=== PATIENT | female | born 1990 | race Caucasian/White ===

== ENCOUNTER 2019-09-21 05:46 | Emergency (ER) | payer MEDICARE, MEDICAID ==
[~2019-09-21] VITALS: Ht 152.4 cm; Wt 74.2 kg
[2019-09-21 05:51] VITALS: BP 123/78
[2019-09-21] MEDS ORDERED: ACET-2119 PO (17:26)
[2019-09-21] MEDS ORDERED: LEVE750T6 PO (17:26)
[2019-09-21] MEDS ORDERED: CLON0.1T2 PO (17:26)
[2019-09-21] MEDS ORDERED: TOP100T PO (17:26)
[2019-09-21] MEDS ORDERED: PROM25TA14 PO (17:26)
== END 2019-09-21 06:40 | disposition home or self-care (01) ==
LOC: ER 05:46
DX: F41.9 Anxiety disorder, unspecified (principal); F32.9 Major depressive disorder, single episode, unspecified; J45.909 Unspecified asthma, uncomplicated; Z76.0 Encounter for issue of repeat prescription; Z88.0 Allergy status to penicillin; Z91.040 Latex allergy status; Z88.1 Allergy status to other antibiotic agents; Z88.8 Allergy status to other drugs, medicaments and biological substances; Z79.899 Other long term (current) drug therapy
CPT/HCPCS: 99281

== ENCOUNTER 2019-09-21 15:26 | Emergency (ER) | payer MEDICARE, MEDICAID ==
[2019-09-21] MEDS ORDERED: LORazepam 1 MG tablet PO ONE (16:05)
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
[2019-09-21 16:46] LABS: URINE HCG NEGATIVE (NEG)
[2019-09-21 16:54] LABS: BASOPHILS % (AUTO) 0.6 % (0-1); EOSINOPHILS % (AUTO) 0.7 % (0-6); HEMATOCRIT 34.4 % (35.0-45.0); HEMOGLOBIN 11.5 g/dl (12.0-16.0); LYMPHOCYTES # (AUTO) 2.3 X10'3 (1.1-4.8); LYMPHOCYTES % (AUTO) 39.4 % (21-51); MEAN CORPUSCULAR HEMOGLOBIN 27.8 PG (27.0-31.0); MEAN CORPUSCULAR HGB CONC 33.4 g/dL (33.0-36.5); MEAN CORPUSCULAR VOLUME 83.2 FL (78-98); MEAN PLATELET VOLUME 11.1 FL (7.4-10.4); MONOCYTES # (AUTO) 1.1 X10'3 (0-0.9); MONOCYTES % (AUTO) 19.3 % (2-12); NEUTROPHILS # (AUTO) 2.3 X10'3 (1.8-7.7); PLATELET COUNT 148 X10'3 (140-440); RED BLOOD COUNT 4.13 X10'6 (4.20-5.60); RED CELL DISTRIBUTION WIDTH 13.7 % (11.5-14.5); WHITE BLOOD COUNT 5.7 X10'3 (4.5-11.0)
[2019-09-21 17:03] LABS: URINE AMPHETAMINE SCREEN NEGATIVE (Neg); URINE BARBITUATE SCREEN NEGATIVE (Neg); URINE BENZODIAZEPINES SCREEN NEGATIVE (Neg); URINE CANNABINOID SCREEN NEGATIVE (Neg); URINE COCAINE SCREEN NEGATIVE (Neg); URINE METHADONE SCREEN NEGATIVE (Neg); URINE OPIATE SCREEN POSITIVE (Neg); URINE PHENCYCLIDINE SCREEN NEGATIVE (Neg)
[2019-09-21 17:07] LABS: ALANINE AMINOTRANSFERASE 46 U/L (12-78); ALBUMIN 3.5 G/DL (3.4-5.0); ALBUMIN/GLOBULIN RATIO 1.1 (1.1-1.5); ALKALINE PHOSPHATASE 73 IU/L (46-116); ANION GAP 12 (8-16); ASPARTATE AMINO TRANSFERASE 43 U/L (10-37); BILIRUBIN,TOTAL 0.4 MG/DL (0.1-1.0); BLOOD UREA NITROGEN 17 MG/DL (7-18); BUN/CREATININE RATIO 15.9 (6.6-38.0); CALCIUM 9.4 MG/DL (8.5-10.1); CHLORIDE 109 MMOL/L (99-107); CREATININE 1.07 MG/DL (0.40-0.90); GLUCOSE 102 MG/DL (70-104); POTASSIUM 3.3 MMOL/L (3.5-5.1); SODIUM 145 MMOL/L (135-145); TOTAL CARBON DIOXIDE 23.8 MMOL/L (24-32); TOTAL PROTEIN 6.6 G/DL (6.4-8.2); eGFR 60 ML/MIN
[2019-09-21 17:11] LABS: ETHANOL < 0.010 GM/DL (0.0-0.010)
[2019-09-21] MEDS ORDERED: LORazepam 1 MG tablet PO PRN (17:20)
[2019-09-21] MEDS ORDERED: LEVE750T6 PO (17:26)
[2019-09-21] MEDS ORDERED: ACET-2119 PO (17:26)
[2019-09-21] MEDS ORDERED: CLON0.1T2 PO (17:26)
[2019-09-21] MEDS ORDERED: TOP100T PO (17:26)
[2019-09-21] MEDS ORDERED: PROM25TA14 PO (17:26)
[2019-09-21 17:30] LABS: LARGE PLATELETS FEW; PLATELET ESTIMATE NORMAL; TOTAL CELLS COUNTED 100
--- NOTE | 2019-09-21 18:42 | NUR ---
Dinner tray given to patient.
[2019-09-21] MEDS ORDERED: acetaminophen 325mg tablet PO PRN (18:50)
[2019-09-21] MEDS: cloNIDine 0.1 mg tablet PO SCH (19:56)
[2019-09-21] MEDS: levetiracetam 250mg tablet PO SCH (19:56)
[2019-09-21] MEDS: proMETHazine 25mg tablet PO SCH (19:57)
[2019-09-21] MEDS: topiramate 100mg tablet PO SCH (19:57)
--- NOTE | 2019-09-21 20:38 | NUR ---
pt refused all hs meds, pt is now sleeping, no s/s distress noted.
--- NOTE | 2019-09-21 23:33 | NUR ---
pt refused assessment, stating that she wants to sleep.
--- NOTE | 2019-09-22 00:32 | NUR ---
pt is sleeping, no s/s distress noted, will continue to monitor.
--- NOTE | 2019-09-22 01:44 | NUR ---
pt is sleeping, rr unlabored.
[2019-09-22] MEDS: proMETHazine 25mg tablet PO SCH ×3 (02:00→15:08)
--- NOTE | 2019-09-22 03:35 | NUR ---
pt continues to sleep, no signs of distress noted.
--- NOTE | 2019-09-22 07:12 | NUR ---
Pt c/o feeling suicidal this morning like she felt when she was 20 and that she thinks she may make another attempt. About ten minutes later, pt went into the bathroom and staff checked on her 5 minutes later and she was found with sock tied around her neck. Pt had not lost consciousness and was not blue. Sock was removed fairly easily and pt directed to her bed. Socks removed from pt. and light turned on above her bed so she could be monitored. notified.
--- NOTE | 2019-09-22 07:31 | NUR ---
at 0710 Dr. Thao came over to ask about the patients and round on them, as he was here asking and talking to Edilberto FOLEY, patient had went to the bathroom and locked the door. Edilberto FOLEY just told the techs Young and Sintia that she was planning on putting a sock around her neck today. So I immedediately went to the bathroom, unlocked the door, ran in and witnessed the patient sitting on the toilet with the sock around her neck I took the sock off her neck, ptaient did not want it off, I then escorted the patient back to bed with NO socks.
[2019-09-22] MEDS: cloNIDine 0.1 mg tablet PO SCH (07:49)
[2019-09-22] MEDS: topiramate 100mg tablet PO SCH (07:49)
[2019-09-22] MEDS: levetiracetam 250mg tablet PO SCH (07:50)
[2019-09-22] MEDS ORDERED: ziprasidone IM 20mg inj **IM only IM ONE (08:35)
[2019-09-22] MEDS ORDERED: LORazepam 2 mg/ml vial IM ONE (08:35)
[2019-09-22] MEDS ORDERED: diphenhydrAMINE 50 mg/ml inj IM ONE (08:35)
--- NOTE | 2019-09-22 08:59 | NUR ---
put patient on q15 vitals for restaints.
--- NOTE | 2019-09-22 09:05 | NUR ---
ID RESTING WITH EYES CLOSED RR 18. PT WAS MEDICATED WITH IM BENADRYL, ATIVAN, AND GEODON.
[2019-09-22 09:11] VITALS: BP 95/46
--- NOTE | 2019-09-22 11:00 | NUR ---
Pt out of restraints. Pt sleeping with O2 sat on at 99%. No distress noted.
[2019-09-22] MEDS ORDERED: potassium Cl 20 mEq SR tablet PO ONE (11:15)
--- NOTE | 2019-09-22 12:11 | NUR ---
Spoke to Terri RN at [facility] and gave nurse to nurse report. Terri called back and stated they do not have female bed currently and denied. Later spoke with Marisabel from [facility] to give nurse to nurse. Awaiting call back.
--- NOTE | 2019-09-22 12:56 | NUR ---
[facility] call [facility] The ride will be here at 1530. Leah phone #: [phone] Unit [address].
--- NOTE | 2019-09-22 13:00 | NUR ---
Pt continues to sleep without distress.
--- NOTE | 2019-09-22 15:00 | NUR ---
Pt laying on bed, c/o feeling suicidal. Pt willing to talk to staff and remain safe.
== END 2019-09-22 16:02 ==
LOC: ER 15:26
DX: R45.851 Suicidal ideations (principal); F41.9 Anxiety disorder, unspecified; J45.909 Unspecified asthma, uncomplicated; Z88.0 Allergy status to penicillin; Z88.1 Allergy status to other antibiotic agents; Z91.040 Latex allergy status; Z88.8 Allergy status to other drugs, medicaments and biological substances; Z79.899 Other long term (current) drug therapy
CPT/HCPCS: 36415; 80053; 80305; 80320; 81025; 84443; 85025; 96372; 99285; J1200; J2060; J3486; 99284; Q0169

== ENCOUNTER 2019-10-08 11:29 | Emergency (ER) | payer MEDICARE, MEDICAID ==
[~2019-10-08 11:29] MED LIST: ACET-2119 PO; CLON0.1T2 PO; LEVE750T6 PO; PROM25TA14 PO; TOP100T PO
[2019-10-08 11:43] VITALS: BP 118/83
[2019-10-08 12:32] LABS: URINE HCG NEGATIVE (NEG)
[2019-10-08 12:33] LABS: CLARITY,URINE CLEAR (Clear); COLOR,URINE YELLOW (Yellow); GLUCOSE, URINE NEGATIVE (Neg); KETONES,URINE NEGATIVE (Neg); LEUKOCYTE ESTERASE ,URINE NEGATIVE (Neg); NITRITES, URINE NEGATIVE (Neg); OCCULT BLOOD,URINE NEGATIVE (Neg); PROTEIN,URINE NEGATIVE (Neg); UROBILINOGEN,URINE 0.2 E.U/dL (0.2-1.0)
[2019-10-08 12:35] LABS: UA COLLECTION TYPE CLN CATCH MIDSTREAM
[2019-10-08 12:37] LABS: BASOPHILS % (AUTO) 0.7 % (0-1); HEMATOCRIT 37.4 % (35.0-45.0); HEMOGLOBIN 12.4 g/dl (12.0-16.0); LYMPHOCYTES # (AUTO) 1.9 X10'3 (1.1-4.8); LYMPHOCYTES % (AUTO) 42.5 % (21-51); MEAN CORPUSCULAR HEMOGLOBIN 27.3 PG (27.0-31.0); MEAN CORPUSCULAR HGB CONC 33.2 g/dL (33.0-36.5); MEAN CORPUSCULAR VOLUME 82.4 FL (78-98); MEAN PLATELET VOLUME 10.2 FL (7.4-10.4); MONOCYTES # (AUTO) 0.7 X10'3 (0-0.9); NEUTROPHILS # (AUTO) 1.9 X10'3 (1.8-7.7); NEUTROPHILS % (AUTO) 40.8 % (42-75); PLATELET COUNT 176 X10'3 (140-440); RED BLOOD COUNT 4.54 X10'6 (4.20-5.60); RED CELL DISTRIBUTION WIDTH 14.1 % (11.5-14.5); WHITE BLOOD COUNT 4.5 X10'3 (4.5-11.0)
[2019-10-08 12:50] LABS: ALANINE AMINOTRANSFERASE 39 U/L (12-78); ALBUMIN 3.8 G/DL (3.4-5.0); ALBUMIN/GLOBULIN RATIO 1.1 (1.1-1.5); ALKALINE PHOSPHATASE 103 IU/L (46-116); ANION GAP 10 (8-16); ASPARTATE AMINO TRANSFERASE 30 U/L (10-37); BILIRUBIN,TOTAL 0.3 MG/DL (0.1-1.0); BLOOD UREA NITROGEN 14 MG/DL (7-18); BUN/CREATININE RATIO 13.3 (6.6-38.0); CALCIUM 8.9 MG/DL (8.5-10.1); CHLORIDE 108 MMOL/L (99-107); CREATININE 1.05 MG/DL (0.40-0.90); GLUCOSE 83 MG/DL (70-104); POTASSIUM 3.5 MMOL/L (3.5-5.1); SODIUM 141 MMOL/L (135-145); TOTAL CARBON DIOXIDE 22.9 MMOL/L (24-32); TOTAL PROTEIN 7.3 G/DL (6.4-8.2); eGFR 62 ML/MIN
[2019-10-08] MEDS ORDERED: acetaminophen 325mg tablet PO ONE (12:50)
[2019-10-08 13:10] LABS: PLATELET ESTIMATE NORMAL; TOTAL CELLS COUNTED 100
[2019-10-08] MEDS ORDERED: POLY17PO10 PO (13:33)
== END 2019-10-08 13:45 | disposition home or self-care (01) ==
LOC: ER 11:31
DX: K59.00 Constipation, unspecified (principal); R10.30 Lower abdominal pain, unspecified; J45.909 Unspecified asthma, uncomplicated; Z88.0 Allergy status to penicillin; Z88.1 Allergy status to other antibiotic agents; Z91.040 Latex allergy status; Z79.899 Other long term (current) drug therapy
CPT/HCPCS: 74176; 80053; 81003; 81025; 85025; 99284

== ENCOUNTER 2019-10-08 15:48 | Emergency (ER) | payer MEDICARE, MEDICAID ==
[~2019-10-08] VITALS: Ht 152.4 cm; Wt 88.0 kg
[~2019-10-08 15:48] MED LIST changes: +POLY17PO10 PO
[2019-10-08 15:53] VITALS: BP 117/76
== END 2019-10-08 18:33 | disposition home or self-care (01) ==
LOC: ER 15:49
DX: M25.562 Pain in left knee (principal); J45.909 Unspecified asthma, uncomplicated; Z88.0 Allergy status to penicillin; Z88.1 Allergy status to other antibiotic agents; Z91.040 Latex allergy status; Z88.8 Allergy status to other drugs, medicaments and biological substances; Z79.899 Other long term (current) drug therapy
CPT/HCPCS: 73564; 99283

== ENCOUNTER 2019-10-10 11:51 | Inpatient (IN) | payer MEDICARE, MEDICAID ==
[~2019-10-10] VITALS: Ht 152.4 cm; Wt 81.5 kg
[2019-10-10] MEDS ORDERED: magnesium hydroxide 30ml (MOM) UD suspension PO PRN (12:55)
[2019-10-10] MEDS ORDERED: loperamide 2mg capsule PO PRN (12:55)
[2019-10-10] MEDS ORDERED: acetaminophen 325mg tablet PO PRN ×2 (12:55)
[2019-10-10] MEDS ORDERED: mag hydrox/Alum hydrox/simeth 30ml oral suspension PO PRN (12:55)
[2019-10-10] MEDS ORDERED: LEVE750T PO (13:36)
[2019-10-10] MEDS ORDERED: PERP4TAB11 (13:36)
[2019-10-10] MEDS ORDERED: DEXT30CA6 (13:36)
[2019-10-10] MEDS ORDERED: OLAN10TA19 (13:36)
[2019-10-10] MEDS ORDERED: TOPI200T16 (13:36)
[2019-10-10] MEDS ORDERED: OLAN20TA34 (13:36)
[2019-10-10] MEDS ORDERED: TOP100T PO (14:53)
[2019-10-10] MEDS ORDERED: MULT-685 PO (14:57)
[2019-10-10] MEDS ORDERED: FLUO-1 PO (14:57)
[2019-10-10] MEDS ORDERED: MULT-673 PO (15:02)
--- NOTE | 2019-10-10 15:24 | NUR ---
NURSING ADMIT NOTE Patient is a 28year old female admitted to [facility] ER on 10/09/19 for suicidal ideation. Patient reported that she started feeling suicidal that morning at 0955. She denies any stressors that led up to these feelings and states that she just woke up and felt that way. While in the ER patient wrapped a towel around her neck. She is unable to contract for safety and is placed on a 5150 for DTS. Patient arrived on the unit at 1306. Skin assessment completed by this RN and OG Donnelly.
[2019-10-10 16:00] VITALS: BP 109/71
[2019-10-10] MEDS ORDERED: hydrOXYzine 25 MG tablet PO PRN (18:45)
[2019-10-10 20:00] VITALS: BP 106/68
[2019-10-10] MEDS: topiramate 100mg tablet PO SCH (20:34)
[2019-10-10] MEDS: LORazepam 1 MG tablet PO PRN (20:35)
[2019-10-10] MEDS: levetiracetam 250mg tablet PO SCH (20:35)
--- NOTE | 2019-10-11 02:13 | NUR ---
Nursing Progress Note: Legal hold: 5150 Report received from nurse with use of SIVA Gutierrez RN Why are they here: Patient is a 28year old female admitted to [facility] ER on 10/09/19 for suicidal ideation. Patient reported that she started feeling suicidal that morning at 0955. She denies any stressors that led up to these feelings and states that she just woke up and felt that way. While in the ER patient wrapped a towel around her neck. She is unable to contract for safety and is placed on a 5150 for DTS. Patient arrived on the unit at 1306. Skin assessment completed by this RN and OG Donnelly. Assessment What has happened this shift: Patient is walking the halls at change of shift. She is immediately doing attention seeking behaviors, such as drinking out of the sink and repeatedly handing list of diagnosis, allergies etc to the nurse. She does report feelings of SI and with some talking, encouraging coping skills and Atarax patient is able to be calmed enough to join peers in the group room for a dice game. She is later found back in her room with her head in her sink and she would not respond to staff when asked to get head out of the sink and to not drink water that way, she would state "I can't help it, I have polydipsia.", then would put her head back in the sink. She at this time was being disruptive to her roommate and woke her roommate up. She was complaint with her HS medications and at this time patient was given Ativan due to her behaviors and failed repeated attempts to redirect patient. Patient does eventually stop and is able to be redirected to her room where VEGA Escoto sits with patient till she is able to fall asleep. S/I, H/I: Confirms feelings of SI and hopelessness, Denies HI A/VH: Denies Sleep: Currently sleeping, see sleep assessment ADL's: Independent Group attendance: No groups this shift Were meds taken: Yes Any med S/E None noted or observed Mental Status Exam Appearance: Well groomed, wearing green scrubs Eye contact: Direct Behavior: Attention seeking behaviors, sticking head in sink repeatedly stating "I can't help it, I have polydipsia.", then would put her head back in the sink, witting list and passing them out to staff, talking loudly when trying to be redirected. Speech: Clear, loud at times Mood: Labile Affect: Congruent to mood Thought process: Linear Thought Content: Focused on diagnosis, and side effects Cognition: A & Ox3 Insight: Poor Judgment: Poor Interventions PRN's used: Atarax, Ativan with good effect. Therapeutic interventions: 1:1 therapeutic assessment. Maintained a safe therapeutic milieu, provided active listening with positive reinforcement and boundaries as necessary. Provided medication administration, education and monitoring as needed. Q 15 minute checks for safety. Restraints/seclusion/emergency medication: None Justification of Continued Inpatient Treatment: Patient continues to remain a danger to herself with reports of continued suicidal thoughts. Addendum: 10/11/19 at 0336 by Tasneem Nunez RN Regarding SI: Doesn't report a plan but states "If I did something I'd lock myself in the bathroom, but your bathrooms don't lock."
[2019-10-11 07:47] LABS: HEMOGLOBIN A1C 5.4 % (4.5-6.2)
[2019-10-11] MEDS: LORazepam 1 MG tablet PO PRN ×2 (07:59→21:06)
[2019-10-11] MEDS: topiramate 100mg tablet PO SCH ×2 (07:59→20:15)
[2019-10-11] MEDS: multivitamins, therapeutics tablet PO SCH (07:59)
[2019-10-11] MEDS: FLUoxetine 20mg capsule PO SCH (07:59)
[2019-10-11] MEDS: levetiracetam 250mg tablet PO SCH ×2 (07:59→20:15)
[2019-10-11 08:55] VITALS: BP 112/72
--- NOTE | 2019-10-11 16:31 | NUR ---
Nursing Progress Note: Legal hold: 5150 Report received from nurse with use of SIVA Escoto RN Why are they here: Patient is a 28year old female admitted to [facility] ER on 10/09/19 for suicidal ideation. Patient reported that she started feeling suicidal that morning at 0955. She denies any stressors that led up to these feelings and states that she just woke up and felt that way. While in the ER patient wrapped a towel around her neck. She is unable to contract for safety and is placed on a 5150 for DTS. Patient arrived on the unit at 1306. Assessment What has happened this shift: Patient is seen ambulating in the haile at change of shift. She reports that she is unsure if she wants to go by male pronouns right now, she states that feminine pronouns are "ok". She states that she is in the very first stages of transitioning from female to male and that she prefers to be called Christopher. She is pleasant and cooperative with care. She exhibits some attention seeking behaviors. She gives this senior writer multiple lists including allergies and past medical history. She is childlike at times and requests multiple hugs throughout the morning. She gets agitated about receiving a regular breakfast tray and states that she has been a vegan since July 31, 2019. S/I, H/I: Confirms feelings of SI and hopelessness, denies having a plan, Denies HI A/VH: Denies Sleep: is up all day, does not rest during day shift ADL's: Independent Group attendance: colors and participates in groups Were meds taken: Yes Any med S/E None noted or observed Mental Status Exam Appearance: Well groomed, wearing white shirt and jeans Eye contact: Direc, intense at times Behavior: Attention seeking behaviors, drinking from the sink repeatedly stating "I can't help it, I have polydipsia." Speech: Clear, loud at times Mood: Labile Affect: Congruent to mood, childlike intermittently Thought process: Linear Thought Content: Focused on diagnosis, and side effects, allergies, polydipsia Cognition: A & Ox3 Insight: Poor Judgment: Poor Interventions PRN's used: Ativan Therapeutic interventions: 1:1 therapeutic assessment. Maintained a safe therapeutic milieu, provided active listening with positive reinforcement and boundaries as necessary. Provided medication administration, education and monitoring as needed. Q 15 minute checks for safety. Restraints/seclusion/emergency medication: None Justification of Continued Inpatient Treatment: Patient continues to remain a danger to herself with reports of continued suicidal thoughts.
[2019-10-11 19:51] VITALS: BP 101/67
[2019-10-11] MEDS: guanFACINE 1 mg tablet PO SCH (20:00)
[2019-10-11] MEDS: PALIPERIDONE 3 MG TAB.ER.24 PO SCH (20:15)
[2019-10-11] MEDS: traZODone 50mg tablet PO PRN (20:15)
--- NOTE | 2019-10-12 02:24 | NUR ---
Nursing Progress Note: Legal hold: 5150 Report received from nurse with use of SIVA Richard RN Why are they here: Patient is a 28year old female admitted to [facility] ER on 10/09/19 for suicidal ideation. Patient reported that she started feeling suicidal that morning at 0955. She denies any stressors that led up to these feelings and states that she just woke up and felt that way. While in the ER patient wrapped a towel around her neck. She is unable to contract for safety and is placed on a 5150 for DTS. Patient arrived on the unit at 1306. Assessment What has happened this shift: Patient is in her room writing at change of shift. She immediately starts reporting on having "polydipsia" and says "I cant help it" when asked to not drink out of the sink. Per day shift report patient agreed to be put on a "drinking plan" at this time one is wrote out and placed in patients room. Patient begins crying and stating "this is not fair." after the fact of agreeing to a schedule. She is able to be calmed and distracted with coloring. patient later reports wanting to harm herself and when asked to contract for safety she gets upset cries and sits on the floor of the hallway. She does eventually get up and takes a shower. She does this again before going to bed in her room she loudly states "i fell like I'm going to act on my feelings, If you leave the room I will hurt myself." She refused to report a plan at this time and just became louder when talking and started crying again. CRN came in to sit with patient, Ativan is administered at this time to help patient calm her agitation with good effect. She is compliant with HS medications. S/I, H/I: Confirms feelings of SI and hopelessness, denies having a plan, Denies HI A/VH: Denies Sleep: Currently sleeping, see sleep assessment ADL's: Independent Group attendance: No group this shift Were meds taken: Yes Any med S/E None noted or observed Mental Status Exam Appearance: Well groomed, wearing white shirt and jeans Eye contact: Direct, intense at times Behavior: Attention seeking behaviors, drinking from the sink repeatedly stating "I can't help it, I have polydipsia." Speech: Clear, loud at times Mood: Labile Affect: Congruent to mood, childlike intermittently Thought process: Linear Thought Content: Focused on diagnosis, and side effects, allergies, polydipsia Cognition: A & Ox3 Insight: Poor Judgment: Poor Interventions PRN's used: Ativan Therapeutic interventions: 1:1 therapeutic assessment. Maintained a safe therapeutic milieu, provided active listening with positive reinforcement and boundaries as necessary. Provided medication administration, education and monitoring as needed. Q 15 minute checks for safety. Restraints/seclusion/emergency medication: None Justification of Continued Inpatient Treatment: Patient continues to remain a danger to herself with reports of continued suicidal thoughts.
[2019-10-12] MEDS: PALIPERIDONE 3 MG TAB.ER.24 PO SCH ×2 (07:18→20:46)
[2019-10-12] MEDS: guanFACINE 1 mg tablet PO SCH ×2 (07:18→20:00)
[2019-10-12] MEDS: levetiracetam 250mg tablet PO SCH ×2 (07:18→20:46)
[2019-10-12] MEDS: multivitamins, therapeutics tablet PO SCH (07:19)
[2019-10-12] MEDS: docusate sod 100mg capsule PO SCH ×2 (07:19→20:45)
[2019-10-12] MEDS: topiramate 100mg tablet PO SCH ×2 (07:19→20:46)
[2019-10-12] MEDS: FLUoxetine 20mg capsule PO SCH (07:19)
[2019-10-12 08:16] VITALS: BP 103/71
--- NOTE | 2019-10-12 09:05 | NUR ---
PSYCHOSOCIAL ASSESSMENT Per chart review, Lily was recently discharged from [facility]. She has [facility] and somehow ended up in [place]. She had two ER visits at [facility] prior to being placed on a 5150 at [facility] for suicidal ideation. While in the ER she went into the bathroom and tied something around her neck, then pushed the call button. She did not have any visible chavarria on her neck. In August while at [facility] ER she wrapped a sock around her neck while in the bathroom. Lily has a long history of mental health treatment which began in childhood. She was on [employer] conservatorship for 12 years in [facility]. She reported 7 years at [facility]. She reported she has been off conservatorship for about 6 months. She reported she is homeless and would like help with housing. She has a payee at [facility]. She reported she now has "[facility]" and had complaints about [facility]. ALTON Luna Addendum: 10/12/19 at 0905 by Ember JOHNSON Amended: Links added.
--- NOTE | 2019-10-12 09:17 | NUR ---
[facility] Called [facility] to re[facility]schedule Wi's new patient appt that was today. Re-scheduled it for 10/19/19 at 11:15 am. ALTON Luna
--- NOTE | 2019-10-12 11:14 | NUR ---
[facility] Mc Julissa Dave (ph# [phone]) returned script writer's call. He reported Ct is well known in [facility] and they have set limits with her and refused to hospitalize her. He reported she has figured out that she can come to [place] to get hospitalized so that is what she has done. He reported she has secondary gain for hospitalization. He noted she was in the [facility] for 7 years at [place]. He reported she has an IQ of 75 and that she has frontal lobe brain damage. He reported he will fax records to [facility]. Mc reported he can set Ct up with follow up appointments and that her case management specialist will work with Ct's payee for get her a hotel as well upon discharge. ALTON Luna
--- NOTE | 2019-10-12 16:52 | NUR ---
Nursing Progress Note: Legal hold: 5150 DTS Report received from OG Escoto with use of SBAR Why are they here: Patient is a 28year old female admitted to [facility] ER on 10/09/19 for suicidal ideation. Patient reported that she started feeling suicidal that morning at 0955. She denies any stressors that led up to these feelings and states that she just woke up and felt that way. While in the ER patient wrapped a towel around her neck. She is unable to contract for safety and is placed on a 5150 for DTS. Assessment What has happened this shift: Pt up in the observation room talking to staff at the change of shift. Met with RN for 1:1 assessment at the bedside. Reports she's feeling irritable this AM with intermittent S/I. She readily contracted for safety with this RN. Pt making phone calls throughout the day to [facility], and is upset after talking to one of the offices. "I'm depressed... just because of the situation." Does not give any more detail. Refused to go to groups despite encouragement. Pt playful and childlike with staff, needs reminded of personal boundaries. S/I, H/I: Reports intermittent S/I, "asuncion suicidal", but verbally contracts for safety A/VH: denies, does not appear to be responding to I/S Sleep: 7.25 hours last NOC ADL's: independent Group attendance: refused group attendance despite encouragement Were meds taken: yes, compliant without prompting/encouragement Any med S/E: denies, and none observed Mental Status Exam Appearance: appropriately dressed in street clothes Eye contact: direct Behavior: calm, cooperative Speech: Clear, normal rate/rhythm Mood: "irritable" Affect: appears irritated at times Thought process: linear Thought Content: Cognition: A & Ox3 Insight: Poor Judgment: Poor Interventions PRN's used: none Therapeutic interventions: 1:1 therapeutic assessment. Maintained a safe therapeutic milieu, provided active listening with positive reinforcement and boundaries as necessary. Provided medication administration, education and monitoring as needed. Q 15 minute checks for safety. Restraints/seclusion/emergency medication: None Justification of Continued Inpatient Treatment: Patient continues to remain a danger to herself with reports of continued suicidal thoughts.
[2019-10-12 20:00] VITALS: BP 103/70
[2019-10-12] MEDS: traZODone 50mg tablet PO PRN (20:46)
--- NOTE | 2019-10-12 23:42 | NUR ---
Nursing Progress Note: Legal hold: 5150 Exp 10/13 @ 1509 Report received from OG Reynoso with use of SBAR Why are they here: Patient is a 28year old female admitted to [facility] ER on 10/09/19 for suicidal ideation. Patient reported that she started feeling suicidal that morning at 0955. She denies any stressors that led up to these feelings and states that she just woke up and felt that way. While in the ER patient wrapped a towel around her neck. She is unable to contract for safety and is placed on a 5150 for DTS. Patient arrived on the unit at 1306. Assessment What has happened this shift: Patient was visible on unit. This commercial lines underwriter introduced self and established rapport. Pt states "I am feeling suicidal, I feel like I am going to do something." This commercial lines underwriter asked pt if she had a plan. "I will hang myself." Pt and this commercial lines underwriter talked about why she was feeling this way. Pt states "I just want to ." Pt was reassured she was in safe place, pt voiced back that she felt safe here an wanted to get help." By repeating to pt that "she wanted to get help." Pt appeared to be okay with the idea that she voiced her need for help." Pt calmed down and was able to take her medication and go to sleep. Pt talked about many of her mental health admits and the different place she has been. Pt stated "this place is a good one." Pt is being monitored Q15 and is sleeping comfortably with even unlabored breathing. S/I, H/I: Confirms feelings of SI and hopelessness. Pt states "I will do, I can hang myself." Denies H/I. A/VH: None reported or observed. Sleep: Currently sleeping. No disruption of sleep as of this writing. PRN Trazadone 50mg administered. ADL's: Independent Group attendance: production supervisor off shift, no group Were meds taken: Yes, without incident Any med S/E: None reported or observed. Mental Status Exam Appearance: Well groomed, appropriately dressed in street clothes. Eye contact: Good Behavior: Cooperative, intrusive Speech: Clear, loud at times Mood: Irritable, cooperative Affect: Congruent to mood Thought process: Linear Thought Content: Many mental health admits she has had. Cognition: A & Ox3 Insight: Poor Judgment: Poor Interventions PRN's used: Trazadone Therapeutic interventions: 1:1 therapeutic assessment. Maintained a safe therapeutic milieu, provided active listening with positive reinforcement and boundaries as necessary. Provided medication administration/education/monitoring as needed. Q 15 minute checks for safety. Restraints/seclusion/emergency medication: None Justification of Continued Inpatient Treatment: Patient continues to remain a danger to herself with reports of continued suicidal thoughts. Addendum: 10/12/19 at 2344 by Nichole Ayala RN Pt likes to be called "Vinay."
[2019-10-13 08:00] VITALS: BP 97/64
[2019-10-13] MEDS: levetiracetam 250mg tablet PO SCH (08:29)
[2019-10-13] MEDS: topiramate 100mg tablet PO SCH (08:29)
[2019-10-13] MEDS: multivitamins, therapeutics tablet PO SCH (08:29)
[2019-10-13] MEDS: guanFACINE 1 mg tablet PO SCH (08:29)
[2019-10-13] MEDS: PALIPERIDONE 3 MG TAB.ER.24 PO SCH (08:29)
[2019-10-13] MEDS: docusate sod 100mg capsule PO SCH (08:29)
[2019-10-13] MEDS: FLUoxetine 20mg capsule PO SCH (08:29)
[2019-10-13] MEDS ORDERED: LEVE250T PO (11:54)
[2019-10-13] MEDS ORDERED: TEN1T PO (11:54)
[2019-10-13] MEDS ORDERED: FLUO-167 PO (11:54)
[2019-10-13] MEDS ORDERED: TOP100T PO ×2 (11:54→23:57)
[2019-10-13] MEDS ORDERED: PALI3TAB5 PO ×2 (11:54)
[2019-10-13] MEDS ORDERED: TRAZ-251 PO ×2 (11:54→23:57)
--- NOTE | 2019-10-13 12:01 | NUR ---
DISCHARGE PLAN Coordinated with [facility] for follow up appt with Dr Ferrari on 10/26/19. Ct plans to stay at the [facility] in [place]. She has $120 thompson per her report and her payee is [employer]. Ct reported she will attend appt with [facility] for follow up. Ct is goal directed and appears to be quite resourceful. ALTON Luna
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
[2019-10-13] MEDS ORDERED: FLUO20CA39 PO (23:57)
[2019-10-13] MEDS ORDERED: TEN1T CORPAK (23:57)
[2019-10-13] MEDS ORDERED: LEVE10002 PO (23:57)
[2019-10-13] MEDS ORDERED: LOPE2TAB25 PO (23:57)
[2019-10-13] MEDS ORDERED: LORA-269 PO (23:57)
[2019-10-13] MEDS ORDERED: ACET-2119 PO (23:57)
[2019-10-13] MEDS ORDERED: PALI3TAB PO ×2 (23:57)
== END 2019-10-13 13:47 | disposition short-term general hospital (02) | DRG 885 ==
LOC: ADULT MH 11:51
PROVIDERS: ADMIT Psychiatry & Neurology Psychiatry; ATTEND Psychiatry & Neurology Psychiatry
DX: F39 Unspecified mood [affective] disorder (principal); R45.851 Suicidal ideations; F84.0 Autistic disorder; F60.3 Borderline personality disorder; K59.00 Constipation, unspecified; F64.9 Gender identity disorder, unspecified; F31.9 Bipolar disorder, unspecified; F17.200 Nicotine dependence, unspecified, uncomplicated; Z88.8 Allergy status to other drugs, medicaments and biological substances; Z91.040 Latex allergy status; Z88.0 Allergy status to penicillin; Z91.013 Allergy to seafood; Z59.0 Homelessness
CPT/HCPCS: 36415; 73564; 74176; 80053; 81003; 81025; 83036; 83721; 84443; 85025; 87081; 99285; Z7610

== ENCOUNTER 2019-10-13 18:15 | Emergency (ER) | payer MEDICARE, MEDICAID ==
[~2019-10-13] VITALS: Ht 152.4 cm; Wt 83.7 kg
[~2019-10-13 18:15] MED LIST changes: -ACET-2119 PO; -CLON0.1T2 PO; +FLUO-1 PO; +FLUO-167 PO; +LEVE250T PO; +MULT-673 PO; +PALI3TAB5 PO; -POLY17PO10 PO; -PROM25TA14 PO; +TEN1T PO; +TRAZ-251 PO
--- NOTE | 2019-10-13 18:49 | NUR ---
extension service specialist in [place], updated of Pt and that she was dropped off in our ER lobby with a 5150 and left with no supervision.
--- NOTE | 2019-10-13 19:20 | NUR ---
Patient was brought back to overflow.While the tech ([email or web address]) was changing her in to green scrubs, tech ([email or web address]) asked for her shirt. Patient stated, "No I am going to choke myself with it." When asked," Is there anything I can do to help you ? Would you like to talk ?" She stated , " No." A nurse was asked assistance , and security was notified.
--- NOTE | 2019-10-13 19:20 | NUR ---
Pt. ambulated [facility] from [facility] accompainied by RN with her belongings. Inventory completed by moe, pt. refusing to give up a t-shirt. She hangs on to it and tells moe, "I want to strangle myself with it." Security called and t-shirt obtained from patient, will notifiy for possible need for increased observation. Addendum: 10/14/19 at 0307 by SOFI Pt. had shirt rolled up between both hands, but did not place to neck
--- NOTE | 2019-10-13 19:41 | NUR ---
Notified CRN of pt. statement of wanting to strangle herself with t-shirt, CRN with sage LOERA. Staff to accompany pt. to the BR at all times.
--- NOTE | 2019-10-13 19:48 | NUR ---
DR POTTS NOTIFIED OF PT ATTEMPT AT STRANGULATION.
[2019-10-13 19:59] LABS: BASOPHILS % (AUTO) 0.6 % (0-1); EOSINOPHILS % (AUTO) 0.5 % (0-6); HEMATOCRIT 39.2 % (35.0-45.0); HEMOGLOBIN 12.9 g/dl (12.0-16.0); LYMPHOCYTES # (AUTO) 2.2 X10'3 (1.1-4.8); LYMPHOCYTES % (AUTO) 38.9 % (21-51); MEAN CORPUSCULAR HEMOGLOBIN 27.2 PG (27.0-31.0); MEAN CORPUSCULAR HGB CONC 32.8 g/dL (33.0-36.5); MEAN CORPUSCULAR VOLUME 82.9 FL (78-98); MEAN PLATELET VOLUME 10.3 FL (7.4-10.4); MONOCYTES # (AUTO) 0.7 X10'3 (0-0.9); MONOCYTES % (AUTO) 12.2 % (2-12); NEUTROPHILS # (AUTO) 2.7 X10'3 (1.8-7.7); NEUTROPHILS % (AUTO) 47.8 % (42-75); PLATELET COUNT 190 X10'3 (140-440); RED BLOOD COUNT 4.73 X10'6 (4.20-5.60); RED CELL DISTRIBUTION WIDTH 14.7 % (11.5-14.5); WHITE BLOOD COUNT 5.6 X10'3 (4.5-11.0)
--- NOTE | 2019-10-13 20:00 | NUR ---
Nursing Note: Pt. compliant with admission assessments, however mood remains labile. She reports an extensive medical history and appears hyperfocused on somatic complaints. Pt. also reports a history of substance abuse including marijuana and Exstasy. She reports she was discharged from [facility] this AM and was taken to the [facility]. When at the mission she started feeling depressed and having S/I with a plan to strangle herself. When this news writer questioned pt. regarding what was causing her to have suicidal thoughts she stated, "It's pretty much from the situation I came out of in [facility]." She did not elaborate. Pt. reports a previous suicide attempt at [facility] where she tried to strangle herself with an item of clothing in the BR. She also has scabs present on her bilaterl arms r/t previous self-injurous cutting behaviors, Pt. reports she did this while hospitalized in [facility]. She denies any A/V/MANNING, however endorse paranoid delusions, states, "I feel like people are following me." Pt. presents as somewhat attention seeking and continues to yell out for staff after assessment is finished, she is somewhat redirectable.
[2019-10-13 20:10] LABS: ALANINE AMINOTRANSFERASE 36 U/L (12-78); ALBUMIN/GLOBULIN RATIO 1.1 (1.1-1.5); ALKALINE PHOSPHATASE 97 IU/L (46-116); ANION GAP 9 (8-16); ASPARTATE AMINO TRANSFERASE 27 U/L (10-37); BILIRUBIN,TOTAL 0.4 MG/DL (0.1-1.0); BLOOD UREA NITROGEN 9 MG/DL (7-18); BUN/CREATININE RATIO 8.7 (6.6-38.0); CALCIUM 9.2 MG/DL (8.5-10.1); CHLORIDE 105 MMOL/L (99-107); CREATININE 1.03 MG/DL (0.40-0.90); ETHANOL < 0.010 GM/DL (0.0-0.010); GLUCOSE 89 MG/DL (70-104); POTASSIUM 3.3 MMOL/L (3.5-5.1); SODIUM 139 MMOL/L (135-145); TOTAL CARBON DIOXIDE 25.2 MMOL/L (24-32); TOTAL PROTEIN 7.5 G/DL (6.4-8.2); eGFR 63 ML/MIN
--- NOTE | 2019-10-13 20:30 | NUR ---
Upcoming Appointment: [facility] on 10/26/18 at 1600 with 's psychiatrist, Dr. Ferrari
--- NOTE | 2019-10-13 20:35 | NUR ---
Per Anastasiia LIVINGSTON, who previously treated pt. upstairs at [facility]. Pt. has a history of developmental delay and due to this [facility] does not provided mental health services. Joe LIVINGSTON believes pt. would benefit from a behavioral shelter, will endorse to AM shift.
[2019-10-13] MEDS ORDERED: LORazepam 2 mg/ml vial IM ONE (21:20)
[2019-10-13] MEDS ORDERED: diphenhydrAMINE 50 mg/ml inj IM ONE (21:20)
[2019-10-13] MEDS ORDERED: haloperidol lactate 5mg/ml inj IM ONE (21:20)
--- NOTE | 2019-10-13 21:20 | NUR ---
Pt. becoming increasingly anxious and exhibing attention-seeking behaviors AEB continued yelling out for staff. She is unable to be redirected with active listening and positive encouragement/ensurance of safety provided by this check writer salesperson. Pt. Yells out, "I don't feel safe here!" She begins participating in self-harm behavior of scratching at her arms. Pt. continues to be un-redirectable by staff, and she refuses to take any PO anxiolytics, states, "I'm not taking any medication!" Security called for assistance, and helped to restrain pt. to prevent her from participating in any further self-injurous behaviors. No visible injuries present. Obtained order from Dr. Negro for IM Ativan 2mg, Benadryl 50mg, and Haldol 10mg. IM adminstered in pt. bilateral gluteal muscles, pt. is cooperative with rolling on her side in order to allow this check writer salesperson to administer injections. Following injections pt. is able to talk calmly with this check writer salesperson, and she is further assured of her safety on the unit and encouarged to relax and rest, pt. complies. RR even and unlabored, will continue to monitor.
[2019-10-13 21:25] LABS: URINE HCG NEGATIVE (NEG)
[2019-10-13] MEDS ORDERED: haloperidol lactate 5mg/ml inj ONE (21:30)
--- NOTE | 2019-10-13 21:30 | NUR ---
Note undone in EDM - 10/14/19 at 0131 by SOFI Pt. c/o possible withdrawal s/s AEB sweating, nausea, and she exhibits slight bilateral upper extremity fine tremors. Obtained order from Dr. Negro for 2mg of Ativan, will continue to monitor. Also reported to Dr. Negro reddened abraisions with some enduration present on pt's bilateral lower extremities. MD advises this securities underwriter to, "Have AM shift doctor follow-up." Will endorse to AM shift. Abraisions cleaned with N/S and applied ABT ointment per MD orders. Pictures obtained and placed in pt's chart.
[2019-10-13 21:35] LABS: URINE AMPHETAMINE SCREEN NEGATIVE (Neg); URINE BARBITUATE SCREEN NEGATIVE (Neg); URINE BENZODIAZEPINES SCREEN NEGATIVE (Neg); URINE CANNABINOID SCREEN NEGATIVE (Neg); URINE COCAINE SCREEN NEGATIVE (Neg); URINE METHADONE SCREEN NEGATIVE (Neg); URINE OPIATE SCREEN NEGATIVE (Neg); URINE PHENCYCLIDINE SCREEN NEGATIVE (Neg)
[2019-10-13 22:37] LABS: CLARITY,URINE CLEAR (Clear); COLOR,URINE YELLOW (Yellow); GLUCOSE, URINE NEGATIVE (Neg); KETONES,URINE NEGATIVE (Neg); LEUKOCYTE ESTERASE ,URINE NEGATIVE (Neg); NITRITES, URINE NEGATIVE (Neg); OCCULT BLOOD,URINE NEGATIVE (Neg); PROTEIN,URINE NEGATIVE (Neg); UROBILINOGEN,URINE 0.2 E.U/dL (0.2-1.0)
[2019-10-13 22:49] LABS: UA COLLECTION TYPE CLN CATCH MIDSTREAM
--- NOTE | 2019-10-13 23:00 | NUR ---
Pt. asleep at this time, makes slight body adjustments, rr even and ulabored.
[2019-10-13] MEDS ORDERED: LEVE10002 PO (23:57)
[2019-10-13] MEDS ORDERED: PALI3TAB PO ×2 (23:57)
[2019-10-13] MEDS ORDERED: FLUO20CA39 PO (23:57)
[2019-10-13] MEDS ORDERED: TEN1T CORPAK (23:57)
[2019-10-13] MEDS ORDERED: ACET-2119 PO (23:57)
[2019-10-13] MEDS ORDERED: LORA-269 PO (23:57)
[2019-10-13] MEDS ORDERED: TRAZ-251 PO (23:57)
[2019-10-13] MEDS ORDERED: LOPE2TAB25 PO (23:57)
[2019-10-13] MEDS ORDERED: TOP100T PO (23:57)
--- NOTE | 2019-10-14 01:05 | NUR ---
Pt. continues to sleep, laying on her right side at this time, rr even and ulabored.
--- NOTE | 2019-10-14 03:28 | NUR ---
Pt. continues to sleep, laying on her left side at this time, rr even and unlabored. Visible to staff from nurse's station, will continue to monitor.
[2019-10-14] MEDS ORDERED: loperamide 2mg capsule PO PRN (04:20)
--- NOTE | 2019-10-14 05:25 | NUR ---
Pt. sleeping at this time, laying on her rt. side, rr even and unlabored, will continue to monitor. Addendum: 10/14/19 at 0527 by SOFI Pt. remains in sight of nurse's station, will endorse to AM shift the need to be accompanied by a female staff member to the bathroom r/t safety precautions.
--- NOTE | 2019-10-14 05:33 | NUR ---
SAFETY PRECAUTIONS: must be accompanied by a female staff member to the bathroom r/t safety precautions.
--- NOTE | 2019-10-14 05:39 | NUR ---
SAFETY PRECAUTIONS: Pt. given no socks r/t safety precautions
--- NOTE | 2019-10-14 07:52 | NUR ---
Pt awake, asking why pattern chart writer is sitting at her bedside. Pt educated and states "this sucks".
[2019-10-14] MEDS: levetiracetam 250mg tablet PO SCH ×2 (08:31→20:07)
[2019-10-14] MEDS: PALIPERIDONE 3 MG TAB.ER.24 PO SCH ×2 (08:31→20:07)
[2019-10-14] MEDS: FLUoxetine 20mg capsule PO SCH (08:31)
--- NOTE | 2019-10-14 09:09 | NUR ---
CONSUMED 100% OF BREAKFAST AND RETAINED. 1:1 AIDE AT BEDSIDE. UP TO BATHROOM TO CHANGE SCRUBS. INCONTINENT OF SMALL AMOUNT STOOL.
--- NOTE | 2019-10-14 09:53 | NUR ---
OBSERVED PT PLACE HER HANDS AROUND HER NECK, ASKED PT 3 TIMES TO REMOVE HER HANDS FROM HER NECK. SECURITY CALLED, TECHS ASSISTED WITH REMOVAL OF HANDS. PT PLACED IN 2 POINT RESTRAINTS. PT EDUCATED, RN AT BEDSIDE.
[2019-10-14] MEDS ORDERED: LORazepam 2 mg/ml vial IM ONE (10:00)
[2019-10-14] MEDS ORDERED: haloperidol lactate 5mg/ml inj IM ONE (10:00)
[2019-10-14] MEDS ORDERED: diphenhydrAMINE 50 mg/ml inj IM ONE (10:00)
--- NOTE | 2019-10-14 10:05 | NUR ---
PT CONTINUES TO STATE "SHE DOESNT WANT TO BE IN THESE" (RESTRAINTS). PT EDUCATED THEY'RE FOR HER SAFETY. PT COMPLIANT.
--- NOTE | 2019-10-14 10:10 | NUR ---
PT REPORTS SHE IS HEARING VOICES TELLING HER TO KILL HERSELF, RN AWARE.
--- NOTE | 2019-10-14 10:30 | NUR ---
SOFT WRIST RESTRAINTS INTACT FOR BEHAVIORAL REASONS. MEDICATED ORDERED PER ER PROVIDER. PATIENT RESPONSIVE TO VERBAL DISCUSSION WITH STAFF AT THIS TIME.
--- NOTE | 2019-10-14 13:30 | NUR ---
AWAKENED FOR LUNCH. BACK TO SLEEP AFTER TOLERATING DIET WELL.
--- NOTE | 2019-10-14 15:56 | NUR ---
ASLEEP IN BED WITH SITTER AT THE BEDSIDE. SIDERAILS UP X 2. PATIENT IS VISIBLE FROM NURSES STATION. CALM AT THIS TIME. RESP UNLABORED.
--- NOTE | 2019-10-14 16:14 | NUR ---
REMAINS ASLEEP IN BED WITH 1:1 SITTER AT THE BEDSIDE. RESP UNLABORED. CALM WITHOUT DISTRESS NOTED AT THIS TIME.
--- NOTE | 2019-10-14 16:39 | NUR ---
Notified TAD office Julee that pt is awake and she can appropriately be interviewed. Will continue to monitor.
[2019-10-14] MEDS: LORazepam 1 MG tablet PO PRN (18:13)
--- NOTE | 2019-10-14 18:19 | NUR ---
Assumed care of patient, pt. laying in bed requesting dinner at this time. Remains on a 1:1. Received in report that patient had been making suicidal statements and had diarrhea episodes, X2. Medicated with Ativan and Immodium at this time, will continue to monitor.
--- NOTE | 2019-10-14 18:45 | NUR ---
Pt. coughing and c/o needing her inhaler she brought in with her to ER. Obtained order from Dr. Parada for PRN order. However, when returned pt. was sleeping, will continue to monitor.
--- NOTE | 2019-10-14 19:27 | NUR ---
Pt. awakens and continues to cough, RT at bedside, will continue to monitor.
[2019-10-14] MEDS: albuterol 2.5 MG/3 ML nebule NEB PRN (19:30)
[2019-10-14] MEDS: traZODone 50mg tablet PO PRN (20:07)
[2019-10-14] MEDS: acetaminophen 325mg tablet PO PRN (20:08)
--- NOTE | 2019-10-14 20:25 | NUR ---
Nursing Note: Pt. cooperative with all HS medications, rr even and unlabored and BT effective. Pt. continues to report S/I with a plan to strangle herself, she remains on 1:1 observation for safety. When questioned by staff regarding the cause of her S/I pt. stated, "Remembering my past, depression, anxiety, and fear." Pt. also reports that she has social anxiety and becomes paranoid in social situations. She continues to exhibit what appear to be attention-seeking behaviors at times and makes occassional somatic complaints (reports her throat is sore at this time). PRN Tylenol administered, will monitor. PRN Trazodone administered as well r/t pt. c/o insomnia. Pt. mood continues to be labile, however she is able to engage in appropriate conversation with this underwriter mortgage loan, and she occassionally smiles and laughs. No self-injurous behaviors exhibited, and pt. is ensured of her safety by staff. Appears to be resting comfortably at this time, will monitor.
--- NOTE | 2019-10-14 22:32 | NUR ---
Pt. asleep, laying on her left side, rr even and unlabored. Continues to be monitored for safety.
--- NOTE | 2019-10-15 00:02 | NUR ---
Pt. continues to sleep, laying on her left side, makes slight body adjustments, rr even and unlabored.
--- NOTE | 2019-10-15 02:04 | NUR ---
Pt. continues to sleep at this time, appears to be resting comfortably, will continue to monitor for safety.
--- NOTE | 2019-10-15 04:02 | NUR ---
Pt. continues to sleep, rr even and unlabored, continue to monitor for safety.
--- NOTE | 2019-10-15 05:49 | NUR ---
Pt. sleeping on her rt. side at this time, rr even and unlabored, continues to be closesly monitored for safety precautions.
[2019-10-15] MEDS: LORazepam 1 MG tablet PO PRN ×3 (07:13→22:15)
[2019-10-15] MEDS: FLUoxetine 20mg capsule PO SCH (07:13)
[2019-10-15] MEDS: levetiracetam 250mg tablet PO SCH ×2 (07:13→22:15)
[2019-10-15] MEDS: PALIPERIDONE 3 MG TAB.ER.24 PO SCH ×2 (07:13→22:15)
--- NOTE | 2019-10-15 07:30 | NUR ---
patient prefers to be called "Jim"
[2019-10-15] MEDS: albuterol 2.5 MG/3 ML nebule NEB PRN (07:37)
[2019-10-15] MEDS: acetaminophen 325mg tablet PO PRN (09:47)
--- NOTE | 2019-10-15 09:50 | NUR ---
Pt c/o chest pressure to left chest, heavy and constant. vss. ekg done and normal, shown to Dr Bhat. No further w/u indicated. Given tylenol for pain.
--- NOTE | 2019-10-15 12:36 | NUR ---
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 Discussed us limiting her fluid intake for her
--- NOTE | 2019-10-15 16:40 | NUR ---
PT TOOK OFF HER SCRUB TOP WHILE HIDING UNDER HER BLANKETS. WHEN APPROACHED BY STAFF, PT ATTEMPTED TO TIE SCRUB TOP AROUND HER NECK IN AN ATTEMPT TO CHOKE HERSELF. SCRUB TOP WAS REMOVED FROM PATIENT AND RN NOTIFIED.
[2019-10-15] MEDS ORDERED: OLANZapine 5mg rapidly disint. tablet PO ONE (16:55)
--- NOTE | 2019-10-15 18:12 | NUR ---
Patient placed briefly in wrist restraints secondary to attempting to strangle herself with her scrub shirt. Security called to assist. Dr Bhat notified immediately and came to evaluate. Pt given po zyprexa and willing took. Restraints released shortly after and has been able to follow safety commands. States she is sleepy.
--- NOTE | 2019-10-15 18:30 | NUR ---
Received report and assumed care of patient from OG Cochran.
--- NOTE | 2019-10-15 21:18 | NUR ---
The patient is sleeping on her left side. RR unlabored. No s/s of distress.
[2019-10-15] MEDS: traZODone 50mg tablet PO PRN (22:15)
--- NOTE | 2019-10-16 01:52 | NUR ---
Patient is asleep on her left side. RR unlabored. No s/s of distress.
--- NOTE | 2019-10-16 03:43 | NUR ---
Patient is asleep on her right side. RR unlabored. No s/s of distress.
--- NOTE | 2019-10-16 05:08 | NUR ---
Patient is asleep on her right side. RR unlabored. No s/s of distress.
[2019-10-16] MEDS: FLUoxetine 20mg capsule PO SCH (08:30)
[2019-10-16] MEDS: PALIPERIDONE 3 MG TAB.ER.24 PO SCH ×2 (08:30→20:11)
[2019-10-16] MEDS: levetiracetam 250mg tablet PO SCH ×2 (08:30→20:11)
[2019-10-16] MEDS: albuterol 2.5 MG/3 ML nebule NEB PRN (14:10)
[2019-10-16] MEDS ORDERED: acetaminophen 325mg tablet PO ONE ×2 (16:30→16:40)
--- NOTE | 2019-10-16 18:40 | NUR ---
The patient has just been brought a dinner tray and is sitting at bedside eating.
[2019-10-16] MEDS: traZODone 50mg tablet PO PRN (20:11)
[2019-10-16] MEDS: LORazepam 1 MG tablet PO PRN (20:11)
[2019-10-16] MEDS: acetaminophen 325mg tablet PO PRN (20:12)
--- NOTE | 2019-10-16 21:04 | NUR ---
The patient c/o back pain. "I can't walk." States that she needs to be helped. even though she has been walking the whole time she's been here.
--- NOTE | 2019-10-16 23:39 | NUR ---
The patient is sleeping on her right side. RR even and unlabored. No s/s of distress.
--- NOTE | 2019-10-17 02:12 | NUR ---
The patient is sleeping on her right side. RR even and unlabored. No s/s of distress.
--- NOTE | 2019-10-17 04:55 | NUR ---
The patient continues to sleep.
[2019-10-17 06:18] VITALS: BP 99/58
--- NOTE | 2019-10-17 06:56 | NUR ---
Received report from night RN. Received Pt in bed sleeping in bed w/o distress.
--- NOTE | 2019-10-17 07:21 | NUR ---
Pt is asleep, in no apparent distress.
[2019-10-17] MEDS: levetiracetam 250mg tablet PO SCH (08:21)
[2019-10-17] MEDS: PALIPERIDONE 3 MG TAB.ER.24 PO SCH (08:21)
[2019-10-17] MEDS: FLUoxetine 20mg capsule PO SCH (08:21)
--- NOTE | 2019-10-17 09:38 | NUR ---
Pt awoke and ate breakfast. Pleasant and cooperative with this RN during AM med s and used the telephone to make a call. Pt continues to endorse SI. She returned to sleep and remains resting.
== END 2019-10-17 13:17 ==
LOC: ER 18:16
DX: R45.851 Suicidal ideations (principal); R07.89 Other chest pain; J45.909 Unspecified asthma, uncomplicated; R79.1 Abnormal coagulation profile; E11.9 Type 2 diabetes mellitus without complications; Z88.0 Allergy status to penicillin; Z88.1 Allergy status to other antibiotic agents; Z88.8 Allergy status to other drugs, medicaments and biological substances; Z91.040 Latex allergy status; Z91.013 Allergy to seafood; Z88.6 Allergy status to analgesic agent; Z79.899 Other long term (current) drug therapy
CPT/HCPCS: 36415; 80053; 80305; 80320; 81003; 81025; 85025; 94640; 96372; 99285; J1200; J1630; J2060

== ENCOUNTER 2019-10-29 11:33 | Emergency (ER) | payer MEDICARE, MEDICAID ==
[~2019-10-29] VITALS: Ht 154.9 cm; Wt 90.0 kg
[~2019-10-29 11:33] MED LIST changes: +ACET-2119 PO; -FLUO-1 PO; -FLUO-167 PO; +FLUO20CA39 PO; +LEVE10002 PO; -LEVE250T PO; -LEVE750T6 PO; +LOPE2TAB25 PO; +LORA-269 PO; -MULT-673 PO; +PALI3TAB PO; -PALI3TAB5 PO; +TEN1T CORPAK; -TEN1T PO
[2019-10-29 12:29] LABS: CLARITY,URINE SLIGHTLY CLOUDY (Clear); COLOR,URINE YELLOW (Yellow); GLUCOSE, URINE NEGATIVE (Neg); KETONES,URINE TRACE mg/dl (Neg); LEUKOCYTE ESTERASE ,URINE MODERATE (Neg); NITRITES, URINE NEGATIVE (Neg); OCCULT BLOOD,URINE TRACE-INTACT (Neg); PH,URINE 5.5 (4.8-8.0); PROTEIN,URINE TRACE mg/dl (Neg); UROBILINOGEN,URINE 0.2 E.U/dL (0.2-1.0)
[2019-10-29 12:33] LABS: UA COLLECTION TYPE CLN CATCH MIDSTREAM
[2019-10-29 12:35] LABS: BACTERIA,URINE 2+ /HPF (Neg); MUCUS STRANDS MODERATE /LPF (Neg); RBC,URINE 0-2 /HPF (0-2); SQUAMOUS EPITHELIAL CELL,UR MODERATE /LPF (FEW)
[2019-10-29 12:37] LABS: URINE AMPHETAMINE SCREEN NEGATIVE (Neg); URINE BARBITUATE SCREEN NEGATIVE (Neg); URINE BENZODIAZEPINES SCREEN NEGATIVE (Neg); URINE CANNABINOID SCREEN NEGATIVE (Neg); URINE COCAINE SCREEN NEGATIVE (Neg); URINE METHADONE SCREEN NEGATIVE (Neg); URINE OPIATE SCREEN NEGATIVE (Neg); URINE PHENCYCLIDINE SCREEN NEGATIVE (Neg)
[2019-10-29 12:40] LABS: URINE HCG NEGATIVE (NEG)
[2019-10-29 13:00] LABS: BASOPHILS % (AUTO) 0.2 % (0-1); EOSINOPHILS % (AUTO) 0.6 % (0-6); HEMATOCRIT 35.7 % (35.0-45.0); HEMOGLOBIN 11.9 g/dl (12.0-16.0); LYMPHOCYTES # (AUTO) 1.2 X10'3 (1.1-4.8); LYMPHOCYTES % (AUTO) 17.5 % (21-51); MEAN CORPUSCULAR HEMOGLOBIN 27.2 PG (27.0-31.0); MEAN CORPUSCULAR HGB CONC 33.5 g/dL (33.0-36.5); MEAN CORPUSCULAR VOLUME 81.2 FL (78-98); MEAN PLATELET VOLUME 10.2 FL (7.4-10.4); MONOCYTES # (AUTO) 0.9 X10'3 (0-0.9); NEUTROPHILS # (AUTO) 4.7 X10'3 (1.8-7.7); NEUTROPHILS % (AUTO) 68.7 % (42-75); PLATELET COUNT 160 X10'3 (140-440); RED BLOOD COUNT 4.39 X10'6 (4.20-5.60); RED CELL DISTRIBUTION WIDTH 15.5 % (11.5-14.5); WHITE BLOOD COUNT 6.8 X10'3 (4.5-11.0)
[2019-10-29 13:16] LABS: ALANINE AMINOTRANSFERASE 24 U/L (12-78); ALBUMIN 3.2 G/DL (3.4-5.0); ALKALINE PHOSPHATASE 75 IU/L (46-116); ANION GAP 11 (8-16); ASPARTATE AMINO TRANSFERASE 20 U/L (10-37); BILIRUBIN,TOTAL 0.4 MG/DL (0.1-1.0); BLOOD UREA NITROGEN 15 MG/DL (7-18); BUN/CREATININE RATIO 13.4 (6.6-38.0); CALCIUM 8.7 MG/DL (8.5-10.1); CHLORIDE 109 MMOL/L (99-107); CREATININE 1.12 MG/DL (0.40-0.90); GLUCOSE 103 MG/DL (70-104); POTASSIUM 3.9 MMOL/L (3.5-5.1); SODIUM 143 MMOL/L (135-145); TOTAL PROTEIN 6.4 G/DL (6.4-8.2); eGFR 57 ML/MIN
--- NOTE | 2019-10-29 13:30 | NUR ---
PATIENT REPORTS BEING CONSERVED FOR MOST OF HER LIFE UNTIL WITHIN THE LAST YEAR. PATIENT HAD SEIZURES AN AND WAS FOLLOWED BY [facility] UNTIL CHILDHOOD. SHE SPENT SEVEN YEARS IN [place] AND NOW STATES HER DISLIKE FOR [place] OVER OTHER PLACES WHERE SHE WAS INSTITUTIONALIZED IN [place]. PATIENT IS FROM [facility]. SHE STATES THAT SHE LAST LIVED WITH HER FATHER BUT DOES NOT WANT TO GO BACK TO LIVE WITH HER FATHER. PATIENT REPORTS BEING AT [facility] IN [place] FROM10/17-10/24/19. PATIENT STATES SHE WAS RELEASED FROM [facility] AT [facility] ON 10/13/19 AND WAS IN [place] AT AN [facility] IN AUGUST 2019.
--- NOTE | 2019-10-29 13:30 | NUR ---
WOUND PICTURES TAKEN OF PT RIGHT AND LEFT FOREARM AND PLACED ON CHART
[2019-10-29] MEDS ORDERED: morphine 4 MG/ML inj SYRINge IM ONE (13:35)
[2019-10-29] MEDS ORDERED: ondansetron 4mg rapidly disintigrating tab PO ONE (13:35)
--- NOTE | 2019-10-29 13:35 | NUR ---
PT REPORT [facility] 9/10 ABD PAIN AND VOMITTED AFTER EATING CARROTS, DR MO INFORMED AND PUTTING ORDERS IN TO CT SCAN PT, AND MEDS FOR NAUSEA AND PAIN. PRIMARY NURSE DEB INFORMED.
--- NOTE | 2019-10-29 13:40 | NUR ---
WITH LIGHT PALPATION PATIENT REPORTS LEFT LOWER QUADRANT PAIN AND REFUSED MORPHINE DUE TO HX OF OPIATE ADDICTION PER PATIENT. LAST USE OF PERCOCET IN 08/2019
[2019-10-29] MEDS ORDERED: LORazepam 1 MG tablet PO ONE (14:50)
[2019-10-29] MEDS ORDERED: FLUoxetine 20mg capsule PO STA (15:03)
[2019-10-29] MEDS ORDERED: levetiracetam 250mg tablet PO ONE (15:05)
[2019-10-29] MEDS ORDERED: acetaminophen 325mg tablet PO ONE (15:10)
[2019-10-29] MEDS ORDERED: haloperidol 5mg tablet PO ONE (15:10)
[2019-10-29] MEDS: levetiracetam 250mg tablet PO SCH (20:34)
--- NOTE | 2019-10-29 21:00 | NUR ---
Pt hard to awake to comply with med administration. Attempted several times and she complied.
--- NOTE | 2019-10-29 22:00 | NUR ---
Pt resting quietly, respirations normal, no s/s of distress.
--- NOTE | 2019-10-29 23:00 | NUR ---
Pt resting quietly, respirations normal, no s/s of distress.
--- NOTE | 2019-10-30 00:37 | NUR ---
Pt resting quietly, respirations normal, no s/s of distress. Sitter near pt at bedside.
--- NOTE | 2019-10-30 06:52 | NUR ---
pt is resting in bed. sitter at bedside
--- NOTE | 2019-10-30 08:00 | NUR ---
pt talking with [facility]
[2019-10-30] MEDS: levetiracetam 250mg tablet PO SCH ×2 (08:39→19:29)
[2019-10-30] MEDS: FLUoxetine 20mg capsule PO SCH (08:40)
--- NOTE | 2019-10-30 09:00 | NUR ---
pt resting in bed
--- NOTE | 2019-10-30 10:00 | NUR ---
pt is laying in bed. pt is interacting with staff
[2019-10-30] MEDS ORDERED: PALI117D IM (10:08)
[2019-10-30] MEDS ORDERED: acetaminophen 325mg tablet PO PRN (10:50)
--- NOTE | 2019-10-30 11:03 | NUR ---
pt began digging into the wound on her arm. wound began to bleed. pt asked to stop numberness times and refused. nurse applied dressing to arm. pt immediately tried to take the dressing off. the pt then started becoming agitated with staff. pt was offered to get up and ambulate to get her mind off of the sitution. pt just keeps repeating no i want to kill myself and messing with her wound. pt placed in suleiman wrist soft restraints.
--- NOTE | 2019-10-30 11:32 | NUR ---
restraints removed. pt has agreed to stop picking at her wound
[2019-10-30] MEDS: PALIPERIDONE 3 MG TAB.ER.24 PO SCH (11:36)
[2019-10-30] MEDS: LORazepam 1 MG tablet PO PRN ×2 (11:36→19:30)
--- NOTE | 2019-10-30 12:00 | NUR ---
pt sleeing in her room
--- NOTE | 2019-10-30 13:00 | NUR ---
pt is resting in bed. pt has settled down
--- NOTE | 2019-10-30 14:00 | NUR ---
pt is in a much better mood. laugh and joking with staff
--- NOTE | 2019-10-30 15:00 | NUR ---
pt sitting up in bed
--- NOTE | 2019-10-30 16:03 | NUR ---
pt is resting in bed.
--- NOTE | 2019-10-30 17:00 | NUR ---
pt is talking with staff
--- NOTE | 2019-10-30 18:45 | NUR ---
PT is sitting up in bed eating. Pt is cooperative with 1:1. States she is suicidal and would overdose on "whatever I can."
[2019-10-30] MEDS: traZODone 50mg tablet PO PRN (19:30)
[2019-10-30] MEDS ORDERED: LEVETIRACETAM PO SCH (20:00)
--- NOTE | 2019-10-30 20:00 | NUR ---
PT is medication compliant, given PRN ativan 1mg and trazodone 50mg. pt states she is feeling" really anxious."
--- NOTE | 2019-10-30 21:00 | NUR ---
Pt states, "my butthole lopez because I pooped out hot coal and it gave me rash in my genitals, I want cream for it." Pt given generic cream from [facility] which appeased her.
--- NOTE | 2019-10-30 23:04 | NUR ---
Pt sleeping on L side, RR WNL.
--- NOTE | 2019-10-31 00:41 | NUR ---
P sleeping , lying on her left side with blankets dovering to her shouders. RR 14 and unlabored. Sitter and RN within view of Pt AAT.
--- NOTE | 2019-10-31 03:38 | NUR ---
PT resting on back, RR 12, no signs or symptoms of distress at this time.
--- NOTE | 2019-10-31 05:07 | NUR ---
PT asleep in bed RR 16.
--- NOTE | 2019-10-31 06:26 | NUR ---
Patient sleeping on left side. No distress observed. Continue to monitor.
[2019-10-31] MEDS ORDERED: FLUoxetine 20mg capsule PO SCH (08:00)
--- NOTE | 2019-10-31 08:10 | NUR ---
Patient awake and alert and talkative. Patient asked RN "how come you won't give me extra meds to overdose on?". RN advised patient that we are here to keep her safe. Patient laughs. Patient needed to use the bathroom. RN escorted patient to bathroom and was with patient when she urinated. No distress observed. Continue to monitor.
--- NOTE | 2019-10-31 08:25 | NUR ---
Note deep in EDM - 10/31/19 at 1311 by EDEN Patient tearful when speaking to RN. Patient states she feels isolated because of her scabies. Patient was kicked out of her living situation due to scabies. Patient states people are being mean to her on purpose. RN advised patient that she knows the overnight cashier RN and she would never be intentionally mean to someone. Patient stated that she (Antoinette) was nice. "but not the day shift people". Patient wants to make a complaint. RN spoke to Elissa, Director, who stated she would speak to her later in the morning as she has a meeting to go to. Continue to monitor.
[2019-10-31] MEDS: PALIPERIDONE 3 MG TAB.ER.24 PO SCH (08:30)
[2019-10-31] MEDS: FLUoxetine 20mg capsule PO SCH (08:30)
[2019-10-31] MEDS: levetiracetam 250mg tablet PO SCH ×2 (08:31→19:35)
--- NOTE | 2019-10-31 10:17 | NUR ---
Patient laying supine with her eyes closed. No distress observed. Continue to monitor.
--- NOTE | 2019-10-31 10:55 | NUR ---
Patient speaking on the phone attempting to workout her care (patient calling [facility]). Patient calling multiple numbers and speaking to multiple people. No distress observed. Continue to monitor.
--- NOTE | 2019-10-31 11:10 | NUR ---
Note deep in EDM - 10/31/19 at 1310 by EDEN Patient's bilingual social worker brought in patient's back pack with items and medications. RN took meds to pharmacy for safe keekping. Patient to be given her own medication. Patient tearful when speaking to bilingual social worker. Continue to monitor.
--- NOTE | 2019-10-31 12:10 | NUR ---
Patient conversing with staff. No distress observed. Continue to monitor.
--- NOTE | 2019-10-31 13:20 | NUR ---
Patient eating. No distress observed. Continue to monitor.
--- NOTE | 2019-10-31 14:30 | NUR ---
Patient getting cleaned up in her room with moe Patricio. No distress observed. Continue to monitor.
--- NOTE | 2019-10-31 16:05 | NUR ---
Patient having attention seeking behaviors. Gets louder if any other patient is getting attention. Continue to monitor.
[2019-10-31 17:35] VITALS: BP 107/68
--- NOTE | 2019-10-31 17:36 | NUR ---
Patient states she is having pain. Last time she had this type of pain her kidneys were shutting down. Patient in no apparent distress. Continue to monitor.
[2019-10-31] MEDS: LORazepam 1 MG tablet PO PRN (19:35)
--- NOTE | 2019-10-31 19:47 | NUR ---
One to one with the patient to assess severity of depressive symptoms and self harm risk. She is calling out to staff frequently to have conversations. She is somatically preoccupied about her kidneys, needing a swallow study etc. She is easially redirected.She is very suggestable and if any physical symptom etc is asked of her she claims to have it. She continues to report suicidal thoughts with a plan to take an overdose. When asked if she has ever had hallucinations she replied, "I'm starting to"
[2019-10-31] MEDS: traZODone 50mg tablet PO PRN (20:11)
--- NOTE | 2019-10-31 21:17 | NUR ---
The patient has been accepted at [facility] [place] per [facility] and will be picked up in the am.
--- NOTE | 2019-10-31 21:41 | NUR ---
The patient appears to be sleeping
--- NOTE | 2019-10-31 23:34 | NUR ---
The patient appears to be sleeping
--- NOTE | 2019-11-01 01:50 | NUR ---
The patient appears to be sleeping
--- NOTE | 2019-11-01 04:43 | NUR ---
The patient appeared to have slept well during the night
[2019-11-01] MEDS: FLUoxetine 20mg capsule PO SCH (08:10)
[2019-11-01] MEDS: PALIPERIDONE 3 MG TAB.ER.24 PO SCH (08:10)
[2019-11-01] MEDS: levetiracetam 250mg tablet PO SCH (08:12)
--- NOTE | 2019-11-01 08:13 | NUR ---
PT IS AWAKE, AM MEDICATIONS GIVEN. PT NOTIFIED THAT SHE WILL BE GOING TO [facility] THIS AM. WOUND ON RT FOREARM IS HEALING, SL DRAINAGE NOTED ON BANDAIDS. WOUND CLEANED AND REDRESSED.
--- NOTE | 2019-11-01 08:26 | NUR ---
SAFETY BREAKFAST TRAY DELIVERED TO BEDSIDE. PT SITTING UP IN BED EATING.
--- NOTE | 2019-11-01 10:30 | NUR ---
[facility] CALLED, ACCEPTING PRACTITIONER IS NURSE MARTÍNEZ WITH PICKUP AT 1145 THIS AM. [facility] OFFICE FOLLOW-UP CALL TO CHANGE PICKUP TIME TO 1245 THIS AFTERNOON
== END 2019-11-01 12:55 ==
LOC: ER 11:33
DX: F29 Unspecified psychosis not due to a substance or known physiological condition (principal); R11.10 Vomiting, unspecified; R10.32 Left lower quadrant pain; J45.909 Unspecified asthma, uncomplicated; E11.9 Type 2 diabetes mellitus without complications; F32.9 Major depressive disorder, single episode, unspecified; F25.9 Schizoaffective disorder, unspecified; F60.3 Borderline personality disorder; F90.9 Attention-deficit hyperactivity disorder, unspecified type; Z88.0 Allergy status to penicillin; Z88.1 Allergy status to other antibiotic agents; Z91.040 Latex allergy status; Z88.8 Allergy status to other drugs, medicaments and biological substances; Z79.899 Other long term (current) drug therapy
CPT/HCPCS: 36415; 74176; 76856; 80053; 80305; 81001; 81025; 82948; 85025; 87088; 99284

== ENCOUNTER 2019-11-19 07:02 | Emergency (ER) | payer MEDICARE, MEDICAID ==
[~2019-11-19] VITALS: Ht 154.9 cm; Wt 80.0 kg
[~2019-11-19 07:02] MED LIST changes: -LOPE2TAB25 PO; +PALI117D IM; -TEN1T CORPAK; -TOP100T PO
[2019-11-19] MEDS ORDERED: ondansetron/PF 4mg/2ml inj IV ONE (07:40)
[2019-11-19] MEDS ORDERED: ketorolac trometh. 30mg/ml inj. IV ONE (07:40)
[2019-11-19] MEDS ORDERED: normal saline 1000ml 1,000 ML IV ONE (07:40)
[2019-11-19 07:49] LABS: CLARITY,URINE CLOUDY (Clear); COLOR,URINE YELLOW (Yellow); GLUCOSE, URINE NEGATIVE (Neg); KETONES,URINE NEGATIVE (Neg); LEUKOCYTE ESTERASE ,URINE TRACE (Neg); NITRITES, URINE NEGATIVE (Neg); OCCULT BLOOD,URINE TRACE-INTACT (Neg); PROTEIN,URINE NEGATIVE (Neg); URINE HCG NEGATIVE (NEG); UROBILINOGEN,URINE 0.2 E.U/dL (0.2-1.0)
[2019-11-19 07:50] LABS: BASOPHILS % (AUTO) 0.6 % (0-1); EOSINOPHILS % (AUTO) 0.8 % (0-6); HEMATOCRIT 34.3 % (35.0-45.0); HEMOGLOBIN 11.4 g/dl (12.0-16.0); LYMPHOCYTES # (AUTO) 1.2 X10'3 (1.1-4.8); LYMPHOCYTES % (AUTO) 26.9 % (21-51); MEAN CORPUSCULAR HEMOGLOBIN 26.9 PG (27.0-31.0); MEAN CORPUSCULAR HGB CONC 33.2 g/dL (33.0-36.5); MEAN CORPUSCULAR VOLUME 80.9 FL (78-98); MEAN PLATELET VOLUME 9.4 FL (7.4-10.4); MONOCYTES # (AUTO) 0.6 X10'3 (0-0.9); MONOCYTES % (AUTO) 13.2 % (2-12); NEUTROPHILS # (AUTO) 2.6 X10'3 (1.8-7.7); NEUTROPHILS % (AUTO) 58.5 % (42-75); PLATELET COUNT 187 X10'3 (140-440); RED BLOOD COUNT 4.23 X10'6 (4.20-5.60); WHITE BLOOD COUNT 4.5 X10'3 (4.5-11.0)
[2019-11-19 07:51] LABS: UA COLLECTION TYPE CLN CATCH MIDSTREAM
[2019-11-19 07:56] LABS: BACTERIA,URINE 4+ /HPF (Neg); MUCUS STRANDS FEW /LPF (Neg); RBC,URINE 0-2 /HPF (0-2); SQUAMOUS EPITHELIAL CELL,UR MANY /LPF (FEW)
[2019-11-19 08:03] LABS: ALANINE AMINOTRANSFERASE 28 U/L (12-78); ALBUMIN 3.3 G/DL (3.4-5.0); ALBUMIN/GLOBULIN RATIO 0.9 (1.1-1.5); ALKALINE PHOSPHATASE 105 IU/L (46-116); ANION GAP 7 (8-16); ASPARTATE AMINO TRANSFERASE 20 U/L (10-37); BILIRUBIN,TOTAL 0.3 MG/DL (0.1-1.0); BLOOD UREA NITROGEN 8 MG/DL (7-18); BUN/CREATININE RATIO 9.4 (6.6-38.0); CALCIUM 8.7 MG/DL (8.5-10.1); CHLORIDE 109 MMOL/L (99-107); CREATININE 0.85 MG/DL (0.40-0.90); GLUCOSE 89 MG/DL (70-104); LIPASE 88 U/L (73-393); SODIUM 145 MMOL/L (135-145); TOTAL CARBON DIOXIDE 28.6 MMOL/L (24-32); TOTAL PROTEIN 6.9 G/DL (6.4-8.2); eGFR 79 ML/MIN
[2019-11-19] MEDS ORDERED: dicyclomine 10 MG capsule PO ONE (08:20)
[2019-11-19 09:07] VITALS: BP 122/58
[2019-11-19] MEDS ORDERED: LEVE750T PO (20:17)
[2019-11-19] MEDS ORDERED: PALI117D IM (20:26)
[2019-11-19] MEDS ORDERED: PALI3TAB PO (20:26)
== END 2019-11-19 09:09 | disposition home or self-care (01) ==
LOC: ER 07:03
DX: G89.29 Other chronic pain (principal); R10.31 Right lower quadrant pain; R11.2 Nausea with vomiting, unspecified; R19.7 Diarrhea, unspecified; J45.909 Unspecified asthma, uncomplicated; E11.9 Type 2 diabetes mellitus without complications; F32.9 Major depressive disorder, single episode, unspecified; Z86.69 Personal history of other diseases of the nervous system and sense organs; Z88.0 Allergy status to penicillin; Z88.1 Allergy status to other antibiotic agents; Z88.6 Allergy status to analgesic agent; Z91.040 Latex allergy status; Z79.899 Other long term (current) drug therapy
CPT/HCPCS: 36415; 80053; 81001; 81025; 83690; 85025; 96361; 96374; 96375; 99283; J1885; J2405; J7030

== ENCOUNTER 2019-11-19 16:13 | Emergency (ER) | payer MEDICARE, MEDICAID ==
[~2019-11-19] VITALS: Ht 154.9 cm; Wt 84.3 kg
--- NOTE | 2019-11-19 16:59 | NUR ---
pt is being evaluated by provider, pt is calm and cooperative, lying quietly on bed
[2019-11-19 17:53] LABS: BASOPHILS % (AUTO) 0.6 % (0-1); EOSINOPHILS % (AUTO) 0.8 % (0-6); HEMATOCRIT 33.1 % (35.0-45.0); LYMPHOCYTES # (AUTO) 1.9 X10'3 (1.1-4.8); MEAN CORPUSCULAR HEMOGLOBIN 27.1 PG (27.0-31.0); MEAN CORPUSCULAR HGB CONC 33.2 g/dL (33.0-36.5); MEAN CORPUSCULAR VOLUME 81.5 FL (78-98); MONOCYTES # (AUTO) 0.8 X10'3 (0-0.9); NEUTROPHILS # (AUTO) 2.6 X10'3 (1.8-7.7); NEUTROPHILS % (AUTO) 48.6 % (42-75); PLATELET COUNT 173 X10'3 (140-440); RED BLOOD COUNT 4.07 X10'6 (4.20-5.60); RED CELL DISTRIBUTION WIDTH 15.1 % (11.5-14.5); WHITE BLOOD COUNT 5.3 X10'3 (4.5-11.0)
--- NOTE | 2019-11-19 18:00 | NUR ---
pt amb with steady gait to restroom escorted by football scout
[2019-11-19 18:10] LABS: ALANINE AMINOTRANSFERASE 29 U/L (12-78); ALBUMIN 3.3 G/DL (3.4-5.0); ALKALINE PHOSPHATASE 102 IU/L (46-116); ANION GAP 7 (8-16); ASPARTATE AMINO TRANSFERASE 21 U/L (10-37); BILIRUBIN,TOTAL 0.2 MG/DL (0.1-1.0); BLOOD UREA NITROGEN 11 MG/DL (7-18); BUN/CREATININE RATIO 11.6 (6.6-38.0); CALCIUM 8.6 MG/DL (8.5-10.1); CHLORIDE 110 MMOL/L (99-107); CREATININE 0.95 MG/DL (0.40-0.90); GLUCOSE 91 MG/DL (70-104); SODIUM 144 MMOL/L (135-145); TOTAL CARBON DIOXIDE 27.3 MMOL/L (24-32); TOTAL PROTEIN 6.7 G/DL (6.4-8.2); eGFR 69 ML/MIN
[2019-11-19 18:12] LABS: URINE HCG NEGATIVE (NEG)
[2019-11-19 18:19] LABS: ACETAMINOPHEN < 2.0 UG/ML (10-30); ETHANOL < 0.010 GM/DL (0.0-0.010); VALPROATE < 3.0 UG/ML (50-100)
[2019-11-19 18:23] LABS: CLARITY,URINE CLEAR (Clear); COLOR,URINE YELLOW (Yellow); GLUCOSE, URINE NEGATIVE (Neg); KETONES,URINE NEGATIVE (Neg); LEUKOCYTE ESTERASE ,URINE NEGATIVE (Neg); NITRITES, URINE NEGATIVE (Neg); OCCULT BLOOD,URINE NEGATIVE (Neg); PH,URINE 5.5 (4.8-8.0); PROTEIN,URINE NEGATIVE (Neg); UROBILINOGEN,URINE 0.2 E.U/dL (0.2-1.0)
[2019-11-19 18:24] LABS: UA COLLECTION TYPE CLN CATCH MIDSTREAM
--- NOTE | 2019-11-19 18:31 | NUR ---
pt moved to overflow
[2019-11-19 18:54] LABS: URINE AMPHETAMINE SCREEN NEGATIVE (Neg); URINE BARBITUATE SCREEN NEGATIVE (Neg); URINE BENZODIAZEPINES SCREEN NEGATIVE (Neg); URINE CANNABINOID SCREEN NEGATIVE (Neg); URINE COCAINE SCREEN NEGATIVE (Neg); URINE METHADONE SCREEN NEGATIVE (Neg); URINE OPIATE SCREEN NEGATIVE (Neg); URINE PHENCYCLIDINE SCREEN NEGATIVE (Neg)
[2019-11-19] MEDS ORDERED: LEVE750T PO (20:17)
[2019-11-19] MEDS ORDERED: PALI117D IM (20:26)
[2019-11-19] MEDS ORDERED: PALI3TAB PO (20:26)
--- NOTE | 2019-11-20 07:00 | NUR ---
pt is resting. no concerns at this time
--- NOTE | 2019-11-20 08:00 | NUR ---
pt is up walking around
[2019-11-20] MEDS: levetiracetam 250mg tablet PO SCH ×2 (08:16→20:00)
[2019-11-20] MEDS: PALIPERIDONE 3 MG TAB.ER.24 PO SCH (08:16)
--- NOTE | 2019-11-20 09:36 | NUR ---
pt using the phone. pt is resting in her bed
--- NOTE | 2019-11-20 10:00 | NUR ---
pt is resting. no concerns at this time
--- NOTE | 2019-11-20 11:00 | NUR ---
pt is seeking attention. making odd noises from her bed
--- NOTE | 2019-11-20 12:00 | NUR ---
pt is laying in her room. she keeps asking when she can leave
--- NOTE | 2019-11-20 13:00 | NUR ---
pt is resting. no concerns at this time
--- NOTE | 2019-11-20 14:00 | NUR ---
pt is resting. no concerns at this time
--- NOTE | 2019-11-20 15:02 | NUR ---
Patient sat up in bed and started to yell asking when she will be seen, states that all other patients have been evaluated and she has yet to be seen. Patient instructed to be patient and there are a lot of patients waiting to be assessed. Patient able to calm down, all safety measures in place, patient in sight of staff at all times.
--- NOTE | 2019-11-20 16:00 | NUR ---
pt is being slightly aggressive towards staff. pt came up to nurse station and punched the counter. limits set to patient and she was told to return to her bed which she did. no futher issues
--- NOTE | 2019-11-20 17:00 | NUR ---
pt is laying in her bed
--- NOTE | 2019-11-20 18:30 | NUR ---
Pt was attempting to leave the floor at change of shift was redirected by techs back to her bed, pt is agitated, irritable and complaining. pt states she wants to hang herself and is goal directed asking about when she will get placement, states she thinks she is going to be conserved.
--- NOTE | 2019-11-20 21:25 | NUR ---
Pt remained in bed resting after dinner, took Keppra and reported some continued agitation, "When am I gonna get medicine for my agitation?" She demanded, then fell asleep shortly after request. Pt is laying on her back asleep rr even and unlabored.
--- NOTE | 2019-11-20 22:30 | NUR ---
pt laying in bed sleeping no s/s distress
--- NOTE | 2019-11-21 00:36 | NUR ---
pt is laying on her back appears to be sleeping rr 14 even and unlabored
--- NOTE | 2019-11-21 02:28 | NUR ---
Pt asleep in bed rr even and unlabored no s/s distress
--- NOTE | 2019-11-21 03:57 | NUR ---
pt is awake sitting up in bed blowing her nose several times
--- NOTE | 2019-11-21 04:52 | NUR ---
Pt woke up saying she was dreaming of rats and she was scared. Assured pt it was a dream and oriented pt to time and she returned to sleep.
[2019-11-21] MEDS: PALIPERIDONE 3 MG TAB.ER.24 PO SCH (08:54)
[2019-11-21] MEDS: levetiracetam 250mg tablet PO SCH ×2 (08:54→19:45)
[2019-11-21] MEDS ORDERED: haloperidol lactate 5mg/ml inj IM ONE (10:50)
[2019-11-21] MEDS ORDERED: LORazepam 2 mg/ml vial IM ONE (10:50)
[2019-11-21] MEDS ORDERED: diphenhydrAMINE 50 mg/ml inj IM ONE (10:50)
--- NOTE | 2019-11-21 10:50 | NUR ---
PATIENT SEEN ATTEMPTING TO HURT HERSELF BY SCRATCHING WRISTS/ARMS. PATIENT NOT COOPERATIVE WHEN ASKED TO KEEP ARMS IN VIEW AT ALL TIMES. PATIENT TO BE MEDICATED PER MD ORDER, PATIENT MADE AWARE OF MED ORDER. (SEE EMAR)
--- NOTE | 2019-11-21 19:00 | NUR ---
PT SITTING UP IN BED LOOKING AROUND SEIZURE PADDING IN PLACE PLAN OF CARE UPDATED PT AT THIS TIME COROPORATIVE
--- NOTE | 2019-11-21 20:03 | NUR ---
PT SITTING UP IN BED ASKING QUESTIONS ABOUT WHY SHE CANT STAY IN [facility] , STATING THAT SHE CAN GET BETTER SERVICES IN [facility] AND WANTS TO STAY IN THIS [facility] ALSO ASKING ABOUT TAKING HER [place]
--- NOTE | 2019-11-21 21:00 | NUR ---
PT ASKING JAYME WHY SHE CANT STAY IN [facility] , STATING THAT SHE WOULD LIKE TO BE IN A COUNTY THAT " HAS SERVICES AND LOW INCOME HOUSING" ADVISED PATIENT TO ASK [facility] MENTAL HEALTH QUESTIONING BEHIND THE "WHYS" WHEN I REPLIED THAT [facility] IS HER PLACE OF RESIDENCE SHE GETS LOUDER
--- NOTE | 2019-11-21 22:10 | NUR ---
PT NOW SLEEPING PEACFULLLY RESP UNLABORED SZ PADS STILL IN PLACE WILL CONTINUE TO MONITOR AND REASSESS
--- NOTE | 2019-11-21 22:58 | NUR ---
NO CHANGES TO PREVIOUS ASSESSMENT PT SLEEPING PEACFULLY RESP UNLABORED WILL CONTINUE TO MONITOR AND REASSESS
--- NOTE | 2019-11-22 00:18 | NUR ---
NO CHANGES TO PREVIOUS ASSESSMENT PT SLEEPING PEACFULLY ON HER BACK RESP UNLABORED WILL CONTINUE TO MONITOR AND REASSESS IN THE LINE OF SITE OF STAFF
--- NOTE | 2019-11-22 01:15 | NUR ---
NO CHANGES TO PREVIOUS ASSESSMENT PT SLEEPING PEACFULLY RESP UNLABORED WILL CONTINUE TO MONITOR AND REASSESS IN THE LINE OF SITE OF STAFF HOB ELEVATED 20 DEGREES
--- NOTE | 2019-11-22 02:00 | NUR ---
PT SLEEPING , OPENS EYES WHEN HAND IS PLACED ON HER SHOULDER AND THEN GOES BACK TO SLEEP RESP UNLABORED IN LINE OF SITE OF STAFF
--- NOTE | 2019-11-22 02:58 | NUR ---
PT SLEEPING PEACFULLY ON HER BACK NO CHANGE TO PREVIOUS ASSEEMENT RESP UNLABORED WILL CONTINUE TO MONITOR AND REASSESS
--- NOTE | 2019-11-22 04:00 | NUR ---
NO CHNAGES TO PREVIOUS ASSESSMENT . PT SLEEPING ON HER BACK SELF REPOSITIONS OCCATIONALLY ,RESP UNLABORED WILL CONTINUE TO MONITOR AND REASSESS
[2019-11-22] MEDS: levetiracetam 250mg tablet PO SCH ×2 (08:25→19:54)
[2019-11-22] MEDS: PALIPERIDONE 3 MG TAB.ER.24 PO SCH (08:25)
--- NOTE | 2019-11-22 09:05 | NUR ---
Patient has finished breakfast, given her AM medications and is now using the phone to call various social work msw in [place] and surrounding [facility]. 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 Patient wants to leave [facility], but does not want to go back to [facility]. She has stated that she wants to go to [facility] because her services have ran out "everywhere else". She wants to have a nurse hold her medications, like Keppra, so that the nurse can make sure she doesn't forget to take it when she is living on the streets again.
--- NOTE | 2019-11-22 20:00 | NUR ---
pt agitated, wanting to leave. She tried to elope. Staff was able to get her to come backto her room and relax. educated pt on different techniques to cakm self. Pt resting comfortably in bed at this time. Will continue to monitor.
--- NOTE | 2019-11-22 21:54 | NUR ---
Carlitos from [employer] in [place] called to say they are willing to except pt tomorrow. Someone from [facility] will call here tomorrow. [phone]
--- NOTE | 2019-11-22 21:58 | NUR ---
Pt is back up stating she is very anxious. requesting help to relax and reduce anxiety. All interventions not effective. Dr Tee gave verbal order for ativan 1 mg PO Q6 hrs PRN
--- NOTE | 2019-11-23 00:47 | NUR ---
RECEIVED REPORT FROM KEYSHAWN FOLEY. PT CALM AND COOPERATIVE, SLEEPING IN BED ON BACK WITH NO S/S DISTRESS. RESPIRATIONS EVEN AND UNLABORED. WILL CONTINUE TO MONITOR.
--- NOTE | 2019-11-23 02:02 | NUR ---
pt appears to be asleep in bed lying on back. no signs/symptoms/complaints of distress. respirations even and unlabored. will continue to monitor.
--- NOTE | 2019-11-23 03:28 | NUR ---
pt ambulated to bathroom without issue. was given new pair of underwear upon request. pt now laying in bed with eyes closed. respirations even and unlabored. so signs/symptoms of distress as this time. will continue to monitor.
--- NOTE | 2019-11-23 06:30 | NUR ---
Patient is resting in bed peacefully at change of shift. No distress observed. Will continue to monitor.
[2019-11-23] MEDS: levetiracetam 250mg tablet PO SCH ×2 (08:14→19:28)
[2019-11-23] MEDS: PALIPERIDONE 3 MG TAB.ER.24 PO SCH (08:14)
[2019-11-23] MEDS: LORazepam 1 MG tablet PO PRN ×2 (08:14→14:23)
--- NOTE | 2019-11-23 08:31 | NUR ---
Patient is resting in bed peacefully. She asks for RN repeatedly and has many minor somatic complaints like, "my thigh hurts", but then upon examination, no abnormalities, wincing or other symptoms of pain are observed and patient smiles and states, "sometimes I like to mess with you guys". No distress observed. Pt encouraged to rest. Will continue to monitor.
--- NOTE | 2019-11-23 10:35 | NUR ---
Pt calls out from her bed to this movie writer often asking if "[facility] has called yet?". Reassured patient that hospital has not called, but this RN will reach out after lunch if there continues to be no contact.
--- NOTE | 2019-11-23 12:39 | NUR ---
pt is resting in bed. no concerns at this time
--- NOTE | 2019-11-23 12:59 | NUR ---
Patient is raising her voice and stating "why are you talking to her, I asked for you to talk to me first". Patient was redirected and informed that this RN will talk to her, but she has to be polite and wait until it is her turn. Patient was disruptive and proceeded to raise her voice and throw the linens on her bed. Patient was obstinent but redirectable. She states " I am just going crazy here", reassured patient and got patient her lunch tray. Patient is currently sitting upright in bed eating her meal. No distress observed. Will continue to monitor.
--- NOTE | 2019-11-23 13:07 | NUR ---
Called down to [facility] in [place] to check status of patient's transfer, Danitza in admitting states that it may be next shift as they are waiting for some discharges to have an available bed. Patient informed of this.
--- NOTE | 2019-11-23 18:30 | NUR ---
Received report from Hilary FOLEY. Patient is sitting up in her bed, and interacting appropriately with staff. No distress is noted, RR is even and unlabored, will continue to monitor.
--- NOTE | 2019-11-23 20:30 | NUR ---
Patient is cooperative for medication pass. Remains laying in bed after taking her medications, RR are even and unlabored, no distress noted at this time. Will continue to monitor.
--- NOTE | 2019-11-23 23:58 | NUR ---
Patient resting in bed with eyes closed, RR are even and unlabored, no distress noted at this time. Will continue to monitor.
--- NOTE | 2019-11-24 02:06 | NUR ---
Patient awoken by another patient talking and was upset by being woke up. Patient is provided with ear plugs and a warm blanket to help her go back to sleep. Patient currently attempting to fall back asleep.
[2019-11-24] MEDS: LORazepam 1 MG tablet PO PRN ×2 (02:17→19:35)
--- NOTE | 2019-11-24 04:35 | NUR ---
Patient resting in bed with eyes closed, RR are even and unlabored, no distress noted at this time. Will continue to monitor.
[2019-11-24] MEDS: PALIPERIDONE 3 MG TAB.ER.24 PO SCH (08:34)
[2019-11-24] MEDS: levetiracetam 250mg tablet PO SCH ×2 (08:34→19:35)
--- NOTE | 2019-11-24 13:00 | NUR ---
relieving RN for break, pt is resting quietly on bed, calm and cooperative
--- NOTE | 2019-11-24 20:16 | NUR ---
Pt. making threats that she's going to kill herself. She then headed to the bathroom and refused to answer why she is upset. Pt's bed was stripped at this time and pt. put on 1:1 monitoring. She is tearful and crying saying that she "does not want to live anymore. I hate my life and that I am psychotic." Emotional support being provided by staff.
--- NOTE | 2019-11-24 20:20 | NUR ---
The patient is stating that she is going to harm herself with items in the bed. Staff striped the bed and is now monitering 1:1 for safety. The patient continues to make suicidal statements "I am a bad person I don't want to live anymore". The patient is also expressing homocidal ideation towrds her father "I want to try to kill him again because he doesn't love me and practically dumped me on the street".
[2019-11-24] MEDS ORDERED: OLANZapine 2.5MG tablet PO SCH (20:35)
[2019-11-24] MEDS ORDERED: OLANZapine 2.5MG tablet PO ONE (20:35)
--- NOTE | 2019-11-24 20:35 | NUR ---
Spoke with Dr. Home gordillo patient S/I statements. N.O. received to give olanzepine 5mg PO once and continue monitoring patient.
--- NOTE | 2019-11-24 20:46 | NUR ---
PT UP OUT OF BED STATING "I DON'T FEEL GOOD I WANT TO " OVERFLOW DONNA SMITH AT BEDSIDE TALKING WITH PT.
--- NOTE | 2019-11-24 21:28 | NUR ---
Spoke with OG Gallardo from [facility] regarding potential placement with their facility. Report given re pt. medical and psychiatric status. Will await call back.
--- NOTE | 2019-11-24 22:03 | NUR ---
Received call back from [facility]. Pt. has been accepted by Dr. Banuelos to facility. Transport has been set up for 11/25/19 at 0800.
--- NOTE | 2019-11-24 22:35 | NUR ---
Pt. calm and conversating appropriately with staff. She states that she "feels better" but understands that she is labile and needs continous help. Pt. is anticipating transfer to [facility] tomorrow morning for befitting psychiatric care.
[2019-11-25 05:42] VITALS: BP 107/56
--- NOTE | 2019-11-25 06:25 | NUR ---
pt resting calm and quiet in bed.
[2019-11-25] MEDS: levetiracetam 250mg tablet PO SCH (07:16)
[2019-11-25] MEDS: LORazepam 1 MG tablet PO PRN (07:16)
[2019-11-25] MEDS: PALIPERIDONE 3 MG TAB.ER.24 PO SCH (07:16)
--- NOTE | 2019-11-25 07:27 | NUR ---
Spoke with OG Orona at [facility] in [place] ([phone]) and did nurse to nurse as requested by [facility] office. Pt calm and cooperative.
--- NOTE | 2019-11-25 07:52 | NUR ---
pt picked up by lead driver and taken to [facility]. pt calm and cooperative. escorted to vehicle with security.
[2019-12-18] MEDS ORDERED: PALIPERIDONE PALMITATE IM SCH (08:00)
== END 2019-11-25 07:56 ==
LOC: ER 16:13
DX: R45.851 Suicidal ideations (principal); J45.909 Unspecified asthma, uncomplicated; E11.9 Type 2 diabetes mellitus without complications; F31.9 Bipolar disorder, unspecified; F20.9 Schizophrenia, unspecified; Z88.0 Allergy status to penicillin; Z86.69 Personal history of other diseases of the nervous system and sense organs; Z88.1 Allergy status to other antibiotic agents; Z88.6 Allergy status to analgesic agent; Z91.040 Latex allergy status; Z79.899 Other long term (current) drug therapy
CPT/HCPCS: 36415; 80053; 80164; 80178; 80305; 80320; 80329; 81003; 81025; 84443; 85025; 96372; 99285; J1200; J1630; J2060

== ENCOUNTER 2019-12-13 21:06 | Emergency (ER) | payer MEDICARE, MEDICAID ==
[~2019-12-13] VITALS: Ht 154.9 cm; Wt 84.1 kg
[~2019-12-13 21:06] MED LIST changes: -ACET-2119 PO; -FLUO20CA39 PO; -LEVE10002 PO; +LEVE750T PO; -LORA-269 PO; -TRAZ-251 PO
[2019-12-13] MEDS ORDERED: olanzapine 10mg tablet PO STA (23:44)
[2019-12-13] MEDS ORDERED: levetiracetam 250mg tablet PO ONE (23:45)
[2019-12-14 00:21] VITALS: BP 115/67
== END 2019-12-14 00:40 | disposition home or self-care (01) ==
LOC: ER 21:07
DX: R45.850 Homicidal ideations (principal); Z76.5 Malingerer [conscious simulation]; F43.10 Post-traumatic stress disorder, unspecified; J45.909 Unspecified asthma, uncomplicated; E11.9 Type 2 diabetes mellitus without complications; F31.9 Bipolar disorder, unspecified; F20.9 Schizophrenia, unspecified; Z86.69 Personal history of other diseases of the nervous system and sense organs; Z88.0 Allergy status to penicillin; Z88.1 Allergy status to other antibiotic agents; Z91.040 Latex allergy status; Z88.8 Allergy status to other drugs, medicaments and biological substances; Z79.899 Other long term (current) drug therapy
CPT/HCPCS: 99284

== ENCOUNTER 2019-12-20 21:51 | Emergency (ER) | payer MEDICARE, MEDICAID ==
[~2019-12-20] VITALS: Ht 154.9 cm; Wt 220.4 kg
[2019-12-20 22:06] VITALS: BP 121/81
--- NOTE | 2019-12-21 01:04 | NUR ---
PATIENT IN BED EYES CLOSED COVERS ON RR EVEN UN LABORED NO OBSERVABLE S/S OF ACUTE STRESS OR TREMORS OBSERVED AT THIS TIME
[2019-12-21 01:41] LABS: ALBUMIN 3.3 G/DL (3.4-5.0); ANION GAP 8 (8-16); BLOOD UREA NITROGEN 31 MG/DL (7-18); BUN/CREATININE RATIO 30.7 (6.6-38.0); CHLORIDE 106 MMOL/L (99-107); CREATININE 1.01 MG/DL (0.40-0.90); GLUCOSE 92 MG/DL (70-104); POTASSIUM 3.6 MMOL/L (3.5-5.1); SODIUM 144 MMOL/L (135-145); TOTAL CARBON DIOXIDE 30.4 MMOL/L (24-32); eGFR 64 ML/MIN
[2019-12-21] MEDS ORDERED: LEVE10006 PO ×2 (18:18→18:23)
[2019-12-21] MEDS ORDERED: LEVE500T PO (18:23)
[2019-12-21] MEDS ORDERED: ALBU18HF2 INH (18:24)
== END 2019-12-21 02:34 | disposition home or self-care (01) ==
LOC: ER 21:51
DX: E11.22 Type 2 diabetes mellitus with diabetic chronic kidney disease (principal); N18.9 Chronic kidney disease, unspecified; G40.909 Epilepsy, unspecified, not intractable, without status epilepticus; E11.9 Type 2 diabetes mellitus without complications; J45.909 Unspecified asthma, uncomplicated; F31.9 Bipolar disorder, unspecified; F20.9 Schizophrenia, unspecified; Z88.6 Allergy status to analgesic agent; Z88.0 Allergy status to penicillin; Z88.1 Allergy status to other antibiotic agents; Z91.040 Latex allergy status; Z79.899 Other long term (current) drug therapy
CPT/HCPCS: 36415; 80048; 99283

== ENCOUNTER 2019-12-21 12:13 | Emergency (ER) | payer MEDICARE, MEDICAID ==
[~2019-12-21] VITALS: Ht 154.9 cm; Wt 80.2 kg
[2019-12-21] MEDS ORDERED: LORazepam 1 MG tablet PO ONE (13:40)
[2019-12-21] MEDS ORDERED: ibuprofen tablet 400 MG TABLET PO ONE (13:40)
[2019-12-21 14:06] LABS: BASOPHILS % (AUTO) 0.8 % (0-1); EOSINOPHILS # (AUTO) 0.1 X10'3 (0-0.9); EOSINOPHILS % (AUTO) 1.1 % (0-6); HEMATOCRIT 34.5 % (35.0-45.0); HEMOGLOBIN 11.4 g/dl (12.0-16.0); LYMPHOCYTES # (AUTO) 1.7 X10'3 (1.1-4.8); LYMPHOCYTES % (AUTO) 35.9 % (21-51); MEAN CORPUSCULAR HEMOGLOBIN 26.4 PG (27.0-31.0); MEAN CORPUSCULAR HGB CONC 33.1 g/dL (33.0-36.5); MEAN CORPUSCULAR VOLUME 79.9 FL (78-98); MONOCYTES # (AUTO) 0.7 X10'3 (0-0.9); NEUTROPHILS # (AUTO) 2.3 X10'3 (1.8-7.7); NEUTROPHILS % (AUTO) 48.2 % (42-75); PLATELET COUNT 184 X10'3 (140-440); RED BLOOD COUNT 4.31 X10'6 (4.20-5.60); RED CELL DISTRIBUTION WIDTH 15.2 % (11.5-14.5); WHITE BLOOD COUNT 4.8 X10'3 (4.5-11.0)
[2019-12-21 14:19] LABS: ALANINE AMINOTRANSFERASE 60 U/L (12-78); ALBUMIN 3.5 G/DL (3.4-5.0); ALBUMIN/GLOBULIN RATIO 0.9 (1.1-1.5); ALKALINE PHOSPHATASE 82 IU/L (46-116); ANION GAP 10 (8-16); ASPARTATE AMINO TRANSFERASE 42 U/L (10-37); BILIRUBIN,TOTAL 0.2 MG/DL (0.1-1.0); BLOOD UREA NITROGEN 26 MG/DL (7-18); BUN/CREATININE RATIO 27.1 (6.6-38.0); CHLORIDE 107 MMOL/L (99-107); CREATININE 0.96 MG/DL (0.40-0.90); ETHANOL < 0.010 GM/DL (0.0-0.010); GLUCOSE 93 MG/DL (70-104); POTASSIUM 3.8 MMOL/L (3.5-5.1); SODIUM 143 MMOL/L (135-145); TOTAL CARBON DIOXIDE 25.6 MMOL/L (24-32); TOTAL PROTEIN 7.5 G/DL (6.4-8.2); eGFR 68 ML/MIN
--- NOTE | 2019-12-21 14:20 | NUR ---
Patient stating she is very anxious, so anxious that she is now suicidal. Patient states she hasn't thought about a plan yet. Patient given Ativan 1 mg. RN has had this patient several times. Continue to monitor.
[2019-12-21 14:40] LABS: URINE HCG NEGATIVE (NEG)
[2019-12-21 14:46] LABS: URINE AMPHETAMINE SCREEN NEGATIVE (Neg); URINE BARBITUATE SCREEN NEGATIVE (Neg); URINE BENZODIAZEPINES SCREEN NEGATIVE (Neg); URINE CANNABINOID SCREEN NEGATIVE (Neg); URINE COCAINE SCREEN NEGATIVE (Neg); URINE METHADONE SCREEN NEGATIVE (Neg); URINE OPIATE SCREEN NEGATIVE (Neg); URINE PHENCYCLIDINE SCREEN NEGATIVE (Neg)
--- NOTE | 2019-12-21 15:55 | NUR ---
Patient sleepingon left side. No distress observed. Continue to monitor.
[2019-12-21] MEDS ORDERED: LEVE10006 PO ×2 (18:18→18:23)
[2019-12-21] MEDS ORDERED: LEVE500T PO (18:23)
[2019-12-21] MEDS ORDERED: ALBU18HF2 INH (18:24)
--- NOTE | 2019-12-21 19:11 | NUR ---
[facility] , DAISY FOLEY, EVALUATING PT NOW. PT IS CALM AND COOPERATIVE. JUST FINISHED EATING DINNER.
--- NOTE | 2019-12-21 19:22 | NUR ---
JORDAN VILLA, REPORTS PT DENIES ANY CURRENT SI. HE IS GOING TO TALK TO PROVIDER NOW. STATES THAT PT HAS [address] DATE IN [facility] December AND SHE IS CONNECTED TO SERVICES IN [facility], BUT SHE WANTS TO RELOCATE TO [facility] . SHE SATES TO HIM IF SHE IS CONSERVED IN [facility], SHE WILL HAVE TO STAY IN THAT AREA. THIS IS CAUSING HER EXTREME ANXIETY. PT REQUESTS ANXIETY RX.
[2019-12-21] MEDS ORDERED: diazepam 5mg tablet PO ONE (19:25)
[2019-12-21 19:43] VITALS: BP 104/60
--- NOTE | 2019-12-21 19:43 | NUR ---
PT TO BE DISCHARGED, GIVEN CLOTHING, GIVEN VALIUM TABLET. WILL PROVIDE TAXIRIDE TO [facility].
== END 2019-12-21 20:18 ==
LOC: ER 12:13
DX: R45.851 Suicidal ideations (principal); F41.9 Anxiety disorder, unspecified; J45.909 Unspecified asthma, uncomplicated; N18.9 Chronic kidney disease, unspecified; E11.22 Type 2 diabetes mellitus with diabetic chronic kidney disease; F31.9 Bipolar disorder, unspecified; Z86.69 Personal history of other diseases of the nervous system and sense organs; Z88.0 Allergy status to penicillin; Z88.1 Allergy status to other antibiotic agents; Z91.040 Latex allergy status; Z88.8 Allergy status to other drugs, medicaments and biological substances; Z79.899 Other long term (current) drug therapy
CPT/HCPCS: 36415; 80053; 80305; 80320; 81025; 85025; 99285

== ENCOUNTER 2019-12-23 22:48 | Emergency (ER) | payer MEDICARE, MEDICAID ==
[~2019-12-23] VITALS: Ht 170.2 cm; Wt 81.0 kg
[~2019-12-23 22:48] MED LIST changes: +ALBU18HF2 INH; +LEVE10006 PO; +LEVE500T PO; -LEVE750T PO
[2019-12-23 22:53] VITALS: BP 123/64
== END 2019-12-23 23:06 | disposition home or self-care (01) ==
LOC: ER 22:49
DX: M79.674 Pain in right toe(s) (principal); F41.9 Anxiety disorder, unspecified; J45.909 Unspecified asthma, uncomplicated; E11.9 Type 2 diabetes mellitus without complications; F31.9 Bipolar disorder, unspecified; F20.9 Schizophrenia, unspecified; Z88.8 Allergy status to other drugs, medicaments and biological substances; Z86.69 Personal history of other diseases of the nervous system and sense organs; Z88.0 Allergy status to penicillin; Z79.2 Long term (current) use of antibiotics; Z91.041 Radiographic dye allergy status; Z91.018 Allergy to other foods; Z79.899 Other long term (current) drug therapy
CPT/HCPCS: 99281

== ENCOUNTER 2019-12-24 11:01 | Emergency (ER) | payer MEDICARE, MEDICAID ==
[~2019-12-24] VITALS: Ht 154.9 cm; Wt 81.8 kg
[~2019-12-24 11:01] MED LIST changes: -HYDROcodone/acetaminophen 5mg/325mg tablet PO ONE; -LORazepam 1 MG tablet PO ONE; -LORazepam 1 MG tablet PO PRN; -OLANZapine 2.5MG tablet PO SCH; -PALIPERIDONE PALMITATE IM SCH; -acetaminophen w/codeine (30MG) #3 tablet PO ONE; -acetaminophen w/codeine (60MG) #4 tablet PO ONE; -albuterol 2.5 MG/3 ML nebule NEB ONE; -albuterol 2.5 MG/3 ML nebule NEB PRN; -codeine/proMETHazine 5ml UD syrup PO ONE; -guaiFENesin/DM 10ml UD oral syrup PO ONE; -guaiFENesin/codeine phos 10ml UD oral syrup PO ONE; -guaiFENesin/codeine phos 10ml UD oral syrup PO PRN; -hydrOXYzine 25 MG tablet PO ONE; -levoFLOXACIN 250mg tablet PO ONE; -levoFLOXACIN 750MG TABLET PO SCH; -non-formulary drug (Levetiracetam 1 TAB) PO SCH; -olanzapine 10mg tablet PO ONE
[2019-12-24 11:07] VITALS: BP 101/65
[2019-12-24 12:07] LABS: CLARITY,URINE CLEAR (Clear); COLOR,URINE STRAW (Yellow); GLUCOSE, URINE NEGATIVE (Neg); KETONES,URINE NEGATIVE (Neg); LEUKOCYTE ESTERASE ,URINE NEGATIVE (Neg); NITRITES, URINE NEGATIVE (Neg); OCCULT BLOOD,URINE NEGATIVE (Neg); PH,URINE 6.5 (4.8-8.0); PROTEIN,URINE NEGATIVE (Neg); UROBILINOGEN,URINE 0.2 E.U/dL (0.2-1.0)
[2019-12-24 12:08] LABS: UA COLLECTION TYPE CLN CATCH MIDSTREAM
== END 2019-12-24 12:30 | disposition home or self-care (01) ==
LOC: ER 11:01
DX: R10.2 Pelvic and perineal pain (principal); J45.909 Unspecified asthma, uncomplicated; E11.9 Type 2 diabetes mellitus without complications; F31.9 Bipolar disorder, unspecified; F20.9 Schizophrenia, unspecified; Z88.0 Allergy status to penicillin; Z79.2 Long term (current) use of antibiotics; Z91.041 Radiographic dye allergy status; Z86.69 Personal history of other diseases of the nervous system and sense organs; Z91.018 Allergy to other foods; Z88.8 Allergy status to other drugs, medicaments and biological substances; Z79.899 Other long term (current) drug therapy
CPT/HCPCS: 81003; 99284

== ENCOUNTER → 2019-12-24 | Emergency (ER) | payer MEDICARE, MEDICAID ==
[~2019-12-24] VITALS: Ht 157.5 cm; Wt 84.0 kg
[~2019-12-24] MED LIST changes: +HYDROcodone/acetaminophen 5mg/325mg tablet PO ONE; +LORazepam 1 MG tablet PO ONE; +LORazepam 1 MG tablet PO PRN; +OLANZapine 2.5MG tablet PO SCH; +PALIPERIDONE PALMITATE IM SCH; +acetaminophen w/codeine (30MG) #3 tablet PO ONE; +acetaminophen w/codeine (60MG) #4 tablet PO ONE; +albuterol 2.5 MG/3 ML nebule NEB ONE; +albuterol 2.5 MG/3 ML nebule NEB PRN; +codeine/proMETHazine 5ml UD syrup PO ONE; +guaiFENesin/DM 10ml UD oral syrup PO ONE; +guaiFENesin/codeine phos 10ml UD oral syrup PO ONE; +guaiFENesin/codeine phos 10ml UD oral syrup PO PRN; +hydrOXYzine 25 MG tablet PO ONE; +levoFLOXACIN 250mg tablet PO ONE; +levoFLOXACIN 750MG TABLET PO SCH; +non-formulary drug (Levetiracetam 1 TAB) PO SCH; +olanzapine 10mg tablet PO ONE
[2019-12-24 15:56] LABS: URINE HCG NEGATIVE (NEG)
[2019-12-24 16:00] LABS: BASOPHILS % (AUTO) 0.5 % (0-1); EOSINOPHILS # (AUTO) 0.1 X10'3 (0-0.9); EOSINOPHILS % (AUTO) 1.1 % (0-6); HEMATOCRIT 30.1 % (35.0-45.0); LYMPHOCYTES # (AUTO) 1.4 X10'3 (1.1-4.8); LYMPHOCYTES % (AUTO) 31.6 % (21-51); MEAN CORPUSCULAR HGB CONC 33.2 g/dL (33.0-36.5); MEAN CORPUSCULAR VOLUME 81.1 FL (78-98); MEAN PLATELET VOLUME 9.7 FL (7.4-10.4); MONOCYTES # (AUTO) 0.6 X10'3 (0-0.9); MONOCYTES % (AUTO) 13.9 % (2-12); NEUTROPHILS # (AUTO) 2.4 X10'3 (1.8-7.7); NEUTROPHILS % (AUTO) 52.9 % (42-75); PLATELET COUNT 167 X10'3 (140-440); RED BLOOD COUNT 3.72 X10'6 (4.20-5.60); RED CELL DISTRIBUTION WIDTH 15.5 % (11.5-14.5); WHITE BLOOD COUNT 4.6 X10'3 (4.5-11.0)
--- NOTE | 2019-12-24 16:00 | NUR ---
Patient is transitioning female to male and likes to be called Yevgeniy. Prefers he/him pronouns. Patient arrived to the ER overflow ambulating self, no distress observed, for thoughts of suicide with plan to hang himself. He states that before he came to the ER she tried to throw himself down a hill and then laid in the middle of the street. Patient states that someone called the police and he was brought here. He states he has HI and, "I would kill my father because he is mean to me". Patient denies any A/VH right at this moment but states that he hears things "sometimes". Patient is a non-smoker. Patient has a PMH of asthma, seizures, DM II, endometriosis, and recently Dx with CKD. He also has a psych history of schizoaffective disorder, anxiety, depression, bipolar disorder, and is high functioning autistic.
[2019-12-24 16:08] LABS: ALANINE AMINOTRANSFERASE 42 U/L (12-78); ALBUMIN 3.2 G/DL (3.4-5.0); ALBUMIN/GLOBULIN RATIO 0.9 (1.1-1.5); ALKALINE PHOSPHATASE 80 IU/L (46-116); ANION GAP 7 (8-16); ASPARTATE AMINO TRANSFERASE 30 U/L (10-37); BILIRUBIN,TOTAL 0.3 MG/DL (0.1-1.0); BLOOD UREA NITROGEN 21 MG/DL (7-18); BUN/CREATININE RATIO 21.9 (6.6-38.0); CALCIUM 8.8 MG/DL (8.5-10.1); CHLORIDE 107 MMOL/L (99-107); CREATININE 0.96 MG/DL (0.40-0.90); ETHANOL < 0.010 GM/DL (0.0-0.010); GLUCOSE 84 MG/DL (70-104); POTASSIUM 3.9 MMOL/L (3.5-5.1); SODIUM 143 MMOL/L (135-145); TOTAL PROTEIN 6.6 G/DL (6.4-8.2); eGFR 68 ML/MIN
[2019-12-24 16:18] LABS: URINE AMPHETAMINE SCREEN NEGATIVE (Neg); URINE BARBITUATE SCREEN NEGATIVE (Neg); URINE BENZODIAZEPINES SCREEN NEGATIVE (Neg); URINE CANNABINOID SCREEN NEGATIVE (Neg); URINE COCAINE SCREEN NEGATIVE (Neg); URINE METHADONE SCREEN NEGATIVE (Neg); URINE OPIATE SCREEN NEGATIVE (Neg); URINE PHENCYCLIDINE SCREEN NEGATIVE (Neg)
[2019-12-24 16:42] LABS: CLARITY,URINE CLEAR (Clear); COLOR,URINE STRAW (Yellow); GLUCOSE, URINE NEGATIVE (Neg); KETONES,URINE NEGATIVE (Neg); LEUKOCYTE ESTERASE ,URINE NEGATIVE (Neg); NITRITES, URINE NEGATIVE (Neg); OCCULT BLOOD,URINE NEGATIVE (Neg); PROTEIN,URINE NEGATIVE (Neg); UROBILINOGEN,URINE 0.2 E.U/dL (0.2-1.0)
[2019-12-24 16:43] LABS: UA COLLECTION TYPE CLN CATCH MIDSTREAM
--- NOTE | 2019-12-24 16:52 | NUR ---
PACKET FAXED TO [facility]
--- NOTE | 2019-12-24 19:15 | NUR ---
PT being visited by [facility], pt is lying in bed calm and cooperative.
[2019-12-24] MEDS: levetiracetam 250mg tablet PO SCH (20:54)
--- NOTE | 2019-12-24 21:47 | NUR ---
Pt is sleeping soundly on back, RR 16
--- NOTE | 2019-12-24 23:30 | NUR ---
Pt resting quietly RR WNL even and unlabored.
--- NOTE | 2019-12-25 02:36 | NUR ---
Pt asleep RR 16, shifts occasionally but falls back asleep.
--- NOTE | 2019-12-25 05:07 | NUR ---
PT still sleeping soundly, RR 14 even, unlabored
--- NOTE | 2019-12-25 07:00 | NUR ---
Resting with eyes closed
[2019-12-25] MEDS: PALIPERIDONE 3 MG TAB.ER.24 PO SCH (10:48)
[2019-12-25] MEDS: levetiracetam 250mg tablet PO SCH ×2 (10:48→20:17)
--- NOTE | 2019-12-25 15:13 | NUR ---
Worried about some belongings she states she has at the [place], clothing and personal belongings. States she cant go back to get them because she "is not leaving her until she gets paid".
--- NOTE | 2019-12-25 23:46 | NUR ---
Pt sleeping at start of shift. Pt woke up and took HS meds. Pt requested Zyprexa that she takes at HS. Order obtained Zyprexa given pt able to go back to sleep.
--- NOTE | 2019-12-26 04:14 | NUR ---
Pt sleeping at this time has slept most of shift.
--- NOTE | 2019-12-26 07:17 | NUR ---
pt resting quietly in bed.
--- NOTE | 2019-12-26 08:15 | NUR ---
sitting up in bed eating breakfast, calm and cooperative.
[2019-12-26] MEDS: levetiracetam 250mg tablet PO SCH ×2 (09:06→20:42)
[2019-12-26] MEDS: PALIPERIDONE 3 MG TAB.ER.24 PO SCH (09:06)
--- NOTE | 2019-12-26 09:17 | NUR ---
pt coughing, sounds like a wet cough, non-productive. sounds slightly restricted and junky on auscultation in bilateral upper lobes, bilateral lower lobes more clear. pt c/o sore throat from coughing. notified Dr. El and MD stated he would come and see pt. Pt states she has a "history of diabetes", does not check her blood glucose. BG is not currently being checked this admission and no A1C ordered. notified MD about not checking BG and no A1C, asked if he wanted to address it and and start BG checks he said no.
--- NOTE | 2019-12-26 09:44 | NUR ---
pt sounds course to auscultation per Dr. El. RN notified RT for 5mg albuterol neb tx per MD request. Addendum: 12/26/19 at 1116 by SKYLER s/p neb treatment, pt still coughing and does still sound wet but slightly improved.
--- NOTE | 2019-12-26 10:45 | NUR ---
pt sitting up in bed talking to [facility] about her care and living situation.
--- NOTE | 2019-12-26 11:47 | NUR ---
Note deep in EDM - 12/26/19 at 1148 by SKYLER pt continues to cough. Dr. Ortega aware. q6h marito, Ritu shelton, and a CXR ordered.
--- NOTE | 2019-12-26 11:47 | NUR ---
DR STINSON NOTIFIED OF PT CONT COUGH, VERBAL ORDER 2.5 NEB Q6H PRN SOB, TESSALON PERLES 100 MG TID PRN COUGH, CHEST XRAY
--- NOTE | 2019-12-26 12:30 | NUR ---
pt calm and resting in bed.
[2019-12-26] MEDS: benzonatate 100mg capsule PO PRN ×2 (13:38→20:42)
--- NOTE | 2019-12-26 14:59 | NUR ---
pt c/o abdominal pain. states she thinks it's due to her endometriosis, now she's saying the pain feels like when she overdosed. Dr. Negro aware and ordered [place] 5-325 once.
--- NOTE | 2019-12-26 15:44 | NUR ---
resting in bed quietly, no c/o of pain at this time.
--- NOTE | 2019-12-26 16:00 | NUR ---
pt c/o abd pain and yelled, "where's my pain med". nursing staff asked pt to ask nicer next time. med administered. pt resting in bed.
--- NOTE | 2019-12-26 17:32 | NUR ---
resting quietly in bed.
--- NOTE | 2019-12-26 20:00 | NUR ---
The patient has been resting on her bed after washing up and changing into clean clothes. She stated that today her appetite is poor. She has been friendly and has been frequently trying to talking with staff at the nursing station from her bed. When asked about suicidal thoughts she stated, "I think it's a medium. It's not too low but not too high" She denies psychotic symptoms. She reports generalized anxiety.
[2019-12-26] MEDS: olanzapine 10mg tablet PO SCH (20:42)
--- NOTE | 2019-12-26 21:36 | NUR ---
The patient appears to be sleeping
--- NOTE | 2019-12-26 22:25 | NUR ---
THe patient appears to be sleeping
--- NOTE | 2019-12-27 01:30 | NUR ---
The patient currently appears to be sleeping.
--- NOTE | 2019-12-27 02:49 | NUR ---
The patient appears to be sleeping.
--- NOTE | 2019-12-27 04:05 | NUR ---
The patient appears to be sleeping.
--- NOTE | 2019-12-27 06:30 | NUR ---
Patient sleeping supine. No distress observed. Continue to monitor.
[2019-12-27] MEDS: PALIPERIDONE 3 MG TAB.ER.24 PO SCH (08:21)
[2019-12-27] MEDS: levetiracetam 250mg tablet PO SCH ×2 (08:21→20:33)
[2019-12-27] MEDS: benzonatate 100mg capsule PO PRN ×2 (08:21→20:34)
--- NOTE | 2019-12-27 08:21 | NUR ---
Patient with wet cough. Lungs clear. RN gave patient meds with cough med. Patient ate a small amount of breakfast. Continue to monitor.
--- NOTE | 2019-12-27 10:20 | NUR ---
Patient sleeping on right side. No distress observed. Continue to monitor.
[2019-12-27] MEDS: albuterol 2.5 MG/3 ML nebule NEB PRN ×2 (11:27→19:22)
--- NOTE | 2019-12-27 11:43 | NUR ---
Patient received a respiratory treatment. Patient has some wheezing in bilateral bases. CXR is clear. Continue to monitor.
--- NOTE | 2019-12-27 13:25 | NUR ---
Dr Parada evaluating patient for junky lungs, cough, sore throat and bodyaches. Continue to monitor.
--- NOTE | 2019-12-27 14:25 | NUR ---
Patient sleeping on left side. No distress observed. Continue to monitor.
--- NOTE | 2019-12-27 15:51 | NUR ---
Patient's flu swab is negative. Patient has bronchitis or some kind of virus. Patient sleeping. No fever at this time. Continue to monitor.
[2019-12-27 17:19] LABS: HEMOGLOBIN 11.3 g/dl (12.0-16.0); PLATELET COUNT 181 X10'3 (140-440)
[2019-12-27 17:21] LABS: HEMATOCRIT 33.4 % (35.0-45.0); MEAN CORPUSCULAR HEMOGLOBIN 27.3 PG (27.0-31.0); MEAN CORPUSCULAR HGB CONC 33.7 g/dL (33.0-36.5); MEAN PLATELET VOLUME 9.5 FL (7.4-10.4); RED BLOOD COUNT 4.13 X10'6 (4.20-5.60); WHITE BLOOD COUNT 3.4 X10'3 (4.5-11.0)
[2019-12-27 17:25] LABS: ALANINE AMINOTRANSFERASE 46 U/L (12-78); ALBUMIN 3.2 G/DL (3.4-5.0); ALBUMIN/GLOBULIN RATIO 0.8 (1.1-1.5); ALKALINE PHOSPHATASE 82 IU/L (46-116); ANION GAP 10 (8-16); ASPARTATE AMINO TRANSFERASE 41 U/L (10-37); BILIRUBIN,TOTAL 0.3 MG/DL (0.1-1.0); BLOOD UREA NITROGEN 15 MG/DL (7-18); BUN/CREATININE RATIO 16.3 (6.6-38.0); CALCIUM 9.1 MG/DL (8.5-10.1); CHLORIDE 105 MMOL/L (99-107); CREATININE 0.92 MG/DL (0.40-0.90); GLUCOSE 108 MG/DL (70-104); POTASSIUM 3.8 MMOL/L (3.5-5.1); SODIUM 139 MMOL/L (135-145); TOTAL CARBON DIOXIDE 23.8 MMOL/L (24-32); TOTAL PROTEIN 7.4 G/DL (6.4-8.2); eGFR 71 ML/MIN
--- NOTE | 2019-12-27 17:44 | NUR ---
Patient evaluated by JORDAN Salazar. Xray done, blood drawn, PO antibiotic given. DX of Bronchitis per Dr El.
[2019-12-27 18:10] LABS: PLATELET ESTIMATE NORMAL; TOTAL CELLS COUNTED 100
--- NOTE | 2019-12-27 19:11 | NUR ---
pagged resp for breathing treatment
--- NOTE | 2019-12-27 20:30 | NUR ---
PT HAVING A PRODUCTIVE CONTINOUS COUGH MEDICATED WITH TESSLAN PEARLS . PT STATES SHE WOULD LIKE TO HAVE SOME ICE WATER . WATER BROUGHT TO THE BEDSIDE
[2019-12-27] MEDS: olanzapine 10mg tablet PO SCH (20:34)
--- NOTE | 2019-12-27 21:00 | NUR ---
PT RESTING ON HER LEFT SIDE HOB ELEVATED 54 DEGRESS, PT HAVING BREATHING TX AT BEDSIDE WITH RESP , PT ASKING WHY SHE GETS [facility] TWICE A YEAR AT [facility] . EDUCATED PT ABOUT CLIMATE , SEASONS , ALLERGENS ASSOCAITED WITH TEMPERTURE CHANGE , AND S/S OF RESP DISTRESS. PT COMPLETED BREATHING TREATMENTS AND STATED THE TREATMENT HELPED
--- NOTE | 2019-12-27 22:10 | NUR ---
PT RESTING WITH COUGHING EPISODES DESPITE TESSALON PERALS . IN S/S OF INCREASE WORK OF BREATHING OR SOB . HOB ELEVATED 45 DEGREES . WILL CONTINUE TO MONITOR AND REASSESS
--- NOTE | 2019-12-27 23:30 | NUR ---
PT SLEEPING SUPINE IN BED . HOB REMAINS ELEVATED TO 45 DEGREES. COUGH SUBSIDED BUT STILL PRESANT WILL CONTINUE TO MONITOR AND REASSESSN NEEDED
--- NOTE | 2019-12-28 00:02 | NUR ---
PT SLEEPING ON LEFT SIDE . RESP UNLABORED PT WARM TO TOUCH TEMP AT 100.0 WILL CONTINUE TO MONITOR AND REASSESS
--- NOTE | 2019-12-28 01:15 | NUR ---
PT TEMP AT 100.[address] MO OF TEMP COOLING MEASURES INITIATED BLANKETS OFF PT COLD WATER AT BESIDE COL COMPRESS TO FOREHEAD WILL CONTINUE TO MONITOR AND REASSESS
--- NOTE | 2019-12-28 02:10 | NUR ---
PT SLEEPING PEACEFULLY ON RIGHT SIDE WARM TO TOUCH AWOEK TO CHECK TEMP AT 100.5 WILL CONTINUE TO MONITOR AND REASSESS
[2019-12-28] MEDS: acetaminophen 325mg tablet PO PRN ×2 (03:22→21:09)
--- NOTE | 2019-12-28 03:40 | NUR ---
PT TEMP 101.8 MEDICATED WITH 650 MG OF TYLENOL PO . PT AMBULATED TO BATHROOM, COOLING MEASURES IN PLACE COOL COMPRESS TO FOREHEAD , BLANKETS REMOVED, AND LIQUIDS AT BEDSIDE WILL CONTINUE TO MONITOR AND RESSESS .
--- NOTE | 2019-12-28 04:35 | NUR ---
REASSESSED TEMP 98.5
--- NOTE | 2019-12-28 04:50 | NUR ---
PT ABX ORDER FOR LEVAQUIN WAS ORDERED A ONE TIME ORDER SPOKE WITH DR MO WHO WANTED THE PATIENTTO HAVE A COMPLETE 7 DAY COURSE . TODAY WILL BE DAY 2 OF 7
--- NOTE | 2019-12-28 05:44 | NUR ---
PT AUROSABLE WITH VSS . REPORTS SHE DOESNT FEEL HOT BUT WOULD LIKE THE COUGHING TO STOP EDUCATED PT BY VERBALIZING THAT WITH BRONCHITIS YOU COUGH AND THAT ONE WANTS TO KEEP THE SCREATIOJNS FROM THE ILLNESS MOVING SO THAT DONT PLUG A THE BRONCHILOES . DRINKING PLENTY OF WATER KEEPS THE SCREATIONS THIN .
--- NOTE | 2019-12-28 06:30 | NUR ---
Patient sleeping supine. No distress observed. Continue to monitor.
[2019-12-28] MEDS: PALIPERIDONE 3 MG TAB.ER.24 PO SCH (07:43)
[2019-12-28] MEDS: benzonatate 100mg capsule PO PRN ×2 (07:44→18:43)
[2019-12-28] MEDS: levoFLOXACIN 250mg tablet PO SCH (07:44)
[2019-12-28] MEDS: levetiracetam 250mg tablet PO SCH ×2 (07:45→20:18)
--- NOTE | 2019-12-28 08:10 | NUR ---
Patient sitting in bed awake. +cough, no fever at this time. Continue to monitor.
--- NOTE | 2019-12-28 09:09 | NUR ---
BREAKING PRIMARY RN, PT IS SUPINE IN BED, EYES OPEN, CALM, NO AGITATION OBSERVED
--- NOTE | 2019-12-28 11:23 | NUR ---
Patient laying in bed awake. No distress observed at this time. Continue to monitor.
--- NOTE | 2019-12-28 13:10 | NUR ---
Patient eating lunch. No distress observed. Continue to monitor.
--- NOTE | 2019-12-28 15:05 | NUR ---
Patient sitting up in bed. No distress observed. Continue to monitor.
--- NOTE | 2019-12-28 16:09 | NUR ---
Patient drinking juice. No distress observed. Continue to monitor.
[2019-12-28] MEDS: albuterol 2.5 MG/3 ML nebule NEB PRN (17:39)
--- NOTE | 2019-12-28 18:30 | NUR ---
Pt in bed, semi-fowlers, staring straigt ahead, coughing intermittently. Pt given surgical mask to wear.
[2019-12-28] MEDS: olanzapine 10mg tablet PO SCH (20:18)
--- NOTE | 2019-12-28 21:00 | NUR ---
Pt resting after eating dinner. Due to pt identifying as transgender, this RN asked what pt prefers to be called, "Just call me Nakia. I don't like sharing what I want to be called because I have experienced harrassment in places like this." Pt states she is here because of the stress regarding her recent endeavor to move from [facility] to [facility] in order to acquire more resources for medical, mental, and transgender health. "There is a lot of paperwork. It is overwhelming. I want to go to [facility]." Pt states she has hx of multiple suicide attempts and SI. "I started feeling suicidal when I was 11. I have seen five thereapists, and was first seen when I was 9." Pt states she does not have support and is not in contact with her father or brother. Pt was dg with bronchitis, currently recieving ABX and tylenol to manage illness and associated fever. Pt requested tea to help soothe sore throat to good effect. Pt continues to cough intermittently despise cough medicine. Lungs are diminshed and crackle. RT recommended pt use a flutter valve hourly during the day. Pt compliant with medications, continuest to wear surgical mask and earrplugs to cancel some noise pollution as she has difficulty falling and staying asleep. Pt talks loudly and at times becomes agitated r/t other pt's increased activity; however, pt recieves redirection well. Mood: Depressed 9/10, Anxious 8/10; Affect: Flat; +SI "I would overdose, or do something"; Denies A/VH but states they are present if she is non-compliant with medications; Eye Contact: Direct, Intense. Pt spiked a fever at 2106: 101.2, Tylenol 650mg given and temperature decreased to 100.1 at 2215. Temp re-checked at 0105: 98.2.
--- NOTE | 2019-12-28 23:52 | NUR ---
relieving RN for break, pt is resting quietly on gurney
--- NOTE | 2019-12-29 00:36 | NUR ---
Pt resting quietly, breathing unlabored at this time, but pt continues to have hacking cough intermittently.
--- NOTE | 2019-12-29 02:20 | NUR ---
Pt requested new sheet then attempted to go back to bed.
--- NOTE | 2019-12-29 05:06 | NUR ---
Pt sleeping, no distress noted.
--- NOTE | 2019-12-29 08:18 | NUR ---
Pt awake and eating independently.
[2019-12-29] MEDS: PALIPERIDONE 3 MG TAB.ER.24 PO SCH (09:55)
[2019-12-29] MEDS: levetiracetam 250mg tablet PO SCH ×2 (09:55→20:03)
[2019-12-29] MEDS: levoFLOXACIN 250mg tablet PO SCH (09:56)
--- NOTE | 2019-12-29 10:46 | NUR ---
Pt sleeping on L side. RR equal and nonlabored. Will Continue to monitor.
--- NOTE | 2019-12-29 11:45 | NUR ---
Pt sleeping on L side. RR equal and nonlabored. Will Continue to monitor.
--- NOTE | 2019-12-29 13:07 | NUR ---
Pt sleeping on L side. RR equal and nonlabored. Will Continue to monitor.
--- NOTE | 2019-12-29 13:27 | NUR ---
breaking primary RN, pt is laying on her left side, quietly snoring, will continue to observe
--- NOTE | 2019-12-29 14:27 | NUR ---
Pt lying quietly with eyes open, on L side. RR equal and nonlabored. Will Continue to monitor.
[2019-12-29] MEDS: benzonatate 100mg capsule PO PRN ×2 (14:41→20:03)
--- NOTE | 2019-12-29 15:10 | NUR ---
Pt states they feel febrile. Oral temp to be taken.
--- NOTE | 2019-12-29 16:15 | NUR ---
Note deep in ED - 12/29/19 at 1629 by [email or web address] Pt sleeping on L side. RR equal and nonlabored. Will Continue to monitor.
--- NOTE | 2019-12-29 16:42 | NUR ---
Pt resting comfortably; RR equal and nonlabored with intermittent coughing.
--- NOTE | 2019-12-29 16:48 | NUR ---
Pt came to me and stated "It's not that I want to hurt my dad, but I have voices telling me to". I asked if this was talked about with [facility], and pt stated it was not. I asked if this was the first time the patient had told anyone this and they stated that yes it was; and that the thoughts have been present since August.
--- NOTE | 2019-12-29 17:35 | NUR ---
Pt resting comfortably in bed. No needs at this time. Will continue to monitor.
--- NOTE | 2019-12-29 18:42 | NUR ---
PT SITTING UP IN BED AT MID FOWLERS POSITION. NO OTHER REQUEST OR CONCERNS AT THIS TIME
[2019-12-29] MEDS: olanzapine 10mg tablet PO SCH (20:03)
[2019-12-29] MEDS: LIDOcaine Viscous 15ml cup MM PRN (21:17)
[2019-12-30] MEDS: PALIPERIDONE 3 MG TAB.ER.24 PO SCH (08:54)
[2019-12-30] MEDS: levetiracetam 250mg tablet PO SCH ×2 (08:54→20:13)
[2019-12-30] MEDS: levoFLOXACIN 250mg tablet PO SCH (08:54)
--- NOTE | 2019-12-30 13:22 | NUR ---
Pt is in a position of comfort on the gurney. Pt has no signs of distress noted. Sitter at the bedside at this time.
--- NOTE | 2019-12-30 13:42 | NUR ---
Pt is sitting upright on the bed eating lunch. Pt is asking about the status of her placement, informed her we will be attempting to find out about the disposition from [facility].
--- NOTE | 2019-12-30 14:23 | NUR ---
Pt is calm and cooperative at this time. Pt requested her father call the ED and provide the staff with prescription numbers so she can refill her medications upon discharge from the ED.
--- NOTE | 2019-12-30 14:42 | NUR ---
Pt's father called with the pt's prescriptions as the pt asked for him to call with them. The pt has her meds filled at [facility]. The pt takes: Olanzapine 5mg BID Rx#[id number]; Seroquel 400mg 2 tabs qHS & 200mg qHS PRN Rx#[id number]; Prozac 10mg qAM Rx#[id number]; Levetiracetam 500mg BID 1 1/2 tabs Rx#[id number]; Albuterol 2 puffs q4h PRN Rx#[id number].
--- NOTE | 2019-12-30 15:26 | NUR ---
Pt is calm and cooperative. Pt is asking how much longer she has to take her antibiotics because she wants to know if she is going to be placed in a mental health facility soon. Pt reports no complaints at this time.
--- NOTE | 2019-12-30 16:01 | NUR ---
Fatmata [facility] staff is at the bedside with the patient for mental health evaluation.
--- NOTE | 2019-12-30 17:05 | NUR ---
Pt is requesting medication for anxiety. Dr. Negro to be notified.
--- NOTE | 2019-12-30 17:36 | NUR ---
Pt medicated as ordered for anxiety. Pt has stable vitals.
--- NOTE | 2019-12-30 19:00 | NUR ---
Pt is sitting up on bed eating
--- NOTE | 2019-12-30 20:00 | NUR ---
PT takes HS medications without issue. She reports feeling constipated, given prune juice with good effect.
[2019-12-30] MEDS: olanzapine 10mg tablet PO SCH (20:12)
[2019-12-30] MEDS: benzonatate 100mg capsule PO PRN (21:10)
--- NOTE | 2019-12-30 21:30 | NUR ---
Pt is coughing and requests PRN Tessalon Pearls, which is given.
--- NOTE | 2019-12-30 21:49 | NUR ---
Respiratory paged for PRN breathing Tx per pt's request.
[2019-12-30] MEDS: albuterol 2.5 MG/3 ML nebule NEB PRN (21:55)
--- NOTE | 2019-12-31 00:43 | NUR ---
Pt rests in bed quietly without coughig for awhile, then gets up and asks for tylenol with gemini. Pt told that she does not have that as a PRN but she is able to get lydocaine solution PRN. She refuses and persevorates on the tylenol with gemini and yells, "I guess I will just kill myself then !"
[2019-12-31] MEDS: LIDOcaine Viscous 15ml cup MM PRN ×2 (01:22→08:30)
--- NOTE | 2019-12-31 01:59 | NUR ---
Pt sleeping on back. Respirations unlabored. NAD
--- NOTE | 2019-12-31 03:50 | NUR ---
PT ASLEEP ON BACK RR 16
--- NOTE | 2019-12-31 07:06 | NUR ---
Assumed care of pt. Pt is asleep on her right side in no apparent distress. Respirations are even and unlabored.
[2019-12-31] MEDS: benzonatate 100mg capsule PO PRN ×2 (08:30→22:03)
[2019-12-31] MEDS: levetiracetam 250mg tablet PO SCH ×2 (08:30→19:48)
[2019-12-31] MEDS: acetaminophen 325mg tablet PO PRN (08:30)
[2019-12-31] MEDS: levoFLOXACIN 250mg tablet PO SCH (08:31)
[2019-12-31] MEDS: PALIPERIDONE 3 MG TAB.ER.24 PO SCH (08:31)
--- NOTE | 2019-12-31 09:05 | NUR ---
Pt took all medications as prescribed. Paged respiratory for tx
--- NOTE | 2019-12-31 11:05 | NUR ---
Assumed care of pt. Pt is asleep on her left side in no apparent distress. Respirations are even and unlabored.
--- NOTE | 2019-12-31 12:40 | NUR ---
Pt is asleep on her left side in no apparent distress. Respirations are even and unlabored.
--- NOTE | 2019-12-31 14:16 | NUR ---
Pt up and ambulating with tech.
--- NOTE | 2019-12-31 14:58 | NUR ---
Pt sitting up in bed awake.
--- NOTE | 2019-12-31 15:58 | NUR ---
Pt up calling her friend Carmelita Lee in [place]
--- NOTE | 2019-12-31 17:21 | NUR ---
Pt states she is feeling better physically. SHe states that if her dad or her friend Carrie calls she would like to talk to them.
--- NOTE | 2019-12-31 20:16 | NUR ---
PATIENT UP TO NURSES STATION, SHOWING TALENT OF SIGN LANGUAGE, PATIENT EASY TO RE-DIRECT APPEARS TO BE IN AN OBSERVABLE GOOD MOOD, RR EVEN UN LABORED NO OBSERVABLE S/S OF ACUTE STRESS AT THIS TIME
[2019-12-31] MEDS: olanzapine 10mg tablet PO SCH (20:33)
--- NOTE | 2019-12-31 22:31 | NUR ---
patient in bed hob 30% for patients cough administered prn cough suppresent, rr even un labored covers on no observable s/s of acute stress at this time will continue to monitor
--- NOTE | 2020-01-01 00:37 | NUR ---
patient in bed covers on right side eyes closed rr even un labored no observable s/s of acute stress at this time will continue to monitor
--- NOTE | 2020-01-01 02:42 | NUR ---
patient in bed covers on rigyht side eyes closed rr even un labored no observable s/s of acute stress at this time will continue to monitor
--- NOTE | 2020-01-01 04:15 | NUR ---
patient in bed covers on supine eyes closed rr even un labored no observable s/s of acute stress at this time will continue to monitor
--- NOTE | 2020-01-01 05:16 | NUR ---
patient in bed covers on lying on right side eyes closed rr even un labored no observable s/s of acute stress at this time will continue to monitor
--- NOTE | 2020-01-01 06:28 | NUR ---
SBAR TO MARY FOLEY NO QUESTIONS OR CONCERNS AFTER ASSUMING CARE
[2020-01-01] MEDS: PALIPERIDONE 3 MG TAB.ER.24 PO SCH (08:16)
[2020-01-01] MEDS: levetiracetam 250mg tablet PO SCH ×2 (08:16→20:24)
[2020-01-01] MEDS: levoFLOXACIN 250mg tablet PO SCH (08:18)
--- NOTE | 2020-01-01 08:21 | NUR ---
pt affirms s/i but states, "it's getting better. I'm not thinking about it as much." Pt denies H/I and audio/vis Addendum: 01/01/20 at 0822 by FELIBERTO audio/visual hallucinations at this time. She is cooperative with staff, maintains eye contact and willing took AM meds, knowing what she was due to received.
--- NOTE | 2020-01-01 09:12 | NUR ---
DR BURDICK AT BEDSIDE EVALUATING PT, RECEIVED VERBAL ORDER FOR ROBITUSSIN WITH CODEINE Q 4-5 HOURS PRN COUGH.
[2020-01-01] MEDS: benzonatate 100mg capsule PO PRN ×2 (11:13→20:24)
--- NOTE | 2020-01-01 11:24 | NUR ---
CALLED PT PAYDOMO ATWOOD [phone] LEFT MESSAGE INFORMING HER TO CONTACT [facility] [employer] OFFICE [phone] TO ADD PAYEE, UPDATE PATIENT ADDRESS AND COMPLETE COUNTY TRANSFER APPLICATION FROM [facility] TO [facility], THEN CALL [employer] AT [phone] TO ADD PAYEE INFORMATION.
--- NOTE | 2020-01-01 11:30 | NUR ---
PT IS SLEEPING ON LEFT SIDE, RESPIRATIONS SPONTANEOUS, EVEN AND UNLABORED, NO S/S OF DISTRESS DISCOMFORT OR AGITATION
--- NOTE | 2020-01-01 12:40 | NUR ---
PT IS SLEEPING ON LEFT SIDE, RESPIRATIONS SPONTANEOUS, EVEN AND UNLABORED, NO S/S OF DISTRESS DISCOMFORT OR AGITATION
--- NOTE | 2020-01-01 13:16 | NUR ---
PT SAT UP TO EAT FROM LUNCH TRAY BUT PT QUICKLY BACK TO LYING ON RIGHT SIDE IN BED.
--- NOTE | 2020-01-01 13:17 | NUR ---
LEILA ATWOOD CALLED ME BACK STATES SHE SUBMITTED CHANGE OF ADDRESS AT [employer] OFFICE FOR [facility] TO [place] ON WEDNESDAY SHE WILL FOLLOW UP WEDNESDAY AND CALL BACK FOR AN UPDATE.
--- NOTE | 2020-01-01 13:40 | NUR ---
Break RN: Pt resting on bed on left side, covered with blanket. Pt shows no signs of distress. Breathing even and unlabored.
--- NOTE | 2020-01-01 15:07 | NUR ---
PT RESTING ON LEFT SIDE, RESPIRATIONS SPONTANEOUS, EVEN, AND UNLABORED, NO S/S OF DISTRESS, DISCOMFORT, OR AGITATION AT THIS TIME.
--- NOTE | 2020-01-01 15:44 | NUR ---
PT IS AWAKE AND AMBULATORY TO BATHROOM GAVE SOME JUICE AND SNACK.
[2020-01-01] MEDS: guaiFENesin/codeine phos 10ml UD oral syrup PO PRN ×2 (16:21→22:00)
[2020-01-01 17:38] VITALS: BP 89/48
--- NOTE | 2020-01-01 18:38 | NUR ---
ASSUMED CARE OF PT. PT IS SITTING UP, COUGHING UP QUITE A BIT AFTER EATING DINNER.
--- NOTE | 2020-01-01 20:00 | NUR ---
PT GOES BACK TO SLEEP AFTER RECEIVING HER HS MEDS. DOES NOT APPEAR TO BE IN ANY DISTRESS ALTHOUGH IS STILL COUGHING QUITE A BIT.
[2020-01-01] MEDS: olanzapine 10mg tablet PO SCH (20:24)
--- NOTE | 2020-01-01 21:40 | NUR ---
PT CALLED THIS RN AND STATED THAT SHE WAS HEARING VOICES THAT WERE TELLING HER TO HARM OTHER PEOPLE. SHE STATES THAT THIS HAS BEEN GOING ON SINCE AUGUST BUT HAS NOT ACTED UPON IT. HOWEVER SHE STATES THAT THIS MAKES HER ANXIOUS.
--- NOTE | 2020-01-01 22:03 | NUR ---
PT WAS OBSERVED RESPONDING TO INTERNAL STIMULI AND ATIVAN WAS GIVEN. PT AMBULATED TO THE BATHROOM.
--- NOTE | 2020-01-01 22:09 | NUR ---
WHILE IN THE BATHROOM, PT GOT ON TOP OF THE TOILET AND HIT THE CALL LIGHT. SHE STATED THAT SHE FEELS SCARED DUE TO THE VOICES. WAS REDIRECTED BACK TO HER BED.
--- NOTE | 2020-01-01 23:21 | NUR ---
PT IS STATING THAT THE VOICES ARE VERY STRONG AND IS UNABLE TO SLEEP. ACCORDING TO HER, ZYPREXA WAS DECREASED FROM 30MG TO 20MG. YARA ORELLANA WAS CONSULTED AND HE ORDERED 10MG EXTRA. THIS WAS GIVEN TO PATIENT WHICH SHE WAS AGREEABLE TO TAKE IT.
--- NOTE | 2020-01-02 00:39 | NUR ---
PT IS LAYING ON HER BACK AND APPEARS TO BE SLEEPING. RESPIRATIONS ARE EVEN AND UNLABORED.
== END ==
LOC: ER 14:45
DX: R45.851 Suicidal ideations (principal); J45.909 Unspecified asthma, uncomplicated; E11.9 Type 2 diabetes mellitus without complications; F31.9 Bipolar disorder, unspecified; F20.9 Schizophrenia, unspecified; F12.90 Cannabis use, unspecified, uncomplicated; F17.200 Nicotine dependence, unspecified, uncomplicated; Z72.89 Other problems related to lifestyle; Z88.0 Allergy status to penicillin; Z86.69 Personal history of other diseases of the nervous system and sense organs; Z91.041 Radiographic dye allergy status; Z91.040 Latex allergy status; Z79.899 Other long term (current) drug therapy
CPT/HCPCS: 36415; 80053; 80305; 80320; 81003; 81025; 85025; 87502; 87503; 99285

== ENCOUNTER 2020-01-13 17:49 | Emergency (ER) | payer MEDICARE, MEDICAID ==
[~2020-01-13] VITALS: Ht 154.9 cm; Wt 79.8 kg
--- NOTE | 2020-01-13 18:30 | NUR ---
DR STINSON APPROVED FOR REPEAT TSH.
[2020-01-13 18:49] LABS: BASOPHILS # (AUTO) 0.1 X10'3 (0-0.2); BASOPHILS % (AUTO) 1.6 % (0-1); EOSINOPHILS % (AUTO) 0.2 % (0-6); HEMATOCRIT 37.7 % (35.0-45.0); HEMOGLOBIN 12.5 g/dl (12.0-16.0); MEAN CORPUSCULAR HEMOGLOBIN 26.4 PG (27.0-31.0); MEAN CORPUSCULAR HGB CONC 33.1 g/dL (33.0-36.5); MEAN PLATELET VOLUME 9.5 FL (7.4-10.4); MONOCYTES # (AUTO) 0.6 X10'3 (0-0.9); MONOCYTES % (AUTO) 9.8 % (2-12); NEUTROPHILS # (AUTO) 3.4 X10'3 (1.8-7.7); NEUTROPHILS % (AUTO) 55.4 % (42-75); PLATELET COUNT 216 X10'3 (140-440); RED BLOOD COUNT 4.71 X10'6 (4.20-5.60); RED CELL DISTRIBUTION WIDTH 15.2 % (11.5-14.5); WHITE BLOOD COUNT 6.2 X10'3 (4.5-11.0)
--- NOTE | 2020-01-13 18:57 | NUR ---
Patient reports OD on serroquel and prozac and the medications are at her dads diagonal, she adds she was seen at [facility]
--- NOTE | 2020-01-13 18:59 | NUR ---
Reports she seen twice in the last week at [facility], complains of stomach and kidney pain. expression stoic, answers questions appropriately. monotone voive blinks often, add she went into a seizure. I cant make sense of my life "I just cant"
[2020-01-13 19:00] LABS: CLARITY,URINE SLIGHTLY CLOUDY (Clear); COLOR,URINE AMBER (Yellow); GLUCOSE, URINE NEGATIVE (Neg); KETONES,URINE 15 mg/dl (Neg); LEUKOCYTE ESTERASE ,URINE NEGATIVE (Neg); NITRITES, URINE NEGATIVE (Neg); OCCULT BLOOD,URINE NEGATIVE (Neg); PH,URINE 5.5 (4.8-8.0); PROTEIN,URINE TRACE mg/dl (Neg); UROBILINOGEN,URINE 0.2 E.U/dL (0.2-1.0)
[2020-01-13 19:06] LABS: UA COLLECTION TYPE CLN CATCH MIDSTREAM
[2020-01-13 19:09] LABS: BACTERIA,URINE 2+ /HPF (Neg); RBC,URINE 0-2 /HPF (0-2); URINE AMPHETAMINE SCREEN NEGATIVE (Neg); URINE BARBITUATE SCREEN NEGATIVE (Neg); URINE BENZODIAZEPINES SCREEN NEGATIVE (Neg); URINE CANNABINOID SCREEN NEGATIVE (Neg); URINE COCAINE SCREEN NEGATIVE (Neg); URINE METHADONE SCREEN NEGATIVE (Neg); URINE OPIATE SCREEN NEGATIVE (Neg); URINE PHENCYCLIDINE SCREEN NEGATIVE (Neg); WBC,URINE 0-4 /HPF (0-4)
[2020-01-13 19:10] LABS: MUCUS STRANDS MANY /LPF (Neg); SQUAMOUS EPITHELIAL CELL,UR MANY /LPF (FEW)
[2020-01-13] MEDS ORDERED: BENZ-16 PO ×2 (19:12→20:16)
[2020-01-13 19:15] LABS: ALANINE AMINOTRANSFERASE 23 U/L (12-78); ALBUMIN 3.9 G/DL (3.4-5.0); ALBUMIN/GLOBULIN RATIO 0.9 (1.1-1.5); ALKALINE PHOSPHATASE 90 IU/L (46-116); ANION GAP 10 (8-16); ASPARTATE AMINO TRANSFERASE 25 U/L (10-37); BILIRUBIN,TOTAL 0.7 MG/DL (0.1-1.0); BLOOD UREA NITROGEN 19 MG/DL (7-18); BUN/CREATININE RATIO 17.1 (6.6-38.0); CALCIUM 9.2 MG/DL (8.5-10.1); CHLORIDE 106 MMOL/L (99-107); CREATININE 1.11 MG/DL (0.40-0.90); GLUCOSE 99 MG/DL (70-104); POTASSIUM 3.3 MMOL/L (3.5-5.1); SODIUM 140 MMOL/L (135-145); TOTAL CARBON DIOXIDE 23.8 MMOL/L (24-32); TOTAL PROTEIN 8.2 G/DL (6.4-8.2); eGFR 57 ML/MIN
[2020-01-13 19:24] LABS: ETHANOL < 0.010 GM/DL (0.0-0.010)
[2020-01-13] MEDS ORDERED: QUEtiapine 25mg tablet PO STA (20:23)
[2020-01-13] MEDS ORDERED: diphenhydrAMINE 25mg capsule PO ONE (20:25)
[2020-01-13] MEDS ORDERED: olanzapine 10mg tablet PO SCH (20:25)
--- NOTE | 2020-01-13 20:58 | NUR ---
Pt's Albuterol Inhaler taken to pharmacy.
--- NOTE | 2020-01-13 20:58 | NUR ---
Pt walked to [facility] with 2 techs.
--- NOTE | 2020-01-13 21:33 | NUR ---
Patient is on bed 20. Rx med's passed. Patient is medication compliant. Patient request a snack. Jello and juice given. Patient consumes and then lays down to sleep.
--- NOTE | 2020-01-13 22:11 | NUR ---
Patient is sleeping quietly on her right side.
[2020-01-13] MEDS ORDERED: benzonatate 100mg capsule PO PRN (22:25)
[2020-01-13] MEDS ORDERED: albuterol 2.5 MG/3 ML nebule NEB PRN (22:25)
--- NOTE | 2020-01-13 23:14 | NUR ---
Patient is sleeping quietly, low fowlers position.
--- NOTE | 2020-01-14 00:27 | NUR ---
Patient is sleeping quietly, low smith position in bed.
--- NOTE | 2020-01-14 01:30 | NUR ---
Patient is sleeping quietly in bed.
--- NOTE | 2020-01-14 02:41 | NUR ---
Patient sleeping on her left side, in view from the nursing station.
--- NOTE | 2020-01-14 03:41 | NUR ---
Patient sleeping in a low fowlers position.
--- NOTE | 2020-01-14 05:42 | NUR ---
Patient is sleeping on her left side.
--- NOTE | 2020-01-14 07:00 | NUR ---
asleep in bed
[2020-01-14] MEDS: non-formulary drug (Levetiracetam 1 TAB) PO SCH ×2 (07:31→19:56)
--- NOTE | 2020-01-14 08:00 | NUR ---
asleep in bed, ate breakfast
[2020-01-14] MEDS: levetiracetam 250mg tablet PO SCH ×2 (08:14→19:53)
--- NOTE | 2020-01-14 09:00 | NUR ---
asleep in bed
--- NOTE | 2020-01-14 10:00 | NUR ---
asleep in bed
--- NOTE | 2020-01-14 11:00 | NUR ---
asleep in bed
--- NOTE | 2020-01-14 13:00 | NUR ---
asleep in bed
[2020-01-14] MEDS: olanzapine 10mg tablet PO SCH (13:49)
--- NOTE | 2020-01-14 14:00 | NUR ---
asleep in bed
--- NOTE | 2020-01-14 15:00 | NUR ---
asleep in bed
--- NOTE | 2020-01-14 16:00 | NUR ---
asleep in bed
--- NOTE | 2020-01-14 16:37 | NUR ---
PACKET FAXED TO [facility]
--- NOTE | 2020-01-14 17:00 | NUR ---
asleep in bed
--- NOTE | 2020-01-14 18:00 | NUR ---
asleep in bed
[2020-01-14] MEDS ORDERED: haloperidol 5mg tablet PO ONE (19:20)
--- NOTE | 2020-01-14 19:20 | NUR ---
This patient is well oriented, W/D, she has good color. Patient is cooperative with staff. The patient complains of "voices, they are telling me to hurt myself and my dad." The patient states she is S/I, she has a plan to step out in front of a vehicle. The patient tells this film writer that she has a history of autism, schizoeffective disorder, and PTSD. Patient states that she has not had a bowel movement since the of this month. Haldol was discussed with the patient, she states it has worked well with her in the past. This film writer spoke with the ER YARA Dutta. Haldol and Mirilax will be given. PO fluids will be pushed. Patients bed is in direct view from the nursing station. Frequent rounding will be done for patient safety.
--- NOTE | 2020-01-14 20:53 | NUR ---
[facility], is interviewing patient at bedside.
[2020-01-14] MEDS: polyethylene glycol 3350 17gm powd pack PO SCH (21:10)
--- NOTE | 2020-01-14 21:48 | NUR ---
Patient is sleeping on her left side.
--- NOTE | 2020-01-15 00:06 | NUR ---
Break relief for primary nurse. Pt is resting on her side with even and unlabored respirations. Pt has no distress noted. Pt has sitter at bedside.
--- NOTE | 2020-01-15 00:47 | NUR ---
Assumed care from OG Lai. Pt. currently sleeping on L side. No s/s of distress/discomfort observed at this time.
--- NOTE | 2020-01-15 02:00 | NUR ---
Patient is sleeping quietly on her right side.
--- NOTE | 2020-01-15 03:11 | NUR ---
Patient is sleeping quietly, in view from the nursing station.
--- NOTE | 2020-01-15 04:00 | NUR ---
Patient is sleeping, she rolls over and repositions self.
--- NOTE | 2020-01-15 05:12 | NUR ---
Patient is sleeping, also talking in her sleep.
--- NOTE | 2020-01-15 07:00 | NUR ---
Pt received sleeping without distress.
[2020-01-15] MEDS ORDERED: olanzapine 10mg tablet PO SCH (08:00)
[2020-01-15] MEDS: levetiracetam 250mg tablet PO SCH ×2 (08:46→20:17)
[2020-01-15] MEDS: olanzapine 10mg tablet PO SCH (08:46)
--- NOTE | 2020-01-15 09:00 | NUR ---
Pt awoke for breakfast and medications and then returned to sleep without distress. No complaints or requests.
--- NOTE | 2020-01-15 11:00 | NUR ---
Pt continues to lie in bed, quietly, without complaints or signs of distress.
--- NOTE | 2020-01-15 13:00 | NUR ---
Pt continues to rest quietly in bed without complaints.
--- NOTE | 2020-01-15 15:00 | NUR ---
Pt resting quietly in bed without complaints.
--- NOTE | 2020-01-15 17:00 | NUR ---
Pt c/o her throat burning. V/S checked - WNL. Pt encouraged to drink fluids and she then requested some yogurt. No further complaints. Pt resting calmly.
--- NOTE | 2020-01-15 18:33 | NUR ---
Pt is laying in bed, appears to be resting comfortably. Pt states she is tired of not feeling well because of her things her in head. Asked what things and she replied voices talking. Pt turned to her left side and went to sleep. She reports no needs at this time.
--- NOTE | 2020-01-15 19:06 | NUR ---
pt was taking 30mg of zyprexa in the past and she is requesting haldol at night to help with voices. Pt is already taking 20mg of zyprexa daily, PA added 10mg zyprexa at HS. Pt states she is happy with this.
--- NOTE | 2020-01-15 19:49 | NUR ---
Per pharmacy called and verified Zyprexa of 20mg daily and 10mg HS is ok Per [facility] psychiatrist Dr. Augustine.
[2020-01-15] MEDS: polyethylene glycol 3350 17gm powd pack PO SCH (20:17)
[2020-01-15] MEDS: OLANZAPINE 5 MG TABLET PO SCH (20:18)
--- NOTE | 2020-01-15 20:24 | NUR ---
Pt sitting up in bed eating a snack. Pt is med compliant at med pass. Pt is calm, cooperative, constricted affect.
--- NOTE | 2020-01-15 22:40 | NUR ---
pt is asleep laying on her right side rr even and unlabored.
--- NOTE | 2020-01-16 03:52 | NUR ---
Pt sleeping on her right side rr even and unlabored no s/s distress.
--- NOTE | 2020-01-16 05:54 | NUR ---
Pt woke for am vitals and returned back to sleep. She slept well during the night after taking HS meds. Pt is sleeping rr even and unlabored no s/s distress.
--- NOTE | 2020-01-16 06:45 | NUR ---
Patient is sleeping on her right side. Respirations are even and unlabored.
[2020-01-16] MEDS: levetiracetam 250mg tablet PO SCH ×2 (08:18→20:20)
[2020-01-16] MEDS: olanzapine 10mg tablet PO SCH (08:18)
--- NOTE | 2020-01-16 12:16 | NUR ---
Patient sleeping on right side. No distress observed. Continue to monitor.
--- NOTE | 2020-01-16 12:31 | NUR ---
Break relief for Primary Nurse. Pt is ambulatory to the restroom with steady gait then to use the phone to make a call.
--- NOTE | 2020-01-16 14:20 | NUR ---
Patient ambulatory to BR, steady gait. No distress observed. Continue to monitor.
--- NOTE | 2020-01-16 16:30 | NUR ---
Patient asking for medication for voices. RN asked YARA Thurston who deferred to psychiatrist. RN paged YARA Michaud. No answers as of yet. Patient is calm and in no distress. Continue to monitor.
--- NOTE | 2020-01-16 19:28 | NUR ---
One to one with the patient to assess severity of depressive symptoms and self harm risk. The patient presents as mildly anxious and frequently seeking staff interaction and attention. She has repeatedly asked for PRN for voices. She stated the voices she has been hearing have not decreased since admit. She does endorse constant voices telling her to kill herself. She does not appear to be responding to internal stimuli. States she feels depressed.
[2020-01-16] MEDS: hydrOXYzine 25 MG tablet PO PRN (20:20)
[2020-01-16] MEDS: OLANZAPINE 5 MG TABLET PO SCH (20:20)
[2020-01-16] MEDS: polyethylene glycol 3350 17gm powd pack PO SCH (20:20)
--- NOTE | 2020-01-16 21:08 | NUR ---
The patient is resting quietly on her bed.
--- NOTE | 2020-01-16 23:42 | NUR ---
The patient appears to be sleeping
--- NOTE | 2020-01-17 00:55 | NUR ---
The patient appears to be sleeping
--- NOTE | 2020-01-17 04:59 | NUR ---
The patient appears to be sleeping
--- NOTE | 2020-01-17 06:40 | NUR ---
Patient sleeping on right side. No distress observed. Continue to monitor.
[2020-01-17] MEDS: olanzapine 10mg tablet PO SCH (08:04)
[2020-01-17] MEDS: levetiracetam 250mg tablet PO SCH ×2 (08:04→18:47)
--- NOTE | 2020-01-17 08:10 | NUR ---
Pt sitting up and eating. No distress observed. Continue to monitor.
--- NOTE | 2020-01-17 10:36 | NUR ---
Patient sleeping on left side. No distress observed. Continue to monitor.
--- NOTE | 2020-01-17 12:18 | NUR ---
Patient awake and reclining in bed. No distress observed.
--- NOTE | 2020-01-17 14:05 | NUR ---
Patient chatting with staff from her bed. No distress observed. Continue to monitor.
[2020-01-17] MEDS: hydrOXYzine 25 MG tablet PO PRN (15:57)
--- NOTE | 2020-01-17 16:06 | NUR ---
Patient given 50 mg Atarax for anxiety. No distress observed. Continue to monitor.
--- NOTE | 2020-01-17 17:50 | NUR ---
Martin, [facility], talking to patient and advising her that they are not placing her back on a hold. Martin advised the patient that she can go live with her father. Patient is upset and the only other option patient was given is to go to [facility]. Continue to monitor.
[2020-01-17] MEDS: polyethylene glycol 3350 17gm powd pack PO SCH (18:45)
--- NOTE | 2020-01-17 18:45 | NUR ---
Assumed care of patient. Pt. sitting on bed alert and oriented, no distress observed. Pt. being ready for dishcharge.
[2020-01-17] MEDS: OLANZAPINE 5 MG TABLET PO SCH (18:46)
[2020-01-17] MEDS ORDERED: KEP500T PO (19:36)
[2020-01-17] MEDS ORDERED: LEVE10002 PO (19:36)
[2020-01-17] MEDS ORDERED: OLAN10TA3 PO ×2 (19:36→22:46)
--- NOTE | 2020-01-17 19:44 | NUR ---
Pt discharged to [facility]. Pt. ambulated out with security and [facility]. Pt alert and oriented. Pt. was discharged with prescription for 2 days. Pt. states her dad "has all my medications." Pt. encouraged to call father to bring down her meds. Pt. dressed appropriately for weather.
[2020-01-17 19:57] VITALS: BP 114/74
[2020-01-17] MEDS ORDERED: OLAN20TA3 PO (22:44)
[2020-01-17] MEDS ORDERED: HYDR-3686 PO (22:46)
[2020-01-17] MEDS ORDERED: POLY119P2 PO (22:52)
[2020-01-18] MEDS ORDERED: HYDR-3686 PO (20:13)
[2020-01-18] MEDS ORDERED: OLAN10TA3 PO (20:13)
[2020-01-18] MEDS ORDERED: LEVE500T PO (20:13)
[2020-01-18] MEDS ORDERED: OLAN20TA3 PO (20:13)
[2020-01-18] MEDS ORDERED: LEVE10006 PO (20:13)
[2020-01-18] MEDS ORDERED: POLY17PO10 PO (20:13)
[2020-01-18] MEDS ORDERED: ALBU18HF2 INH (20:13)
== END 2020-01-17 19:45 | disposition home or self-care (01) ==
LOC: ER 17:49
DX: R45.851 Suicidal ideations (principal); J45.909 Unspecified asthma, uncomplicated; E11.9 Type 2 diabetes mellitus without complications; F31.9 Bipolar disorder, unspecified; F12.90 Cannabis use, unspecified, uncomplicated; F20.9 Schizophrenia, unspecified; Z87.440 Personal history of urinary (tract) infections; Z91.14 Patient's other noncompliance with medication regimen
CPT/HCPCS: 36415; 80053; 80305; 80320; 81001; 84443; 85025; 99284; Q0163; Z7610

== ENCOUNTER 2020-01-17 22:07 | Emergency (ER) | payer MEDICARE, MEDICAID ==
[~2020-01-17] VITALS: Ht 165.1 cm; Wt 204.8 kg
[~2020-01-17 22:07] MED LIST changes: +BENZ-16 PO; +KEP500T PO; +LEVE10002 PO; +OLAN10TA3 PO; -PALI117D IM; -PALI3TAB PO
[2020-01-17] MEDS ORDERED: OLAN20TA3 PO (22:44)
[2020-01-17] MEDS ORDERED: OLAN10TA3 PO (22:46)
[2020-01-17] MEDS ORDERED: HYDR-3686 PO (22:46)
[2020-01-17] MEDS ORDERED: POLY119P2 PO (22:52)
--- NOTE | 2020-01-17 22:58 | NUR ---
Admit Note: Pt arrived to [facility] via EMS. Pt had just been earlier to the [facility] this shift. Pt. is unable to maintain self in community and presents as gravely disabled. Pt reports "I just freaked out and I was afraid." "I was afraid of the people there." Pt. is resting in bed with covers pulled over her head. Pt. responds to name.
[2020-01-17] MEDS ORDERED: ALBUTEROL INHALER 1 PUFF/90 MCG INHALER IH PRN (23:20)
[2020-01-17] MEDS ORDERED: polyethylene glycol 3350 17gm powd pack PO PRN (23:20)
--- NOTE | 2020-01-18 00:05 | NUR ---
Patient reports "my arms are jumping." When asked if pt. was feeling anxious, she nodded yes. Atarax 50mg was administere with effect.
[2020-01-18] MEDS: hydrOXYzine 25 MG tablet PO PRN ×2 (00:07→11:31)
--- NOTE | 2020-01-18 00:29 | NUR ---
Packet sent to [place] office.
--- NOTE | 2020-01-18 01:53 | NUR ---
Patient continues to sleep comfortably on right side. Respirations even and unlabored.
--- NOTE | 2020-01-18 03:44 | NUR ---
Pt. sleeping on right side, respirations even and unlabored.
--- NOTE | 2020-01-18 05:38 | NUR ---
Pt. sleeping on right side, respirations even and unlabored. No distress noted.
[2020-01-18] MEDS ORDERED: olanzapine 10mg tablet PO SCH ×2 (08:00→21:00)
[2020-01-18] MEDS ORDERED: levetiracetam 250mg tablet PO SCH ×2 (08:00)
--- NOTE | 2020-01-18 08:00 | NUR ---
RN received SBAR report on pt. from KEYSHAWN FOLEY. Urine and lab work ordered on pt. Pt. reluctantly gave urine. Pt. took medications and went back to sleep. Pt. reports SI without plan. Pt. reports hearing command auditory hallucinations that tell her to kill herself. Pt. is on LOS observation.
[2020-01-18 08:45] LABS: URINE AMPHETAMINE SCREEN NEGATIVE (Neg); URINE BARBITUATE SCREEN NEGATIVE (Neg); URINE BENZODIAZEPINES SCREEN NEGATIVE (Neg); URINE CANNABINOID SCREEN NEGATIVE (Neg); URINE COCAINE SCREEN NEGATIVE (Neg); URINE METHADONE SCREEN NEGATIVE (Neg); URINE OPIATE SCREEN NEGATIVE (Neg); URINE PHENCYCLIDINE SCREEN NEGATIVE (Neg)
--- NOTE | 2020-01-18 10:00 | NUR ---
Pt. asleep in bed. normal R&R of respirations observed.
--- NOTE | 2020-01-18 12:00 | NUR ---
Pt. became upset with plan to discharge pt. to her home, crying, "I can't go home. My dad always yells at me for clearing my throat too loud!". Pt. was redirectable. RN listened to pt. at length and gave therapeutic communication.
--- NOTE | 2020-01-18 14:00 | NUR ---
Pt. in bed talking with [facility] staff regarding discharge. Pt. to be discharged to [facility] via cab. Pt. is calm and cooperative.
--- NOTE | 2020-01-18 15:15 | NUR ---
Pt. informed that [facility] will be able to brass pickler pt. in 1 hour. Pt. requesting to walk on foot to the [facility] instead. RN discussed with ER coordinator and pt. approved to walk.
--- NOTE | 2020-01-18 15:30 | NUR ---
Pt. discharged to [facility] via ambulation. Pt. discharged with all belongings. Pt. denies SI/HI, A/V hallucinations and in no apparent psychological or emotional distress. RN discussed d/c paperwork with pt. and f/u instructions. Pt. verbalized understanding. Pt. escorted out of hospital with security.
[2020-01-18 16:24] VITALS: BP 108/60
[2020-01-18] MEDS ORDERED: LEVE10006 PO (20:13)
[2020-01-18] MEDS ORDERED: POLY17PO10 PO (20:13)
[2020-01-18] MEDS ORDERED: OLAN10TA3 PO (20:13)
[2020-01-18] MEDS ORDERED: ALBU18HF2 INH (20:13)
[2020-01-18] MEDS ORDERED: OLAN20TA3 PO (20:13)
[2020-01-18] MEDS ORDERED: LEVE500T PO (20:13)
[2020-01-18] MEDS ORDERED: HYDR-3686 PO (20:13)
== END 2020-01-18 15:30 | disposition home or self-care (01) ==
LOC: ER 22:08
DX: R45.851 Suicidal ideations (principal); J45.909 Unspecified asthma, uncomplicated; E11.9 Type 2 diabetes mellitus without complications; F31.9 Bipolar disorder, unspecified; F20.9 Schizophrenia, unspecified; F12.90 Cannabis use, unspecified, uncomplicated; Z86.69 Personal history of other diseases of the nervous system and sense organs; Z88.0 Allergy status to penicillin; Z88.1 Allergy status to other antibiotic agents; Z91.048 Other nonmedicinal substance allergy status; Z91.040 Latex allergy status; Z88.8 Allergy status to other drugs, medicaments and biological substances; Z79.899 Other long term (current) drug therapy
CPT/HCPCS: 36415; 80305; 80320; 99284; Z7610

== ENCOUNTER 2020-01-18 17:47 | Emergency (ER) | payer MEDICARE, MEDICAID ==
[~2020-01-18] VITALS: Ht 156.2 cm; Wt 81.4 kg
[~2020-01-18 17:47] MED LIST changes: +HYDR-3686 PO; +OLAN20TA3 PO; +POLY119P2 PO
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
--- NOTE | 2020-01-18 18:15 | NUR ---
RN infromed RN informed by Dr. Simon and [facility] clinician Martin that pt.'s [address] Simon informed this RN to call Aileen and have [employer] pick pt. up and bring her to [facility]. RN called Aileen and had officer Isaiah informed to come back to pick pt. up per doctor's directive. Pt. triage completed.
--- NOTE | 2020-01-18 18:35 | NUR ---
Assumed care of patient, pt. sitting at bedside eating dinner at this time. She is tearful, states, "[facility] was supposed to ge placement for me but they didn't."
--- NOTE | 2020-01-18 19:10 | NUR ---
Notified Dr. Haro of pt's rating as a high risk on the [place] Suicide Severity Risk Scale, he does not wish to upgrade safety precautions to 1:1. Dr. Haro states, "She is ready for dischgarge either home or to the correction." Will continue to monitor.
[2020-01-18 19:15] VITALS: BP 123/73
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
--- NOTE | 2020-01-18 19:25 | NUR ---
Called Aileen, officer will come get pt. when he is available. Will update officer with pt's current status.
[2020-01-18] MEDS ORDERED: acetaminophen 325mg tablet PO PRN (20:00)
[2020-01-18] MEDS ORDERED: levetiracetam 250mg tablet PO SCH ×2 (20:00)
--- NOTE | 2020-01-18 20:01 | NUR ---
Per Dr. Haro, pt. will be place on a 1798 for vinicio, she continues to make suicidal statements with a plan to OD.
[2020-01-18] MEDS ORDERED: HYDR-3686 PO (20:13)
[2020-01-18] MEDS ORDERED: ALBU18HF2 INH (20:13)
[2020-01-18] MEDS ORDERED: POLY17PO10 PO (20:13)
[2020-01-18] MEDS ORDERED: LEVE10006 PO (20:13)
[2020-01-18] MEDS ORDERED: OLAN20TA3 PO (20:13)
[2020-01-18] MEDS ORDERED: LEVE500T PO (20:13)
[2020-01-18] MEDS ORDERED: OLAN10TA3 PO (20:13)
[2020-01-18] MEDS ORDERED: polyethylene glycol 3350 17gm powd pack PO PRN (20:30)
[2020-01-18] MEDS ORDERED: albuterol 2.5 MG/3 ML nebule NEB PRN (20:30)
--- NOTE | 2020-01-18 20:30 | NUR ---
Pt. lying in bed at this time, has not exhibited any other self-injurious behaviors, however remains on LOS of nurse's station for safety precautions. Pt. continues to report S/I with a plan to overdose, and JULIA previously made aware of this and pt. placed on a 1798 hold. She states, "I am frustrated with [facility] so I want to ." Pt. denies any H/I. She reports ongoing A/MANNING, will continue to monitor.
[2020-01-18] MEDS ORDERED: hydrOXYzine 25 MG tablet PO PRN (20:35)
[2020-01-18] MEDS ORDERED: olanzapine 10mg tablet PO SCH (21:00)
--- NOTE | 2020-01-18 21:01 | NUR ---
Pt. compliant with medications, administered PRN Tylenol r/t pt. c/o chronic back, bilateral knee, and rt. hip pain. Pt. also requested PRN Atrax for anxiety, will continue to monitor. Pt. sitting up in bed eating HS sanck at this time. Continues to to be within LOS of nurse's station, will monitor for safety.
--- NOTE | 2020-01-18 21:30 | NUR ---
Spoke with America, [facility] to update her regarding pt. being placed on 1799 hold. Per America, no current labs needed at this time r/t reoccurring pt. admistions, last labs were obtained on 01/13/20. Packet sent to [facility] and per America pt. will be evaluated tonight.
--- NOTE | 2020-01-18 22:04 | NUR ---
[facility] at bedside evaluating pt.
--- NOTE | 2020-01-18 22:33 | NUR ---
Per [facility], pt. does not meet criteria for a hold at this time. However, she will spend the night, will tx pt. to room 14 per CRN.
--- NOTE | 2020-01-18 22:34 | NUR ---
Pt. sleeping at this time, rr even and unlabored. Will awaken to tx and report off to nurse.
--- NOTE | 2020-01-19 | NUR ---
PT ASLEEP IN ROOM
[2020-01-19] MEDS ORDERED: hydrOXYzine 25 MG tablet PO SCH (02:00)
--- NOTE | 2020-01-19 04:00 | NUR ---
PT ASLEEP IN ROOM, RR EVEN AND UNLABORED
[2020-01-19] MEDS ORDERED: olanzapine 10mg tablet PO SCH (08:00)
[2020-01-20] MEDS ORDERED: BENZ-16 PO (23:24)
[2020-01-20] MEDS ORDERED: ALBU8HFA PO (23:24)
== END 2020-01-19 06:04 ==
LOC: ER 17:48
DX: F32.9 Major depressive disorder, single episode, unspecified (principal); Z76.5 Malingerer [conscious simulation]; J45.909 Unspecified asthma, uncomplicated; E11.9 Type 2 diabetes mellitus without complications; F20.9 Schizophrenia, unspecified; F12.90 Cannabis use, unspecified, uncomplicated; Z86.69 Personal history of other diseases of the nervous system and sense organs; Z88.0 Allergy status to penicillin; Z88.1 Allergy status to other antibiotic agents; Z91.048 Other nonmedicinal substance allergy status; Z88.8 Allergy status to other drugs, medicaments and biological substances; Z91.040 Latex allergy status; Z91.018 Allergy to other foods
CPT/HCPCS: 99285; Z7610

== ENCOUNTER 2020-01-19 14:50 | Emergency (ER) | payer MEDICARE, MEDICAID ==
[~2020-01-19] VITALS: Ht 157.5 cm; Wt 80.0 kg
[~2020-01-19 14:50] MED LIST changes: -BENZ-16 PO; -KEP500T PO; -LEVE10002 PO; -POLY119P2 PO; +POLY17PO10 PO
[2020-01-19] MEDS ORDERED: ondansetron 4mg rapidly disintigrating tab PO ONE (17:10)
[2020-01-19 17:11] VITALS: BP 113/71
[2020-01-19 17:23] LABS: URINE HCG NEGATIVE (NEG)
[2020-01-19 17:42] LABS: CLARITY,URINE CLEAR (Clear); COLOR,URINE YELLOW (Yellow); GLUCOSE, URINE NEGATIVE (Neg); KETONES,URINE NEGATIVE (Neg); LEUKOCYTE ESTERASE ,URINE NEGATIVE (Neg); NITRITES, URINE NEGATIVE (Neg); OCCULT BLOOD,URINE LARGE (Neg); PROTEIN,URINE TRACE mg/dl (Neg); UROBILINOGEN,URINE 0.2 E.U/dL (0.2-1.0)
[2020-01-19 17:54] LABS: BACTERIA,URINE FEW /HPF (Neg); MUCUS STRANDS FEW /LPF (Neg); SQUAMOUS EPITHELIAL CELL,UR MANY /LPF (FEW); UA COLLECTION TYPE CLN CATCH MIDSTREAM; WBC,URINE 0-4 /HPF (0-4)
[2020-01-19 17:55] LABS: CAL OXALATE CRYSTALS 2+ /HPF (NEGATIVE)
[2020-01-20] MEDS ORDERED: ALBU8HFA PO (23:24)
[2020-01-20] MEDS ORDERED: BENZ-16 PO (23:24)
== END 2020-01-19 17:17 | disposition home or self-care (01) ==
LOC: ER 14:50
DX: R30.0 Dysuria (principal); M54.5 Low back pain; R10.30 Lower abdominal pain, unspecified; R30.9 Painful micturition, unspecified; J45.909 Unspecified asthma, uncomplicated; E11.9 Type 2 diabetes mellitus without complications; F31.9 Bipolar disorder, unspecified; F20.9 Schizophrenia, unspecified; F12.90 Cannabis use, unspecified, uncomplicated; Z86.69 Personal history of other diseases of the nervous system and sense organs; Z88.0 Allergy status to penicillin; Z88.1 Allergy status to other antibiotic agents; Z91.040 Latex allergy status; Z91.018 Allergy to other foods; Z88.8 Allergy status to other drugs, medicaments and biological substances
CPT/HCPCS: 81001; 81025; 99283

== ENCOUNTER 2020-01-20 23:05 | Emergency (ER) | payer MEDICARE, MEDICAID ==
[~2020-01-20] VITALS: Ht 157.5 cm; Wt 83.6 kg
[2020-01-20 23:08] VITALS: BP 105/65
[2020-01-20] MEDS ORDERED: ALBU8HFA PO (23:24)
[2020-01-20] MEDS ORDERED: BENZ-16 PO (23:24)
== END 2020-01-20 23:35 | disposition home or self-care (01) ==
LOC: ER 23:08
DX: R05 Cough (principal); J45.909 Unspecified asthma, uncomplicated; E11.9 Type 2 diabetes mellitus without complications; F31.9 Bipolar disorder, unspecified; F20.9 Schizophrenia, unspecified; F12.90 Cannabis use, unspecified, uncomplicated; Z86.69 Personal history of other diseases of the nervous system and sense organs; Z88.0 Allergy status to penicillin; Z88.1 Allergy status to other antibiotic agents; Z91.048 Other nonmedicinal substance allergy status; Z91.040 Latex allergy status; Z91.018 Allergy to other foods
CPT/HCPCS: 99283

== ENCOUNTER 2020-01-21 07:28 | Emergency (ER) | payer MEDICARE, MEDICAID ==
[~2020-01-21] VITALS: Ht 154.9 cm; Wt 90.0 kg
[~2020-01-21 07:28] MED LIST changes: +ALBU8HFA PO; +BENZ-16 PO
--- NOTE | 2020-01-21 07:44 | NUR ---
clothing and belonging removed and pt placed in scrubs
--- NOTE | 2020-01-21 08:10 | NUR ---
Pt found with green scrub shirt and mask tied around her neck, face was blue. Shirt was untied and taken away with mask and color returned to normal. Primary RN notified and
--- NOTE | 2020-01-21 08:52 | NUR ---
pt ambulated to bathroom with rn for urine sample
[2020-01-21 09:04] LABS: BASOPHILS % (AUTO) 0.5 % (0-1); EOSINOPHILS % (AUTO) 0.7 % (0-6); HEMATOCRIT 34.2 % (35.0-45.0); HEMOGLOBIN 11.1 g/dl (12.0-16.0); LYMPHOCYTES # (AUTO) 1.9 X10'3 (1.1-4.8); LYMPHOCYTES % (AUTO) 52.8 % (21-51); MEAN CORPUSCULAR HGB CONC 32.6 g/dL (33.0-36.5); MEAN PLATELET VOLUME 9.8 FL (7.4-10.4); MONOCYTES # (AUTO) 0.6 X10'3 (0-0.9); MONOCYTES % (AUTO) 16.4 % (2-12); NEUTROPHILS # (AUTO) 1.1 X10'3 (1.8-7.7); NEUTROPHILS % (AUTO) 29.6 % (42-75); PLATELET COUNT 161 X10'3 (140-440); RED BLOOD COUNT 4.12 X10'6 (4.20-5.60); WHITE BLOOD COUNT 3.6 X10'3 (4.5-11.0)
[2020-01-21 09:07] LABS: URINE HCG NEGATIVE (NEG)
[2020-01-21 09:18] LABS: ALANINE AMINOTRANSFERASE 25 U/L (12-78); ALBUMIN 3.6 G/DL (3.4-5.0); ALBUMIN/GLOBULIN RATIO 0.9 (1.1-1.5); ALKALINE PHOSPHATASE 76 IU/L (46-116); ANION GAP 7 (8-16); ASPARTATE AMINO TRANSFERASE 27 U/L (10-37); BILIRUBIN,TOTAL 0.4 MG/DL (0.1-1.0); BLOOD UREA NITROGEN 11 MG/DL (7-18); BUN/CREATININE RATIO 11.7 (6.6-38.0); CALCIUM 8.8 MG/DL (8.5-10.1); CHLORIDE 109 MMOL/L (99-107); CREATININE 0.94 MG/DL (0.40-0.90); ETHANOL < 0.010 GM/DL (0.0-0.010); GLUCOSE 87 MG/DL (70-104); POTASSIUM 3.5 MMOL/L (3.5-5.1); SODIUM 141 MMOL/L (135-145); TOTAL CARBON DIOXIDE 25.3 MMOL/L (24-32); TOTAL PROTEIN 7.4 G/DL (6.4-8.2); eGFR 69 ML/MIN
[2020-01-21 09:22] LABS: URINE AMPHETAMINE SCREEN NEGATIVE (Neg); URINE BARBITUATE SCREEN NEGATIVE (Neg); URINE BENZODIAZEPINES SCREEN NEGATIVE (Neg); URINE CANNABINOID SCREEN NEGATIVE (Neg); URINE COCAINE SCREEN NEGATIVE (Neg); URINE METHADONE SCREEN NEGATIVE (Neg); URINE OPIATE SCREEN NEGATIVE (Neg); URINE PHENCYCLIDINE SCREEN NEGATIVE (Neg)
[2020-01-21 09:26] LABS: TOTAL CELLS COUNTED 100
[2020-01-21 09:28] LABS: ELLIPTOCYTES FEW; PLATELET ESTIMATE NORMAL
--- NOTE | 2020-01-21 09:28 | NUR ---
pt sitting in her bed. pt in line of sight of nurse station
--- NOTE | 2020-01-21 09:50 | NUR ---
pt walked over to [facility] by amadou
--- NOTE | 2020-01-21 09:50 | NUR ---
RN assumed care. Pt. placed in room 21. Pt. reports SI with plan to tie things around her neck. Pt. reports hearing voices that tell her to hurt herself. Pt. placed on 1:1 observation.
--- NOTE | 2020-01-21 10:42 | NUR ---
belonging taken to [facility]
[2020-01-21] MEDS ORDERED: hydrOXYzine 25 MG tablet PO SCH (11:15)
[2020-01-21] MEDS ORDERED: levetiracetam 250mg tablet PO SCH ×2 (11:15)
[2020-01-21] MEDS ORDERED: hydrOXYzine 25 MG tablet PO PRN (11:25)
[2020-01-21] MEDS ORDERED: albuterol 2.5 MG/3 ML nebule NEB PRN (11:25)
[2020-01-21] MEDS ORDERED: olanzapine 10mg tablet PO SCH ×2 (11:25→21:00)
--- NOTE | 2020-01-21 12:00 | NUR ---
Pt. appears to be sleeping in bed. normal R&R of respirations noted.
[2020-01-21 13:53] LABS: CLARITY,URINE CLOUDY (Clear); COLOR,URINE YELLOW (Yellow); GLUCOSE, URINE NEGATIVE (Neg); KETONES,URINE NEGATIVE (Neg); LEUKOCYTE ESTERASE ,URINE NEGATIVE (Neg); NITRITES, URINE NEGATIVE (Neg); OCCULT BLOOD,URINE LARGE (Neg); PROTEIN,URINE NEGATIVE (Neg); UROBILINOGEN,URINE 0.2 E.U/dL (0.2-1.0)
[2020-01-21 13:54] LABS: UA COLLECTION TYPE CLN CATCH MIDSTREAM
[2020-01-21 14:00] LABS: AMORPHOUS URATES 4+
--- NOTE | 2020-01-21 14:00 | NUR ---
Pt. appears to be sleeping. Normal R&R of respirations noted.
[2020-01-21 14:04] LABS: SQUAMOUS EPITHELIAL CELL,UR MODERATE /LPF (FEW)
[2020-01-21 14:08] LABS: BACTERIA,URINE 1+ /HPF (Neg); RBC,URINE 0-2 /HPF (0-2); WBC,URINE 0-4 /HPF (0-4)
--- NOTE | 2020-01-21 14:09 | NUR ---
PACKET FAXED TO [facility]
[2020-01-21 14:17] LABS: TRANSITIONAL EPI CELLS,URINE FEW /HPF
--- NOTE | 2020-01-21 16:00 | NUR ---
Pt. refused her lunch. Pt. appears to be sleeping. Normal rate and rhythm of respirations observed.
--- NOTE | 2020-01-21 17:44 | NUR ---
RN infromed by [facility] that pt. to be discharged to [facility]. Pt. continues to verbalizes SI but when asked about a plan, pt. states, "I'm not really sure". Pt. reports hearing voices that tell her she is no good. Pt. signed paper work verbalizes understanding of discharge plans. Pt. reports she has scripts for her medications. [facility] called.
[2020-01-21 17:56] VITALS: BP 93/52
== END 2020-01-21 17:45 ==
LOC: ER 07:29
DX: T55.0X2A Toxic effect of soaps, intentional self-harm, initial encounter (principal); R45.851 Suicidal ideations; R10.13 Epigastric pain; J02.9 Acute pharyngitis, unspecified; J45.909 Unspecified asthma, uncomplicated; E11.9 Type 2 diabetes mellitus without complications; F32.9 Major depressive disorder, single episode, unspecified; F20.9 Schizophrenia, unspecified; F12.90 Cannabis use, unspecified, uncomplicated; Z87.440 Personal history of urinary (tract) infections
CPT/HCPCS: 71045; 74018; 80053; 80305; 80320; 81001; 81025; 85025; 93005; 99284

== ENCOUNTER 2020-01-21 20:01 | Emergency (ER) | payer MEDICARE, MEDICAID ==
[~2020-01-21] VITALS: Ht 154.9 cm; Wt 83.6 kg
--- NOTE | 2020-01-21 20:16 | NUR ---
DARIAND delivered written 5150 for the patient for danger to self.
[2020-01-21 21:08] LABS: BASOPHILS % (AUTO) 0.6 % (0-1); EOSINOPHILS # (AUTO) 0.1 X10'3 (0-0.9); EOSINOPHILS % (AUTO) 1.5 % (0-6); HEMATOCRIT 33.9 % (35.0-45.0); HEMOGLOBIN 11.1 g/dl (12.0-16.0); LYMPHOCYTES # (AUTO) 2.1 X10'3 (1.1-4.8); LYMPHOCYTES % (AUTO) 53.3 % (21-51); MEAN CORPUSCULAR HEMOGLOBIN 27.2 PG (27.0-31.0); MEAN CORPUSCULAR HGB CONC 32.8 g/dL (33.0-36.5); MEAN CORPUSCULAR VOLUME 82.8 FL (78-98); MONOCYTES # (AUTO) 0.7 X10'3 (0-0.9); MONOCYTES % (AUTO) 17.9 % (2-12); NEUTROPHILS # (AUTO) 1.1 X10'3 (1.8-7.7); NEUTROPHILS % (AUTO) 26.7 % (42-75); PLATELET COUNT 160 X10'3 (140-440); RED BLOOD COUNT 4.09 X10'6 (4.20-5.60); RED CELL DISTRIBUTION WIDTH 15.2 % (11.5-14.5)
[2020-01-21 21:16] LABS: URINE AMPHETAMINE SCREEN NEGATIVE (Neg); URINE BARBITUATE SCREEN NEGATIVE (Neg); URINE BENZODIAZEPINES SCREEN NEGATIVE (Neg); URINE CANNABINOID SCREEN NEGATIVE (Neg); URINE COCAINE SCREEN NEGATIVE (Neg); URINE METHADONE SCREEN NEGATIVE (Neg); URINE OPIATE SCREEN NEGATIVE (Neg); URINE PHENCYCLIDINE SCREEN NEGATIVE (Neg)
[2020-01-21 21:20] LABS: ALANINE AMINOTRANSFERASE 30 U/L (12-78); ALBUMIN 3.5 G/DL (3.4-5.0); ALBUMIN/GLOBULIN RATIO 0.9 (1.1-1.5); ALKALINE PHOSPHATASE 82 IU/L (46-116); ANION GAP 4 (8-16); ASPARTATE AMINO TRANSFERASE 28 U/L (10-37); BILIRUBIN,TOTAL 0.5 MG/DL (0.1-1.0); BLOOD UREA NITROGEN 14 MG/DL (7-18); BUN/CREATININE RATIO 14.4 (6.6-38.0); CALCIUM 8.9 MG/DL (8.5-10.1); CHLORIDE 110 MMOL/L (99-107); CREATININE 0.97 MG/DL (0.40-0.90); ETHANOL < 0.010 GM/DL (0.0-0.010); GLUCOSE 80 MG/DL (70-104); POTASSIUM 3.5 MMOL/L (3.5-5.1); SODIUM 142 MMOL/L (135-145); TOTAL CARBON DIOXIDE 28.5 MMOL/L (24-32); TOTAL PROTEIN 7.2 G/DL (6.4-8.2); eGFR 67 ML/MIN
[2020-01-21 21:30] LABS: URINE HCG NEGATIVE (NEG)
[2020-01-21 22:07] LABS: PLATELET ESTIMATE NORMAL; POLYCHROMASIA FEW; TOTAL CELLS COUNTED 100
--- NOTE | 2020-01-21 22:30 | NUR ---
Pt. in bed, sleeping/resting with eyes closed. Sitter in front of pt's room monitoring pt. activity.
--- NOTE | 2020-01-21 23:31 | NUR ---
Pt. continues to sleep on L side. No s/s of distress. Sitter continues to watch pt. in front of ED room 9.
--- NOTE | 2020-01-22 00:32 | NUR ---
Pt. continues to sleep. She's able to repos self. Sitter monitoring pt. from front of the room.
--- NOTE | 2020-01-22 01:30 | NUR ---
Pt. continues to sleep. No s/s of distress. Pt. monitored by sitter from front of room.
--- NOTE | 2020-01-22 02:27 | NUR ---
Pt. continues to sleep. No s/s of distress at this time. Sitter watching pt. from front of the room.
--- NOTE | 2020-01-22 03:17 | NUR ---
Pt. continues to sleep. Sitter in front of pt's room for monitoring. No s/s of distress. Pt. able to repos self.
--- NOTE | 2020-01-22 04:30 | NUR ---
Pt. continues to sleep. No s/s of distress/discomfort. Sitter continues to monitor pt. from outside ED room 9.
[2020-01-22 05:09] VITALS: BP 100/58
--- NOTE | 2020-01-22 05:09 | NUR ---
VS take at this time and are WNL. Fluids for hydration offered. No other needs at this time. Pt. continues to sleep.
[2020-01-22] MEDS ORDERED: polyethylene glycol 3350 17gm powd pack PO PRN (06:20)
[2020-01-22] MEDS ORDERED: albuterol 2.5 MG/3 ML nebule NEB PRN (06:20)
--- NOTE | 2020-01-22 06:30 | NUR ---
PT IS SLEEPING IN HER ROOM
--- NOTE | 2020-01-22 07:32 | NUR ---
PT IS SLEEPING IN ROOM
[2020-01-22] MEDS ORDERED: levetiracetam 250mg tablet PO SCH (08:00)
[2020-01-22] MEDS ORDERED: hydrOXYzine 25 MG tablet PO SCH (08:00)
[2020-01-22] MEDS ORDERED: olanzapine 10mg tablet PO SCH ×2 (08:00→21:00)
[2020-01-22] MEDS ORDERED: non-formulary drug (Levetiracetam 1 TAB) PO SCH (08:00)
[2020-01-22] MEDS ORDERED: benzonatate 100mg capsule PO SCH (08:00)
--- NOTE | 2020-01-22 08:30 | NUR ---
PT RESTING IN HER ROOM
--- NOTE | 2020-01-22 09:30 | NUR ---
PT IS SLEEPING
--- NOTE | 2020-01-22 10:30 | NUR ---
PER PLODDING OPERATOR THE HOSP WILL PAY FOR A TAXI FOR THE PATIENT TO [place]
--- NOTE | 2020-01-22 11:57 | NUR ---
PT HAS BEEN DC AND IS WAITING FOR A TAXI
--- NOTE | 2020-01-22 12:14 | NUR ---
SERA CALLED FOR PT TO GO TO [place]. JP CALLED FATHER AND HE AGREED KAVIN COULD COME STAY WITH HIM. [facility] INSTRUCTED PT TO STAY WITH HER FATHER UNTIL THE OF MONTH WHEN HER INSURANCE TRANSFERS. PER [employer] ARCHITECT THE HOSPITAL WILL PAY FOR THE PT'S TAXI TO [place].
== END 2020-01-22 12:19 | disposition home or self-care (01) ==
LOC: ER 20:02
DX: F31.9 Bipolar disorder, unspecified (principal); R45.851 Suicidal ideations; F20.9 Schizophrenia, unspecified; J45.909 Unspecified asthma, uncomplicated; E11.9 Type 2 diabetes mellitus without complications; F12.90 Cannabis use, unspecified, uncomplicated; Z59.0 Homelessness; Z79.899 Other long term (current) drug therapy; Z91.013 Allergy to seafood; Z88.8 Allergy status to other drugs, medicaments and biological substances; Z91.040 Latex allergy status; Z88.0 Allergy status to penicillin; Z88.1 Allergy status to other antibiotic agents
CPT/HCPCS: 36415; 80053; 80305; 80320; 81025; 85025; 99285; Z7610

== ENCOUNTER 2020-01-26 15:33 | Emergency (ER) | payer MEDICARE, MEDICAID ==
[~2020-01-26] VITALS: Ht 154.9 cm; Wt 83.6 kg
[~2020-01-26 15:33] MED LIST changes: -ALBU8HFA PO
[2020-01-26] MEDS ORDERED: OLANZapine 2.5MG tablet PO SCH (16:10)
[2020-01-26 16:14] VITALS: BP 110/53
== END 2020-01-26 16:26 | disposition home or self-care (01) ==
LOC: ER 15:34
DX: F41.9 Anxiety disorder, unspecified (principal); J45.909 Unspecified asthma, uncomplicated; E11.9 Type 2 diabetes mellitus without complications; F31.9 Bipolar disorder, unspecified; F20.9 Schizophrenia, unspecified; F12.90 Cannabis use, unspecified, uncomplicated; Z59.0 Homelessness; Z86.69 Personal history of other diseases of the nervous system and sense organs; Z88.0 Allergy status to penicillin; Z88.1 Allergy status to other antibiotic agents; Z88.8 Allergy status to other drugs, medicaments and biological substances; Z91.048 Other nonmedicinal substance allergy status; Z91.040 Latex allergy status; Z91.018 Allergy to other foods; Z79.899 Other long term (current) drug therapy
CPT/HCPCS: 99283

== ENCOUNTER 2020-01-27 08:32 | Emergency (ER) | payer MEDICARE, MEDICAID ==
[~2020-01-27] VITALS: Ht 154.9 cm; Wt 64.1 kg
[2020-01-27 08:34] VITALS: BP 121/77
== END 2020-01-27 10:05 | disposition home or self-care (01) ==
LOC: ER 08:33
DX: S90.424A Blister (nonthermal), right lesser toe(s), initial encounter (principal); J45.909 Unspecified asthma, uncomplicated; E11.9 Type 2 diabetes mellitus without complications; F31.9 Bipolar disorder, unspecified; F20.9 Schizophrenia, unspecified; F12.90 Cannabis use, unspecified, uncomplicated; Z86.69 Personal history of other diseases of the nervous system and sense organs; Z59.0 Homelessness; X58.XXXA Exposure to other specified factors, initial encounter; Y93.89 Activity, other specified; Y92.89 Other specified places as the place of occurrence of the external cause; Y99.8 Other external cause status
CPT/HCPCS: 99283

== ENCOUNTER 2020-01-28 15:26 | Emergency (ER) | payer MEDICARE, MEDICAID ==
[~2020-01-28] VITALS: Ht 156.2 cm; Wt 68.6 kg
[2020-01-28 15:27] VITALS: BP 125/76
--- NOTE | 2020-01-28 15:39 | NUR ---
Patient reports intermittently feeling like wanting her hurt herself. patient has available resouces in the area to help her and is aware of them. patient refuses to live with family states that she is now a "[facility] resident and can't go back home."
--- NOTE | 2020-01-28 15:40 | NUR ---
Patient seen and assessed by provider.
== END 2020-01-28 15:45 | disposition home or self-care (01) ==
LOC: ER 15:26
DX: R45.851 Suicidal ideations (principal); J45.909 Unspecified asthma, uncomplicated; E11.9 Type 2 diabetes mellitus without complications; F31.9 Bipolar disorder, unspecified; F20.9 Schizophrenia, unspecified; F12.90 Cannabis use, unspecified, uncomplicated; Z86.69 Personal history of other diseases of the nervous system and sense organs; Z59.0 Homelessness; Z88.0 Allergy status to penicillin; Z88.1 Allergy status to other antibiotic agents; Z88.8 Allergy status to other drugs, medicaments and biological substances; Z91.048 Other nonmedicinal substance allergy status; Z91.040 Latex allergy status; Z91.018 Allergy to other foods; Z79.899 Other long term (current) drug therapy
CPT/HCPCS: 99281

== ENCOUNTER 2020-02-01 18:40 | Emergency (ER) | payer MEDICARE, MEDICAID ==
[~2020-02-01] VITALS: Ht 154.9 cm; Wt 83.8 kg
[~2020-02-01 18:40] MED LIST changes: -BENZ-16 PO
[2020-02-01 18:42] VITALS: BP 134/69
[2020-02-01 19:03] LABS: BASOPHILS % (AUTO) 0.9 % (0-1); EOSINOPHILS # (AUTO) 0.1 X10'3 (0-0.9); HEMATOCRIT 35.5 % (35.0-45.0); HEMOGLOBIN 11.5 g/dl (12.0-16.0); LYMPHOCYTES # (AUTO) 2.5 X10'3 (1.1-4.8); LYMPHOCYTES % (AUTO) 50.3 % (21-51); MEAN CORPUSCULAR HEMOGLOBIN 26.9 PG (27.0-31.0); MEAN CORPUSCULAR HGB CONC 32.4 g/dL (33.0-36.5); MEAN PLATELET VOLUME 8.8 FL (7.4-10.4); MONOCYTES # (AUTO) 0.5 X10'3 (0-0.9); MONOCYTES % (AUTO) 10.7 % (2-12); NEUTROPHILS # (AUTO) 1.8 X10'3 (1.8-7.7); NEUTROPHILS % (AUTO) 36.1 % (42-75); PLATELET COUNT 178 X10'3 (140-440); RED BLOOD COUNT 4.28 X10'6 (4.20-5.60); RED CELL DISTRIBUTION WIDTH 14.3 % (11.5-14.5); WHITE BLOOD COUNT 4.9 X10'3 (4.5-11.0)
[2020-02-01 19:17] LABS: ALANINE AMINOTRANSFERASE 28 U/L (12-78); ALBUMIN 3.7 G/DL (3.4-5.0); ALKALINE PHOSPHATASE 108 IU/L (46-116); ANION GAP 6 (8-16); ASPARTATE AMINO TRANSFERASE 27 U/L (10-37); BILIRUBIN,TOTAL 0.3 MG/DL (0.1-1.0); BLOOD UREA NITROGEN 12 MG/DL (7-18); BUN/CREATININE RATIO 10.6 (6.6-38.0); CALCIUM 9.5 MG/DL (8.5-10.1); CHLORIDE 106 MMOL/L (99-107); CREATININE 1.13 MG/DL (0.40-0.90); GLUCOSE 132 MG/DL (70-104); LIPASE 86 U/L (73-393); POTASSIUM 3.3 MMOL/L (3.5-5.1); SODIUM 142 MMOL/L (135-145); TOTAL CARBON DIOXIDE 30.4 MMOL/L (24-32); TOTAL PROTEIN 7.5 G/DL (6.4-8.2); eGFR 56 ML/MIN
[2020-02-01 19:30] LABS: CLARITY,URINE CLEAR (Clear); COLOR,URINE YELLOW (Yellow); GLUCOSE, URINE NEGATIVE (Neg); KETONES,URINE NEGATIVE (Neg); LEUKOCYTE ESTERASE ,URINE NEGATIVE (Neg); NITRITES, URINE NEGATIVE (Neg); OCCULT BLOOD,URINE NEGATIVE (Neg); PH,URINE 5.5 (4.8-8.0); PROTEIN,URINE NEGATIVE (Neg); URINE HCG NEGATIVE (NEG); UROBILINOGEN,URINE 0.2 E.U/dL (0.2-1.0)
[2020-02-01] MEDS ORDERED: famotidine/PF 10 mg/ml inj IV ONE (19:40)
[2020-02-01] MEDS ORDERED: normal saline 1000ML IV soln IVB ONE (19:40)
[2020-02-01] MEDS ORDERED: pantoprazole 40 MG vial IV ONE (19:40)
[2020-02-01] MEDS ORDERED: proCHLORperazine 10 MG/2 ml inj IV ONE (19:40)
[2020-02-01 19:44] LABS: UA COLLECTION TYPE CLN CATCH MIDSTREAM
[2020-02-01 20:13] LABS: URINE AMPHETAMINE SCREEN NEGATIVE (Neg); URINE BARBITUATE SCREEN NEGATIVE (Neg); URINE BENZODIAZEPINES SCREEN NEGATIVE (Neg); URINE CANNABINOID SCREEN NEGATIVE (Neg); URINE COCAINE SCREEN NEGATIVE (Neg); URINE METHADONE SCREEN NEGATIVE (Neg); URINE OPIATE SCREEN NEGATIVE (Neg); URINE PHENCYCLIDINE SCREEN NEGATIVE (Neg)
[2020-02-01] MEDS ORDERED: PANT-47 PO (20:17)
[2020-02-01] MEDS ORDERED: ONDA8TAB6 PO (20:17)
== END 2020-02-01 20:33 | disposition home or self-care (01) ==
LOC: ER 18:41
DX: R10.13 Epigastric pain (principal); E11.9 Type 2 diabetes mellitus without complications; F32.9 Major depressive disorder, single episode, unspecified; J45.909 Unspecified asthma, uncomplicated; F20.9 Schizophrenia, unspecified; F12.90 Cannabis use, unspecified, uncomplicated; Z87.440 Personal history of urinary (tract) infections; Z72.89 Other problems related to lifestyle; Z86.69 Personal history of other diseases of the nervous system and sense organs; Z59.0 Homelessness; Z88.8 Allergy status to other drugs, medicaments and biological substances; Z88.1 Allergy status to other antibiotic agents; Z91.040 Latex allergy status; Z79.899 Other long term (current) drug therapy
CPT/HCPCS: 36415; 80053; 80305; 81003; 81025; 83690; 85025; 96361; 96374; 96375; 99284; C9113; J0780; J3490; J7030

== ENCOUNTER 2020-02-02 17:48 | Emergency (ER) | payer MEDICARE, MEDICAID ==
[~2020-02-02] VITALS: Ht 154.9 cm; Wt 93.2 kg
[~2020-02-02 17:48] MED LIST changes: +ONDA8TAB6 PO; +PANT-47 PO
[2020-02-02 18:50] LABS: URINE HCG NEGATIVE (NEG)
--- NOTE | 2020-02-02 18:50 | NUR ---
Patient is sitting in bed, laborartory at bedside. Pt. changed into green unit scrubs. Pt. is cooperative with care. Pt. reports suicidal ideation 07/04, with a plan to OD on pills "I have a strange addiction to pills for some reason." Patient endorses AH that tell her to "end her life." Pt's belongings have been inventoried by JOSEPH Hearn. Pt was d/c from ER yesterday 01/31. This is patient's 20th ER visit in the last 4 months.
[2020-02-02 18:52] LABS: CLARITY,URINE CLEAR (Clear); COLOR,URINE STRAW (Yellow); GLUCOSE, URINE NEGATIVE (Neg); KETONES,URINE NEGATIVE (Neg); LEUKOCYTE ESTERASE ,URINE NEGATIVE (Neg); NITRITES, URINE NEGATIVE (Neg); OCCULT BLOOD,URINE NEGATIVE (Neg); PROTEIN,URINE NEGATIVE (Neg); UROBILINOGEN,URINE 0.2 E.U/dL (0.2-1.0)
[2020-02-02 18:57] LABS: UA COLLECTION TYPE VOIDED
[2020-02-02 18:58] LABS: ACETAMINOPHEN < 2.0 UG/ML (10-30)
[2020-02-02 19:03] LABS: URINE AMPHETAMINE SCREEN NEGATIVE (Neg); URINE BARBITUATE SCREEN NEGATIVE (Neg); URINE BENZODIAZEPINES SCREEN NEGATIVE (Neg); URINE CANNABINOID SCREEN NEGATIVE (Neg); URINE COCAINE SCREEN NEGATIVE (Neg); URINE METHADONE SCREEN NEGATIVE (Neg); URINE OPIATE SCREEN NEGATIVE (Neg); URINE PHENCYCLIDINE SCREEN NEGATIVE (Neg)
--- NOTE | 2020-02-02 20:29 | NUR ---
Faxed paperwork to [facility] office.
--- NOTE | 2020-02-02 21:44 | NUR ---
Patient d/c at 2140. Pt. ambulated independently out to a waiting taxi, which will take her [facility] [place]. Patient was accompanied by security. Patient was interviewd by [facility] and resources were provided and reviewed with patient. Pt. has filled prescriptions that are kept at the [facility] where pt. resides. Pt. was A&O x4 and affect was brigher then upon admit. Pt. was calm. Pt. will follow up with [facility] and Donna Chavez. Pt. verbalizes understanding.
[2020-02-02 21:51] VITALS: BP 106/70
== END 2020-02-02 21:56 | disposition home or self-care (01) ==
LOC: ER 17:49
DX: R45.851 Suicidal ideations (principal); E11.9 Type 2 diabetes mellitus without complications; F32.9 Major depressive disorder, single episode, unspecified; F20.9 Schizophrenia, unspecified; F12.90 Cannabis use, unspecified, uncomplicated; Z86.69 Personal history of other diseases of the nervous system and sense organs; Z87.440 Personal history of urinary (tract) infections; Z72.89 Other problems related to lifestyle; Z59.0 Homelessness; Z88.1 Allergy status to other antibiotic agents; Z88.0 Allergy status to penicillin; Z88.8 Allergy status to other drugs, medicaments and biological substances; Z79.899 Other long term (current) drug therapy; T50.902A Poisoning by unspecified drugs, medicaments and biological substances, intentional self-harm, initial encounter; Y92.89 Other specified places as the place of occurrence of the external cause
CPT/HCPCS: 36415; 80305; 80329; 81003; 81025; 99285

== ENCOUNTER 2020-02-04 07:59 | Emergency (ER) | payer MEDICARE, MEDICAID ==
[~2020-02-04] VITALS: Ht 154.9 cm; Wt 83.0 kg
[~2020-02-04 07:59] MED LIST changes: -OLAN10TA3 PO; -OLAN20TA3 PO; -POLY17PO10 PO
[2020-02-04 08:53] LABS: BASOPHILS % (AUTO) 0.7 % (0-1); EOSINOPHILS # (AUTO) 0.1 X10'3 (0-0.9); EOSINOPHILS % (AUTO) 1.4 % (0-6); HEMATOCRIT 34.9 % (35.0-45.0); HEMOGLOBIN 11.5 g/dl (12.0-16.0); LYMPHOCYTES # (AUTO) 1.5 X10'3 (1.1-4.8); LYMPHOCYTES % (AUTO) 40.7 % (21-51); MEAN CORPUSCULAR HEMOGLOBIN 27.1 PG (27.0-31.0); MEAN CORPUSCULAR VOLUME 82.1 FL (78-98); MEAN PLATELET VOLUME 8.9 FL (7.4-10.4); MONOCYTES # (AUTO) 0.6 X10'3 (0-0.9); MONOCYTES % (AUTO) 16.1 % (2-12); NEUTROPHILS # (AUTO) 1.5 X10'3 (1.8-7.7); NEUTROPHILS % (AUTO) 41.1 % (42-75); PLATELET COUNT 211 X10'3 (140-440); RED BLOOD COUNT 4.25 X10'6 (4.20-5.60); RED CELL DISTRIBUTION WIDTH 14.5 % (11.5-14.5); WHITE BLOOD COUNT 3.8 X10'3 (4.5-11.0)
--- NOTE | 2020-02-04 09:00 | NUR ---
resting, no s.s. of resp distress
[2020-02-04 09:08] LABS: CLARITY,URINE CLEAR (Clear); COLOR,URINE STRAW (Yellow); GLUCOSE, URINE NEGATIVE (Neg); KETONES,URINE NEGATIVE (Neg); LEUKOCYTE ESTERASE ,URINE NEGATIVE (Neg); NITRITES, URINE NEGATIVE (Neg); OCCULT BLOOD,URINE NEGATIVE (Neg); PROTEIN,URINE NEGATIVE (Neg); URINE HCG NEGATIVE (NEG); UROBILINOGEN,URINE 0.2 E.U/dL (0.2-1.0)
[2020-02-04] MEDS ORDERED: OXCA300T4 PO (09:09)
[2020-02-04 09:11] LABS: ALANINE AMINOTRANSFERASE 29 U/L (12-78); ALBUMIN 3.6 G/DL (3.4-5.0); ALBUMIN/GLOBULIN RATIO 0.9 (1.1-1.5); ALKALINE PHOSPHATASE 97 IU/L (46-116); ANION GAP 5 (8-16); ASPARTATE AMINO TRANSFERASE 28 U/L (10-37); BILIRUBIN,TOTAL 0.3 MG/DL (0.1-1.0); BLOOD UREA NITROGEN 14 MG/DL (7-18); BUN/CREATININE RATIO 14.4 (6.6-38.0); CALCIUM 9.1 MG/DL (8.5-10.1); CHLORIDE 107 MMOL/L (99-107); CREATININE 0.97 MG/DL (0.40-0.90); ETHANOL < 0.010 GM/DL (0.0-0.010); GLUCOSE 87 MG/DL (70-104); POTASSIUM 4.3 MMOL/L (3.5-5.1); SODIUM 141 MMOL/L (135-145); TOTAL CARBON DIOXIDE 29.4 MMOL/L (24-32); TOTAL PROTEIN 7.4 G/DL (6.4-8.2); eGFR 67 ML/MIN
[2020-02-04 09:13] LABS: UA COLLECTION TYPE VOIDED
[2020-02-04 09:14] LABS: URINE AMPHETAMINE SCREEN NEGATIVE (Neg); URINE BARBITUATE SCREEN NEGATIVE (Neg); URINE BENZODIAZEPINES SCREEN NEGATIVE (Neg); URINE CANNABINOID SCREEN NEGATIVE (Neg); URINE COCAINE SCREEN NEGATIVE (Neg); URINE METHADONE SCREEN NEGATIVE (Neg); URINE OPIATE SCREEN NEGATIVE (Neg); URINE PHENCYCLIDINE SCREEN NEGATIVE (Neg)
--- NOTE | 2020-02-04 09:53 | NUR ---
Break RN; Pt laying on bed on rt side covered with blanket. Pt resting with eyes closed, breathing even and unlabored.
--- NOTE | 2020-02-04 10:00 | NUR ---
resting, no s.s. of resp distress
--- NOTE | 2020-02-04 11:00 | NUR ---
resting, no s.s. of resp distress
--- NOTE | 2020-02-04 12:00 | NUR ---
resting, no s.s. of resp distress
--- NOTE | 2020-02-04 13:00 | NUR ---
resting, no s.s. of resp distress
--- NOTE | 2020-02-04 13:02 | NUR ---
Breaking primary RN, pt. offered meal tray, pt. declined tray, tray left at bedside. Pt. resting quietly no signs of distress, respirations WNL.
[2020-02-04] MEDS ORDERED: hydrOXYzine 25 MG tablet PO SCH (14:00)
--- NOTE | 2020-02-04 14:00 | NUR ---
resting, no s.s. of resp distress
--- NOTE | 2020-02-04 15:00 | NUR ---
resting, no s.s. of resp distress
[2020-02-04] MEDS ORDERED: ondansetron 4mg rapidly disintigrating tab PO PRN (16:00)
--- NOTE | 2020-02-04 16:00 | NUR ---
resting, no s.s. of resp distress
[2020-02-04 17:06] VITALS: BP 117/84
--- NOTE | 2020-02-04 17:10 | NUR ---
discharged, walked to mission and left with belongings
[2020-02-04] MEDS ORDERED: oxcarbazepine 150mg tablet PO SCH (20:00)
[2020-02-04] MEDS ORDERED: levetiracetam 250mg tablet PO SCH (20:00)
[2020-02-04] MEDS ORDERED: non-formulary drug (Levetiracetam 1 TAB) PO SCH (20:00)
[2020-02-05] MEDS ORDERED: pantoprazole 40mg Tablet.DR PO SCH (08:00)
== END 2020-02-04 17:11 ==
LOC: ER 08:00
DX: R45.851 Suicidal ideations (principal); J45.909 Unspecified asthma, uncomplicated; E11.9 Type 2 diabetes mellitus without complications; F31.9 Bipolar disorder, unspecified; F20.9 Schizophrenia, unspecified; F12.90 Cannabis use, unspecified, uncomplicated; Z86.69 Personal history of other diseases of the nervous system and sense organs; Z59.0 Homelessness; Z88.0 Allergy status to penicillin; Z88.8 Allergy status to other drugs, medicaments and biological substances; Z88.1 Allergy status to other antibiotic agents; Z91.048 Other nonmedicinal substance allergy status; Z91.018 Allergy to other foods; Z91.040 Latex allergy status; Z79.899 Other long term (current) drug therapy
CPT/HCPCS: 80053; 80305; 80320; 81003; 81025; 85025; 99285; Z7610

== ENCOUNTER 2020-02-17 18:03 | Emergency (ER) | payer MEDICARE, MEDICAID ==
[~2020-02-17] VITALS: Ht 154.9 cm; Wt 85.5 kg
[~2020-02-17 18:03] MED LIST changes: +OXCA300T4 PO
[2020-02-17 18:09] VITALS: BP 107/53
[2020-02-17] MEDS ORDERED: ondansetron 4mg rapidly disintigrating tab PO ONE (18:35)
[2020-02-17] MEDS ORDERED: ONDA4TAB6 PO (19:13)
[2020-02-18] MEDS ORDERED: FAMO-128 PO (19:49)
== END 2020-02-17 19:20 | disposition home or self-care (01) ==
LOC: ER 18:03
DX: R11.0 Nausea (principal); R50.9 Fever, unspecified; J45.909 Unspecified asthma, uncomplicated; E11.9 Type 2 diabetes mellitus without complications; F31.9 Bipolar disorder, unspecified; F20.9 Schizophrenia, unspecified; F12.90 Cannabis use, unspecified, uncomplicated; Z86.69 Personal history of other diseases of the nervous system and sense organs; Z87.440 Personal history of urinary (tract) infections; Z72.89 Other problems related to lifestyle; Z59.0 Homelessness; Z88.0 Allergy status to penicillin; Z88.8 Allergy status to other drugs, medicaments and biological substances; Z88.1 Allergy status to other antibiotic agents; Z91.040 Latex allergy status; Z91.018 Allergy to other foods; Z79.899 Other long term (current) drug therapy
CPT/HCPCS: 99283

== ENCOUNTER 2020-02-18 18:06 | Emergency (ER) | payer MEDICARE, MEDICAID ==
[~2020-02-18] VITALS: Ht 154.9 cm; Wt 85.0 kg
[~2020-02-18 18:06] MED LIST changes: +ONDA4TAB6 PO
[2020-02-18 18:11] VITALS: BP 135/80
--- NOTE | 2020-02-18 18:28 | NUR ---
Pt is alert and interactive with pressured speech. Pt states she has been nauseous and vomited at approx 1400 today after taking a Zofran at 1300. No retching or acute distress observed. Pt states she "vomited into her face mask" showing me some spit in the face mask. Pt states she had a fever yesterday, but no fever measured while she was here. Pt also states she has a "gnarly cough", no coughing observed at this time.
[2020-02-18] MEDS ORDERED: ondansetron 4mg rapidly disintigrating tab PO ONE (18:45)
[2020-02-18 19:08] LABS: URINE HCG NEGATIVE (NEG)
[2020-02-18 19:10] LABS: CLARITY,URINE SLIGHTLY CLOUDY (Clear); COLOR,URINE YELLOW (Yellow); GLUCOSE, URINE NEGATIVE (Neg); KETONES,URINE TRACE mg/dl (Neg); LEUKOCYTE ESTERASE ,URINE NEGATIVE (Neg); NITRITES, URINE NEGATIVE (Neg); OCCULT BLOOD,URINE NEGATIVE (Neg); PH,URINE 5.5 (4.8-8.0); PROTEIN,URINE NEGATIVE (Neg); UA COLLECTION TYPE CLN CATCH MIDSTREAM; UROBILINOGEN,URINE 0.2 E.U/dL (0.2-1.0)
[2020-02-18 19:20] LABS: BACTERIA,URINE 2+ /HPF (Neg); MUCUS STRANDS MANY /LPF (Neg); RBC,URINE NONE SEEN /HPF (0-2); SQUAMOUS EPITHELIAL CELL,UR MANY /LPF (FEW); WBC,URINE 0-4 /HPF (0-4)
[2020-02-18 19:27] LABS: BASOPHILS % (AUTO) 0.5 % (0-1); EOSINOPHILS # (AUTO) 0.1 X10'3 (0-0.9); EOSINOPHILS % (AUTO) 2.2 % (0-6); HEMATOCRIT 30.9 % (35.0-45.0); LYMPHOCYTES % (AUTO) 41.2 % (21-51); MEAN CORPUSCULAR HGB CONC 32.2 g/dL (33.0-36.5); MEAN CORPUSCULAR VOLUME 80.7 FL (78-98); MEAN PLATELET VOLUME 9.4 FL (7.4-10.4); MONOCYTES # (AUTO) 0.8 X10'3 (0-0.9); MONOCYTES % (AUTO) 16.6 % (2-12); NEUTROPHILS # (AUTO) 1.9 X10'3 (1.8-7.7); NEUTROPHILS % (AUTO) 39.5 % (42-75); PLATELET COUNT 209 X10'3 (140-440); RED BLOOD COUNT 3.83 X10'6 (4.20-5.60); RED CELL DISTRIBUTION WIDTH 14.5 % (11.5-14.5); WHITE BLOOD COUNT 4.9 X10'3 (4.5-11.0)
[2020-02-18 19:37] LABS: ALANINE AMINOTRANSFERASE 21 U/L (12-78); ALBUMIN 3.5 G/DL (3.4-5.0); ALKALINE PHOSPHATASE 92 IU/L (46-116); ANION GAP 8 (8-16); ASPARTATE AMINO TRANSFERASE 28 U/L (10-37); BILIRUBIN,TOTAL 0.2 MG/DL (0.1-1.0); BLOOD UREA NITROGEN 20 MG/DL (7-18); BUN/CREATININE RATIO 18.9 (6.6-38.0); CALCIUM 9.1 MG/DL (8.5-10.1); CHLORIDE 109 MMOL/L (99-107); CREATININE 1.06 MG/DL (0.40-0.90); GLUCOSE 80 MG/DL (70-104); LIPASE 117 U/L (73-393); POTASSIUM 3.7 MMOL/L (3.5-5.1); SODIUM 143 MMOL/L (135-145); TOTAL CARBON DIOXIDE 25.7 MMOL/L (24-32); eGFR 60 ML/MIN
[2020-02-18] MEDS ORDERED: FAMO-128 PO (19:49)
[2020-02-19] MEDS ORDERED: PANT40TA4 PO (22:19)
[2020-02-19] MEDS ORDERED: QUET300T19 PO (22:21)
[2020-02-19] MEDS ORDERED: FLUT16SP10 (22:22)
[2020-02-19] MEDS ORDERED: FLUO-167 PO (22:23)
[2020-02-19] MEDS ORDERED: ONDA-103 PO (22:25)
[2020-02-19] MEDS ORDERED: OXCA600T9 PO (22:26)
[2020-02-19] MEDS ORDERED: LORA-660 PO (22:29)
== END 2020-02-18 20:11 | disposition home or self-care (01) ==
LOC: ER 18:06
DX: R11.2 Nausea with vomiting, unspecified (principal); R10.819 Abdominal tenderness, unspecified site; J45.909 Unspecified asthma, uncomplicated; E11.9 Type 2 diabetes mellitus without complications; F31.9 Bipolar disorder, unspecified; F20.9 Schizophrenia, unspecified; F12.90 Cannabis use, unspecified, uncomplicated; Z86.69 Personal history of other diseases of the nervous system and sense organs; Z87.440 Personal history of urinary (tract) infections; Z72.89 Other problems related to lifestyle; Z59.0 Homelessness; Z88.0 Allergy status to penicillin; Z88.8 Allergy status to other drugs, medicaments and biological substances; Z88.1 Allergy status to other antibiotic agents; Z91.040 Latex allergy status; Z91.018 Allergy to other foods; Z79.899 Other long term (current) drug therapy
CPT/HCPCS: 80053; 81001; 81025; 83690; 85025; 99283

== ENCOUNTER 2020-02-19 21:47 | Emergency (ER) | payer MEDICARE, MEDICAID ==
[~2020-02-19] VITALS: Ht 154.9 cm; Wt 85.0 kg
[~2020-02-19 21:47] MED LIST changes: +FAMO-128 PO
[2020-02-19 22:19] LABS: URINE HCG NEGATIVE (NEG)
[2020-02-19] MEDS ORDERED: PANT40TA4 PO (22:19)
[2020-02-19 22:20] LABS: CLARITY,URINE CLEAR (Clear); COLOR,URINE YELLOW (Yellow); GLUCOSE, URINE NEGATIVE (Neg); KETONES,URINE TRACE mg/dl (Neg); LEUKOCYTE ESTERASE ,URINE NEGATIVE (Neg); NITRITES, URINE NEGATIVE (Neg); OCCULT BLOOD,URINE NEGATIVE (Neg); PH,URINE 5.5 (4.8-8.0); PROTEIN,URINE NEGATIVE (Neg)
[2020-02-19] MEDS ORDERED: QUET300T19 PO (22:21)
[2020-02-19] MEDS ORDERED: FLUT16SP10 (22:22)
[2020-02-19] MEDS ORDERED: FLUO-167 PO (22:23)
[2020-02-19 22:25] LABS: UA COLLECTION TYPE CLN CATCH MIDSTREAM; URINE AMPHETAMINE SCREEN NEGATIVE (Neg); URINE BARBITUATE SCREEN NEGATIVE (Neg); URINE BENZODIAZEPINES SCREEN NEGATIVE (Neg); URINE CANNABINOID SCREEN NEGATIVE (Neg); URINE COCAINE SCREEN NEGATIVE (Neg); URINE METHADONE SCREEN NEGATIVE (Neg); URINE OPIATE SCREEN NEGATIVE (Neg); URINE PHENCYCLIDINE SCREEN NEGATIVE (Neg)
[2020-02-19] MEDS ORDERED: ONDA-103 PO (22:25)
[2020-02-19] MEDS ORDERED: OXCA600T9 PO (22:26)
[2020-02-19] MEDS ORDERED: LORA-660 PO (22:29)
--- NOTE | 2020-02-19 22:30 | NUR ---
Pt brought directly to overflow by rpd. pt placed on a 5150 for dts. pt walked to of with a steady gate. pt is cooperative for assessment and was changed into green scrubs and placed in bed 25.
[2020-02-19 23:05] LABS: BASOPHILS % (AUTO) 0.6 % (0-1); EOSINOPHILS # (AUTO) 0.1 X10'3 (0-0.9); EOSINOPHILS % (AUTO) 2.6 % (0-6); HEMATOCRIT 33.1 % (35.0-45.0); HEMOGLOBIN 10.8 g/dl (12.0-16.0); LYMPHOCYTES # (AUTO) 1.6 X10'3 (1.1-4.8); LYMPHOCYTES % (AUTO) 36.9 % (21-51); MEAN CORPUSCULAR HEMOGLOBIN 26.4 PG (27.0-31.0); MEAN CORPUSCULAR HGB CONC 32.6 g/dL (33.0-36.5); MEAN CORPUSCULAR VOLUME 80.9 FL (78-98); MEAN PLATELET VOLUME 8.9 FL (7.4-10.4); MONOCYTES # (AUTO) 0.7 X10'3 (0-0.9); MONOCYTES % (AUTO) 16.2 % (2-12); NEUTROPHILS # (AUTO) 1.9 X10'3 (1.8-7.7); NEUTROPHILS % (AUTO) 43.7 % (42-75); PLATELET COUNT 198 X10'3 (140-440); RED BLOOD COUNT 4.09 X10'6 (4.20-5.60); RED CELL DISTRIBUTION WIDTH 14.2 % (11.5-14.5); WHITE BLOOD COUNT 4.4 X10'3 (4.5-11.0)
[2020-02-19 23:23] LABS: ALANINE AMINOTRANSFERASE 22 U/L (12-78); ALBUMIN 3.5 G/DL (3.4-5.0); ALKALINE PHOSPHATASE 95 IU/L (46-116); ANION GAP 8 (8-16); ASPARTATE AMINO TRANSFERASE 28 U/L (10-37); BILIRUBIN,TOTAL 0.2 MG/DL (0.1-1.0); BLOOD UREA NITROGEN 18 MG/DL (7-18); BUN/CREATININE RATIO 15.5 (6.6-38.0); CALCIUM 8.6 MG/DL (8.5-10.1); CHLORIDE 108 MMOL/L (99-107); CREATININE 1.16 MG/DL (0.40-0.90); GLUCOSE 106 MG/DL (70-104); POTASSIUM 3.8 MMOL/L (3.5-5.1); SODIUM 144 MMOL/L (135-145); TOTAL CARBON DIOXIDE 27.7 MMOL/L (24-32); TOTAL PROTEIN 7.1 G/DL (6.4-8.2); eGFR 54 ML/MIN
[2020-02-19 23:29] LABS: TOTAL CELLS COUNTED 100
[2020-02-19 23:30] LABS: ETHANOL < 0.010 GM/DL (0.0-0.010); LARGE PLATELETS MANY; PLATELET ESTIMATE NORMAL
[2020-02-19 23:33] LABS: ACETAMINOPHEN < 2.0 UG/ML (10-30)
--- NOTE | 2020-02-20 00:48 | NUR ---
pt is sleeping, no s/s distress noted.
--- NOTE | 2020-02-20 00:50 | NUR ---
pt has been medically cleared, packet sent to [facility] office.
--- NOTE | 2020-02-20 02:29 | NUR ---
pt is sleeping, no s/s of distress noted.
--- NOTE | 2020-02-20 03:27 | NUR ---
pt continues to sleep, no s/s of distress noted, rr unlabored.
--- NOTE | 2020-02-20 04:26 | NUR ---
PT CONTINUES TO SLEEP; NO SIGNS OF DISTRESS OR DISCOMFORT NOTED. RR REGULAR AND UNLABORED. WILL CONTINUE TO MONITOR.
--- NOTE | 2020-02-20 05:58 | NUR ---
PT CONTINUES TO SLEEP; NO SIGNS OF DISTRESS OR DISCOMFORT NOTED WITH RR UNLABORED AND REGULAR. WILL CONTINUE TO MONITOR.
--- NOTE | 2020-02-20 06:40 | NUR ---
Dr. Ohara rounded on pts. No needs at this time.
--- NOTE | 2020-02-20 07:36 | NUR ---
pt resting quietly in bed at this time. earlier pt up and down to bathroom. RN heard pt making dry heaving sound as if she were going to throw up. Asked pt why she was making that sound and she stated she didn't know. Pt denied nausea or hunger and didn't know why she was making that sound. RN asked pt to please stop, since then pt hasn't made the sound. Occationally has dry cough.
[2020-02-20] MEDS ORDERED: ondansetron 4mg rapidly disintigrating tab PO PRN (08:00)
[2020-02-20] MEDS: pantoprazole 40mg Tablet.DR PO SCH ×3 (08:25→10:59)
[2020-02-20] MEDS: FLUoxetine 20mg capsule PO SCH (08:25)
[2020-02-20] MEDS: fluticasone nasal spray 16GM bottle NS SCH (08:25)
[2020-02-20] MEDS: loratadine 10mg tablet PO SCH (08:25)
[2020-02-20] MEDS: oxcarbazepine 150mg tablet PO SCH ×2 (08:26→20:04)
--- NOTE | 2020-02-20 08:47 | NUR ---
pt took AM meds. States she is on 4 other meds she was just prescribed by this hospital, meds not in eMAR at this time. Continues to make dry heaving sounds and dry coughing on occation. States she makes that sound when she can't breathe. States she went into respiratory distress the other day and states she was recently dx with PNA at [facility]. States she got PNA from her Bronchitis.
--- NOTE | 2020-02-20 09:48 | NUR ---
resting quietly in bed.
--- NOTE | 2020-02-20 10:38 | NUR ---
Fatmata with [facility] at bedside with pt. Pt tearful when talking, stating she never wanted to come here.
--- NOTE | 2020-02-20 11:27 | NUR ---
resting quietly in bed, no s/sx distress, breaths even and unlabored.
[2020-02-20] MEDS ORDERED: LORazepam 1 MG tablet PO ONE (11:55)
--- NOTE | 2020-02-20 12:37 | NUR ---
Bennie adame in [facility] - 02/20/20 at 1238 by SKYLER pt wrapped shirt around her neck in the bathroom. staff was standing by in the doorway. pt helped back to bed.
--- NOTE | 2020-02-20 12:39 | NUR ---
pt wrapped shirt around her neck in the bathroom. staff was standing by in the doorway. pt helped back to bed.
[2020-02-20] MEDS ORDERED: haloperidol lactate 5mg/ml inj IM ONE (13:05)
--- NOTE | 2020-02-20 13:11 | NUR ---
pt very emotional. wondering why we are keeping her here. stating she doesn't want to be here. pt starting to become manic. MD aware. Haldol 10mg ordered and given, pt compliant and tolerated well.
--- NOTE | 2020-02-20 14:52 | NUR ---
pt resting comfortably in bed, quet. RR even and unlabored.
--- NOTE | 2020-02-20 16:42 | NUR ---
pt resting quietly in bed. RR even and unlabored.
--- NOTE | 2020-02-20 20:01 | NUR ---
The patient is resting on her bed. She presents as tired. She stated that she felt her mood was up and that she felt manic. She denied A/V hallucinaitons. She reports racing thoughts.
[2020-02-20] MEDS: quetiapine 100mg tablet PO SCH (20:05)
--- NOTE | 2020-02-20 21:03 | NUR ---
The patient appears to be sleeping
--- NOTE | 2020-02-20 22:10 | NUR ---
The patient appears to be sleeping.
--- NOTE | 2020-02-20 23:50 | NUR ---
The patient appears to be asleep
--- NOTE | 2020-02-21 01:22 | NUR ---
The patient appears to be sleeping.
--- NOTE | 2020-02-21 04:16 | NUR ---
The patient appears to be sleeping. She has not been observed up since going to sleep for the night.
--- NOTE | 2020-02-21 05:09 | NUR ---
The patient appears to be sleeping.
--- NOTE | 2020-02-21 07:05 | NUR ---
Patient is resting in bed peacefully at this time, no distress observed.
[2020-02-21] MEDS: oxcarbazepine 150mg tablet PO SCH ×2 (09:04→20:09)
[2020-02-21] MEDS: FLUoxetine 20mg capsule PO SCH (09:04)
[2020-02-21] MEDS: pantoprazole 40mg Tablet.DR PO SCH (09:04)
[2020-02-21] MEDS: loratadine 10mg tablet PO SCH (09:04)
[2020-02-21] MEDS: fluticasone nasal spray 16GM bottle NS SCH (09:05)
--- NOTE | 2020-02-21 09:18 | NUR ---
Patient took medications without incident. Is also observed ambulating self to the bathroom. No behaviors noted patient is now resting in bed peacefully, no distress observed.
--- NOTE | 2020-02-21 11:11 | NUR ---
pt resting quietly in bed. no needs at this time.
--- NOTE | 2020-02-21 12:20 | NUR ---
resting quietly in bed.
--- NOTE | 2020-02-21 14:20 | NUR ---
pt up to bathroom to get cleaned up. states aggravation of being here and wants to leave. keeps asking nursing staff why we are keeping her here and nursing staff continues to reply. pt occationally come up to the nurses station from her bed and say random things then return to bed.
--- NOTE | 2020-02-21 16:39 | NUR ---
nurse to nurse done via phone with [employer].
--- NOTE | 2020-02-21 17:48 | NUR ---
pt to be transferred to [facility] this evening per [facility] office. No pickup time as of yet. Pt calm and cooperative at this time.
[2020-02-21] MEDS: quetiapine 100mg tablet PO SCH (20:08)
--- NOTE | 2020-02-21 23:00 | NUR ---
Pt is sleeping, no s/s of distress noted.
--- NOTE | 2020-02-22 01:25 | NUR ---
Pt is sleeping, no s/s of distress noted.
--- NOTE | 2020-02-22 02:28 | NUR ---
Pt is sleeping, no s/s of distress noted. rr unlabored.
--- NOTE | 2020-02-22 03:41 | NUR ---
Pt is sleeping, no s/s of distress noted. rr unlabored.
--- NOTE | 2020-02-22 05:10 | NUR ---
Pt continues to sleep, rr unlabored, no s/s of distress noted.
--- NOTE | 2020-02-22 07:05 | NUR ---
Asleep laying on left side respirations unlabored
[2020-02-22] MEDS: pantoprazole 40mg Tablet.DR PO SCH ×2 (07:54→07:59)
[2020-02-22] MEDS: FLUoxetine 20mg capsule PO SCH (07:59)
[2020-02-22] MEDS: fluticasone nasal spray 16GM bottle NS SCH (07:59)
[2020-02-22] MEDS: oxcarbazepine 150mg tablet PO SCH (07:59)
[2020-02-22] MEDS: loratadine 10mg tablet PO SCH (07:59)
--- NOTE | 2020-02-22 08:09 | NUR ---
Patient down eating breakfast now laying diwnb asleep
--- NOTE | 2020-02-22 09:32 | NUR ---
sleeping in bed
--- NOTE | 2020-02-22 11:00 | NUR ---
sleeping in bed
--- NOTE | 2020-02-22 11:11 | NUR ---
back in bed
--- NOTE | 2020-02-22 12:09 | NUR ---
Patient up talking to staff
--- NOTE | 2020-02-22 13:09 | NUR ---
Patient talking to staff
--- NOTE | 2020-02-22 14:01 | NUR ---
Resting in bed
--- NOTE | 2020-02-22 14:59 | NUR ---
[facility] called said pickup time for [phone].
--- NOTE | 2020-02-22 16:23 | NUR ---
resting in bed
--- NOTE | 2020-02-22 17:02 | NUR ---
sitting in bed
[2020-02-22 18:03] VITALS: BP 109/72
== END 2020-02-22 18:06 ==
LOC: ER 21:47
DX: F32.9 Major depressive disorder, single episode, unspecified (principal); J45.909 Unspecified asthma, uncomplicated; E11.9 Type 2 diabetes mellitus without complications; F20.9 Schizophrenia, unspecified; F12.90 Cannabis use, unspecified, uncomplicated; Z86.69 Personal history of other diseases of the nervous system and sense organs; Z59.0 Homelessness; Z88.0 Allergy status to penicillin; Z88.1 Allergy status to other antibiotic agents; Z91.048 Other nonmedicinal substance allergy status; Z91.040 Latex allergy status; Z91.018 Allergy to other foods; Z88.8 Allergy status to other drugs, medicaments and biological substances; Z79.899 Other long term (current) drug therapy
CPT/HCPCS: 36415; 80053; 80305; 80320; 80329; 81003; 81025; 84443; 85025; 96372; 99285; J1630

== ENCOUNTER 2020-02-27 22:46 | Emergency (ER) | payer MEDICARE, MEDICAID ==
[~2020-02-27] VITALS: Ht 154.9 cm; Wt 84.7 kg
[~2020-02-27 22:46] MED LIST changes: -ALBU18HF2 INH; -FAMO-128 PO; +FLUO-167 PO; +FLUT16SP10; -HYDR-3686 PO; -LEVE10006 PO; -LEVE500T PO; +LORA-660 PO; +ONDA-103 PO; -ONDA4TAB6 PO; -ONDA8TAB6 PO; -OXCA300T4 PO; +OXCA600T9 PO; -PANT-47 PO; +PANT40TA4 PO; +QUET300T19 PO
[2020-02-27 22:50] VITALS: BP 120/78
[2020-02-27] MEDS ORDERED: LORazepam 1 MG tablet PO ONE (23:05)
== END 2020-02-27 23:25 | disposition home or self-care (01) ==
LOC: ER 22:46
DX: F41.9 Anxiety disorder, unspecified (principal); F31.9 Bipolar disorder, unspecified; F20.9 Schizophrenia, unspecified; J45.909 Unspecified asthma, uncomplicated; E11.9 Type 2 diabetes mellitus without complications; F12.90 Cannabis use, unspecified, uncomplicated; Z59.0 Homelessness; Z79.899 Other long term (current) drug therapy; Z88.8 Allergy status to other drugs, medicaments and biological substances; Z88.0 Allergy status to penicillin; Z88.1 Allergy status to other antibiotic agents; Z91.040 Latex allergy status
CPT/HCPCS: 99283

== ENCOUNTER 2020-02-28 14:12 | Emergency (ER) | payer MEDICARE, MEDICAID ==
[~2020-02-28] VITALS: Ht 154.9 cm; Wt 84.0 kg
[2020-02-28 14:36] VITALS: BP 103/64
== END 2020-02-28 15:25 | disposition home or self-care (01) ==
LOC: ER 14:12
DX: E11.65 Type 2 diabetes mellitus with hyperglycemia (principal); J45.909 Unspecified asthma, uncomplicated; F12.90 Cannabis use, unspecified, uncomplicated; Z59.0 Homelessness; Z91.040 Latex allergy status; Z88.8 Allergy status to other drugs, medicaments and biological substances; Z88.1 Allergy status to other antibiotic agents; Z88.0 Allergy status to penicillin
CPT/HCPCS: 82948; 99282

== ENCOUNTER 2020-02-29 12:42 | Emergency (ER) | payer MEDICARE, MEDICAID ==
[~2020-02-29] VITALS: Ht 154.9 cm; Wt 83.2 kg
[2020-02-29 13:13] LABS: BASOPHILS % (AUTO) 0.6 % (0-1); EOSINOPHILS % (AUTO) 0.1 % (0-6); HEMATOCRIT 33.9 % (35.0-45.0); HEMOGLOBIN 11.2 g/dl (12.0-16.0); LYMPHOCYTES # (AUTO) 0.9 X10'3 (1.1-4.8); LYMPHOCYTES % (AUTO) 23.1 % (21-51); MEAN CORPUSCULAR HEMOGLOBIN 26.1 PG (27.0-31.0); MEAN CORPUSCULAR VOLUME 79.2 FL (78-98); MEAN PLATELET VOLUME 9.8 FL (7.4-10.4); MONOCYTES # (AUTO) 0.2 X10'3 (0-0.9); MONOCYTES % (AUTO) 4.6 % (2-12); NEUTROPHILS # (AUTO) 2.7 X10'3 (1.8-7.7); NEUTROPHILS % (AUTO) 71.6 % (42-75); PLATELET COUNT 213 X10'3 (140-440); RED BLOOD COUNT 4.27 X10'6 (4.20-5.60); RED CELL DISTRIBUTION WIDTH 14.4 % (11.5-14.5); WHITE BLOOD COUNT 3.8 X10'3 (4.5-11.0)
[2020-02-29 13:24] LABS: ALANINE AMINOTRANSFERASE 39 U/L (12-78); ALBUMIN 4.1 G/DL (3.4-5.0); ALBUMIN/GLOBULIN RATIO 1.1 (1.1-1.5); ALKALINE PHOSPHATASE 92 IU/L (46-116); ANION GAP 6 (8-16); ASPARTATE AMINO TRANSFERASE 38 U/L (10-37); BILIRUBIN,TOTAL 0.3 MG/DL (0.1-1.0); BLOOD UREA NITROGEN 22 MG/DL (7-18); BUN/CREATININE RATIO 21.4 (6.6-38.0); CALCIUM 9.5 MG/DL (8.5-10.1); CHLORIDE 108 MMOL/L (99-107); CREATININE 1.03 MG/DL (0.40-0.90); ETHANOL < 0.010 GM/DL (0.0-0.010); GLUCOSE 100 MG/DL (70-104); POTASSIUM 3.8 MMOL/L (3.5-5.1); SODIUM 142 MMOL/L (135-145); TOTAL CARBON DIOXIDE 27.6 MMOL/L (24-32); TOTAL PROTEIN 7.9 G/DL (6.4-8.2); eGFR 63 ML/MIN
[2020-02-29 13:38] LABS: CLARITY,URINE SLIGHTLY CLOUDY (Clear); COLOR,URINE YELLOW (Yellow); GLUCOSE, URINE NEGATIVE (Neg); KETONES,URINE NEGATIVE (Neg); LEUKOCYTE ESTERASE ,URINE NEGATIVE (Neg); NITRITES, URINE NEGATIVE (Neg); OCCULT BLOOD,URINE NEGATIVE (Neg); PH,URINE 6.5 (4.8-8.0); PROTEIN,URINE TRACE mg/dl (Neg); UROBILINOGEN,URINE 0.2 E.U/dL (0.2-1.0)
[2020-02-29 13:39] LABS: UA COLLECTION TYPE CLN CATCH MIDSTREAM
[2020-02-29 13:45] LABS: MUCUS STRANDS MANY /LPF (Neg); SQUAMOUS EPITHELIAL CELL,UR MANY /LPF (FEW)
[2020-02-29 13:46] LABS: BACTERIA,URINE 2+ /HPF (Neg); RENAL CELLS, URINE FEW /HPF; TRANSITIONAL EPI CELLS,URINE FEW /HPF
[2020-02-29 13:47] LABS: RBC,URINE 0-2 /HPF (0-2); WBC,URINE 0-4 /HPF (0-4)
[2020-02-29 13:57] LABS: URINE AMPHETAMINE SCREEN NEGATIVE (Neg); URINE BARBITUATE SCREEN NEGATIVE (Neg); URINE BENZODIAZEPINES SCREEN NEGATIVE (Neg); URINE CANNABINOID SCREEN NEGATIVE (Neg); URINE COCAINE SCREEN NEGATIVE (Neg); URINE METHADONE SCREEN NEGATIVE (Neg); URINE OPIATE SCREEN NEGATIVE (Neg); URINE PHENCYCLIDINE SCREEN NEGATIVE (Neg)
--- NOTE | 2020-02-29 14:22 | NUR ---
resting in bed
--- NOTE | 2020-02-29 15:02 | NUR ---
resting in bed
--- NOTE | 2020-02-29 16:00 | NUR ---
resting in bed
--- NOTE | 2020-02-29 17:06 | NUR ---
PACKET FAXED TO [facility] OFFICE
--- NOTE | 2020-02-29 17:08 | NUR ---
resting in bed
--- NOTE | 2020-02-29 18:04 | NUR ---
Resting in bed
--- NOTE | 2020-02-29 19:02 | NUR ---
Patient sitting up in bed talking on the phone to her dad. Pt being loud and has to be reminded by staff to keep her voice lower. Continuing to monitor
--- NOTE | 2020-02-29 19:55 | NUR ---
Patient was sitting in bed asking when mental health would be by to talk to her. Informed her that we don't have an exact time. She stated that when they do come she has something they need to know and that it is written down.
[2020-02-29] MEDS ORDERED: ondansetron 4mg rapidly disintigrating tab PO PRN (20:00)
[2020-02-29] MEDS: oxcarbazepine 150mg tablet PO SCH ×2 (20:00→21:03)
[2020-02-29] MEDS: quetiapine 100mg tablet PO SCH ×2 (20:34→21:02)
--- NOTE | 2020-02-29 20:35 | NUR ---
Patient refusing to take her medications vinicio. Attempted to educate pt on need to take meds but she continued to refuse
--- NOTE | 2020-02-29 21:04 | NUR ---
Patient informed RN that she was willing to take her medication. Administered ordered meds and patient stated she only was taking them so she could sleep
[2020-02-29] MEDS ORDERED: haloperidol lactate 5mg/ml inj IM ONE (22:00)
--- NOTE | 2020-02-29 22:00 | NUR ---
Patient c/o not being able to calm down, states she has been anxious since she got here. Spoke to MD and received order for one time IM Luis
--- NOTE | 2020-02-29 23:05 | NUR ---
Pt lying in bed with eyes closed. No further complaints of feeling restless/anxious at this time
--- NOTE | 2020-03-01 00:05 | NUR ---
Pt appears to be resting comfortably in bed. No apparent s/s of distress noted
--- NOTE | 2020-03-01 01:04 | NUR ---
Pt appears to be resting comfortably in bed. No apparent s/s of distress noted
--- NOTE | 2020-03-01 02:15 | NUR ---
Pt appears to be resting comfortably in bed. No apparent s/s of distress noted
--- NOTE | 2020-03-01 03:27 | NUR ---
Pt appears to be resting comfortably in bed. No apparent s/s of distress noted
--- NOTE | 2020-03-01 04:05 | NUR ---
Pt appears to be resting comfortably in bed. No apparent s/s of distress noted
--- NOTE | 2020-03-01 05:02 | NUR ---
Pt appears to be resting comfortably in bed. No apparent s/s of distress noted
--- NOTE | 2020-03-01 07:00 | NUR ---
sleeping no signs of resp distress
[2020-03-01] MEDS: oxcarbazepine 150mg tablet PO SCH ×2 (08:02→20:21)
[2020-03-01] MEDS: pantoprazole 40mg Tablet.DR PO SCH (08:02)
[2020-03-01] MEDS: fluticasone nasal spray 16GM bottle NS SCH ×2 (08:02→20:20)
[2020-03-01] MEDS: loratadine 10mg tablet PO SCH (08:02)
[2020-03-01] MEDS: FLUoxetine 20mg capsule PO SCH (08:02)
--- NOTE | 2020-03-01 08:17 | NUR ---
Finished eating now sleeping
--- NOTE | 2020-03-01 12:01 | NUR ---
sleeping on her side
--- NOTE | 2020-03-01 15:06 | NUR ---
talking on phone
--- NOTE | 2020-03-01 16:15 | NUR ---
resting in bed
--- NOTE | 2020-03-01 17:01 | NUR ---
resting in bed
--- NOTE | 2020-03-01 17:53 | NUR ---
resting in bed
[2020-03-01] MEDS: quetiapine 100mg tablet PO SCH (20:20)
[2020-03-02] MEDS: fluticasone nasal spray 16GM bottle NS SCH ×2 (08:00→20:40)
[2020-03-02] MEDS: oxcarbazepine 150mg tablet PO SCH ×2 (09:22→20:40)
[2020-03-02] MEDS: FLUoxetine 20mg capsule PO SCH (09:22)
[2020-03-02] MEDS: loratadine 10mg tablet PO SCH (09:22)
[2020-03-02] MEDS: pantoprazole 40mg Tablet.DR PO SCH (09:22)
--- NOTE | 2020-03-02 13:30 | NUR ---
Assumed care of pt while primary nurse on lunch break. Pt talking to herself loudly while sitting in bed. Will continue to monitor.
--- NOTE | 2020-03-02 17:41 | NUR ---
PATIENT AWAKE AND RESTING IN BED. PATIENT AWARE THAT [facility] IN [place] MAY BE ACCEPTING HER FOR PLACEMENT, SO SHE IS GETTING OUT OF BED AND PACING IN FRONT OF CLOCK EVERY 15-20 MINUTES.
--- NOTE | 2020-03-02 19:00 | NUR ---
Pt complaining that there is too much bread on her dinner tray. Educated pt that there are 60 carbs on her tray which is consistent with an carb control diet.
--- NOTE | 2020-03-02 20:00 | NUR ---
Pt continues to complain about the bread she ate from dinner.
[2020-03-02] MEDS: quetiapine 100mg tablet PO SCH (20:40)
--- NOTE | 2020-03-02 21:00 | NUR ---
Pt resting in bed.
--- NOTE | 2020-03-02 22:00 | NUR ---
Pt resting comfortably, respirations normal, no s/s of distress.
--- NOTE | 2020-03-02 23:48 | NUR ---
Pt resting comfortably, respirations normal, no s/s of distress.
--- NOTE | 2020-03-03 | NUR ---
Pt resting comfortably, respirations normal, no s/s of distress.
--- NOTE | 2020-03-03 01:00 | NUR ---
Pt resting comfortably, respirations normal, no s/s of distress.
--- NOTE | 2020-03-03 02:00 | NUR ---
Pt resting comfortably, respirations normal, no s/s of distress.
--- NOTE | 2020-03-03 03:00 | NUR ---
Pt resting comfortably, respirations normal, no s/s of distress.
--- NOTE | 2020-03-03 04:00 | NUR ---
Pt resting comfortably, respirations normal, no s/s of distress.
--- NOTE | 2020-03-03 05:00 | NUR ---
Pt resting comfortably, respirations normal, no s/s of distress.
--- NOTE | 2020-03-03 05:38 | NUR ---
Pt resting comfortably, respirations normal, no s/s of distress.
--- NOTE | 2020-03-03 07:00 | NUR ---
Pt resting comfortably, respirations normal, no s/s of distress.
[2020-03-03] MEDS: pantoprazole 40mg Tablet.DR PO SCH (07:54)
[2020-03-03] MEDS: oxcarbazepine 150mg tablet PO SCH ×2 (07:54→20:25)
[2020-03-03] MEDS: FLUoxetine 20mg capsule PO SCH (07:54)
[2020-03-03] MEDS: loratadine 10mg tablet PO SCH (07:54)
[2020-03-03] MEDS: fluticasone nasal spray 16GM bottle NS SCH ×2 (07:55→20:21)
--- NOTE | 2020-03-03 08:00 | NUR ---
Pt resting comfortably, respirations normal, no s/s of distress.
--- NOTE | 2020-03-03 09:00 | NUR ---
Pt resting comfortably, respirations normal, no s/s of distress.
--- NOTE | 2020-03-03 10:00 | NUR ---
pt resting in bed. no issues at this time
[2020-03-03] MEDS ORDERED: KEP500T PO (10:17)
[2020-03-03] MEDS ORDERED: levetiracetam 250mg tablet PO ONE (10:45)
--- NOTE | 2020-03-03 11:00 | NUR ---
pt resting in bed. no issues at this time
--- NOTE | 2020-03-03 12:00 | NUR ---
pt resting in bed. no issues at this time
--- NOTE | 2020-03-03 13:00 | NUR ---
pt resting in bed. no issues at this time
--- NOTE | 2020-03-03 14:00 | NUR ---
pt resting in bed. no issues at this time
--- NOTE | 2020-03-03 15:00 | NUR ---
pt resting in bed. no issues at this time
[2020-03-03] MEDS ORDERED: aspirin 325mg tablet PO ONE (15:55)
[2020-03-03] MEDS ORDERED: aspirin 81mg tablet.DR PO ONE (15:55)
--- NOTE | 2020-03-03 16:00 | NUR ---
pt resting in bed. no issues at this time
--- NOTE | 2020-03-03 17:00 | NUR ---
pt resting in bed. no issues at this time
[2020-03-03] MEDS: quetiapine 100mg tablet PO SCH (20:24)
[2020-03-03] MEDS: levetiracetam 250mg tablet PO SCH (20:25)
[2020-03-03] MEDS ORDERED: docusate sod 100mg capsule PO ONE (20:50)
[2020-03-04] MEDS: loratadine 10mg tablet PO SCH (08:01)
[2020-03-04] MEDS: FLUoxetine 20mg capsule PO SCH (08:01)
[2020-03-04] MEDS: fluticasone nasal spray 16GM bottle NS SCH ×2 (08:01→20:31)
[2020-03-04] MEDS: pantoprazole 40mg Tablet.DR PO SCH (08:01)
[2020-03-04] MEDS: oxcarbazepine 150mg tablet PO SCH ×2 (08:01→20:31)
[2020-03-04] MEDS: levetiracetam 250mg tablet PO SCH ×2 (08:02→20:31)
--- NOTE | 2020-03-04 08:50 | NUR ---
PT REQUESTING DAILY BABY ASA IT "HELPS HER LEGS". PT CO CRAMPING OF LEGS AND STATES IT HELPS HER "INFLAMED VEINS". RECEIVED VO FROM DR. KING FOR ASPRIN 81MG PO QAM.
[2020-03-04] MEDS: aspirin 81mg tab.chew PO SCH (09:25)
--- NOTE | 2020-03-04 16:30 | NUR ---
Pt requesting something to eat. Pt given string cheese and yogurt, pt denies further needs.
[2020-03-04] MEDS: quetiapine 100mg tablet PO SCH (20:30)
--- NOTE | 2020-03-04 21:39 | NUR ---
pt is lying in bed resting. pt is pleasant and cooperative. no complaints at this time.
--- NOTE | 2020-03-04 23:03 | NUR ---
pt is sleeping, no s/s of distress noted.
[2020-03-05 05:44] VITALS: BP 106/60
--- NOTE | 2020-03-05 07:00 | NUR ---
pt is resting in her room
--- NOTE | 2020-03-05 08:00 | NUR ---
pt is resting in her room
[2020-03-05] MEDS: oxcarbazepine 150mg tablet PO SCH (08:09)
[2020-03-05] MEDS: fluticasone nasal spray 16GM bottle NS SCH (08:09)
[2020-03-05] MEDS: loratadine 10mg tablet PO SCH (08:10)
[2020-03-05] MEDS: levetiracetam 250mg tablet PO SCH (08:10)
[2020-03-05] MEDS: FLUoxetine 20mg capsule PO SCH (08:10)
[2020-03-05] MEDS: aspirin 81mg tab.chew PO SCH (08:10)
[2020-03-05] MEDS: pantoprazole 40mg Tablet.DR PO SCH (08:10)
--- NOTE | 2020-03-05 09:00 | NUR ---
pt is resting in her room. no issues at his time
--- NOTE | 2020-03-05 10:00 | NUR ---
pt is resting in her room
[2020-03-06] MEDS ORDERED: ASPI-611 PO (20:04)
[2020-03-06] MEDS ORDERED: OXCA300T16 PO (20:04)
== END 2020-03-05 14:20 ==
LOC: ER 12:43
DX: F31.9 Bipolar disorder, unspecified (principal); R45.851 Suicidal ideations; J45.909 Unspecified asthma, uncomplicated; E11.9 Type 2 diabetes mellitus without complications; F20.9 Schizophrenia, unspecified; F12.90 Cannabis use, unspecified, uncomplicated; Z59.0 Homelessness; Z88.0 Allergy status to penicillin; Z88.1 Allergy status to other antibiotic agents; Z88.8 Allergy status to other drugs, medicaments and biological substances; Z91.040 Latex allergy status
CPT/HCPCS: 36415; 80053; 80305; 80320; 81001; 82948; 85025; 96372; 99285; J1630; 71045

== ENCOUNTER 2020-03-06 19:07 | Emergency (ER) | payer MEDICARE, MEDICAID ==
[~2020-03-06] VITALS: Ht 154.9 cm; Wt 80.0 kg
[~2020-03-06 19:07] MED LIST changes: +KEP500T PO
--- NOTE | 2020-03-06 19:59 | NUR ---
pt is 29 yo female on 5149, was [facility], pt stated she attempted suicide 4 times since 1500 today, twice by trying to strangle self with "long socks" and twice by placing plastic bag over head, pt said she almost stopped breathing "but staff found me before that happened", pt admitted to feeling suicidal "I will do it here right now", pt also said she felt "homicidal towards the staff...they keep pushing me and they don't push the other people as much as they push me...it is not fair", pt talking full sentences, resp even and unlabored, skin p/w/d, minimal bruising to anterior neck, no difficulty swallowing, no oral trauma. Pt said she would like to go to [facility] and live in a detention
[2020-03-06 20:04] LABS: BASOPHILS % (AUTO) 0.5 % (0-1); EOSINOPHILS % (AUTO) 0.4 % (0-6); HEMATOCRIT 36.5 % (35.0-45.0); HEMOGLOBIN 11.9 g/dl (12.0-16.0); LYMPHOCYTES # (AUTO) 2.6 X10'3 (1.1-4.8); LYMPHOCYTES % (AUTO) 33.1 % (21-51); MEAN CORPUSCULAR HEMOGLOBIN 25.9 PG (27.0-31.0); MEAN CORPUSCULAR HGB CONC 32.7 g/dL (33.0-36.5); MEAN CORPUSCULAR VOLUME 79.1 FL (78-98); MEAN PLATELET VOLUME 10.9 FL (7.4-10.4); MONOCYTES # (AUTO) 1.1 X10'3 (0-0.9); MONOCYTES % (AUTO) 14.7 % (2-12); NEUTROPHILS % (AUTO) 51.3 % (42-75); PLATELET COUNT 212 X10'3 (140-440); RED BLOOD COUNT 4.62 X10'6 (4.20-5.60); RED CELL DISTRIBUTION WIDTH 14.4 % (11.5-14.5); WHITE BLOOD COUNT 7.8 X10'3 (4.5-11.0)
[2020-03-06] MEDS ORDERED: OXCA300T16 PO (20:04)
[2020-03-06] MEDS ORDERED: ASPI-611 PO (20:04)
[2020-03-06 20:08] LABS: URINE HCG NEGATIVE (NEG)
[2020-03-06 20:16] LABS: ANION GAP 11 (8-16); BILIRUBIN,TOTAL 0.2 MG/DL (0.1-1.0); BLOOD UREA NITROGEN 36 MG/DL (7-18); BUN/CREATININE RATIO 37.1 (6.6-38.0); CALCIUM 9.2 MG/DL (8.5-10.1); CHLORIDE 105 MMOL/L (99-107); CREATININE 0.97 MG/DL (0.40-0.90); GLUCOSE 91 MG/DL (70-104); POTASSIUM 3.3 MMOL/L (3.5-5.1); SODIUM 140 MMOL/L (135-145); TOTAL CARBON DIOXIDE 23.8 MMOL/L (24-32); eGFR 67 ML/MIN
[2020-03-06 20:17] LABS: ALANINE AMINOTRANSFERASE 31 U/L (12-78); ALBUMIN 4.1 G/DL (3.4-5.0); ALBUMIN/GLOBULIN RATIO 1.1 (1.1-1.5); ALKALINE PHOSPHATASE 90 IU/L (46-116); ASPARTATE AMINO TRANSFERASE 33 U/L (10-37); ETHANOL < 0.010 GM/DL (0.0-0.010)
[2020-03-06 20:20] LABS: URINE AMPHETAMINE SCREEN NEGATIVE (Neg); URINE BARBITUATE SCREEN NEGATIVE (Neg); URINE BENZODIAZEPINES SCREEN NEGATIVE (Neg); URINE CANNABINOID SCREEN NEGATIVE (Neg); URINE COCAINE SCREEN NEGATIVE (Neg); URINE METHADONE SCREEN NEGATIVE (Neg); URINE OPIATE SCREEN NEGATIVE (Neg); URINE PHENCYCLIDINE SCREEN NEGATIVE (Neg)
[2020-03-06 20:38] LABS: PLATELET ESTIMATE NORMAL
[2020-03-06 20:40] LABS: LARGE PLATELETS MODERATE
--- NOTE | 2020-03-06 20:49 | NUR ---
pt is resting quietly on gurney, quiet, calm
--- NOTE | 2020-03-06 22:00 | NUR ---
PT AMB WITH STEADY GAIT TO OVERFLOW
[2020-03-06] MEDS ORDERED: potassium chloride 10mEq ER tablet PO STA (22:05)
--- NOTE | 2020-03-07 00:21 | NUR ---
primary rn at lunch. noticed movement coming from pt room. went over to assess and pt was using her fingers to rub her forearm raw. no evidence of blood. skin only reddened. pt asked to stop. josh parra notified. both rns tried to verbally deescalate pt. tech at bs to assist. pt states that she likes her current state of mind and doesn't want anything to help. pt repeated states "i like the way I feel" and that she wants to . pt repeatedly reaches again to rub her forearm raw.
[2020-03-07] MEDS ORDERED: diphenhydrAMINE 50 mg/ml inj IM ONE ×3 (00:35→14:50)
[2020-03-07] MEDS ORDERED: ziprasidone IM 20mg inj **IM only IM ONE (00:35)
--- NOTE | 2020-03-07 01:27 | NUR ---
Informed MD about patient rubbing her arm raw. IM meds administered. I stayed at bedside until patient calmed down and no longer attempting to rub her arm.
[2020-03-07] MEDS: ondansetron 4mg rapidly disintigrating tab PO SCH ×4 (02:00→20:33)
--- NOTE | 2020-03-07 05:49 | NUR ---
Pt packet faxed to [facility]
--- NOTE | 2020-03-07 07:23 | NUR ---
pt up to use the restroom, no assistance needed, no distress noted.
--- NOTE | 2020-03-07 07:25 | NUR ---
pt was observed scratching right forearm tot he point of bleeding. when asked if she was itching pt stated no she just wants to do it. Pt refused verbal commands and became extremely aggitated when stated we have to wrap forearm to prevent further injury. security arrived and heled place pt in restraints.
[2020-03-07] MEDS ORDERED: haloperidol lactate 5mg/ml inj IM ONE ×2 (07:40→14:50)
[2020-03-07] MEDS: fluticasone nasal spray 16GM bottle NS SCH ×2 (08:00→20:00)
--- NOTE | 2020-03-07 08:09 | NUR ---
pt refused to take oral medications stating "I hate taking medications"
[2020-03-07] MEDS: oxcarbazepine 150mg tablet PO SCH ×2 (08:55→20:33)
[2020-03-07] MEDS: FLUoxetine 20mg capsule PO SCH (08:55)
[2020-03-07] MEDS: loratadine 10mg tablet PO SCH (08:55)
[2020-03-07] MEDS: levetiracetam 250mg tablet PO SCH ×2 (08:56→20:32)
[2020-03-07] MEDS: aspirin 81mg tablet.DR PO SCH (08:56)
--- NOTE | 2020-03-07 09:02 | NUR ---
pt keeps pulling at restraints to tighten right arm. released and reapplied, no damage.
--- NOTE | 2020-03-07 09:05 | NUR ---
Breaking primary RN. Pt c/o right hand being purple d/t restraints. Assessed right and left hands. Able to get 2 fingers under both restraints. Removed right wrist restraint, CMS intact. Pt continues to want to harm herself. right wrist restraint reapplied with 2 fingers able to be between restraint and pt's wrist. Pt's hand is not purple. Instructed pt to stop pulling on her restraints to decrease pain.
--- NOTE | 2020-03-07 09:15 | NUR ---
Pt taken out of 4-point restraints and assisted to the restroom. Explained to pt that her behavior is what has gotten her in restraints, it is not our goal for her to be in restraints. Security was on stand-by in the unit for pt to go to the restroom. When pt went back to bed, only 2-point restraints were applied to bilateral wrists and let pt know that if she behaves and is not harming herself, the staff will consider removal of those as well. Pt given a sheet and blanket to cover up with. Pt denies any further needs at this time.
--- NOTE | 2020-03-07 10:15 | NUR ---
Assumed care of the patient from Yeyo Berman RN. Pt is calm and cooperative at this time. Pt's wrist restraints have been removed. Pt is sitting upright on the bed eating breakfast.
--- NOTE | 2020-03-07 11:19 | NUR ---
Pt is resting, no complaints or distress noted.
--- NOTE | 2020-03-07 12:20 | NUR ---
Pt is resting, no distress noted, sitter at bedside.
--- NOTE | 2020-03-07 13:27 | NUR ---
Pt had some lunch and is resting again. Pt has sitter nearby.
--- NOTE | 2020-03-07 14:26 | NUR ---
Pt is attempting to get staff to obtain phone numbers of facilities where she has been placed so she can obtain medical records to help her get placed. Explained to the patient that the [facility] staff will obtain the records that are needed for her placement. Pt made a statement about needing her fingernails clipped to stop her from cutting her arms.
--- NOTE | 2020-03-07 14:46 | NUR ---
breaking the primary nurse at this time ,pt scheduled med administered as per md orders.denies any concern pt using phone little upset r/t her placement.sitter at bedside.
--- NOTE | 2020-03-07 15:16 | NUR ---
Pt reported increased anxiety and thoughts of self harm. Dr. Ohara notified and order for benadryl IM and Haldol IM obtained and medications given. Pt has kathryn wraps on bilateral forearms at this time. Sitter remains at bedside.
--- NOTE | 2020-03-07 16:23 | NUR ---
Pt is resting with even and unlabored respirations. Pt has sitter nearby.
--- NOTE | 2020-03-07 17:22 | NUR ---
Breaking primary RN. Pt sleeping in bed. Respirations unlabored. NAD.
--- NOTE | 2020-03-07 17:56 | NUR ---
[facility] in [place] phoned and informed us they are considering accepting the patient for admission at their facility but they need a UA and a TSH level. Recent UA from 02/29/20 and TSH from 02/19/20 faxed to [facility] and they will phone us back to inform if they need more recent results. Pt is sleeping with even and unlabored respirations at this time.
--- NOTE | 2020-03-07 18:36 | NUR ---
Pt ate dinner then ambulatory to the restroom to void. Pt provided a new urine specimen in case [facility] in [place] says a UA is needed.
--- NOTE | 2020-03-07 19:30 | NUR ---
Pt is cooperative but talkative with staff. Sitter nearby.
[2020-03-07 20:03] LABS: CLARITY,URINE CLEAR (Clear); COLOR,URINE YELLOW (Yellow); GLUCOSE, URINE NEGATIVE (Neg); KETONES,URINE NEGATIVE (Neg); LEUKOCYTE ESTERASE ,URINE NEGATIVE (Neg); NITRITES, URINE NEGATIVE (Neg); OCCULT BLOOD,URINE NEGATIVE (Neg); PROTEIN,URINE NEGATIVE (Neg); UROBILINOGEN,URINE 0.2 E.U/dL (0.2-1.0)
[2020-03-07 20:04] LABS: UA COLLECTION TYPE CLN CATCH MIDSTREAM
--- NOTE | 2020-03-07 20:30 | NUR ---
Pt resting with even and unlabored respirations. Sitter nearby.
[2020-03-07] MEDS: quetiapine 100mg tablet PO SCH (20:33)
--- NOTE | 2020-03-07 21:33 | NUR ---
Pt is resting, awaiting disposition or further orders.
--- NOTE | 2020-03-07 22:45 | NUR ---
Pt currently appears to be resting comfortably in bed. No s/s of distress noted
--- NOTE | 2020-03-07 22:55 | NUR ---
JORDAN RN wrote new [id number] on patient and faxed to [facility] office
--- NOTE | 2020-03-07 23:40 | NUR ---
Pt appears to be resting comfortably in bed. No s/s of distress noted
--- NOTE | 2020-03-08 00:15 | NUR ---
Pt remains resting in bed with no s/s of distress
--- NOTE | 2020-03-08 01:53 | NUR ---
Pt appears to be resting comfortably in bed. No s/s of distress noted
[2020-03-08] MEDS: ondansetron 4mg rapidly disintigrating tab PO SCH ×4 (01:56→20:05)
--- NOTE | 2020-03-08 02:35 | NUR ---
Pt appears to be resting comfortably in bed. No s/s of distress noted
--- NOTE | 2020-03-08 03:30 | NUR ---
Pt appears to be resting comfortably in bed. No s/s of distress noted
--- NOTE | 2020-03-08 04:25 | NUR ---
Pt appears to be resting comfortably in bed. No s/s of distress noted
--- NOTE | 2020-03-08 05:18 | NUR ---
Pt appears to be resting comfortably in bed. No s/s of distress noted
--- NOTE | 2020-03-08 07:00 | NUR ---
sleeping on back
[2020-03-08] MEDS: fluticasone nasal spray 16GM bottle NS SCH ×2 (07:48→20:00)
[2020-03-08] MEDS: aspirin 81mg tablet.DR PO SCH (07:49)
[2020-03-08] MEDS: levetiracetam 250mg tablet PO SCH ×2 (07:49→20:06)
[2020-03-08] MEDS: oxcarbazepine 150mg tablet PO SCH ×2 (07:50→20:06)
[2020-03-08] MEDS: loratadine 10mg tablet PO SCH (07:50)
[2020-03-08] MEDS: FLUoxetine 20mg capsule PO SCH (07:50)
--- NOTE | 2020-03-08 08:02 | NUR ---
Patient is asleep on back ate breakfast earlier
--- NOTE | 2020-03-08 09:07 | NUR ---
asleep on back
--- NOTE | 2020-03-08 10:03 | NUR ---
lying on back asleep
--- NOTE | 2020-03-08 11:01 | NUR ---
Laying down resting in bed
[2020-03-08] MEDS ORDERED: docusate sod 100mg capsule PO SCH (11:25)
--- NOTE | 2020-03-08 11:53 | NUR ---
Talking to Martin from [facility], gave colace for constipation
--- NOTE | 2020-03-08 12:32 | NUR ---
Sitting in bed
--- NOTE | 2020-03-08 13:05 | NUR ---
Asleep laying on back
--- NOTE | 2020-03-08 14:01 | NUR ---
Patient is asleep on back
--- NOTE | 2020-03-08 15:04 | NUR ---
sleeping on back
--- NOTE | 2020-03-08 16:13 | NUR ---
sleeping on back
--- NOTE | 2020-03-08 17:02 | NUR ---
sitting up in bed
[2020-03-08 17:30] VITALS: BP 96/55
--- NOTE | 2020-03-08 18:03 | NUR ---
talking to tech
--- NOTE | 2020-03-08 18:49 | NUR ---
Patient awake up out of bed talking with PCT and other patients. Patient calm at this time
--- NOTE | 2020-03-08 19:11 | NUR ---
Received call from [facility] RN for a RN to RN screening of patient. RN stated they would talk to their physician to seek conditional acceptance but that if accepted pt would need a negative Covid 19 screening in order to be accepted. Will notify provider of need for screening if pt is accepted
--- NOTE | 2020-03-08 19:40 | NUR ---
Patient has received conditional acceptance to [facility] and will be fully accepted once they receive a negative covid test. Notified provider and received an order to run a rapid screening. Will fax results to facility once test is completed
--- NOTE | 2020-03-08 19:44 | NUR ---
Patient standing next to PCT and engaging in conversation. Patient stated she is excited to possibly be accepted and going to a facility [facility]
[2020-03-08] MEDS: quetiapine 100mg tablet PO SCH (20:06)
--- NOTE | 2020-03-08 20:14 | NUR ---
CONVID 19 SCREEN NEGATIVE
--- NOTE | 2020-03-08 20:27 | NUR ---
Notified by [facility] that patient will be picked up by motorcycle delivery driver in approximately 20 min to be taken to [facility] in [place]. Accepting MD is Dr. Gresham
--- NOTE | 2020-03-08 21:05 | NUR ---
Report called to receiving OG Basurto at [place]. Awaiting arrival of transportation
--- NOTE | 2020-03-08 21:10 | NUR ---
Patient picked up by [facility] for transportation. All patient belongings sent with patient. No s/s of distress noted
== END 2020-03-08 21:15 | disposition home or self-care (01) ==
LOC: ER 19:07
DX: Z03.818 Encounter for observation for suspected exposure to other biological agents ruled out (principal); R45.851 Suicidal ideations; J45.909 Unspecified asthma, uncomplicated; E11.9 Type 2 diabetes mellitus without complications; F31.9 Bipolar disorder, unspecified; F20.9 Schizophrenia, unspecified; F12.90 Cannabis use, unspecified, uncomplicated; Z86.69 Personal history of other diseases of the nervous system and sense organs; Z60.2 Problems related to living alone; Z88.0 Allergy status to penicillin; Z88.8 Allergy status to other drugs, medicaments and biological substances; Z79.2 Long term (current) use of antibiotics; Z91.041 Radiographic dye allergy status; Z91.040 Latex allergy status; Z91.02 Food additives allergy status; Z91.018 Allergy to other foods
CPT/HCPCS: 36415; 80053; 80305; 80320; 81003; 81025; 85025; 87635; 96372; 99285; J1200; J1630; J3486; 99284

== ENCOUNTER 2020-03-21 19:09 | Emergency (ER) | payer MEDICARE, MEDICAID ==
[~2020-03-21] VITALS: Ht 154.9 cm; Wt 83.2 kg
[~2020-03-21 19:09] MED LIST changes: +ASPI-611 PO; +OXCA300T16 PO; -OXCA600T9 PO; -PANT40TA4 PO
[2020-03-21] MEDS ORDERED: acetaminophen 325mg tablet PO ONE (19:20)
[2020-03-21] MEDS ORDERED: pantoprazole 40mg Tablet.DR PO ONE (19:20)
[2020-03-21 19:33] VITALS: BP 100/67
== END 2020-03-21 19:35 | disposition home or self-care (01) ==
LOC: ER 19:10
DX: R07.89 Other chest pain (principal); J45.909 Unspecified asthma, uncomplicated; E11.9 Type 2 diabetes mellitus without complications; F31.9 Bipolar disorder, unspecified; F20.9 Schizophrenia, unspecified; F12.90 Cannabis use, unspecified, uncomplicated; Z59.0 Homelessness; Z88.0 Allergy status to penicillin; Z88.1 Allergy status to other antibiotic agents; Z91.048 Other nonmedicinal substance allergy status; Z88.8 Allergy status to other drugs, medicaments and biological substances; Z91.041 Radiographic dye allergy status; Z91.018 Allergy to other foods; Z79.82 Long term (current) use of aspirin; Z79.899 Other long term (current) drug therapy
CPT/HCPCS: 99283

== ENCOUNTER 2020-03-26 00:44 | Emergency (ER) | payer MEDICARE, MEDICAID ==
[~2020-03-26] VITALS: Ht 154.9 cm; Wt 83.2 kg
[2020-03-26 00:46] VITALS: BP 107/81
[2020-03-26 02:53] LABS: URINE HCG NEGATIVE (NEG)
[2020-03-26 03:04] LABS: ALANINE AMINOTRANSFERASE 28 U/L (12-78); ALBUMIN 3.7 G/DL (3.4-5.0); ALKALINE PHOSPHATASE 98 IU/L (46-116); ANION GAP 11 (8-16); ASPARTATE AMINO TRANSFERASE 32 U/L (10-37); BILIRUBIN,TOTAL 0.4 MG/DL (0.1-1.0); BLOOD UREA NITROGEN 17 MG/DL (7-18); BUN/CREATININE RATIO 17.5 (6.6-38.0); CALCIUM 8.9 MG/DL (8.5-10.1); CHLORIDE 108 MMOL/L (99-107); CREATININE 0.97 MG/DL (0.40-0.90); ETHANOL < 0.010 GM/DL (0.0-0.010); GLUCOSE 91 MG/DL (70-104); POTASSIUM 3.4 MMOL/L (3.5-5.1); SODIUM 144 MMOL/L (135-145); TOTAL CARBON DIOXIDE 24.8 MMOL/L (24-32); TOTAL PROTEIN 7.3 G/DL (6.4-8.2); eGFR 67 ML/MIN
[2020-03-26 03:04] LABS: URINE AMPHETAMINE SCREEN NEGATIVE (Neg); URINE BARBITUATE SCREEN NEGATIVE (Neg); URINE BENZODIAZEPINES SCREEN NEGATIVE (Neg); URINE CANNABINOID SCREEN NEGATIVE (Neg); URINE COCAINE SCREEN NEGATIVE (Neg); URINE METHADONE SCREEN NEGATIVE (Neg); URINE OPIATE SCREEN NEGATIVE (Neg); URINE PHENCYCLIDINE SCREEN NEGATIVE (Neg)
[2020-03-26 03:13] LABS: BASOPHILS % (AUTO) 0.5 % (0-1); EOSINOPHILS % (AUTO) 0.2 % (0-6); HEMATOCRIT 37.4 % (35.0-45.0); HEMOGLOBIN 12.3 g/dl (12.0-16.0); LYMPHOCYTES # (AUTO) 2.8 X10'3 (1.1-4.8); LYMPHOCYTES % (AUTO) 47.5 % (21-51); MEAN CORPUSCULAR HEMOGLOBIN 26.3 PG (27.0-31.0); MEAN CORPUSCULAR HGB CONC 32.8 g/dL (33.0-36.5); MEAN CORPUSCULAR VOLUME 80.3 FL (78-98); MEAN PLATELET VOLUME 10.1 FL (7.4-10.4); MONOCYTES # (AUTO) 0.8 X10'3 (0-0.9); MONOCYTES % (AUTO) 13.7 % (2-12); NEUTROPHILS # (AUTO) 2.2 X10'3 (1.8-7.7); NEUTROPHILS % (AUTO) 38.1 % (42-75); PLATELET COUNT 193 X10'3 (140-440); RED BLOOD COUNT 4.65 X10'6 (4.20-5.60); RED CELL DISTRIBUTION WIDTH 15.2 % (11.5-14.5); WHITE BLOOD COUNT 5.8 X10'3 (4.5-11.0)
[2020-03-26] MEDS ORDERED: ALBU90AE ID (08:58)
[2020-03-26] MEDS ORDERED: PROP10TA10 PO (08:58)
[2020-03-26] MEDS ORDERED: albuterol 2.5 MG/3 ML nebule NEB PRN (10:40)
[2020-03-26] MEDS ORDERED: levetiracetam 250mg tablet PO SCH (11:00)
[2020-03-26] MEDS ORDERED: fluticasone nasal spray 16GM bottle NS SCH (11:00)
[2020-03-26] MEDS ORDERED: ondansetron 4mg rapidly disintigrating tab PO PRN (11:00)
[2020-03-26] MEDS ORDERED: aspirin 81mg tab.chew PO SCH (11:00)
[2020-03-26] MEDS ORDERED: propranolol 10mg tablet PO SCH (11:00)
[2020-03-26] MEDS ORDERED: loratadine 10mg tablet PO SCH (11:00)
[2020-03-26] MEDS ORDERED: CARI4.5C PO (11:42)
--- NOTE | 2020-03-26 13:06 | NUR ---
relieving RN for break, pt has been evaluated by [facility], plan to dc to [place] with case management manager at 1400, has appt with provider at 1100 tomorrow, pt is eating lunch
[2020-03-26] MEDS ORDERED: quetiapine 100mg tablet PO SCH (21:00)
[2020-03-27] MEDS ORDERED: non-formulary drug (Cariprazine Hydrochloride (Vraylar) 1 CAP) PO SCH (08:00)
== END 2020-03-26 14:12 | disposition home or self-care (01) ==
LOC: ER 00:44
DX: R44.0 Auditory hallucinations (principal); R45.851 Suicidal ideations; J45.909 Unspecified asthma, uncomplicated; E11.9 Type 2 diabetes mellitus without complications; F31.9 Bipolar disorder, unspecified; F20.9 Schizophrenia, unspecified; R07.89 Other chest pain; R06.02 Shortness of breath; F12.90 Cannabis use, unspecified, uncomplicated; Z72.89 Other problems related to lifestyle; Z86.69 Personal history of other diseases of the nervous system and sense organs; Z59.0 Homelessness; Z88.0 Allergy status to penicillin; Z88.8 Allergy status to other drugs, medicaments and biological substances; Z79.82 Long term (current) use of aspirin; Z79.899 Other long term (current) drug therapy
CPT/HCPCS: 36415; 71045; 80053; 80305; 80320; 81025; 85025; 93005; 99285

== ENCOUNTER 2020-03-26 23:31 | Emergency (ER) | payer MEDICARE, MEDICAID ==
[~2020-03-26] VITALS: Ht 154.9 cm; Wt 81.5 kg
[~2020-03-26 23:31] MED LIST changes: +ALBU90AE ID; +CARI4.5C PO; +PROP10TA10 PO
[2020-03-26 23:34] VITALS: BP 119/79
[2020-03-26] MEDS ORDERED: LORazepam 1 MG tablet PO ONE (23:50)
--- NOTE | 2020-03-26 23:50 | NUR ---
Anastasiia LIVINGSTON at bedside to evaluate pt, pt is well known to ER, was dc'd today at 1400 from overflow with gearcase assembler, staying at [facility], has appt with mental health provider at 1100 tomorrow, pt said she had a "episode after a stranger told me to kill myself", pt said she felt very suicidal, has no plan at this time, pt is aware she needs to go mental health appt to adjust meds,
== END 2020-03-27 00:09 | disposition home or self-care (01) ==
LOC: ER 23:31
DX: F99 Mental disorder, not otherwise specified (principal); J45.909 Unspecified asthma, uncomplicated; E11.9 Type 2 diabetes mellitus without complications; F31.9 Bipolar disorder, unspecified; F20.9 Schizophrenia, unspecified; F12.90 Cannabis use, unspecified, uncomplicated; Z86.69 Personal history of other diseases of the nervous system and sense organs; Z59.0 Homelessness; Z88.0 Allergy status to penicillin; Z88.8 Allergy status to other drugs, medicaments and biological substances; Z91.041 Radiographic dye allergy status; Z79.899 Other long term (current) drug therapy
CPT/HCPCS: 99283

== ENCOUNTER 2020-04-01 22:53 | Emergency (ER) | payer MEDICARE, MEDICAID ==
[~2020-04-01] VITALS: Ht 154.9 cm; Wt 82.0 kg
[~2020-04-01 22:53] MED LIST changes: -FLUO-167 PO; -OXCA300T16 PO
[2020-04-01 22:58] VITALS: BP 108/81
--- NOTE | 2020-04-01 23:09 | NUR ---
PT TO BATHROOM TO CHANGE INTO GREEN [employer] WAS ABLE TO VOID FOR UA SPECIMAN
--- NOTE | 2020-04-01 23:13 | NUR ---
PT AMBULATED INDEPENDENTLY BACK TO BED 21 ASKED FOR HER HAND WRITTEN NOTE, SHE BROUGHT WITH HER TO TRIAGE, ABOUT HER SUICIDE PLAN TO REMAIN AT BEDSIDE . NOTE IS AT BEDSIDE TABLE PATIENT EXPRESSED SHE WOULD LIKE TO GIVE IT TO THE MD UPON EVALUATION
--- NOTE | 2020-04-01 23:43 | NUR ---
PT RESTING IN BED ON BACK WAITING TO BE SEEN BY PROVIDER. PT AWAKE, WITH NO S/S OF DISTRESS OR PAIN. WILL CONTINUE TO MONITOR. PRIMARY RN SENT TO BREAK.
--- NOTE | 2020-04-02 00:01 | NUR ---
REMINDED DR STINSON PATIENT NEEDED TO BE SEEN , MD MAYRA PECK ALSO UPDATED PLAN OF CARE IN THE [place] LINE OF SIGHT OF NURSING STAFF
--- NOTE | 2020-04-02 00:47 | NUR ---
PT RESTING PEACFULLY OMN HER LEFT SIDE . RESP EVEN AND UNLABORED PLAN OF CARE UPDATED
[2020-04-02 01:10] LABS: CLARITY,URINE CLEAR (Clear); COLOR,URINE YELLOW (Yellow); GLUCOSE, URINE NEGATIVE (Neg); KETONES,URINE TRACE mg/dl (Neg); LEUKOCYTE ESTERASE ,URINE NEGATIVE (Neg); NITRITES, URINE NEGATIVE (Neg); OCCULT BLOOD,URINE NEGATIVE (Neg); PROTEIN,URINE NEGATIVE (Neg)
[2020-04-02 01:11] LABS: UA COLLECTION TYPE CLN CATCH MIDSTREAM
[2020-04-02 01:23] LABS: URINE AMPHETAMINE SCREEN NEGATIVE (Neg); URINE BARBITUATE SCREEN NEGATIVE (Neg); URINE BENZODIAZEPINES SCREEN NEGATIVE (Neg); URINE CANNABINOID SCREEN NEGATIVE (Neg); URINE COCAINE SCREEN NEGATIVE (Neg); URINE METHADONE SCREEN NEGATIVE (Neg); URINE OPIATE SCREEN NEGATIVE (Neg); URINE PHENCYCLIDINE SCREEN NEGATIVE (Neg)
--- NOTE | 2020-04-02 01:37 | NUR ---
PT SLEEPING PEACFULLY ON HER LEFT SIDE RESP VENE UNLABORED PT IN THE DIRECT LINE OF SIGHT OF STAFF WILL CONTINUE TO MONITOR AND REASSESS NEEDED .
--- NOTE | 2020-04-02 02:30 | NUR ---
DR STINSON AT BEDSIDE T SEE PATIENT PT CURRENTLY SLEEPING . DR STINSON TO REASSESS WHEN PT AWAKES . PT CURRENTLY SLEEPING SUPINE HEAD OF BED RAISE 30 DEGREES RESP EVEN AND UNLBAORED
--- NOTE | 2020-04-02 03:46 | NUR ---
PT MILTON CELESTIN ASKED THIS OYSTER CULTIVATOR TO BEDSIDE . PT REPORTS THAT SHE " WOULD LIKE TO BE HONEST " PT TEARFULLY , STATES " I AM SCARED, I DONT KNOW WHAT TO DO , OR HOW TO FEEL , WHEN I FEEL ANXIOUS, AND THEN I JUST DO THIS ..I COME HERE I DONT WANT TO BE HERE AL THGE TIME , I DONT LIKE COMING HERE, I JUST DONT KNOW WHERE ELSE TO GO ,OR WHO ELSE CAN HELP ME ." WHEN ASKING PATIENT ABOUT HER SUPPORT SYSTEM SHE CLAIMS SHE HAS NONE. SHE STATES " I HAVE BURNED MY BRIDGES , WITH PLACES THAT I CAN BE PLACED AND NOW FEARS I HAVE NO WHERE AT ALL TO GO " WHEN I GET ANXIOUS I GET THESE FEELINGS THAT I CANT DEAL WITH , I AM JUST REALL SCARED, I DONT MEAN TO CAUSE ALL THIS WORK , I AM JUST SCARED , I DO NOT KNOW WHO CAN HELP ME ." WHEN ASKING PATIENT WHO RENTED HER A ROOM ON THE [place], SHE REPORTS HER [facility] OUTSIDE SOLAR SALES CONSULTANT "ROLDAN" AT [phone] HELPED AND HELPS HER . SHE STAES THAT HER ROOM WILL AT 11 AM TODAY AND SHE WILL BE ON THE STREETS WITH NO PLACE TO GO AND THAT IS OVERWHELMING AND MAKES HER ANXIOUS .
--- NOTE | 2020-04-02 03:54 | NUR ---
DR STINSON AWARE PATIENT AWOKE AND WHAT SHE SPOKE OF . WILL CONTINUE TO MONITOR AND ASSESS NEEDED . PT CURRENTLY LYING IN BED SUPINE TEARFUL , BUT COROPORATIVE
--- NOTE | 2020-04-02 04:45 | NUR ---
PT CALLED THIS EDGE GLUER TO THE BEDSIDE TO LET ME KNOW SHE VOIDED IN BED SHE STATED SHE DID THIS BC OF STRESS. PT SENT TO BATHROOM TO CLEAN HERSLEF UP CHANGE HER CLOTHES. BED LINEN CHANGED.
--- NOTE | 2020-04-02 05:18 | NUR ---
DIETARY CALLED FOR TRAY ORDER PT REQUESTED VEGAN
--- NOTE | 2020-04-02 05:25 | NUR ---
PT CURRENTLY RESTING IN BED , TOSSING FROM SIDE TO SIDE .
--- NOTE | 2020-04-02 05:32 | NUR ---
DR STINSON AT BEDSIDE
--- NOTE | 2020-04-02 06:45 | NUR ---
Received report from Shana FOLEY, [facility].
[2020-04-02] MEDS ORDERED: levetiracetam 250mg tablet PO ONE (07:20)
--- NOTE | 2020-04-02 07:59 | NUR ---
breaking primary RN, pt is dressed and ready to go, awaiting ride.
== END 2020-04-02 08:05 | disposition home or self-care (01) ==
LOC: ER 22:53
DX: F41.9 Anxiety disorder, unspecified (principal); J45.909 Unspecified asthma, uncomplicated; E11.9 Type 2 diabetes mellitus without complications; F20.9 Schizophrenia, unspecified; F31.9 Bipolar disorder, unspecified; F12.90 Cannabis use, unspecified, uncomplicated; Z72.89 Other problems related to lifestyle; Z86.69 Personal history of other diseases of the nervous system and sense organs; Z59.0 Homelessness; Z88.8 Allergy status to other drugs, medicaments and biological substances; Z88.0 Allergy status to penicillin; Z88.6 Allergy status to analgesic agent; Z91.040 Latex allergy status; Z91.018 Allergy to other foods; Z79.899 Other long term (current) drug therapy
CPT/HCPCS: 80305; 81003; 99283

== ENCOUNTER 2020-04-02 21:27 | Emergency (ER) | payer MEDICARE, MEDICAID ==
[~2020-04-02] VITALS: Ht 154.9 cm; Wt 80.0 kg
[2020-04-03] MEDS ORDERED: quetiapine 100mg tablet PO STA (00:33)
--- NOTE | 2020-04-03 02:53 | NUR ---
patient in bed eyes closed covers on rr even un labored no observable s/s of acute stress at this time will continue to monitor
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
[2020-04-03 04:28] VITALS: BP 111/70
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
--- NOTE | 2020-04-03 08:22 | NUR ---
CLARITZA VICE PRESIDENT QUALITY IN TO SEE PT. PLAN TO F/U WITH HER STAR WORKER ROLDAN, PT IS STAYING AT THE [facility] AND HAS FOOD AND CLOTHING. PT STATES SHE IS GOING TO [facility] ON [address], BUS PASS GIVEN.
== END 2020-04-03 08:25 | disposition home or self-care (01) ==
LOC: ER 21:28
DX: R56.9 Unspecified convulsions (principal); J45.909 Unspecified asthma, uncomplicated; E11.9 Type 2 diabetes mellitus without complications; F31.9 Bipolar disorder, unspecified; F20.9 Schizophrenia, unspecified; F12.90 Cannabis use, unspecified, uncomplicated; Z59.0 Homelessness; Z88.0 Allergy status to penicillin; Z88.1 Allergy status to other antibiotic agents; Z88.8 Allergy status to other drugs, medicaments and biological substances; Z91.048 Other nonmedicinal substance allergy status; Z91.040 Latex allergy status; Z91.018 Allergy to other foods; Z79.82 Long term (current) use of aspirin; Z79.899 Other long term (current) drug therapy
CPT/HCPCS: 99283

== ENCOUNTER 2020-04-06 10:02 | Emergency (ER) | payer MEDICARE, MEDICAID ==
[~2020-04-06] VITALS: Ht 170.2 cm; Wt 85.0 kg
--- NOTE | 2020-04-06 10:18 | NUR ---
Dr Wright in at bedside with assessment. C-spine cleared clinically by Dr Wright.
[2020-04-06 10:51] LABS: ALANINE AMINOTRANSFERASE 36 U/L (12-78); ALBUMIN 3.3 G/DL (3.4-5.0); ALBUMIN/GLOBULIN RATIO 1.1 (1.1-1.5); ALKALINE PHOSPHATASE 92 IU/L (46-116); ANION GAP 7 (8-16); ASPARTATE AMINO TRANSFERASE 25 U/L (10-37); BILIRUBIN,TOTAL 0.4 MG/DL (0.1-1.0); BLOOD UREA NITROGEN 15 MG/DL (7-18); BUN/CREATININE RATIO 16.7 (6.6-38.0); CALCIUM 8.5 MG/DL (8.5-10.1); CHLORIDE 111 MMOL/L (99-107); GLUCOSE 85 MG/DL (70-104); POTASSIUM 3.9 MMOL/L (3.5-5.1); SODIUM 145 MMOL/L (135-145); TOTAL CARBON DIOXIDE 27.1 MMOL/L (24-32); TOTAL PROTEIN 6.4 G/DL (6.4-8.2); eGFR 73 ML/MIN
[2020-04-06 11:04] LABS: BASOPHILS % (AUTO) 0.7 % (0-1); EOSINOPHILS # (AUTO) 0.1 X10'3 (0-0.9); EOSINOPHILS % (AUTO) 1.6 % (0-6); HEMATOCRIT 33.5 % (35.0-45.0); HEMOGLOBIN 10.8 g/dl (12.0-16.0); LYMPHOCYTES # (AUTO) 1.4 X10'3 (1.1-4.8); LYMPHOCYTES % (AUTO) 36.7 % (21-51); MEAN CORPUSCULAR HEMOGLOBIN 26.5 PG (27.0-31.0); MEAN CORPUSCULAR HGB CONC 32.3 g/dL (33.0-36.5); MONOCYTES # (AUTO) 0.6 X10'3 (0-0.9); MONOCYTES % (AUTO) 15.4 % (2-12); NEUTROPHILS # (AUTO) 1.8 X10'3 (1.8-7.7); NEUTROPHILS % (AUTO) 45.6 % (42-75); PLATELET COUNT 142 X10'3 (140-440); RED BLOOD COUNT 4.08 X10'6 (4.20-5.60); RED CELL DISTRIBUTION WIDTH 16.3 % (11.5-14.5); WHITE BLOOD COUNT 3.9 X10'3 (4.5-11.0)
[2020-04-06 11:04] LABS: CLARITY,URINE CLEAR (Clear); COLOR,URINE YELLOW (Yellow); GLUCOSE, URINE NEGATIVE (Neg); KETONES,URINE NEGATIVE (Neg); LEUKOCYTE ESTERASE ,URINE NEGATIVE (Neg); NITRITES, URINE NEGATIVE (Neg); OCCULT BLOOD,URINE NEGATIVE (Neg); PROTEIN,URINE NEGATIVE (Neg); UROBILINOGEN,URINE 0.2 E.U/dL (0.2-1.0)
--- NOTE | 2020-04-06 11:05 | NUR ---
Pt up to restroom for UA. Urine sent.
[2020-04-06 11:06] LABS: UA COLLECTION TYPE VOIDED
[2020-04-06 11:15] LABS: URINE AMPHETAMINE SCREEN NEGATIVE (Neg); URINE BARBITUATE SCREEN NEGATIVE (Neg); URINE BENZODIAZEPINES SCREEN NEGATIVE (Neg); URINE CANNABINOID SCREEN NEGATIVE (Neg); URINE COCAINE SCREEN NEGATIVE (Neg); URINE METHADONE SCREEN NEGATIVE (Neg); URINE OPIATE SCREEN NEGATIVE (Neg); URINE PHENCYCLIDINE SCREEN NEGATIVE (Neg)
[2020-04-06 13:00] LABS: TOTAL CELLS COUNTED 100
[2020-04-06 13:04] LABS: PLATELET ESTIMATE NORMAL
[2020-04-06 13:05] LABS: ANISOCYTOSIS 1+; ELLIPTOCYTES FEW; STOMATOCYTES FEW; TEAR DROP CELLS FEW
[2020-04-06 13:22] VITALS: BP 107/70
== END 2020-04-06 13:32 | disposition home or self-care (01) ==
LOC: ER 10:03
DX: M79.10 Myalgia, unspecified site (principal); J45.909 Unspecified asthma, uncomplicated; E11.9 Type 2 diabetes mellitus without complications; F31.9 Bipolar disorder, unspecified; F20.9 Schizophrenia, unspecified; F12.90 Cannabis use, unspecified, uncomplicated; R07.89 Other chest pain; R06.02 Shortness of breath; R50.9 Fever, unspecified; Z72.89 Other problems related to lifestyle; Z00.8 Encounter for other general examination; Z86.69 Personal history of other diseases of the nervous system and sense organs; Z59.0 Homelessness; Z88.0 Allergy status to penicillin; Z91.041 Radiographic dye allergy status; Z91.040 Latex allergy status; Z88.8 Allergy status to other drugs, medicaments and biological substances; Z79.899 Other long term (current) drug therapy; Z91.018 Allergy to other foods
CPT/HCPCS: 36415; 80053; 80305; 81003; 85025; 93005; 99284

== ENCOUNTER 2020-04-07 11:21 | Emergency (ER) | payer MEDICARE, MEDICAID ==
[~2020-04-07] VITALS: Ht 154.9 cm; Wt 81.8 kg
[2020-04-07] MEDS ORDERED: ibuprofen tablet 400 MG TABLET PO ONE (12:50)
[2020-04-07 13:28] LABS: CLARITY,URINE SLIGHTLY CLOUDY (Clear); COLOR,URINE YELLOW (Yellow); GLUCOSE, URINE NEGATIVE (Neg); KETONES,URINE 40 mg/dl (Neg); LEUKOCYTE ESTERASE ,URINE NEGATIVE (Neg); NITRITES, URINE NEGATIVE (Neg); OCCULT BLOOD,URINE NEGATIVE (Neg); PH,URINE 5.5 (4.8-8.0); PROTEIN,URINE NEGATIVE (Neg); UROBILINOGEN,URINE 0.2 E.U/dL (0.2-1.0)
[2020-04-07 13:33] LABS: UA COLLECTION TYPE CLN CATCH MIDSTREAM
[2020-04-07 13:37] LABS: BACTERIA,URINE 1+ /HPF (Neg); MUCUS STRANDS MODERATE /LPF (Neg); RBC,URINE 0-2 /HPF (0-2); SQUAMOUS EPITHELIAL CELL,UR MANY /LPF (FEW); URIC ACID CRYSTALS 2+ /HPF (NEGATIVE); WBC,URINE 0-4 /HPF (0-4)
[2020-04-07 13:48] VITALS: BP 115/73
== END 2020-04-07 13:49 | disposition home or self-care (01) ==
LOC: ER 11:21
DX: J20.9 Acute bronchitis, unspecified (principal); J45.909 Unspecified asthma, uncomplicated; E11.9 Type 2 diabetes mellitus without complications; F31.9 Bipolar disorder, unspecified; F20.9 Schizophrenia, unspecified; F12.90 Cannabis use, unspecified, uncomplicated; Z86.69 Personal history of other diseases of the nervous system and sense organs; Z72.89 Other problems related to lifestyle; Z88.0 Allergy status to penicillin; Z91.041 Radiographic dye allergy status; Z91.040 Latex allergy status; Z91.09 Other allergy status, other than to drugs and biological substances; Z79.899 Other long term (current) drug therapy
CPT/HCPCS: 71045; 81001; 99284

== ENCOUNTER 2020-04-10 04:40 | Emergency (ER) | payer MEDICARE, MEDICAID ==
[~2020-04-10] VITALS: Ht 154.9 cm; Wt 85.2 kg
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
--- NOTE | 2020-04-10 06:49 | NUR ---
cr istine from one safe place at bedside with the pt.
[2020-04-10 07:13] VITALS: BP 101/70
--- NOTE | 2020-04-10 07:40 | NUR ---
SART kit approved by [facility], Officer Valeriano. Case # [id number]. Will contact SART nurse to perform exam.
--- NOTE | 2020-04-10 08:35 | NUR ---
rpd officer at bedside to talk to the pt.charge nurse noble is aware.still waiting for sart nurse.
[2020-04-10 09:12] LABS: URINE HCG NEGATIVE (NEG)
[2020-04-10] MEDS ORDERED: azithromycin 250mg tablet PO ONE (09:25)
[2020-04-10] MEDS ORDERED: metroNIDAZOLE 500mg tablet PO ONE (09:25)
[2020-04-10] MEDS ORDERED: DOXY-1 PO ×2 (10:28→22:53)
[2020-04-10] MEDS ORDERED: OXCA300T52 PO (22:53)
== END 2020-04-10 11:18 | disposition home or self-care (01) ==
LOC: ER 04:41
DX: T76.21XA Adult sexual abuse, suspected, initial encounter (principal); J45.909 Unspecified asthma, uncomplicated; E11.9 Type 2 diabetes mellitus without complications; F31.9 Bipolar disorder, unspecified; F12.90 Cannabis use, unspecified, uncomplicated; F20.9 Schizophrenia, unspecified; Z86.69 Personal history of other diseases of the nervous system and sense organs; Z13.89 Encounter for screening for other disorder; Z72.89 Other problems related to lifestyle; Z88.8 Allergy status to other drugs, medicaments and biological substances; Z88.0 Allergy status to penicillin; Z88.6 Allergy status to analgesic agent; Z79.899 Other long term (current) drug therapy
CPT/HCPCS: 81025; 99284; J3490

== ENCOUNTER 2020-04-10 22:17 | Emergency (ER) | payer MEDICARE, MEDICAID ==
[~2020-04-10] VITALS: Ht 154.9 cm; Wt 81.8 kg
[~2020-04-10 22:17] MED LIST changes: +DOXY-1 PO
[2020-04-10 22:52] LABS: URINE HCG NEGATIVE (NEG)
[2020-04-10] MEDS ORDERED: OXCA300T52 PO (22:53)
[2020-04-10] MEDS ORDERED: DOXY-1 PO (22:53)
[2020-04-10 22:54] LABS: CLARITY,URINE CLEAR (Clear); COLOR,URINE GREEN (Yellow); GLUCOSE, URINE NEGATIVE (Neg); KETONES,URINE TRACE mg/dl (Neg); LEUKOCYTE ESTERASE ,URINE NEGATIVE (Neg); NITRITES, URINE POSITIVE (Neg); OCCULT BLOOD,URINE NEGATIVE (Neg); PROTEIN,URINE NEGATIVE (Neg)
[2020-04-10 23:01] LABS: UA COLLECTION TYPE CLN CATCH MIDSTREAM
[2020-04-10 23:03] LABS: BACTERIA,URINE FEW /HPF (Neg); RBC,URINE NONE SEEN /HPF (0-2); SQUAMOUS EPITHELIAL CELL,UR FEW /LPF (FEW); WBC,URINE 0-4 /HPF (0-4)
[2020-04-10 23:05] LABS: URINE AMPHETAMINE SCREEN NEGATIVE (Neg); URINE BARBITUATE SCREEN NEGATIVE (Neg); URINE BENZODIAZEPINES SCREEN NEGATIVE (Neg); URINE CANNABINOID SCREEN NEGATIVE (Neg); URINE COCAINE SCREEN NEGATIVE (Neg); URINE METHADONE SCREEN NEGATIVE (Neg); URINE OPIATE SCREEN NEGATIVE (Neg); URINE PHENCYCLIDINE SCREEN NEGATIVE (Neg)
[2020-04-10 23:16] LABS: BASOPHILS # (AUTO) 0.1 X10'3 (0-0.2); BASOPHILS % (AUTO) 0.9 % (0-1); EOSINOPHILS % (AUTO) 0.8 % (0-6); HEMATOCRIT 33.2 % (35.0-45.0); HEMOGLOBIN 10.8 g/dl (12.0-16.0); LYMPHOCYTES # (AUTO) 2.1 X10'3 (1.1-4.8); LYMPHOCYTES % (AUTO) 34.3 % (21-51); MEAN CORPUSCULAR HEMOGLOBIN 26.7 PG (27.0-31.0); MEAN CORPUSCULAR HGB CONC 32.4 g/dL (33.0-36.5); MEAN CORPUSCULAR VOLUME 82.5 FL (78-98); MEAN PLATELET VOLUME 9.9 FL (7.4-10.4); MONOCYTES # (AUTO) 0.8 X10'3 (0-0.9); MONOCYTES % (AUTO) 12.1 % (2-12); NEUTROPHILS # (AUTO) 3.2 X10'3 (1.8-7.7); NEUTROPHILS % (AUTO) 51.9 % (42-75); PLATELET COUNT 163 X10'3 (140-440); RED BLOOD COUNT 4.03 X10'6 (4.20-5.60); RED CELL DISTRIBUTION WIDTH 17.1 % (11.5-14.5); WHITE BLOOD COUNT 6.2 X10'3 (4.5-11.0)
[2020-04-10 23:29] LABS: ALANINE AMINOTRANSFERASE 37 U/L (12-78); ALBUMIN 3.3 G/DL (3.4-5.0); ALBUMIN/GLOBULIN RATIO 1.1 (1.1-1.5); ALKALINE PHOSPHATASE 87 IU/L (46-116); ANION GAP 7 (8-16); ASPARTATE AMINO TRANSFERASE 27 U/L (10-37); BILIRUBIN,TOTAL 0.3 MG/DL (0.1-1.0); BLOOD UREA NITROGEN 23 MG/DL (7-18); BUN/CREATININE RATIO 20.2 (6.6-38.0); CALCIUM 8.9 MG/DL (8.5-10.1); CHLORIDE 109 MMOL/L (99-107); CREATININE 1.14 MG/DL (0.40-0.90); ETHANOL < 0.010 GM/DL (0.0-0.010); GLUCOSE 102 MG/DL (70-104); POTASSIUM 3.8 MMOL/L (3.5-5.1); SODIUM 143 MMOL/L (135-145); TOTAL CARBON DIOXIDE 27.4 MMOL/L (24-32); TOTAL PROTEIN 6.4 G/DL (6.4-8.2); eGFR 56 ML/MIN
--- NOTE | 2020-04-10 23:36 | NUR ---
pt sleeping. Her home meds sent to pharmacy.
[2020-04-10] MEDS ORDERED: sulfamethoxazole/trimethoprim DS (800/160mg) tablet PO ONE (23:50)
--- NOTE | 2020-04-11 00:34 | NUR ---
Breaking Primary RN, Pt. resting quietly on left side, respirations WNL, no signs of distress.
--- NOTE | 2020-04-11 00:40 | NUR ---
partient in bed lying on right side covers on eyes closed rr even un labored no observable s/s of acute stress at this time will continue to monitor
--- NOTE | 2020-04-11 02:35 | NUR ---
PATIENT LYING ON RIGHT SIDE IN BED EYES CLOSED COVERS ON RR EVEN UN LABORED NO OBSERVABLE S/S OF ACUTE STRESS AT THIS TIME WILL CONTINUE TO MONITOR
--- NOTE | 2020-04-11 06:30 | NUR ---
PT IS SLEEPING
--- NOTE | 2020-04-11 07:30 | NUR ---
PT IS SLEEPING
[2020-04-11] MEDS ORDERED: sulfamethoxazole/trimethoprim DS (800/160mg) tablet PO SCH (08:00)
--- NOTE | 2020-04-11 08:30 | NUR ---
PT IS AWAKE AND TALKING WITH [facility]
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
[2020-04-11] MEDS ORDERED: levetiracetam 250mg tablet PO SCH (10:06)
--- NOTE | 2020-04-11 10:23 | NUR ---
PT IS RESTING IN HER ROOM
[2020-04-11] MEDS: DOXYCYCLINE 100MG CAPSULE PO SCH ×2 (10:47→20:04)
[2020-04-11] MEDS: oxcarbazepine 150mg tablet PO SCH ×2 (10:47→20:04)
[2020-04-11] MEDS: CARIPRAZINE 1.5 MG CAPSULE PO SCH (10:48)
--- NOTE | 2020-04-11 11:58 | NUR ---
PT IS SLEEPING
--- NOTE | 2020-04-11 13:00 | NUR ---
pt is anxious and asking for ativan
[2020-04-11] MEDS ORDERED: LORazepam 1 MG tablet PO ONE (13:30)
--- NOTE | 2020-04-11 14:50 | NUR ---
pt is sleeping. will give pt her ativan when she wakes up
--- NOTE | 2020-04-11 16:00 | NUR ---
pt is laying her room. pt asked for her case number
--- NOTE | 2020-04-11 17:00 | NUR ---
pt is asking when she can leave. pt has no plan on where she is going to go upon dc
--- NOTE | 2020-04-11 18:10 | NUR ---
pt is standing at nurses station asking the same questions over and over again. pt is asking if she has to wear green scrubs, asking when she can leave, asking what is going to happen. its as if pt has no concept of reality. she has been here more that numerous times and knows the answer to all the questions she is asking.
--- NOTE | 2020-04-11 18:25 | NUR ---
pt up in bed came to hallway to see the time clock.
--- NOTE | 2020-04-11 19:19 | NUR ---
pt up in bed and eating her dinner at this time.no distress noted will cont to monitor.
[2020-04-11] MEDS: quetiapine 100mg tablet PO SCH (20:03)
--- NOTE | 2020-04-11 20:19 | NUR ---
recevied call from [facility],as per mike the pt refferal packet reviwed by physchaiatrist and they declined the pt because of higher level of equity.
--- NOTE | 2020-04-11 22:30 | NUR ---
pt appear sleeping at this time.
--- NOTE | 2020-04-11 23:30 | NUR ---
Pt appears to be asleep
--- NOTE | 2020-04-12 00:32 | NUR ---
Breaking primary RN, pt. resting queitly on back, respirations WNL, no signs of distress.
--- NOTE | 2020-04-12 01:57 | NUR ---
pt has continued to sleep. At one point she cried out, believe her to be having a dream.
--- NOTE | 2020-04-12 03:02 | NUR ---
pt up to the BR independently.
--- NOTE | 2020-04-12 05:01 | NUR ---
pt appears to be asleep
--- NOTE | 2020-04-12 06:18 | NUR ---
pt came to NS and said she had a stomachache. She said she had it all night. I informed her that she was up at 3 and didn't say anything to me about it. She said it wasn't that bad. I informed the patient that day shift RN will be here shortly. Will notifiy RN of this and when MD sees the pt it can be addressed. Pt encouraged to rest.
--- NOTE | 2020-04-12 07:14 | NUR ---
pt at nursing station c/o subrapubic area. will let dr. fried know.
--- NOTE | 2020-04-12 07:28 | NUR ---
spoke with dr. fried ordered repeat ua with cult if indicated.
--- NOTE | 2020-04-12 07:29 | NUR ---
urine cup and wipes provided to pt for urine specimen
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
--- NOTE | 2020-04-12 07:49 | NUR ---
pt at nursing desk visiting with staff. states, most of my suicidal ideation have past but i still feel a little bit of self harm.
[2020-04-12 08:19] LABS: CLARITY,URINE CLEAR (Clear); COLOR,URINE YELLOW (Yellow); GLUCOSE, URINE NEGATIVE (Neg); KETONES,URINE NEGATIVE (Neg); LEUKOCYTE ESTERASE ,URINE NEGATIVE (Neg); NITRITES, URINE NEGATIVE (Neg); OCCULT BLOOD,URINE NEGATIVE (Neg); PROTEIN,URINE NEGATIVE (Neg); UROBILINOGEN,URINE 0.2 E.U/dL (0.2-1.0)
[2020-04-12 08:20] LABS: UA COLLECTION TYPE CLN CATCH MIDSTREAM
[2020-04-12] MEDS: DOXYCYCLINE 100MG CAPSULE PO SCH ×2 (09:00→20:20)
[2020-04-12] MEDS: oxcarbazepine 150mg tablet PO SCH ×2 (09:01→20:18)
[2020-04-12] MEDS: CARIPRAZINE 1.5 MG CAPSULE PO SCH ×2 (09:05→20:17)
--- NOTE | 2020-04-12 09:15 | NUR ---
Pt on phone with bilingual case manager handling SART case.
--- NOTE | 2020-04-12 12:16 | NUR ---
pt up to br, stool x1. pt gaggy. no emesis. states, feels better after having a bm.
--- NOTE | 2020-04-12 13:07 | NUR ---
ESTHER IS [facility] ADVOCATE. [phone]
--- NOTE | 2020-04-12 13:48 | NUR ---
PT BELCHING, C/O STOMACH PAIN INFORMED DR. KING. PLEASE SEE NEW ORDERS.
[2020-04-12] MEDS ORDERED: pantoprazole 40mg Tablet.DR PO ONE ×2 (13:50→14:08)
--- NOTE | 2020-04-12 15:13 | NUR ---
PT HAS BEEN FREQUENTLY ASKING IF SHE WILL BE GOING UPSTAIRS AND WHEN WILL SHE BE CONSERVED. UP AT THE NURSES STATION AND NOW PACING AND STATES, I AM HAVING FLASH BACKS. INCREASED ANXIETY AND FRUSTRATION. INFORMED DR. KING
--- NOTE | 2020-04-12 15:19 | NUR ---
CORRECTION: INFORMED DR. MO NOT DR. KING OF PT CHANGE IN CONDITION. PLEASE SEE NEW ORDERS.
[2020-04-12] MEDS ORDERED: LORazepam 2 mg/ml vial IM ONE (15:20)
--- NOTE | 2020-04-12 15:32 | NUR ---
JORDAN SW TALKING WITH THE PATIENT AT THIS TIME. ATIVAN WAS GIVEN.
--- NOTE | 2020-04-12 16:33 | NUR ---
PT CALM AND COOPERATIVE AFTER RECEIVING ATIVAN AND TALKING WITH DONATION WORKER. NO PACING. COLORING AND READING
--- NOTE | 2020-04-12 19:00 | NUR ---
Pt eating dinner.
--- NOTE | 2020-04-12 20:00 | NUR ---
Pt calm and cooperative, speaking with staff about wanting conservatorship and placement.
[2020-04-12] MEDS: quetiapine 100mg tablet PO SCH (20:17)
--- NOTE | 2020-04-12 20:39 | NUR ---
Pt resting quietly, meds administered.
--- NOTE | 2020-04-13 00:56 | NUR ---
Pt resting quietly, respirations normal, no s/s of distress.
--- NOTE | 2020-04-13 02:36 | NUR ---
Pt resting quietly, respirations normal, no s/s of distress.
--- NOTE | 2020-04-13 04:01 | NUR ---
Pt resting quietly, respirations normal, no s/s of distress.
--- NOTE | 2020-04-13 06:30 | NUR ---
Pt lying in bed sleeping. Respirations even and unlabored.
[2020-04-13] MEDS: oxcarbazepine 150mg tablet PO SCH ×2 (08:03→20:09)
[2020-04-13] MEDS: DOXYCYCLINE 100MG CAPSULE PO SCH ×2 (08:03→20:09)
[2020-04-13] MEDS: CARIPRAZINE 1.5 MG CAPSULE PO SCH (08:03)
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
--- NOTE | 2020-04-13 10:30 | NUR ---
Up to nurses station, asking questions. Redirected and warm blankets given. Back to bed.
--- NOTE | 2020-04-13 12:30 | NUR ---
Sitting up in bed reading a book.
--- NOTE | 2020-04-13 14:30 | NUR ---
Pt up at nurses station talking. Pt calmly walked back to bed.
--- NOTE | 2020-04-13 16:30 | NUR ---
Pt sitting up in bed reading a book.
--- NOTE | 2020-04-13 19:00 | NUR ---
Pt eating dinner
[2020-04-13] MEDS: quetiapine 100mg tablet PO SCH (20:09)
--- NOTE | 2020-04-13 21:00 | NUR ---
Pt resting quietly, respirations normal, no s/s of distress.
--- NOTE | 2020-04-13 21:11 | NUR ---
PATIENT WAS ASKED IF SHE WOULD LIKE SOME HYGIENE STUFF TO GO WASH UP IN THE BATHROOM ? PATIENT STATED" YES SHE WOULD LIKE THAT ". THE TECH (SB) GAVE HER A BASIN, SOAP, WASH CLOTHS,TOWELS AND CLEAN SCURBS.
--- NOTE | 2020-04-13 22:00 | NUR ---
Pt resting quietly, respirations normal, no s/s of distress.
--- NOTE | 2020-04-13 23:00 | NUR ---
Pt resting quietly, respirations normal, no s/s of distress.
--- NOTE | 2020-04-13 23:56 | NUR ---
Pt resting quietly, respirations normal, no s/s of distress.
--- NOTE | 2020-04-14 01:00 | NUR ---
Pt resting quietly, respirations normal, no s/s of distress.
--- NOTE | 2020-04-14 02:31 | NUR ---
Pt resting quietly, respirations normal, no s/s of distress.
--- NOTE | 2020-04-14 03:59 | NUR ---
Pt resting quietly, respirations normal, no s/s of distress.
--- NOTE | 2020-04-14 06:20 | NUR ---
Patient sleeping, no needs noted.
--- NOTE | 2020-04-14 06:35 | NUR ---
Patient came to nurse station to check on any status updates on conservatorship. Made patient aware that there are currently no new updates but will make her aware of any new updates.
--- NOTE | 2020-04-14 07:46 | NUR ---
Resting in bed with eyes closed, no needs noted.
[2020-04-14] MEDS: DOXYCYCLINE 100MG CAPSULE PO SCH ×2 (08:21→20:28)
[2020-04-14] MEDS: oxcarbazepine 150mg tablet PO SCH ×2 (08:21→20:27)
[2020-04-14] MEDS: CARIPRAZINE 1.5 MG CAPSULE PO SCH (08:22)
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
--- NOTE | 2020-04-14 09:20 | NUR ---
Fatmata with [facility] here speaking with patient.
--- NOTE | 2020-04-14 10:47 | NUR ---
Patient resting in bed, no s/sx of distress noted. Will cont. to monitor.
--- NOTE | 2020-04-14 11:47 | NUR ---
Patient resting in bed reading a book, no s/sx of distress. Calm/cooperative. Will cont. to moniter.
--- NOTE | 2020-04-14 12:43 | NUR ---
Patient reading a book, no complaints noted. Will continue to monitor.
--- NOTE | 2020-04-14 14:02 | NUR ---
Patient resting in bed while reading a book. No complaints noted. Will cont. to monitor.
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
--- NOTE | 2020-04-14 15:30 | NUR ---
Patient completed her book and picked out another cheerfully. We're waiting on her advocate to return phone call. Patient is in good spirits and smiling today. Resting in bed with eyes closed and lights turned off. Will cont. to monitor.
--- NOTE | 2020-04-14 16:33 | NUR ---
Patient awake and sitting in bed quietly. No needs noted. Will cont. to monitor.
[2020-04-14] MEDS ORDERED: acetaminophen 325mg/10.15ml oral unit dose solution PO ONE (17:15)
--- NOTE | 2020-04-14 17:17 | NUR ---
Patient requested childrens tylenol for MANNING, spoke to pharmacist and MD and placed order per pharmacist recommendation. Patient states the adult dose is too much for her and doesn't help her. Waiting for orders to come through. Patient states that she chokes on pills. Reminded patient that she swallowed pills well this morning with am medications. Educated her to use applesauce with med adminstration and taking one pill at a time to aid in her success of taking medication. Patient agreed that she would try that.
--- NOTE | 2020-04-14 18:01 | NUR ---
Patient awake, talkative and smiling. Received Tylenol recently for MANNING. No current complaints. Will cont. to monitor.
--- NOTE | 2020-04-14 18:30 | NUR ---
Received report from OG Bennett, assumed care. Pt. stable. pacing in front of nurse's station talking to herself and staff. Pt stable, denies complaints.
--- NOTE | 2020-04-14 19:35 | NUR ---
pt. up pacing in front of nurse's station. asked about any updates on her status. informed pt. no news yet but will let her know as soon as we know.
[2020-04-14] MEDS: quetiapine 100mg tablet PO SCH (20:25)
--- NOTE | 2020-04-14 20:39 | NUR ---
pt up at nurse's desk talking with staff. nad noted.
--- NOTE | 2020-04-14 21:45 | NUR ---
pt laying with eyes closed. breathing non-labored and even. nad noted.
--- NOTE | 2020-04-14 23:05 | NUR ---
pt. resting quietly on right side with eyes closed. nad noted.
--- NOTE | 2020-04-15 00:55 | NUR ---
pt. sleeping on right side, RR even and non-labored. nad noted
--- NOTE | 2020-04-15 02:50 | NUR ---
Pt. laying supine, breathing even and non-labored.
--- NOTE | 2020-04-15 04:30 | NUR ---
Pt. stable, RR even/non-labored.
--- NOTE | 2020-04-15 05:38 | NUR ---
Pt. sleeping, RR even and non-labored. NAD noted.
--- NOTE | 2020-04-15 06:30 | NUR ---
pt resting in her room
--- NOTE | 2020-04-15 07:30 | NUR ---
pt is waking around the unit. in good spirits
--- NOTE | 2020-04-15 08:30 | NUR ---
pt is awake and eating breakfast
[2020-04-15] MEDS: oxcarbazepine 150mg tablet PO SCH ×2 (08:37→20:05)
[2020-04-15] MEDS: CARIPRAZINE 1.5 MG CAPSULE PO SCH (08:37)
[2020-04-15] MEDS: DOXYCYCLINE 100MG CAPSULE PO SCH ×2 (08:37→20:05)
--- NOTE | 2020-04-15 09:30 | NUR ---
pt is resting in her room
--- NOTE | 2020-04-15 10:00 | NUR ---
pt is resting
--- NOTE | 2020-04-15 11:00 | NUR ---
pt is resting
--- NOTE | 2020-04-15 12:00 | NUR ---
PT IS HAVING MANIC ISSUES CURRENTLY. PT IS PACING AROUND EXCESSIVELY TALKING
--- NOTE | 2020-04-15 13:00 | NUR ---
PT IS FEELING ANXIOUS. PT REPORTS HAVING FLASH BACKS FROM HER PAST
--- NOTE | 2020-04-15 14:00 | NUR ---
PT IS PACING AROUND. LAUGHING TO HERSELF
--- NOTE | 2020-04-15 15:00 | NUR ---
PT IS PACING AROUND
--- NOTE | 2020-04-15 16:00 | NUR ---
PT IS TALKING WITH STAFF, LAUGHING AND JOKING. PT IS STILL PACING AROUND
--- NOTE | 2020-04-15 17:00 | NUR ---
PT IS PACING AROUND. SHE STATES IS HELPS WITH HER DEPRESSION. SHE IS HAPPY WITH HER CURRENT MEDS AND DOESNT WANT ANY NEW MEDS AT THIS TIME
--- NOTE | 2020-04-15 17:57 | NUR ---
PT IS SITTING ON HER BED GETTING HER VS DONE
[2020-04-15] MEDS: quetiapine 100mg tablet PO SCH (20:05)
--- NOTE | 2020-04-15 20:56 | NUR ---
pt is up at nurses station frequently. pt is friendly and cooperative.
--- NOTE | 2020-04-15 22:10 | NUR ---
pt is pacing the unit. Pt is talkative, friendly.
--- NOTE | 2020-04-16 00:02 | NUR ---
pt continues to sleep, no s/s of distress noted, will continue to monitor.
--- NOTE | 2020-04-16 01:01 | NUR ---
pt continues to sleep, no s/s of distress noted, will continue to monitor.
--- NOTE | 2020-04-16 03:34 | NUR ---
Patient is sleeping, rr unlabored, no s/s of distress noted.
--- NOTE | 2020-04-16 05:30 | NUR ---
Pt is sleeping, no s/s of distress noted.
[2020-04-16] MEDS: oxcarbazepine 150mg tablet PO SCH ×2 (08:54→20:06)
[2020-04-16] MEDS: CARIPRAZINE 1.5 MG CAPSULE PO SCH (08:54)
[2020-04-16] MEDS: DOXYCYCLINE 100MG CAPSULE PO SCH ×2 (08:54→20:06)
--- NOTE | 2020-04-16 11:20 | NUR ---
pt states, I hunged [employer] yesterday at change of shift 0600. and now im coughing and stuffy nose. pt aware that nydia went home yesterday for positive covid. informed alfred of above.
--- NOTE | 2020-04-16 11:28 | NUR ---
pt states, I hunged [employer] yesterday 0600 at change of shift. pt aware that nydia was sent home for positive covid yesterday. informed sophia simon mgr.
--- NOTE | 2020-04-16 11:30 | NUR ---
pt is confined to her room to prevent possible cross contaimination
--- NOTE | 2020-04-16 11:35 | NUR ---
alfred called occupational health
--- NOTE | 2020-04-16 15:00 | NUR ---
alfred martinez, continue to monitor pt, do vital signs and will call dr. ball in am
--- NOTE | 2020-04-16 18:49 | NUR ---
One to one with the patient to assess for psychiatric acuity. The patient appears to be in good spirits. She is attention seeking from staff and attempts to engage with staff verbally frequently. She denies that she is having. Covid swab collected and sent to the lab.
[2020-04-16] MEDS: quetiapine 100mg tablet PO SCH (20:07)
--- NOTE | 2020-04-16 22:46 | NUR ---
The patient is making one somatic complaint after another. She has required repeated redirection.
[2020-04-16] MEDS ORDERED: LORazepam 2 mg/ml vial IM ONE (23:30)
[2020-04-16] MEDS ORDERED: LORazepam 2 mg/ml vial ONE (23:32)
--- NOTE | 2020-04-17 00:11 | NUR ---
One to one with the patient to address anxiety/concerns.The patient tearfully stated that she was scared to live on her own or be out in the community. She is able to state at this time she will not try and run out of the ER. She was encouraged to work with staff and the county to make a successful transition to a treatment facility.
--- NOTE | 2020-04-17 00:28 | NUR ---
Review of patient's pyschiatric medications and discussed concern with PA that patient has no PRN medications for anxiety and no medications during the day to address anxiety. PA is requesting a psychiatric consult. Call to [facility] and spoke with devulcanizer charger and requested a psych consult for tomorrow.
--- NOTE | 2020-04-17 01:10 | NUR ---
The patient appears to be sleeping.
--- NOTE | 2020-04-17 02:35 | NUR ---
The patient appears to be sleeping.
--- NOTE | 2020-04-17 04:01 | NUR ---
The patient appears to be sleeping
--- NOTE | 2020-04-17 06:45 | NUR ---
Nursing Note: Pt laying in bed with eyes closed, RR even and unlabored, no S&S of distress, will continue to monitor.
[2020-04-17] MEDS ORDERED: haloperidol 5mg tablet PO SCH (08:10)
[2020-04-17] MEDS ORDERED: benztropine 1mg tablet PO SCH (08:30)
--- NOTE | 2020-04-17 08:30 | NUR ---
Nursing Note: Pt up walking around unit. Frequently interacting with staff. NO S&S of distress, will continue to monitor.
[2020-04-17] MEDS: DOXYCYCLINE 100MG CAPSULE PO SCH ×2 (09:02→20:29)
[2020-04-17] MEDS: oxcarbazepine 150mg tablet PO SCH ×2 (09:02→20:25)
[2020-04-17] MEDS: CARIPRAZINE 1.5 MG CAPSULE PO SCH (09:02)
--- NOTE | 2020-04-17 09:25 | NUR ---
Nursing Note: Pt up at nurses desk talking with staff. No S&S of distress, will continue to monitor.
[2020-04-17] MEDS ORDERED: albuterol 2.5 MG/3 ML nebule NEB PRN (11:45)
[2020-04-17] MEDS ORDERED: benzonatate 100mg capsule PO ONE (11:45)
[2020-04-17] MEDS ORDERED: LORazepam 1 MG tablet PO ONE ×2 (12:00→20:35)
--- NOTE | 2020-04-17 12:07 | NUR ---
Nursing Note: Pt reports feeling SOB, and has productive cough. Notified Dr. Bazzi, obtained order for Tessalon Pearles and RT treatment. Pt's exhibits anxiety, Ativan administered. Will continue to order.
--- NOTE | 2020-04-17 12:29 | NUR ---
Nursing Note: Pt received RT treatment. Pt now resting in bed. Will continue to monitor.
--- NOTE | 2020-04-17 13:01 | NUR ---
MELLO WITH PUBLIC GUARDIAN AND ANOTHER WOMAN FROM THERE WELL OR STAFF EVAL FOR CONSERING PT
--- NOTE | 2020-04-17 14:30 | NUR ---
Nursing Note: Pt laying in bed, no S&S of distress, will continue to monitor.
--- NOTE | 2020-04-17 15:43 | NUR ---
Temporary Conservatorship: Pt placed on a temporary conservatorship by [facility] Vane Welch at 1340 on 04/17/2020. A copy of the notice placed in patient's chart. Addendum: 04/17/20 at 1657 by CASSANDRA Amendment: Pt given notice that vane welch is applying for temporary conservatorship.
--- NOTE | 2020-04-17 16:56 | NUR ---
Nursing Note: Pt laying in bed on her back with her eyes open. No S&S of distress, will continue to monitor.
--- NOTE | 2020-04-17 19:53 | NUR ---
One to one with the patient to assess severity of depressive symptoms. The patient is quite somatic and makes frequent inquiries of staff. Anxiety remains high. The patient has poor coping skills. She is cooperative. She is accepting redirection. Discussed case with relays draftsperson psychiatrist, Dr. Ashton and orders received.
[2020-04-17] MEDS: quetiapine 100mg tablet PO SCH (20:25)
[2020-04-17] MEDS: busPIRone 5mg tablet PO SCH (21:00)
--- NOTE | 2020-04-17 21:01 | NUR ---
The patient is resting on her bed.
--- NOTE | 2020-04-17 22:07 | NUR ---
The patient appears to be sleeping
--- NOTE | 2020-04-17 23:20 | NUR ---
The patient appears to be sleeping
--- NOTE | 2020-04-18 01:49 | NUR ---
The patient appears to be sleeping
--- NOTE | 2020-04-18 04:06 | NUR ---
THe patient appears to be sleeping
[2020-04-18] MEDS ORDERED: QUEtiapine 25mg tablet PO SCH (08:00)
--- NOTE | 2020-04-18 08:33 | NUR ---
Page sent to respiratory as patient would like to use her inhaler. Also patient does not want coffee on her trays from dietary as it causes "palpitations". Diet changed to request no coffee on tray.
[2020-04-18] MEDS: oxcarbazepine 150mg tablet PO SCH (08:39)
[2020-04-18] MEDS: CARIPRAZINE 1.5 MG CAPSULE PO SCH (08:40)
[2020-04-18] MEDS: busPIRone 5mg tablet PO SCH ×2 (08:40→13:02)
[2020-04-18] MEDS: DOXYCYCLINE 100MG CAPSULE PO SCH (08:40)
--- NOTE | 2020-04-18 10:37 | NUR ---
PT REMAINS PACING AROUND UNIT, TELLING EVERYONE SHE IS VERY EXCITED SHE WILL BE GOING [facility].
--- NOTE | 2020-04-18 12:37 | NUR ---
REPORT TO TELMA MARTINEZ. PT TO TX
--- NOTE | 2020-04-18 13:22 | NUR ---
LUNCH TRAY GIVEN
--- NOTE | 2020-04-18 14:19 | NUR ---
PT RESTING CALMLY AFTER LUNCH, WAITING FOR HER ACCETED ROOM IN [facility].
[2020-04-18 16:10] VITALS: BP 126/67
[2020-04-18] MEDS ORDERED: OXCA300T16 PO (18:42)
== END 2020-04-18 16:13 ==
LOC: ER 22:17
DX: R45.851 Suicidal ideations (principal); N39.0 Urinary tract infection, site not specified; J45.909 Unspecified asthma, uncomplicated; E11.9 Type 2 diabetes mellitus without complications; F31.9 Bipolar disorder, unspecified; F20.9 Schizophrenia, unspecified; F12.90 Cannabis use, unspecified, uncomplicated; Z86.69 Personal history of other diseases of the nervous system and sense organs; Z72.89 Other problems related to lifestyle; Z88.0 Allergy status to penicillin; Z91.041 Radiographic dye allergy status; Z91.040 Latex allergy status; Z79.899 Other long term (current) drug therapy
CPT/HCPCS: 36415; 80053; 80305; 80320; 81001; 81003; 81025; 85025; 87635; 94640; 96372; 99285

== ENCOUNTER 2021-05-22 14:26 | Emergency (ER) | payer MEDICARE, MEDICAID ==
[~2021-05-22] VITALS: Ht 154.9 cm; Wt 78.7 kg
[~2021-05-22 14:26] MED LIST changes: -ALBU90AE ID; -ASPI-611 PO; +ATI1T PO; +CIPR250T4 PO; -DOXY-1 PO; -FLUT16SP10; +GABA300C PO; +HALO5TAB PO; -KEP500T PO; +LEVE250T PO; -LORA-660 PO; +METR500T PO; -ONDA-103 PO; -PROP10TA10 PO; +QUET100T34 PO; -QUET300T19 PO
[2021-05-22 15:55] LABS: BASOPHILS % (AUTO) 0.5 % (0-1); EOSINOPHILS % (AUTO) 0.6 % (0-6); HEMATOCRIT 37.1 % (35.0-45.0); HEMOGLOBIN 12.3 g/dl (12.0-16.0); LYMPHOCYTES # (AUTO) 1.7 X10'3 (1.1-4.8); LYMPHOCYTES % (AUTO) 20.5 % (21-51); MEAN CORPUSCULAR HEMOGLOBIN 28.9 PG (27.0-31.0); MEAN CORPUSCULAR HGB CONC 33.2 g/dL (33.0-36.5); MEAN CORPUSCULAR VOLUME 87.1 FL (78-98); MEAN PLATELET VOLUME 9.6 FL (7.4-10.4); MONOCYTES % (AUTO) 12.1 % (2-12); NEUTROPHILS # (AUTO) 5.3 X10'3 (1.8-7.7); NEUTROPHILS % (AUTO) 66.3 % (42-75); PLATELET COUNT 160 X10'3 (140-440); RED BLOOD COUNT 4.26 X10'6 (4.20-5.60); RED CELL DISTRIBUTION WIDTH 13.3 % (11.5-14.5); WHITE BLOOD COUNT 8.1 X10'3 (4.5-11.0)
[2021-05-22 16:07] LABS: ALANINE AMINOTRANSFERASE 24 U/L (12-78); ALBUMIN 3.5 G/DL (3.4-5.0); ALBUMIN/GLOBULIN RATIO 1.1 (1.1-1.5); ALKALINE PHOSPHATASE 63 IU/L (46-116); ANION GAP 9 (8-16); ASPARTATE AMINO TRANSFERASE 21 U/L (10-37); BILIRUBIN,TOTAL 0.5 MG/DL (0.1-1.0); BLOOD UREA NITROGEN 24 MG/DL (7-18); CALCIUM 8.9 MG/DL (8.5-10.1); CHLORIDE 107 MMOL/L (99-107); CREATININE 1.26 MG/DL (0.40-0.90); GLUCOSE 85 MG/DL (70-104); SODIUM 141 MMOL/L (135-145); TOTAL CARBON DIOXIDE 25.3 MMOL/L (24-32); TOTAL PROTEIN 6.8 G/DL (6.4-8.2); eGFR 49 ML/MIN
[2021-05-22 16:12] LABS: URINE HCG NEGATIVE (NEG)
[2021-05-22 16:12] LABS: ETHANOL < 0.010 GM/DL (0.0-0.010)
--- NOTE | 2021-05-22 16:14 | NUR ---
PT STATES SHE WOULD LIKE HER FATHER DEMI SOLIS TO BE UPDATED ON ALL PT STATUS/INFORMATION/PLANNING OF HER STAY. PT REQUEST TO DADS NUMBER ON FILE WHICH IS:
[2021-05-22 16:23] LABS: URINE AMPHETAMINE SCREEN NEGATIVE (Neg); URINE BARBITUATE SCREEN NEGATIVE (Neg); URINE BENZODIAZEPINES SCREEN NEGATIVE (Neg); URINE CANNABINOID SCREEN NEGATIVE (Neg); URINE COCAINE SCREEN NEGATIVE (Neg); URINE METHADONE SCREEN NEGATIVE (Neg); URINE OPIATE SCREEN NEGATIVE (Neg); URINE PHENCYCLIDINE SCREEN NEGATIVE (Neg)
[2021-05-22] MEDS ORDERED: HYDR-3686 PO (16:37)
[2021-05-22] MEDS ORDERED: LORA-269 PO (16:37)
[2021-05-22] MEDS ORDERED: DOCU250C16 PO (16:37)
[2021-05-22] MEDS ORDERED: LEVO75CA5 PO (16:37)
[2021-05-22] MEDS ORDERED: LITH450T2 PO (16:37)
[2021-05-22] MEDS ORDERED: FLUT1AER7 INH (16:37)
[2021-05-22] MEDS ORDERED: ZIPR60CA7 PO (16:37)
[2021-05-22] MEDS ORDERED: OLAN10TA73 PO (16:37)
[2021-05-22] MEDS ORDERED: MELO-100 PO (16:37)
[2021-05-22] MEDS ORDERED: albuterol 2.5 MG/3 ML nebule NEB PRN (16:55)
[2021-05-22] MEDS ORDERED: ibuprofen tablet 400 MG TABLET PO PRN (18:00)
[2021-05-22 19:27] LABS: CLARITY,URINE CLEAR (Clear); COLOR,URINE YELLOW (Yellow); GLUCOSE, URINE NEGATIVE (Neg); KETONES,URINE NEGATIVE (Neg); LEUKOCYTE ESTERASE ,URINE NEGATIVE (Neg); NITRITES, URINE NEGATIVE (Neg); OCCULT BLOOD,URINE NEGATIVE (Neg); PH,URINE 5.5 (4.8-8.0); PROTEIN,URINE NEGATIVE (Neg); UROBILINOGEN,URINE 0.2 E.U/dL (0.2-1.0)
[2021-05-22 19:32] LABS: UA COLLECTION TYPE CLN CATCH MIDSTREAM
--- NOTE | 2021-05-22 20:08 | NUR ---
The patient is frequently attempting to get attention from staff. She is manipulative and at times demanding. Explained to the patient rules of the unit. She stated that "I'm going to go the [address] bridge and jump off" She will be evaluated by [facility] tomorrow
[2021-05-22] MEDS: budesonide 0.5mg/2ml UD nebule IH SCH (20:40)
[2021-05-22] MEDS: MELOXICAM 7.5 MG PO SCH (21:00)
[2021-05-22] MEDS: ziprasidone 20mg capsule PO SCH (21:22)
[2021-05-22] MEDS: levoTHYROXINE 75mcg tablet PO SCH (21:22)
[2021-05-22] MEDS: olanzapine 10mg tablet PO SCH (21:22)
[2021-05-22] MEDS: docusate sod 250mg capsule PO SCH (21:22)
--- NOTE | 2021-05-22 22:35 | NUR ---
The patient appears to be sleeping
--- NOTE | 2021-05-22 23:12 | NUR ---
Packet sent to [facility]
--- NOTE | 2021-05-22 23:51 | NUR ---
The patient appears to be sleeping
--- NOTE | 2021-05-23 01:58 | NUR ---
The patient appears to be sleeping
--- NOTE | 2021-05-23 03:56 | NUR ---
The patient appears to be sleeping
--- NOTE | 2021-05-23 05:22 | NUR ---
The patient appears to be sleeping
--- NOTE | 2021-05-23 06:30 | NUR ---
Pt is lying in bed on her back, she appears to be sleeping.
--- NOTE | 2021-05-23 07:00 | NUR ---
Bennie adame in [facility] - 05/23/21 at 1008 by ETHEL Pt's room was changed from 23 jenni .
--- NOTE | 2021-05-23 07:00 | NUR ---
Pt's room was changed from bed 23 to bed 26.
[2021-05-23] MEDS: docusate sod 250mg capsule PO SCH ×2 (08:04→20:19)
[2021-05-23] MEDS: hydrOXYzine 25 MG tablet PO SCH (08:05)
[2021-05-23] MEDS: LORazepam 1 MG tablet PO SCH (08:05)
[2021-05-23] MEDS: olanzapine 10mg tablet PO SCH ×3 (08:05→20:16)
[2021-05-23] MEDS: ziprasidone 20mg capsule PO SCH ×2 (08:05→20:16)
[2021-05-23] MEDS: lithium carbonate 450mg CR tablet PO SCH (08:05)
--- NOTE | 2021-05-23 08:38 | NUR ---
Pt is eating breakfast. Pt reports passive SI with no current plan. Pt states she has [facility] telling her to kill herself. Pt states she has VH, she sees ghosts. Pt would like to speak with Dr Ashton about her medications. Pt states that she felt the best on the meds she was discharged from [facility] on. Pt states her current meds are not working. Pt stated she was on Invega for 2 months but then Medicare would no longer cover it. Pt states there were other meds that Medicare would no longer cover as well
[2021-05-23] MEDS: budesonide 0.5mg/2ml UD nebule IH SCH ×2 (09:24→19:12)
--- NOTE | 2021-05-23 10:00 | NUR ---
Pt is being evaluated by [facility].
--- NOTE | 2021-05-23 11:59 | NUR ---
Pt is lying in bed on her left side, she appears to be sleeping.
--- NOTE | 2021-05-23 13:16 | NUR ---
Pt is sitting up eating lunch.
--- NOTE | 2021-05-23 13:21 | NUR ---
Pt asked for a book and chose one. Pt up walking around with her helmet on her head. Pt stated, "yeah, this Zyprexa knocks my voices and my flashbacks out, it's the only thing I think that does."
--- NOTE | 2021-05-23 15:20 | NUR ---
Pt made a phone call.
[2021-05-23] MEDS: ibuprofen 200mg tablet PO PRN (15:52)
--- NOTE | 2021-05-23 16:00 | NUR ---
Pt up to the bathroom. Pt requested a pad. Pt c/o stomach pain because she is on her cycle. Pt reports she just started her cycle today. Gave PRN ibuprofen 600 mg at 1552.
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
[2021-05-23] MEDS: levoTHYROXINE 75mcg tablet PO SCH (20:16)
[2021-05-23] MEDS: MELOXICAM 7.5 MG PO SCH (20:38)
--- NOTE | 2021-05-23 22:00 | NUR ---
pt appears to be sleeping, no s/s of distress noted.
--- NOTE | 2021-05-24 00:19 | NUR ---
pt appears to be sleeping, no s/s of distress noted.
--- NOTE | 2021-05-24 03:07 | NUR ---
pt appears to be sleeping
--- NOTE | 2021-05-24 04:50 | NUR ---
pt continues to sleep.
[2021-05-24] MEDS: LORazepam 1 MG tablet PO SCH (08:30)
[2021-05-24] MEDS: docusate sod 250mg capsule PO SCH ×2 (08:30→20:23)
[2021-05-24] MEDS: ziprasidone 20mg capsule PO SCH ×2 (08:30→20:22)
[2021-05-24] MEDS: hydrOXYzine 25 MG tablet PO SCH (08:30)
[2021-05-24] MEDS: ibuprofen 200mg tablet PO PRN (08:30)
[2021-05-24] MEDS: lithium carbonate 450mg CR tablet PO SCH (08:31)
[2021-05-24] MEDS: olanzapine 10mg tablet PO SCH ×3 (08:31→20:23)
[2021-05-24] MEDS: budesonide 0.5mg/2ml UD nebule IH SCH ×2 (09:03→20:14)
--- NOTE | 2021-05-24 19:57 | NUR ---
The patient has been pleasant but continues with attention seeking behaviors but she accepts redirection.
[2021-05-24] MEDS: MELOXICAM 7.5 MG PO SCH (20:17)
[2021-05-24] MEDS: levoTHYROXINE 75mcg tablet PO SCH (20:22)
--- NOTE | 2021-05-24 21:27 | NUR ---
The patient appears to be sleeping
--- NOTE | 2021-05-24 21:51 | NUR ---
patient scratching at her arms. Patient made aware behaviors were not acceptable. The patient is manipulative and attention seeking
--- NOTE | 2021-05-24 21:58 | NUR ---
No more self harming behaviors
--- NOTE | 2021-05-25 00:02 | NUR ---
THe patient appears to be sleeping
--- NOTE | 2021-05-25 02:03 | NUR ---
THe patient appears to be sleeping
--- NOTE | 2021-05-25 04:00 | NUR ---
THe patient appears to be sleeping
--- NOTE | 2021-05-25 08:30 | NUR ---
pt was complaining about her diet and her allergies. Pt is attention seeking and intrusive with staff. pt was able to be redirected and back to bed.
[2021-05-25] MEDS: hydrOXYzine 25 MG tablet PO SCH (08:37)
[2021-05-25] MEDS: lithium carbonate 450mg CR tablet PO SCH (08:37)
[2021-05-25] MEDS: docusate sod 250mg capsule PO SCH ×2 (08:37→20:38)
[2021-05-25] MEDS: ziprasidone 20mg capsule PO SCH ×2 (08:37→20:38)
[2021-05-25] MEDS: LORazepam 1 MG tablet PO SCH (08:38)
[2021-05-25] MEDS: olanzapine 10mg tablet PO SCH ×3 (08:38→20:38)
[2021-05-25] MEDS: budesonide 0.5mg/2ml UD nebule IH SCH ×2 (09:31→20:21)
--- NOTE | 2021-05-25 10:34 | NUR ---
pt is resting quietly in bed.
--- NOTE | 2021-05-25 12:50 | NUR ---
pt is resting in bed. rr unlabored.
--- NOTE | 2021-05-25 14:00 | NUR ---
Pt appears to be sleeping.
--- NOTE | 2021-05-25 15:54 | NUR ---
Pt appears to be sleeping.
--- NOTE | 2021-05-25 20:07 | NUR ---
The patient is attention seeking and manipulative and using maldative ways to get her emotional needs met. She has very poor insight and very poor judgement.
[2021-05-25] MEDS: MELOXICAM 7.5 MG PO SCH (20:31)
[2021-05-25] MEDS: levoTHYROXINE 75mcg tablet PO SCH (20:38)
--- NOTE | 2021-05-25 20:55 | NUR ---
The patient is resting quietly on her bed
[2021-05-25] MEDS ORDERED: LORazepam 1 MG tablet PO ONE (22:25)
--- NOTE | 2021-05-25 22:35 | NUR ---
The patient is complaining of insomnia. Dr. Bhat made aware and orders received. [facility] [place] contacted and kendall sierra requested.
--- NOTE | 2021-05-26 00:02 | NUR ---
The patient appears to be sleeping
--- NOTE | 2021-05-26 02:45 | NUR ---
The patient appears to be sleeping
[2021-05-26 05:58] VITALS: BP 92/53
--- NOTE | 2021-05-26 06:00 | NUR ---
The patient is awake and up to the bathroom.
--- NOTE | 2021-05-26 06:30 | NUR ---
Patient sleeping. No distress observed. Continue to monitor.
--- NOTE | 2021-05-26 07:20 | NUR ---
Patient up to nurses station and asked to use the phone after breakfast. RN advised that she could. No distress observed. Continue to monitor.
[2021-05-26] MEDS ORDERED: LORazepam 1 MG tablet PO SCH (08:00)
[2021-05-26] MEDS: olanzapine 10mg tablet PO SCH ×2 (08:14→13:26)
[2021-05-26] MEDS: lithium carbonate 450mg CR tablet PO SCH (08:15)
[2021-05-26] MEDS: hydrOXYzine 25 MG tablet PO SCH (08:15)
[2021-05-26] MEDS: ziprasidone 20mg capsule PO SCH (08:16)
[2021-05-26] MEDS: docusate sod 250mg capsule PO SCH (08:17)
--- NOTE | 2021-05-26 08:25 | NUR ---
RN documenting when patient came up and told RN "I have an emergency! I need the number to social security to see where my money is. RN advised patient that she was in the middle of something and would help her when she was done. Patient started screaming and cussing and finally RN had to call Security who stood by. Patient continued for about 15 minutes. Patient wants a med change and placement. 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 RN will assist patient with finding the number when she is calm. Continue to monitor.
--- NOTE | 2021-05-26 09:21 | NUR ---
Patient is more calm. RN gave patient the phone with the phone number. Patient was on hold 9 minutes then hung up the phone. RN advised patient that it is Wednesday and the first of the month. It will take time to get through. Patient stated she would do it later. Continue to monitor.
--- NOTE | 2021-05-26 09:55 | NUR ---
[facility], evaluating patient. No distress observed. Continue to monitor.
[2021-05-26] MEDS: budesonide 0.5mg/2ml UD nebule IH SCH (10:08)
--- NOTE | 2021-05-26 10:15 | NUR ---
Patient receiving respiratory treatment. No distress observed. Continue to monitor.
--- NOTE | 2021-05-26 11:55 | NUR ---
Patient is very happy she is going to be followed by the [facility]. Patient to get a taxi to take her to [facility] to get the process started. Patient smiling and in no distress.
--- NOTE | 2021-05-26 13:20 | NUR ---
Patient eating lunch. No distress observed. Continue to monitor.
[2021-05-31] MEDS ORDERED: PANT-47 PO ×2 (11:16)
== END 2021-05-26 14:05 | disposition home or self-care (01) ==
LOC: ER 14:28
DX: F29 Unspecified psychosis not due to a substance or known physiological condition (principal); Z20.822 Contact with and (suspected) exposure to COVID-19; J45.909 Unspecified asthma, uncomplicated; E11.9 Type 2 diabetes mellitus without complications; Z59.0 Homelessness; Z87.440 Personal history of urinary (tract) infections; Z91.040 Latex allergy status; Z91.018 Allergy to other foods; Z91.013 Allergy to seafood; Z88.0 Allergy status to penicillin; Z88.1 Allergy status to other antibiotic agents; Z88.8 Allergy status to other drugs, medicaments and biological substances; Z88.6 Allergy status to analgesic agent; Z79.899 Other long term (current) drug therapy
CPT/HCPCS: 36415; 80053; 80178; 80305; 80320; 81003; 81025; 84443; 85025; 87635; 94640; 99285; C9803; Q0177; 94760; J7626

== ENCOUNTER 2021-05-27 16:20 | Emergency (ER) | payer MEDICARE, MEDICAID ==
[~2021-05-27] VITALS: Ht 154.9 cm; Wt 80.8 kg
[~2021-05-27 16:20] MED LIST changes: -ATI1T PO; -CARI4.5C PO; -CIPR250T4 PO; +DOCU250C16 PO; +FLUT1AER7 INH; -GABA300C PO; -HALO5TAB PO; +HYDR-3686 PO; -LEVE250T PO; +LEVO75CA5 PO; +LITH450T2 PO; +LORA-269 PO; +MELO-100 PO; -METR500T PO; +OLAN10TA73 PO; -QUET100T34 PO; +ZIPR60CA7 PO
[2021-05-27 16:45] VITALS: BP 112/74
== END 2021-05-27 21:32 | disposition left against medical advice (07) ==
LOC: ER 16:21
DX: F41.9 Anxiety disorder, unspecified (principal); Z53.21 Procedure and treatment not carried out due to patient leaving prior to being seen by health care provider

== ENCOUNTER 2021-05-31 09:59 | Emergency (ER) | payer MEDICAID, MEDICARE ==
[~2021-05-31] VITALS: Ht 154.9 cm; Wt 78.2 kg
[~2021-05-31 09:59] MED LIST changes: -ALB0.5UD IH; -ALB0.5UD NEB; -DIPH1TAB PO; -FLUT50DI3 IH; -GUAI600T45 PO; -LEVE250T4 PO; -LEVE500T PO; -LEVE500T99 PO; -LITH300C PO; -OLAN-1 PO; -PANT-47 PO
--- NOTE | 2021-05-31 11:03 | NUR ---
pt seems to have memorized all of the covid s/s and rattles them off. However, the patient is not showing any signs or symptoms of covid. She has not coughed at all in my care since she has arrived in the lobby until now. When I put her in the room she said, "My oxygen level and heart rate don't show ever how sick I am" I asked her what she meant. She just repeated what she had said.
[2021-05-31] MEDS ORDERED: PANT-47 PO (11:16)
[2021-05-31] MEDS ORDERED: ondansetron 4mg rapidly disintigrating tab PO ONE (11:20)
[2021-05-31 11:46] VITALS: BP 98/70
[2021-06-01] MEDS ORDERED: LEVE500T PO (01:28)
[2021-06-01] MEDS ORDERED: LITH300C PO (01:28)
[2021-06-01] MEDS ORDERED: LEVE500T99 PO (01:32)
[2021-06-01] MEDS ORDERED: DIPH1TAB PO (01:36)
[2021-06-01] MEDS ORDERED: GUAI600T45 PO (01:53)
[2021-06-01] MEDS ORDERED: ALB0.5UD IH (01:53)
[2021-06-01] MEDS ORDERED: FLUT50DI3 IH (01:54)
[2021-06-01] MEDS ORDERED: LEVE250T4 PO (04:40)
[2021-06-01] MEDS ORDERED: ALB0.5UD NEB (06:50)
== END 2021-05-31 11:48 | disposition home or self-care (01) ==
LOC: ER 10:01
DX: R11.10 Vomiting, unspecified (principal); R53.1 Weakness; R42 Dizziness and giddiness; R05 Cough; J02.9 Acute pharyngitis, unspecified; Z87.81 Personal history of (healed) traumatic fracture; Z71.89 Other specified counseling; Z59.0 Homelessness; Z79.899 Other long term (current) drug therapy; Z88.8 Allergy status to other drugs, medicaments and biological substances; Z88.1 Allergy status to other antibiotic agents; Z88.0 Allergy status to penicillin; Z91.018 Allergy to other foods; Z91.013 Allergy to seafood; Z91.041 Radiographic dye allergy status
CPT/HCPCS: 99283

== ENCOUNTER → 2021-05-31 | Emergency (ER) | payer MEDICARE ==
[~2021-05-31] VITALS: Ht 154.9 cm; Wt 78.0 kg
[~2021-05-31] MED LIST changes: +ALB0.5UD IH; +ALB0.5UD NEB; +DIPH1TAB PO; +FLUT50DI3 IH; +GUAI600T45 PO; +LEVE250T4 PO; +LEVE500T PO; +LEVE500T99 PO; +LITH300C PO; +OLAN-1 PO; +PANT-47 PO
[2021-05-31 20:46] VITALS: BP 165/80
== END | disposition home or self-care (01) ==
LOC: ER 20:42
DX: M54.2 Cervicalgia (principal); M54.9 Dorsalgia, unspecified; R19.7 Diarrhea, unspecified; G40.909 Epilepsy, unspecified, not intractable, without status epilepticus; J45.909 Unspecified asthma, uncomplicated; E11.9 Type 2 diabetes mellitus without complications; Z87.440 Personal history of urinary (tract) infections; Z59.0 Homelessness; Z91.040 Latex allergy status; Z91.013 Allergy to seafood; Z91.018 Allergy to other foods; Z91.011 Allergy to milk products; Z88.1 Allergy status to other antibiotic agents; Z91.041 Radiographic dye allergy status; Z91.010 Allergy to peanuts; Z88.0 Allergy status to penicillin; Z88.8 Allergy status to other drugs, medicaments and biological substances; Z79.899 Other long term (current) drug therapy; W22.8XXA Striking against or struck by other objects, initial encounter; Y93.89 Activity, other specified; Y92.89 Other specified places as the place of occurrence of the external cause; Y99.8 Other external cause status
CPT/HCPCS: 70450; 72125; 99285

== ENCOUNTER 2021-06-01 00:05 | Emergency (ER) | payer MEDICARE ==
[~2021-06-01] VITALS: Ht 157.5 cm; Wt 78.2 kg
[~2021-06-01 00:05] MED LIST changes: +PANT-47 PO
[2021-06-01] MEDS ORDERED: levetiracetam 250mg tablet PO ONE (01:25)
[2021-06-01] MEDS ORDERED: LITH300C PO (01:28)
[2021-06-01] MEDS ORDERED: LEVE500T PO (01:28)
[2021-06-01] MEDS ORDERED: LEVE500T99 PO (01:32)
[2021-06-01] MEDS ORDERED: DIPH1TAB PO (01:36)
[2021-06-01] MEDS ORDERED: ALB0.5UD IH (01:53)
[2021-06-01] MEDS ORDERED: GUAI600T45 PO (01:53)
[2021-06-01] MEDS ORDERED: FLUT50DI3 IH (01:54)
[2021-06-01 02:48] LABS: URINE HCG NEGATIVE (NEG)
[2021-06-01 03:02] LABS: URINE AMPHETAMINE SCREEN NEGATIVE (Neg); URINE BARBITUATE SCREEN NEGATIVE (Neg); URINE BENZODIAZEPINES SCREEN NEGATIVE (Neg); URINE CANNABINOID SCREEN NEGATIVE (Neg); URINE COCAINE SCREEN NEGATIVE (Neg); URINE METHADONE SCREEN NEGATIVE (Neg); URINE OPIATE SCREEN NEGATIVE (Neg); URINE PHENCYCLIDINE SCREEN NEGATIVE (Neg)
[2021-06-01 03:03] LABS: ALANINE AMINOTRANSFERASE 29 U/L (12-78); ALBUMIN 2.8 G/DL (3.4-5.0); ALBUMIN/GLOBULIN RATIO 0.7 (1.1-1.5); ALKALINE PHOSPHATASE 73 IU/L (46-116); ANION GAP 10 (8-16); ASPARTATE AMINO TRANSFERASE 30 U/L (10-37); BASOPHILS # (AUTO) 0.1 X10'3 (0-0.2); BASOPHILS % (AUTO) 0.6 % (0-1); BILIRUBIN,TOTAL 0.6 MG/DL (0.1-1.0); BLOOD UREA NITROGEN 21 MG/DL (7-18); BUN/CREATININE RATIO 17.1 (6.6-38.0); CALCIUM 8.6 MG/DL (8.5-10.1); CHLORIDE 107 MMOL/L (99-107); CREATININE 1.23 MG/DL (0.40-0.90); EOSINOPHILS % (AUTO) 0.1 % (0-6); ETHANOL < 0.010 GM/DL (0.0-0.010); GLUCOSE 95 MG/DL (70-104); HEMATOCRIT 33.6 % (35.0-45.0); HEMOGLOBIN 11.4 g/dl (12.0-16.0); LYMPHOCYTES # (AUTO) 1.8 X10'3 (1.1-4.8); LYMPHOCYTES % (AUTO) 16.8 % (21-51); MEAN CORPUSCULAR HEMOGLOBIN 29.4 PG (27.0-31.0); MEAN CORPUSCULAR VOLUME 86.4 FL (78-98); MEAN PLATELET VOLUME 9.8 FL (7.4-10.4); MONOCYTES # (AUTO) 1.1 X10'3 (0-0.9); MONOCYTES % (AUTO) 10.3 % (2-12); NEUTROPHILS # (AUTO) 7.7 X10'3 (1.8-7.7); NEUTROPHILS % (AUTO) 72.2 % (42-75); PLATELET COUNT 160 X10'3 (140-440); POTASSIUM 3.4 MMOL/L (3.5-5.1); RED BLOOD COUNT 3.89 X10'6 (4.20-5.60); RED CELL DISTRIBUTION WIDTH 13.8 % (11.5-14.5); SODIUM 140 MMOL/L (135-145); TOTAL CARBON DIOXIDE 22.6 MMOL/L (24-32); TOTAL PROTEIN 6.9 G/DL (6.4-8.2); WHITE BLOOD COUNT 10.7 X10'3 (4.5-11.0); eGFR 51 ML/MIN
[2021-06-01] MEDS ORDERED: LEVE250T4 PO (04:40)
[2021-06-01] MEDS ORDERED: ALB0.5UD NEB (06:50)
[2021-06-01] MEDS ORDERED: albuterol 2.5 MG/3 ML nebule NEB PRN (07:10)
--- NOTE | 2021-06-01 07:47 | NUR ---
PT UP TO RESTROOM, AMBULATION W/ WALKER. SHOWS NO S/S OF ACUTE DISTRESS.
[2021-06-01] MEDS ORDERED: hydrocortisone 1% cream 28gm TP SCH (08:00)
[2021-06-01] MEDS ORDERED: docusate sod 250mg capsule PO SCH (08:00)
[2021-06-01] MEDS ORDERED: LORazepam 1 MG tablet PO SCH (08:00)
[2021-06-01] MEDS ORDERED: pantoprazole 40mg Tablet.DR PO SCH (08:00)
[2021-06-01] MEDS ORDERED: budesonide 0.5mg/2ml UD nebule IH SCH (08:00)
[2021-06-01] MEDS ORDERED: ziprasidone 20mg capsule PO SCH (08:00)
[2021-06-01] MEDS ORDERED: lithium carbonate 150mg capsule PO SCH (08:00)
[2021-06-01] MEDS ORDERED: levetiracetam 250mg tablet PO SCH (08:00)
[2021-06-01] MEDS: olanzapine 10mg tablet PO SCH ×2 (08:35→14:22)
[2021-06-01] MEDS: hydrOXYzine 25 MG tablet PO SCH ×2 (08:37→14:22)
--- NOTE | 2021-06-01 09:28 | NUR ---
PT EATING MEAL AT BEDSIDE.
--- NOTE | 2021-06-01 12:29 | NUR ---
PT RESTING SUPINE IN BED, EYES CLOSED. SHOWS NO S/S OF ACUTE DISTRESS.
--- NOTE | 2021-06-01 14:31 | NUR ---
PT IN BED AWAKE. VOICED NO COMPLAINTS
[2021-06-01 16:17] VITALS: BP 98/64
[2021-06-02] MEDS ORDERED: levoTHYROXINE 75mcg tablet PO SCH (07:00)
== END 2021-06-01 16:20 | disposition home or self-care (01) ==
LOC: ER 00:06
DX: R45.851 Suicidal ideations (principal); F68.10 Factitious disorder imposed on self, unspecified; G40.909 Epilepsy, unspecified, not intractable, without status epilepticus; J45.909 Unspecified asthma, uncomplicated; E11.9 Type 2 diabetes mellitus without complications; F32.9 Major depressive disorder, single episode, unspecified; F20.9 Schizophrenia, unspecified; Z87.440 Personal history of urinary (tract) infections; Z72.89 Other problems related to lifestyle; Z59.0 Homelessness; Z79.899 Other long term (current) drug therapy; Z88.0 Allergy status to penicillin; Z88.1 Allergy status to other antibiotic agents; Z88.2 Allergy status to sulfonamides; Z91.011 Allergy to milk products; Z91.013 Allergy to seafood; Z91.041 Radiographic dye allergy status; Z91.018 Allergy to other foods; Z91.040 Latex allergy status; Z91.048 Other nonmedicinal substance allergy status
CPT/HCPCS: 36415; 80053; 80305; 80320; 81025; 85025; 94640; 99285; Q0177; 94760

== ENCOUNTER 2021-06-03 00:20 | Emergency (ER) | payer MEDICARE ==
[~2021-06-03] VITALS: Ht 154.9 cm; Wt 79.1 kg
[~2021-06-03 00:20] MED LIST changes: +ALB0.5UD NEB; +DIPH1TAB PO; +GUAI600T45 PO; +LEVE250T4 PO; +LITH300C PO; -LITH450T2 PO
--- NOTE | 2021-06-03 00:34 | NUR ---
Patient states "Also I did not take the pills in front of anyone- because then I would be attention seeking and that is what my therapist asked me last time. If no one had found me I would've probably ".
[2021-06-03] MEDS ORDERED: OLAN-1 PO (00:40)
--- NOTE | 2021-06-03 00:57 | NUR ---
Poison control contacted- spoke with [place]. Recommends 12 hours observation due to lomotil ingestion. EKG now and in 4 hours, full lab with chemistry, tylenol and aspirin, also APURVA and drug.
[2021-06-03 01:38] VITALS: BP 104/68
== END 2021-06-03 01:39 | disposition home or self-care (01) ==
LOC: ER 00:20
DX: F68.10 Factitious disorder imposed on self, unspecified (principal); J45.909 Unspecified asthma, uncomplicated; E11.9 Type 2 diabetes mellitus without complications; F31.9 Bipolar disorder, unspecified; F20.9 Schizophrenia, unspecified; Z59.0 Homelessness; Z88.8 Allergy status to other drugs, medicaments and biological substances; Z88.1 Allergy status to other antibiotic agents; Z91.040 Latex allergy status; Z91.013 Allergy to seafood; Z79.899 Other long term (current) drug therapy
CPT/HCPCS: 99284

== ENCOUNTER 2021-06-03 17:17 | Emergency (ER) | payer MEDICARE, MEDICAID ==
[~2021-06-03] VITALS: Ht 170.2 cm; Wt 31.8 kg
[~2021-06-03 17:17] MED LIST changes: +ALB0.5UD IH; +FLUT50DI3 IH; +LEVE500T PO; +LEVE500T99 PO; +LITH450T2 PO; +OLAN-1 PO
[2021-06-03 17:52] VITALS: BP 81/49
--- NOTE | 2021-06-03 21:58 | NUR ---
PT WAS SEEN BY PROVIDER AND DISCHARGED PRIOR TO HEAD TO TOE ASSESSMENT.
== END 2021-06-03 22:00 | disposition home or self-care (01) ==
LOC: ER 17:18
DX: F60.3 Borderline personality disorder (principal); J45.909 Unspecified asthma, uncomplicated; E11.9 Type 2 diabetes mellitus without complications; F31.9 Bipolar disorder, unspecified; F20.9 Schizophrenia, unspecified; Z86.69 Personal history of other diseases of the nervous system and sense organs; Z87.440 Personal history of urinary (tract) infections; Z72.89 Other problems related to lifestyle; Z59.0 Homelessness; Z91.038 Other insect allergy status; Z91.018 Allergy to other foods; Z91.013 Allergy to seafood; Z88.1 Allergy status to other antibiotic agents; Z88.8 Allergy status to other drugs, medicaments and biological substances; Z88.0 Allergy status to penicillin; Z79.899 Other long term (current) drug therapy
CPT/HCPCS: 99283

== ENCOUNTER 2021-06-04 19:58 | Emergency (ER) | payer MEDICARE, MEDICAID ==
[~2021-06-04] VITALS: Ht 154.9 cm; Wt 80.5 kg
[2021-06-04 20:02] VITALS: BP 152/92
== END 2021-06-04 20:53 | disposition home or self-care (01) ==
LOC: ER 19:59
DX: Z02.89 Encounter for other administrative examinations (principal); R45.1 Restlessness and agitation; J45.909 Unspecified asthma, uncomplicated; E11.9 Type 2 diabetes mellitus without complications; F31.9 Bipolar disorder, unspecified; F20.9 Schizophrenia, unspecified; Z76.5 Malingerer [conscious simulation]; Z86.69 Personal history of other diseases of the nervous system and sense organs; Z87.440 Personal history of urinary (tract) infections; Z72.89 Other problems related to lifestyle; Z59.0 Homelessness; Z88.5 Allergy status to narcotic agent; Z91.040 Latex allergy status; Z91.018 Allergy to other foods; Z91.013 Allergy to seafood; Z88.1 Allergy status to other antibiotic agents; Z88.8 Allergy status to other drugs, medicaments and biological substances; Z88.0 Allergy status to penicillin; Z79.899 Other long term (current) drug therapy
CPT/HCPCS: 99283

== ENCOUNTER 2021-06-05 17:26 | Emergency (ER) | payer MEDICARE, MEDICAID ==
[~2021-06-05] VITALS: Ht 154.9 cm; Wt 80.6 kg
[~2021-06-05 17:26] MED LIST changes: -ALB0.5UD IH; -FLUT50DI3 IH; -LEVE500T PO; -LEVE500T99 PO; -LITH450T2 PO; -OLAN10TA73 PO
[2021-06-05 18:22] VITALS: BP 116/49
== END 2021-06-05 22:54 | disposition home or self-care (01) ==
LOC: ER 17:27
DX: S93.401A Sprain of unspecified ligament of right ankle, initial encounter (principal); M25.571 Pain in right ankle and joints of right foot; J45.909 Unspecified asthma, uncomplicated; E11.9 Type 2 diabetes mellitus without complications; F31.9 Bipolar disorder, unspecified; F20.9 Schizophrenia, unspecified; Z86.69 Personal history of other diseases of the nervous system and sense organs; Z87.440 Personal history of urinary (tract) infections; Z72.89 Other problems related to lifestyle; Z59.0 Homelessness; Z88.5 Allergy status to narcotic agent; Z88.1 Allergy status to other antibiotic agents; Z88.8 Allergy status to other drugs, medicaments and biological substances; Z91.040 Latex allergy status; Z91.018 Allergy to other foods; Z91.013 Allergy to seafood; Z79.899 Other long term (current) drug therapy; W01.0XXA Fall on same level from slipping, tripping and stumbling without subsequent striking against object, initial encounter; Y93.89 Activity, other specified; Y92.89 Other specified places as the place of occurrence of the external cause; Y99.8 Other external cause status
CPT/HCPCS: 73610; 99283

== ENCOUNTER 2021-06-06 23:53 | Emergency (ER) | payer MEDICARE, MEDICAID ==
[~2021-06-06] VITALS: Ht 154.9 cm; Wt 80.6 kg
[~2021-06-06 23:53] MED LIST changes: +ALB0.5UD IH; +ATI1T PO; +CARI4.5C PO; +CIPR250T4 PO; +FLUT50DI3 IH; +GABA300C PO; +HALO5TAB PO; +LEVE250T PO; +LEVE500T PO; +LEVE500T99 PO; +LITH450T2 PO; +METR500T PO; +OLAN10TA73 PO; +QUET100T34 PO
[2021-06-07 01:44] LABS: BASOPHILS # (AUTO) 0.1 X10'3 (0-0.2); BASOPHILS % (AUTO) 0.9 % (0-1); EOSINOPHILS # (AUTO) 0.1 X10'3 (0-0.9); EOSINOPHILS % (AUTO) 1.2 % (0-6); HEMATOCRIT 35.4 % (35.0-45.0); HEMOGLOBIN 11.7 g/dl (12.0-16.0); LYMPHOCYTES # (AUTO) 2.1 X10'3 (1.1-4.8); LYMPHOCYTES % (AUTO) 35.6 % (21-51); MEAN CORPUSCULAR HEMOGLOBIN 28.6 PG (27.0-31.0); MEAN CORPUSCULAR HGB CONC 33.2 g/dL (33.0-36.5); MEAN CORPUSCULAR VOLUME 86.1 FL (78-98); MEAN PLATELET VOLUME 9.4 FL (7.4-10.4); MONOCYTES # (AUTO) 0.6 X10'3 (0-0.9); MONOCYTES % (AUTO) 11.2 % (2-12); NEUTROPHILS % (AUTO) 51.1 % (42-75); PLATELET COUNT 167 X10'3 (140-440); RED BLOOD COUNT 4.11 X10'6 (4.20-5.60); RED CELL DISTRIBUTION WIDTH 13.8 % (11.5-14.5); WHITE BLOOD COUNT 5.8 X10'3 (4.5-11.0)
[2021-06-07 01:48] LABS: URINE HCG NEGATIVE (NEG)
[2021-06-07 01:58] LABS: URINE AMPHETAMINE SCREEN NEGATIVE (Neg); URINE BARBITUATE SCREEN NEGATIVE (Neg); URINE BENZODIAZEPINES SCREEN NEGATIVE (Neg); URINE CANNABINOID SCREEN NEGATIVE (Neg); URINE COCAINE SCREEN NEGATIVE (Neg); URINE METHADONE SCREEN NEGATIVE (Neg); URINE OPIATE SCREEN NEGATIVE (Neg); URINE PHENCYCLIDINE SCREEN NEGATIVE (Neg)
[2021-06-07 01:59] LABS: ALANINE AMINOTRANSFERASE 33 U/L (12-78); ALBUMIN 3.5 G/DL (3.4-5.0); ALBUMIN/GLOBULIN RATIO 1.2 (1.1-1.5); ALKALINE PHOSPHATASE 53 IU/L (46-116); ANION GAP 6 (8-16); ASPARTATE AMINO TRANSFERASE 26 U/L (10-37); BILIRUBIN,TOTAL 0.7 MG/DL (0.1-1.0); BLOOD UREA NITROGEN 14 MG/DL (7-18); BUN/CREATININE RATIO 13.9 (6.6-38.0); CALCIUM 8.7 MG/DL (8.5-10.1); CHLORIDE 109 MMOL/L (99-107); CREATININE 1.01 MG/DL (0.40-0.90); GLUCOSE 81 MG/DL (70-104); POTASSIUM 3.6 MMOL/L (3.5-5.1); SODIUM 141 MMOL/L (135-145); TOTAL CARBON DIOXIDE 26.1 MMOL/L (24-32); TOTAL PROTEIN 6.4 G/DL (6.4-8.2); eGFR 64 ML/MIN
[2021-06-07 02:00] LABS: ETHANOL < 0.010 GM/DL (0.0-0.010)
[2021-06-07 04:15] LABS: CLARITY,URINE CLEAR (Clear); COLOR,URINE YELLOW (Yellow); GLUCOSE, URINE NEGATIVE (Neg); KETONES,URINE NEGATIVE (Neg); LEUKOCYTE ESTERASE ,URINE NEGATIVE (Neg); NITRITES, URINE NEGATIVE (Neg); OCCULT BLOOD,URINE NEGATIVE (Neg); PH,URINE 6.5 (4.8-8.0); PROTEIN,URINE NEGATIVE (Neg); UROBILINOGEN,URINE 0.2 E.U/dL (0.2-1.0)
[2021-06-07 04:23] LABS: UA COLLECTION TYPE CLN CATCH MIDSTREAM
--- NOTE | 2021-06-07 06:50 | NUR ---
REPORT RECEIVED, CARE ASSUMED, PT SLEEPING IN HB03 IN NO NOTED DISTRESS
--- NOTE | 2021-06-07 07:00 | NUR ---
PT SLEEPING IN [place] BED, NO S/S OF DISTRESS NOTED
--- NOTE | 2021-06-07 11:50 | NUR ---
Pt transfer from main ER. Lying in bed. Tech secured belongings, CRN took pt Rx meds
--- NOTE | 2021-06-07 12:52 | NUR ---
Pt eating lunch
--- NOTE | 2021-06-07 12:59 | NUR ---
Pt ambulates to bathroom with walker
--- NOTE | 2021-06-07 16:30 | NUR ---
Pt awake, ambulates to bathroom.
[2021-06-07] MEDS ORDERED: diphenoxylate/atropine tablet (Lomotil) PO PRN (16:35)
[2021-06-07] MEDS ORDERED: guaiFENesin ER 600mg tablet PO PRN (16:35)
[2021-06-07] MEDS ORDERED: albuterol 2.5 MG/3 ML nebule NEB PRN (16:35)
--- NOTE | 2021-06-07 17:06 | NUR ---
Pt states she is having diarrhea today , yesterday and , requests meds. PRN Serene given
[2021-06-07] MEDS: hydrOXYzine 25 MG tablet PO SCH (19:33)
[2021-06-07] MEDS: ziprasidone 20mg capsule PO SCH (19:34)
[2021-06-07] MEDS: docusate sod 250mg capsule PO SCH (19:34)
[2021-06-07] MEDS: levetiracetam 250mg tablet PO SCH (19:35)
[2021-06-07] MEDS: lithium carbonate 150mg capsule PO SCH (19:36)
[2021-06-07] MEDS: OLANZAPINE 5 MG TABLET PO SCH (20:44)
[2021-06-07] MEDS ORDERED: levoTHYROXINE 75mcg tablet PO SCH (21:00)
[2021-06-07] MEDS ORDERED: MELOXICAM 7.5MG TAB PO SCH (21:00)
[2021-06-07] MEDS ORDERED: ibuprofen tablet 400 MG TABLET PO ONE (21:25)
[2021-06-08] MEDS: hydrOXYzine 25 MG tablet PO SCH ×3 (02:00→13:57)
[2021-06-08] MEDS ORDERED: budesonide 0.5mg/2ml UD nebule IH SCH (08:00)
[2021-06-08] MEDS ORDERED: LORazepam 1 MG tablet PO SCH (08:00)
[2021-06-08] MEDS ORDERED: pantoprazole 40mg Tablet.DR PO SCH (08:00)
--- NOTE | 2021-06-08 08:30 | NUR ---
Pt. awake, lying supine in bed. Pt. took all medications and ate all of her breakfast except for her egss.
[2021-06-08] MEDS: levetiracetam 250mg tablet PO SCH (08:31)
[2021-06-08] MEDS: ziprasidone 20mg capsule PO SCH (08:32)
[2021-06-08] MEDS: lithium carbonate 150mg capsule PO SCH (08:32)
[2021-06-08] MEDS: OLANZAPINE 5 MG TABLET PO SCH ×2 (08:32→13:20)
[2021-06-08] MEDS: docusate sod 250mg capsule PO SCH (08:33)
--- NOTE | 2021-06-08 10:30 | NUR ---
Pt. asleep in bed in supine position. Normal R&R of respirations observed. Pt. in no apparent distress.
[2021-06-08] MEDS ORDERED: acetaminophen 325mg tablet PO ONE ×2 (11:20)
--- NOTE | 2021-06-08 12:15 | NUR ---
Pt. received Tylenol 650mg for bilateral ankle pain rated 7/10. Pt. went back to sleep and sleeping in supine position. Normal R&R of respirations observed. Pt. in no apparent distress.
[2021-06-08 14:06] VITALS: BP 83/52
[2021-06-08] MEDS ORDERED: PANT-47 PO (19:51)
== END 2021-06-08 14:21 | disposition home or self-care (01) ==
LOC: ER 23:54
DX: R45.851 Suicidal ideations (principal); R11.2 Nausea with vomiting, unspecified; R10.30 Lower abdominal pain, unspecified; R30.0 Dysuria; J45.909 Unspecified asthma, uncomplicated; E11.9 Type 2 diabetes mellitus without complications; F31.9 Bipolar disorder, unspecified; Z86.69 Personal history of other diseases of the nervous system and sense organs; Z87.440 Personal history of urinary (tract) infections; Z72.89 Other problems related to lifestyle; Z59.0 Homelessness; Z88.5 Allergy status to narcotic agent; Z91.040 Latex allergy status; Z91.018 Allergy to other foods; Z91.013 Allergy to seafood; Z88.8 Allergy status to other drugs, medicaments and biological substances; Z88.0 Allergy status to penicillin; Z88.1 Allergy status to other antibiotic agents; Z79.899 Other long term (current) drug therapy
CPT/HCPCS: 99285; Q0177; 36415; 80053; 80305; 80320; 81003; 81025; 85025; 94640; 94760; J7626

== ENCOUNTER 2021-06-20 00:05 | Emergency (ER) | payer MEDICARE, MEDICAID ==
[~2021-06-20] VITALS: Ht 154.9 cm; Wt 79.1 kg
[~2021-06-20 00:05] MED LIST changes: -ALB0.5UD IH; -ATI1T PO; -CARI4.5C PO; -CIPR250T4 PO; -FLUT50DI3 IH; -GABA300C PO; -HALO5TAB PO; -LEVE250T PO; -LEVE500T PO; -LEVE500T99 PO; -LITH450T2 PO; -METR500T PO; -OLAN10TA73 PO; -QUET100T34 PO
[2021-06-20 00:26] VITALS: BP 117/82
[2021-06-20] MEDS ORDERED: hydrOXYzine 25 MG tablet PO ONE (03:45)
[2021-06-20] MEDS ORDERED: HYDR-3717 PO (03:47)
== END 2021-06-20 04:03 | disposition home or self-care (01) ==
LOC: ER 00:07
DX: L29.9 Pruritus, unspecified (principal); G40.909 Epilepsy, unspecified, not intractable, without status epilepticus; J45.909 Unspecified asthma, uncomplicated; E11.9 Type 2 diabetes mellitus without complications; Z87.440 Personal history of urinary (tract) infections; Z72.89 Other problems related to lifestyle; Z59.0 Homelessness; Z79.899 Other long term (current) drug therapy; Z88.0 Allergy status to penicillin; Z88.1 Allergy status to other antibiotic agents; Z88.8 Allergy status to other drugs, medicaments and biological substances; Z91.040 Latex allergy status; Z91.041 Radiographic dye allergy status; Z91.011 Allergy to milk products; Z91.013 Allergy to seafood; Z91.018 Allergy to other foods
CPT/HCPCS: 99283; Q0177

== ENCOUNTER 2021-06-21 17:08 | Emergency (ER) | payer MEDICARE, MEDICAID ==
[~2021-06-21] VITALS: Ht 154.9 cm; Wt 83.6 kg
[~2021-06-21 17:08] MED LIST changes: +HYDR-3717 PO
[2021-06-21 17:56] VITALS: BP 134/75
== END 2021-06-22 02:24 | disposition left against medical advice (07) ==
LOC: ER 17:09
DX: R45.851 Suicidal ideations (principal); Z53.21 Procedure and treatment not carried out due to patient leaving prior to being seen by health care provider

== ENCOUNTER 2021-06-22 09:13 | Emergency (ER) | payer MEDICARE, MEDICAID | END 2021-06-22 12:38 | LOC: ER 09:13 | DX: Z53.21 Procedure and treatment not carried out due to patient leaving prior to being seen by health care provider (principal) ==

== ENCOUNTER 2021-06-23 17:30 | Emergency (ER) | payer MEDICARE, MEDICAID ==
[~2021-06-23] VITALS: Ht 154.9 cm; Wt 76.7 kg
[2021-06-23 19:20] LABS: BASOPHILS % (AUTO) 0.6 % (0-1); EOSINOPHILS # (AUTO) 0.1 X10'3 (0-0.9); EOSINOPHILS % (AUTO) 1.3 % (0-6); HEMATOCRIT 38.2 % (35.0-45.0); HEMOGLOBIN 12.7 g/dl (12.0-16.0); LYMPHOCYTES # (AUTO) 2.6 X10'3 (1.1-4.8); LYMPHOCYTES % (AUTO) 41.8 % (21-51); MEAN CORPUSCULAR HEMOGLOBIN 28.4 PG (27.0-31.0); MEAN CORPUSCULAR HGB CONC 33.3 g/dL (33.0-36.5); MEAN CORPUSCULAR VOLUME 85.5 FL (78-98); MEAN PLATELET VOLUME 10.2 FL (7.4-10.4); MONOCYTES # (AUTO) 0.9 X10'3 (0-0.9); MONOCYTES % (AUTO) 14.4 % (2-12); NEUTROPHILS # (AUTO) 2.6 X10'3 (1.8-7.7); NEUTROPHILS % (AUTO) 41.9 % (42-75); PLATELET COUNT 213 X10'3 (140-440); RED BLOOD COUNT 4.47 X10'6 (4.20-5.60); RED CELL DISTRIBUTION WIDTH 13.4 % (11.5-14.5); WHITE BLOOD COUNT 6.2 X10'3 (4.5-11.0)
[2021-06-23 19:27] LABS: ALANINE AMINOTRANSFERASE 42 U/L (12-78); ALBUMIN 3.8 G/DL (3.4-5.0); ALBUMIN/GLOBULIN RATIO 1.1 (1.1-1.5); ALKALINE PHOSPHATASE 86 IU/L (46-116); ANION GAP 9 (8-16); ASPARTATE AMINO TRANSFERASE 32 U/L (10-37); BILIRUBIN,TOTAL 0.3 MG/DL (0.1-1.0); BLOOD UREA NITROGEN 24 MG/DL (7-18); CALCIUM 8.5 MG/DL (8.5-10.1); CHLORIDE 110 MMOL/L (99-107); GLUCOSE 90 MG/DL (70-104); POTASSIUM 3.4 MMOL/L (3.5-5.1); SODIUM 144 MMOL/L (135-145); TOTAL CARBON DIOXIDE 24.6 MMOL/L (24-32); TOTAL PROTEIN 7.4 G/DL (6.4-8.2); eGFR 64 ML/MIN
[2021-06-24 03:30] VITALS: BP 147/78
== END 2021-06-24 03:31 | disposition home or self-care (01) ==
LOC: ER 17:31
DX: R07.89 Other chest pain (principal); G40.909 Epilepsy, unspecified, not intractable, without status epilepticus; J45.909 Unspecified asthma, uncomplicated; E11.9 Type 2 diabetes mellitus without complications; Z87.440 Personal history of urinary (tract) infections; Z72.89 Other problems related to lifestyle; Z59.0 Homelessness; Z79.899 Other long term (current) drug therapy; Z88.1 Allergy status to other antibiotic agents; Z88.2 Allergy status to sulfonamides; Z88.8 Allergy status to other drugs, medicaments and biological substances; Z88.0 Allergy status to penicillin; Z91.018 Allergy to other foods; Z91.040 Latex allergy status; Z91.013 Allergy to seafood; Z91.011 Allergy to milk products
CPT/HCPCS: 36415; 71045; 80053; 84484; 85025; 93005; 99285

== ENCOUNTER 2021-06-25 17:45 | Emergency (ER) | payer MEDICARE, MEDICAID ==
[~2021-06-25] VITALS: Ht 154.9 cm; Wt 77.3 kg
[2021-06-25] MEDS ORDERED: normal saline 1000ML IV soln IV ONE (18:15)
[2021-06-25 18:37] LABS: BASOPHILS % (AUTO) 0.7 % (0-1); EOSINOPHILS % (AUTO) 0.5 % (0-6); HEMATOCRIT 33.4 % (35.0-45.0); HEMOGLOBIN 11.2 g/dl (12.0-16.0); LYMPHOCYTES # (AUTO) 2.2 X10'3 (1.1-4.8); LYMPHOCYTES % (AUTO) 38.4 % (21-51); MEAN CORPUSCULAR HEMOGLOBIN 28.6 PG (27.0-31.0); MEAN CORPUSCULAR HGB CONC 33.7 g/dL (33.0-36.5); MEAN PLATELET VOLUME 9.7 FL (7.4-10.4); MONOCYTES # (AUTO) 0.7 X10'3 (0-0.9); MONOCYTES % (AUTO) 12.2 % (2-12); NEUTROPHILS # (AUTO) 2.7 X10'3 (1.8-7.7); NEUTROPHILS % (AUTO) 48.2 % (42-75); PLATELET COUNT 182 X10'3 (140-440); RED BLOOD COUNT 3.93 X10'6 (4.20-5.60); RED CELL DISTRIBUTION WIDTH 13.1 % (11.5-14.5); WHITE BLOOD COUNT 5.6 X10'3 (4.5-11.0)
[2021-06-25 18:55] LABS: ALANINE AMINOTRANSFERASE 35 U/L (12-78); ALBUMIN 3.4 G/DL (3.4-5.0); ALBUMIN/GLOBULIN RATIO 1.1 (1.1-1.5); ALKALINE PHOSPHATASE 76 IU/L (46-116); ANION GAP 10 (8-16); ASPARTATE AMINO TRANSFERASE 30 U/L (10-37); BILIRUBIN,TOTAL 0.4 MG/DL (0.1-1.0); BLOOD UREA NITROGEN 21 MG/DL (7-18); BUN/CREATININE RATIO 17.1 (6.6-38.0); CALCIUM 8.5 MG/DL (8.5-10.1); CHLORIDE 111 MMOL/L (99-107); CREATINE KINASE 153 U/L (26-192); CREATININE 1.23 MG/DL (0.40-0.90); GLUCOSE 89 MG/DL (70-104); MAGNESIUM 1.9 MG/DL (1.5-2.4); POTASSIUM 3.4 MMOL/L (3.5-5.1); SODIUM 146 MMOL/L (135-145); TOTAL CARBON DIOXIDE 24.9 MMOL/L (24-32); TOTAL PROTEIN 6.4 G/DL (6.4-8.2); eGFR 51 ML/MIN
[2021-06-25 20:26] VITALS: BP 111/70
[2021-06-25] MEDS ORDERED: ondansetron/PF 4mg/2ml inj IV ONE (20:40)
[2021-06-26] MEDS ORDERED: DIPH-186 PO (04:07)
[2021-06-26] MEDS ORDERED: METO5TAB85 PO (04:07)
== END 2021-06-25 20:15 | disposition home or self-care (01) ==
LOC: ER 17:45
DX: R56.9 Unspecified convulsions (principal); J45.909 Unspecified asthma, uncomplicated; E11.9 Type 2 diabetes mellitus without complications; F31.9 Bipolar disorder, unspecified; F32.9 Major depressive disorder, single episode, unspecified; F20.9 Schizophrenia, unspecified; Z72.89 Other problems related to lifestyle; Z59.0 Homelessness; Z88.1 Allergy status to other antibiotic agents; Z91.040 Latex allergy status; Z91.018 Allergy to other foods; Z91.013 Allergy to seafood; Z79.899 Other long term (current) drug therapy
CPT/HCPCS: 36415; 80053; 82550; 83735; 85025; 93005; 96374; 99284; J2405; J7030

== ENCOUNTER 2021-06-26 02:22 | Emergency (ER) | payer MEDICARE, MEDICAID ==
[~2021-06-26] VITALS: Ht 160 cm; Wt 85.0 kg
[2021-06-26 03:21] VITALS: BP 120/64
--- NOTE | 2021-06-26 03:32 | NUR ---
GAVE HER SCRUB BOTTOMS, A DEPENDS AND WIPES
[2021-06-26] MEDS ORDERED: DIPH-186 PO (04:07)
[2021-06-26] MEDS ORDERED: METO5TAB85 PO (04:07)
[2021-06-26] MEDS ORDERED: diphenoxylate/atropine tablet (Lomotil) PO ONE (04:10)
[2021-06-26] MEDS ORDERED: metoclopramide 10mg tablet PO ONE (04:10)
== END 2021-06-26 04:32 | disposition home or self-care (01) ==
LOC: ER 02:23
DX: R19.7 Diarrhea, unspecified (principal); R10.84 Generalized abdominal pain; R11.10 Vomiting, unspecified; J45.909 Unspecified asthma, uncomplicated; E11.9 Type 2 diabetes mellitus without complications; F31.9 Bipolar disorder, unspecified; F20.9 Schizophrenia, unspecified; Z86.69 Personal history of other diseases of the nervous system and sense organs; Z87.440 Personal history of urinary (tract) infections; Z72.89 Other problems related to lifestyle; Z59.0 Homelessness; Z88.0 Allergy status to penicillin; Z91.040 Latex allergy status; Z88.1 Allergy status to other antibiotic agents; Z91.018 Allergy to other foods; Z91.013 Allergy to seafood; Z79.899 Other long term (current) drug therapy
CPT/HCPCS: 99283; J8597

== ENCOUNTER 2021-07-03 12:20 | Emergency (ER) | payer MEDICARE, MEDICAID ==
[~2021-07-03] VITALS: Ht 154.9 cm; Wt 81.8 kg
[~2021-07-03 12:20] MED LIST changes: +DIPH-186 PO; +METO5TAB85 PO
[2021-07-03 12:23] VITALS: BP 107/72
[2021-07-03 12:45] LABS: BASOPHILS % (AUTO) 0.8 % (0-1); EOSINOPHILS % (AUTO) 0.9 % (0-6); HEMATOCRIT 35.5 % (35.0-45.0); HEMOGLOBIN 11.7 g/dl (12.0-16.0); LYMPHOCYTES # (AUTO) 2.2 X10'3 (1.1-4.8); MEAN CORPUSCULAR HEMOGLOBIN 28.4 PG (27.0-31.0); MEAN CORPUSCULAR VOLUME 85.8 FL (78-98); MONOCYTES # (AUTO) 0.6 X10'3 (0-0.9); MONOCYTES % (AUTO) 13.1 % (2-12); NEUTROPHILS # (AUTO) 1.7 X10'3 (1.8-7.7); NEUTROPHILS % (AUTO) 37.2 % (42-75); PLATELET COUNT 148 X10'3 (140-440); RED BLOOD COUNT 4.13 X10'6 (4.20-5.60); RED CELL DISTRIBUTION WIDTH 13.1 % (11.5-14.5); WHITE BLOOD COUNT 4.5 X10'3 (4.5-11.0)
[2021-07-03 13:01] LABS: ALANINE AMINOTRANSFERASE 29 U/L (12-78); ALBUMIN 3.8 G/DL (3.4-5.0); ALBUMIN/GLOBULIN RATIO 1.1 (1.1-1.5); ALKALINE PHOSPHATASE 72 IU/L (46-116); ANION GAP 9 (8-16); ASPARTATE AMINO TRANSFERASE 21 U/L (10-37); BILIRUBIN,TOTAL 0.2 MG/DL (0.1-1.0); BLOOD UREA NITROGEN 33 MG/DL (7-18); CALCIUM 8.6 MG/DL (8.5-10.1); CHLORIDE 109 MMOL/L (99-107); GLUCOSE 90 MG/DL (70-104); LIPASE 168 U/L (73-393); SODIUM 141 MMOL/L (135-145); TOTAL CARBON DIOXIDE 22.8 MMOL/L (24-32); TOTAL PROTEIN 7.2 G/DL (6.4-8.2); eGFR 64 ML/MIN
[2021-07-03] MEDS ORDERED: sucralfate 1gm/10ml UD suspension PO STA (14:18)
[2021-07-03 14:20] LABS: URINE HCG NEGATIVE (NEG)
[2021-07-03] MEDS ORDERED: mag hydrox/Alum hydrox/simeth 30ml oral suspension PO ONE (14:20)
[2021-07-03] MEDS ORDERED: LIDOcaine Viscous 15ml cup MM ONE (14:20)
[2021-07-03 14:21] LABS: CLARITY,URINE CLOUDY (Clear); COLOR,URINE YELLOW (Yellow); GLUCOSE, URINE NEGATIVE (Neg); KETONES,URINE NEGATIVE (Neg); LEUKOCYTE ESTERASE ,URINE NEGATIVE (Neg); NITRITES, URINE NEGATIVE (Neg); OCCULT BLOOD,URINE NEGATIVE (Neg); PH,URINE 6.5 (4.8-8.0); PROTEIN,URINE NEGATIVE (Neg); UA COLLECTION TYPE CLN CATCH MIDSTREAM; UROBILINOGEN,URINE 0.2 E.U/dL (0.2-1.0)
[2021-07-03 14:42] LABS: SQUAMOUS EPITHELIAL CELL,UR MANY /LPF (FEW)
[2021-07-03 14:44] LABS: BACTERIA,URINE 4+ /HPF (Neg); RBC,URINE 0-2 /HPF (0-2)
== END 2021-07-03 15:10 | disposition home or self-care (01) ==
LOC: ER 12:21
DX: R10.13 Epigastric pain (principal); K21.9 Gastro-esophageal reflux disease without esophagitis; R07.89 Other chest pain; K29.70 Gastritis, unspecified, without bleeding; J45.909 Unspecified asthma, uncomplicated; E11.9 Type 2 diabetes mellitus without complications; F31.9 Bipolar disorder, unspecified; F20.9 Schizophrenia, unspecified; Z86.69 Personal history of other diseases of the nervous system and sense organs; Z87.440 Personal history of urinary (tract) infections; Z72.89 Other problems related to lifestyle; Z59.0 Homelessness; Z88.0 Allergy status to penicillin; Z91.040 Latex allergy status; Z88.8 Allergy status to other drugs, medicaments and biological substances; Z91.018 Allergy to other foods; Z91.013 Allergy to seafood; Z79.899 Other long term (current) drug therapy
CPT/HCPCS: 36415; 80053; 81001; 81025; 83690; 85025; 99283

== ENCOUNTER 2021-07-03 22:07 | Emergency (ER) | payer MEDICARE, MEDICAID ==
[~2021-07-03] VITALS: Ht 157.5 cm; Wt 82.3 kg
[2021-07-03 22:25] VITALS: BP 105/67
== END 2021-07-03 22:55 | disposition home or self-care (01) ==
LOC: ER 22:08
DX: R07.89 Other chest pain (principal); J45.909 Unspecified asthma, uncomplicated; E11.9 Type 2 diabetes mellitus without complications; F31.9 Bipolar disorder, unspecified; F20.9 Schizophrenia, unspecified; Z76.5 Malingerer [conscious simulation]; Z86.69 Personal history of other diseases of the nervous system and sense organs; Z87.440 Personal history of urinary (tract) infections; Z72.89 Other problems related to lifestyle; Z59.0 Homelessness; Z88.1 Allergy status to other antibiotic agents; Z91.040 Latex allergy status; Z88.0 Allergy status to penicillin; Z91.018 Allergy to other foods; Z91.013 Allergy to seafood; Z79.899 Other long term (current) drug therapy
CPT/HCPCS: 99281; 99283

== ENCOUNTER 2021-07-05 11:57 | Emergency (ER) | payer MEDICARE, MEDICAID ==
[~2021-07-05] VITALS: Ht 157.5 cm; Wt 82.3 kg
--- NOTE | 2021-07-05 12:37 | NUR ---
POISON CONTROL CONTACTED. WATCH FOR WOODS OVERSEER DEPRESSION, DECREASE IN GAG REFLEX, SEZ, TRASIANT HYPOTENTION. NO NEED FOR CHARCHOL D/T GREATER THAN 1 HR 4-6 HRS OBS. SUPPORTIVE CARE LABS: TYL, ASA, ETOH, TOX UA.
--- NOTE | 2021-07-05 12:37 | NUR ---
[facility]IN [facility] NOTIFIED OF POISON CONTROL REC.
[2021-07-05 13:03] LABS: BASOPHILS % (AUTO) 0.4 % (0-1); EOSINOPHILS # (AUTO) 0.1 X10'3 (0-0.9); EOSINOPHILS % (AUTO) 1.3 % (0-6); HEMATOCRIT 36.2 % (35.0-45.0); HEMOGLOBIN 11.9 g/dl (12.0-16.0); LYMPHOCYTES # (AUTO) 2.4 X10'3 (1.1-4.8); LYMPHOCYTES % (AUTO) 44.4 % (21-51); MEAN CORPUSCULAR HEMOGLOBIN 28.3 PG (27.0-31.0); MEAN CORPUSCULAR HGB CONC 32.9 g/dL (33.0-36.5); MEAN CORPUSCULAR VOLUME 86.1 FL (78-98); MEAN PLATELET VOLUME 10.2 FL (7.4-10.4); MONOCYTES # (AUTO) 0.8 X10'3 (0-0.9); MONOCYTES % (AUTO) 14.7 % (2-12); NEUTROPHILS # (AUTO) 2.2 X10'3 (1.8-7.7); NEUTROPHILS % (AUTO) 39.2 % (42-75); PLATELET COUNT 146 X10'3 (140-440); RED CELL DISTRIBUTION WIDTH 13.2 % (11.5-14.5); WHITE BLOOD COUNT 5.5 X10'3 (4.5-11.0)
[2021-07-05 13:11] LABS: ALANINE AMINOTRANSFERASE 28 U/L (12-78); ALBUMIN 3.6 G/DL (3.4-5.0); ALKALINE PHOSPHATASE 80 IU/L (46-116); ANION GAP 7 (8-16); ASPARTATE AMINO TRANSFERASE 25 U/L (10-37); BILIRUBIN,TOTAL 0.5 MG/DL (0.1-1.0); BLOOD UREA NITROGEN 28 MG/DL (7-18); BUN/CREATININE RATIO 17.7 (6.6-38.0); CHLORIDE 108 MMOL/L (99-107); CREATININE 1.58 MG/DL (0.40-0.90); GLUCOSE 115 MG/DL (70-104); POTASSIUM 3.8 MMOL/L (3.5-5.1); SODIUM 143 MMOL/L (135-145); TOTAL CARBON DIOXIDE 28.3 MMOL/L (24-32); TOTAL PROTEIN 7.1 G/DL (6.4-8.2); eGFR 38 ML/MIN
[2021-07-05 13:15] LABS: LIPASE 234 U/L (73-393)
[2021-07-05 13:17] LABS: ACETAMINOPHEN < 2.0 UG/ML (10-30); ETHANOL < 0.010 GM/DL (0.0-0.010)
[2021-07-05 13:23] LABS: COLOR,URINE YELLOW (Yellow); UA COLLECTION TYPE VOIDED; URINE HCG NEGATIVE (NEG)
[2021-07-05 13:24] LABS: CLARITY,URINE CLEAR (Clear); GLUCOSE, URINE NEGATIVE (Neg); KETONES,URINE NEGATIVE (Neg); LEUKOCYTE ESTERASE ,URINE NEGATIVE (Neg); NITRITES, URINE NEGATIVE (Neg); OCCULT BLOOD,URINE NEGATIVE (Neg); PROTEIN,URINE NEGATIVE (Neg); UROBILINOGEN,URINE 0.2 E.U/dL (0.2-1.0)
[2021-07-05 13:36] LABS: URINE AMPHETAMINE SCREEN NEGATIVE (Neg); URINE BARBITUATE SCREEN NEGATIVE (Neg); URINE BENZODIAZEPINES SCREEN NEGATIVE (Neg); URINE CANNABINOID SCREEN NEGATIVE (Neg); URINE COCAINE SCREEN NEGATIVE (Neg); URINE METHADONE SCREEN NEGATIVE (Neg); URINE OPIATE SCREEN NEGATIVE (Neg); URINE PHENCYCLIDINE SCREEN NEGATIVE (Neg)
--- NOTE | 2021-07-05 14:00 | NUR ---
Pt is here for taking 30 tesalon pearls. Stated that she is suicidal and took an overdose yesterday and was seen at [facility]. Awake, alert, oriented, and c/o L flank pain. Pt made a verbal contract to not attempt to harm herself while here in our hospital.
--- NOTE | 2021-07-05 15:05 | NUR ---
Spoke with Whitney from Poision Control. She recommeds that we continue to monitor the patient for another 4-6 hours. If there are no changes then she is ok to d/c home.
[2021-07-05 17:05] VITALS: BP 119/61
--- NOTE | 2021-07-05 17:05 | NUR ---
When pt was notifed that she will be discarged she became loud, flailed her arms and legs.
--- NOTE | 2021-07-05 17:10 | NUR ---
Security was called due to pt acting out. She was restrained by security. She kicked and tried to punch security.
--- NOTE | 2021-07-05 17:33 | NUR ---
Pt was escorted out of department by security and [place] [employer].
== END 2021-07-05 17:36 | disposition home or self-care (01) ==
LOC: ER 11:57
DX: F60.3 Borderline personality disorder (principal); R45.851 Suicidal ideations; R45.1 Restlessness and agitation; J45.909 Unspecified asthma, uncomplicated; E11.9 Type 2 diabetes mellitus without complications; F31.9 Bipolar disorder, unspecified; F20.9 Schizophrenia, unspecified; Z86.69 Personal history of other diseases of the nervous system and sense organs; Z87.440 Personal history of urinary (tract) infections; Z72.89 Other problems related to lifestyle; Z59.0 Homelessness; Z88.1 Allergy status to other antibiotic agents; Z88.5 Allergy status to narcotic agent; Z91.040 Latex allergy status; Z88.8 Allergy status to other drugs, medicaments and biological substances; Z91.018 Allergy to other foods; Z91.013 Allergy to seafood; Z79.899 Other long term (current) drug therapy
CPT/HCPCS: 36415; 71045; 80053; 80305; 80320; 80329; 81003; 81025; 83690; 84484; 85025; 93005; 99285

== ENCOUNTER 2021-09-03 00:10 | Emergency (ER) | payer MEDICARE, MEDICAID ==
[~2021-09-03] VITALS: Ht 154.9 cm; Wt 160.0 kg
[~2021-09-03 00:10] MED LIST changes: -HYDR-3717 PO
[2021-09-03] MEDS ORDERED: mag hydrox/Alum hydrox/simeth 30ml oral suspension PO ONE (00:25)
[2021-09-03] MEDS ORDERED: sucralfate 1 gm tablet PO ONE (00:25)
[2021-09-03] MEDS ORDERED: LIDOcaine Viscous 15ml cup MM ONE (00:25)
--- NOTE | 2021-09-03 00:27 | NUR ---
ultrasound paged [phone]
[2021-09-03 00:56] LABS: BASOPHILS % (AUTO) 0.5 % (0-1); EOSINOPHILS # (AUTO) 0.1 X10'3 (0-0.9); EOSINOPHILS % (AUTO) 2.6 % (0-6); HEMATOCRIT 33.1 % (35.0-45.0); HEMOGLOBIN 11.2 g/dl (12.0-16.0); LYMPHOCYTES # (AUTO) 2.2 X10'3 (1.1-4.8); LYMPHOCYTES % (AUTO) 45.5 % (21-51); MEAN CORPUSCULAR HEMOGLOBIN 27.8 PG (27.0-31.0); MEAN CORPUSCULAR HGB CONC 33.7 g/dL (33.0-36.5); MEAN CORPUSCULAR VOLUME 82.3 FL (78-98); MEAN PLATELET VOLUME 9.5 FL (7.4-10.4); MONOCYTES # (AUTO) 0.8 X10'3 (0-0.9); MONOCYTES % (AUTO) 15.8 % (2-12); NEUTROPHILS # (AUTO) 1.7 X10'3 (1.8-7.7); NEUTROPHILS % (AUTO) 35.6 % (42-75); PLATELET COUNT 171 X10'3 (140-440); RED BLOOD COUNT 4.02 X10'6 (4.20-5.60); RED CELL DISTRIBUTION WIDTH 13.2 % (11.5-14.5); WHITE BLOOD COUNT 4.9 X10'3 (4.5-11.0)
[2021-09-03 01:10] LABS: ALANINE AMINOTRANSFERASE 28 U/L (12-78); ALBUMIN 3.3 G/DL (3.4-5.0); ALBUMIN/GLOBULIN RATIO 0.9 (1.1-1.5); ALKALINE PHOSPHATASE 68 IU/L (46-116); ANION GAP 9 (8-16); ASPARTATE AMINO TRANSFERASE 21 U/L (10-37); BILIRUBIN,DIRECT 0.1 MG/DL (0-0.3); BILIRUBIN,TOTAL 0.2 MG/DL (0.1-1.0); BLOOD UREA NITROGEN 21 MG/DL (7-18); BUN/CREATININE RATIO 23.6 (6.6-38.0); CALCIUM 8.8 MG/DL (8.5-10.1); CHLORIDE 105 MMOL/L (99-107); CREATININE 0.89 MG/DL (0.40-0.90); GLUCOSE 93 MG/DL (70-104); LIPASE 256 U/L (73-393); POTASSIUM 3.9 MMOL/L (3.5-5.1); SODIUM 141 MMOL/L (135-145); TOTAL CARBON DIOXIDE 26.7 MMOL/L (24-32); TOTAL PROTEIN 7.1 G/DL (6.4-8.2); eGFR 74 ML/MIN
[2021-09-03 01:39] LABS: URINE HCG NEGATIVE (NEG)
[2021-09-03 02:01] LABS: CLARITY,URINE CLEAR (Clear); COLOR,URINE STRAW (Yellow); GLUCOSE, URINE NEGATIVE (Neg); KETONES,URINE NEGATIVE (Neg); LEUKOCYTE ESTERASE ,URINE NEGATIVE (Neg); NITRITES, URINE NEGATIVE (Neg); OCCULT BLOOD,URINE LARGE (Neg); PROTEIN,URINE NEGATIVE (Neg); UA COLLECTION TYPE CLN CATCH MIDSTREAM; UROBILINOGEN,URINE 0.2 E.U/dL (0.2-1.0)
[2021-09-03 02:02] LABS: MUCUS STRANDS MODERATE /LPF (Neg); SQUAMOUS EPITHELIAL CELL,UR FEW /LPF (FEW)
[2021-09-03 02:03] LABS: BACTERIA,URINE FEW /HPF (Neg)
[2021-09-03] MEDS ORDERED: SUCR1TAB PO (02:15)
[2021-09-03 02:20] LABS: PLATELET ESTIMATE NORMAL; TOTAL CELLS COUNTED 100
[2021-09-03] MEDS ORDERED: CIPR-447 PO (02:56)
[2021-09-03] MEDS ORDERED: CEPH-585 PO (02:58)
[2021-09-03 03:05] VITALS: BP 111/72
[2021-09-03] MEDS ORDERED: CIPR-202 PO (12:35)
== END 2021-09-03 03:07 | disposition home or self-care (01) ==
LOC: ER 00:11
DX: N39.0 Urinary tract infection, site not specified (principal); K21.9 Gastro-esophageal reflux disease without esophagitis; R10.13 Epigastric pain; R33.9 Retention of urine, unspecified; J45.909 Unspecified asthma, uncomplicated; E11.9 Type 2 diabetes mellitus without complications; F31.9 Bipolar disorder, unspecified; F20.9 Schizophrenia, unspecified; F15.90 Other stimulant use, unspecified, uncomplicated; Z86.69 Personal history of other diseases of the nervous system and sense organs; Z87.440 Personal history of urinary (tract) infections; Z72.89 Other problems related to lifestyle; Z59.00 Homelessness unspecified; Z88.1 Allergy status to other antibiotic agents; Z88.5 Allergy status to narcotic agent; Z91.040 Latex allergy status; Z91.018 Allergy to other foods; Z91.013 Allergy to seafood; Z88.8 Allergy status to other drugs, medicaments and biological substances; Z79.2 Long term (current) use of antibiotics; Z79.899 Other long term (current) drug therapy
CPT/HCPCS: 36415; 76700; 80048; 80076; 81001; 81025; 83690; 85007; 85025; 93005; 99285

== ENCOUNTER 2021-09-03 11:28 | Emergency (ER) | payer MEDICARE, MEDICAID ==
[~2021-09-03] VITALS: Ht 154.9 cm; Wt 84.1 kg
[~2021-09-03 11:28] MED LIST changes: +CEPH-585 PO; +CIPR-447 PO; +SUCR1TAB PO
[2021-09-03 12:13] VITALS: BP 119/70
[2021-09-03] MEDS ORDERED: CIPR-202 PO (12:35)
== END 2021-09-03 12:46 | disposition home or self-care (01) ==
LOC: ER 11:29
DX: N39.0 Urinary tract infection, site not specified (principal); J45.909 Unspecified asthma, uncomplicated; K21.9 Gastro-esophageal reflux disease without esophagitis; E11.9 Type 2 diabetes mellitus without complications; F31.9 Bipolar disorder, unspecified; F20.9 Schizophrenia, unspecified; F15.90 Other stimulant use, unspecified, uncomplicated; Z87.440 Personal history of urinary (tract) infections; Z86.69 Personal history of other diseases of the nervous system and sense organs; Z72.89 Other problems related to lifestyle; Z59.00 Homelessness unspecified; Z91.018 Allergy to other foods; Z91.013 Allergy to seafood; Z91.040 Latex allergy status; Z88.1 Allergy status to other antibiotic agents; Z88.8 Allergy status to other drugs, medicaments and biological substances; Z88.0 Allergy status to penicillin; Z79.2 Long term (current) use of antibiotics; Z79.899 Other long term (current) drug therapy
CPT/HCPCS: 99283

== ENCOUNTER 2021-09-05 01:29 | Emergency (ER) | payer MEDICARE, MEDICAID ==
[~2021-09-05] VITALS: Ht 157.5 cm; Wt 79.1 kg
[~2021-09-05 01:29] MED LIST changes: +CIPR-202 PO
[2021-09-05 03:05] VITALS: BP 128/66
[2021-09-05] MEDS ORDERED: ondansetron 4mg rapidly disintigrating tab PO ONE (03:20)
== END 2021-09-05 04:35 | disposition home or self-care (01) ==
LOC: ER 01:30
DX: T85.638A Leakage of other specified internal prosthetic devices, implants and grafts, initial encounter (principal); R11.0 Nausea; J45.909 Unspecified asthma, uncomplicated; K21.9 Gastro-esophageal reflux disease without esophagitis; E11.9 Type 2 diabetes mellitus without complications; F31.9 Bipolar disorder, unspecified; F20.9 Schizophrenia, unspecified; F15.90 Other stimulant use, unspecified, uncomplicated; Z86.69 Personal history of other diseases of the nervous system and sense organs; Z87.440 Personal history of urinary (tract) infections; Z72.89 Other problems related to lifestyle; Z59.00 Homelessness unspecified; Z91.040 Latex allergy status; Z91.013 Allergy to seafood; Z88.8 Allergy status to other drugs, medicaments and biological substances; Z79.2 Long term (current) use of antibiotics; Z79.899 Other long term (current) drug therapy; Y84.6 Urinary catheterization as the cause of abnormal reaction of the patient, or of later complication, without mention of misadventure at the time of the procedure
CPT/HCPCS: 99283

== ENCOUNTER 2021-09-06 03:06 | Emergency (ER) | payer MEDICARE, MEDICAID ==
[2021-09-06] MEDS ORDERED: OLANZapine **IM** 10 mg inj. IM ONE (03:30)
[2021-09-06 04:32] VITALS: BP 118/64
== END 2021-09-06 04:34 | disposition home or self-care (01) ==
LOC: ER 03:07
DX: F20.9 Schizophrenia, unspecified (principal); J45.909 Unspecified asthma, uncomplicated; K21.9 Gastro-esophageal reflux disease without esophagitis; F31.9 Bipolar disorder, unspecified; F15.10 Other stimulant abuse, uncomplicated; Z59.00 Homelessness unspecified; Z88.8 Allergy status to other drugs, medicaments and biological substances; Z91.040 Latex allergy status; Z91.013 Allergy to seafood; Z79.899 Other long term (current) drug therapy
CPT/HCPCS: 82948; 96372; 99283; J3490